=== PATIENT | male | born 1940 | race African-American/Black ===

== ENCOUNTER 2017-01-16 11:06 | Inpatient (IN) | payer MEDICARE, BC ==
[2017-01-16] VITALS (13 sets, daily range): BP systolic 123–155; BP diastolic 65–77
[~2017-01-16] VITALS: Ht 170.2 cm; Wt 83.9 kg
[~2017-01-16 11:06] MED LIST: ADVODART; AMLO5TAB2 PO; ASPI-482 PO; ASPI81TA2 PO; BENZ200C39 PO; CALC-74 PO; CEFP200T PO; DOXY100T PO; DUTA0.5C PO; FLUT1DIS3 IH; FOLI1TAB16 PO; HYDR-2869 PO; HYDR12.53 PO; HYDR12.58 PO; INSU100I17 SQ; INSU100I27 SQ; LEVO500T38 PO; LEVO750T31 PO; METF10002 PO; METH2.5T PO; METH2.5T25 PO; PANT40TA3 PO; PRED-220 PO; PRED20TA PO; PRED50TA PO; PROAIR HFA8.5 GM IH; SIMV20TA3 PO; SULF500T7 PO; VALS320T2 PO; VERA120T5 PO; VERA240C2 PO
[2017-01-16] MEDS ORDERED: 0.9 % SODIUM CHLORIDE 10 ML DISP.SYRIN. IV PRN (11:30)
[2017-01-16] MEDS ORDERED: PANTOPRAZOLE IV PUSH 40 MG VIAL. IVP ONE (11:30)
[2017-01-16] MEDS ORDERED: IV NORMAL SALINE 500ML BAG 500 ML IV ONE (11:30)
[2017-01-16] MEDS ORDERED: FENTANYL PF 100 MCG/2 ML VIAL. IV ONE (11:30)
--- NOTE | 2017-01-16 11:36 | PHYS DOC ---
Past Medical History Past Medical History: CAD, Cancer, COPD, Diabetes-Type II, Hypertension, Renal Disease, Other Additional Past Medical Histor: COLON CANCER Past Surgical History: Cancer Surgery, Other Additional Past Surgical Histo: Heart cath, hernia repair,COLON RESECTION Alcohol Use: None Drug Use: None Adult General Chief Complaint Chief Complaint: BLOODY STOOL [facility] HPI Patient is a 76 year old male who presents emergency Department with a complaint of lower abdominal/rectal cramping and 4-5 bloody bowel movements that began at 2:00 this morning. Patient states that he was having problems with constipation over the past 2 days. He states he was able to have one bowel movement day before yesterday and was otherwise normal in appearance. He states that he took a laxative at 11 PM last night. He states that he woke at 2:00 this morning and had his first bowel movement. He states that he felt pressure to have a bowel movement. He states when he looked in the toilet it was bright red blood along with normal- appearing stool. He states he's had 4-5 subsequent bloody bowel movement since that period of time with ongoing lower abdominal cramping and pelvic fullness prior to having a bowel movement. Patient denies previous history of gastrointestinal bleeding. He is not taking anticoagulants. Patient does have a remote history of colon cancer which she had a bowel resection performed without a colostomy. He states it had no problems since that period of time. He denies any history of bowel obstructions. Last by mouth intake was last night. Last bowel movement was just prior to arrival. Patient also has a history of hypertension, hypercholesterolemia, type 2 diabetes and COPD. patient denies chest pain, palpitations, exertional dyspnea, orthopnea or PND. Patient denies near-syncope or syncopal episodes. He does report some generalized weakness and been ongoing for the past 2-3 days prior to the events of this morning. Review of Systems Review of Systems Constitutional: Denies fever or chills [] Eyes: Denies change in visual acuity, redness, or eye pain [] HENT: Denies nasal congestion or sore throat [] Respiratory: Denies cough or shortness of breath [] Cardiovascular: No additional information not addressed in HPI [] GI: Denies abdominal pain, nausea, vomiting, bloody stools or diarrhea [] : Denies dysuria or hematuria [] Musculoskeletal: Denies back pain or joint pain [] Integument: Denies rash or skin lesions [] Neurologic: Denies headache, focal weakness or sensory changes [] Endocrine: Denies polyuria or polydipsia [] Current Medications Current Medications Current Medications Medications (Trade) Dose Ordered Sig/Lindsay Start Time Stop Time Status Last Admin Dose Admin Fentanyl Citrate (Fentanyl 2ml Vial) 50 mcg 1X ONCE 01/16/17 11:30 01/16/17 11:34 DC Pantoprazole Sodium (Protonix Vial) 40 mg 1X ONCE 01/16/17 11:30 01/16/17 11:33 DC 01/16/17 11:52 40 MG Sodium Chloride (Iv Sodium Chloride 0.9% 500ml Bag) 500 ml @ 500 mls/hr 1X ONCE 01/16/17 11:30 01/16/17 12:29 01/16/17 11:50 500 MLS/HR Sodium Chloride 10 ml 10 ml QSHIFT PRN 01/16/17 11:30 Allergies Allergies Allergies Coded Allergies Type Severity Reaction Last Updated Verified No Known Drug Allergies 04/14/15 No Physical Exam Physical Exam Constitutional: Well developed, well nourished, mild distress, non-toxic appearance. Patient reports he feels as if he needs to have a bowel movement at the time of history and physical exam. HENT: Normocephalic, atraumatic, bilateral external ears normal, oropharynx moist, no oral exudates, nose normal. [] Eyes: PERRLA, EOMI, conjunctiva normal, no discharge. [] Neck: Normal range of motion, no tenderness, supple, no stridor. [] Cardiovascular:Heart rate 80 regular rhythm, no murmur Lungs & Thorax: Patient is oxygen dependent. He shows no evidence of respiratory distress respiratory fatigue. Scant amount of end expiratory wheezing in all lung white. Abdomen: Abdomen is soft and nondistended. There are hyperactive bowel sounds heard throughout the abdomen. There is no palpable defects of the abdominal wall or pulsatile masses. There is focal tenderness in the midline of the lower abdomen and slightly to the left lower quadrant region. There is no rebound or guarding. There are no anal fissures or hemorrhoids. Skin: Warm, dry, no erythema, no rash. [] Back: No tenderness, no CVA tenderness. [] Extremities: No tenderness, no cyanosis, no clubbing, ROM intact, no edema. [] Neurologic: Alert and oriented X 3, normal motor function, normal sensory function, no focal deficits noted. [] Psychologic: Affect normal, judgement normal, mood normal. After physical exam was completed, patient went to the restroom in which he produced a large amount of bright red blood into the toilet. No stool was seen. Current Patient Data Vital Signs Vital Signs Date Time Temp Pulse Resp B/P Pulse Ox O2 Delivery O2 Flow Rate FiO2 01/16/17 11:10 98.0 90 22 160/81 100 Nasal Cannula 3 98.0 EKG EKG [] Radiology/Procedures Radiology/Procedures [] Course & Med Decision Making Course & Med Decision Making Pertinent Labs and Imaging studies reviewed. (See chart for details) [] Dragon Disclaimer Dragon Disclaimer This electronic medical record was generated, in whole or in part, using a voice recognition dictation system. Departure Departure Impression: Primary Impression: GI bleed Referrals: KULDIP GRANADOS (PCP) ETTA MILLS Jan 16, 2017 11:36
[2017-01-16 12:04] LABS: BASO # 0.1 x10^3/uL (0.0-0.2); BASO % 1 % (0-3); EOS % 4 % (0-3); HEMATOCRIT 29.8 % (39.0-53.0); HEMOGLOBIN 9.4 g/dL (13.0-17.5); LYMPH # 2.1 x10^3/uL (1.0-4.8); LYMPH % 22 % (24-48); MEAN CORPUSCULAR HEMOGLOBIN 23 pg (25-35); MEAN CORPUSCULAR HGB CONC 32 g/dL (31-37); MEAN CORPUSCULAR VOLUME 71 fL (79-100); MONO % 12 % (0-9); NEUT % 62 % (31-73); PLATELET COUNT 254 x10^3/uL (140-400); RED BLOOD COUNT 4.17 x10^6/uL (4.30-5.70); RED CELL DISTRIBUTION WIDTH 21.5 % (11.5-14.5); WHITE BLOOD COUNT 9.3 x10^3/uL (4.0-11.0)
[2017-01-16 12:05] LABS: CALCIUM 9.2 mg/dL (8.5-10.1); CREATININE 1.8 mg/dL (0.7-1.3); GFR 44.5; POTASSIUM 4.5 mmol/L (3.5-5.1)
[2017-01-16 12:08] LABS: INR 1.1 (0.8-1.1); PROTHROMBIN TIME PATIENT 13.9 SEC (11.7-14.0)
[2017-01-16 12:12] LABS: ALBUMIN/GLOBULIN RATIO 0.8 (1.0-1.7); TOTAL BILIRUBIN 0.5 mg/dL (0.2-1.0)
[2017-01-16] MEDS ORDERED: IV NORMAL SALINE 1000ML BAG 1,000 ML IV SCH (12:15)
[2017-01-16] MEDS ORDERED: IOHEXOL 300 MG/ML 75 ML VIAL IV ONE (12:15)
[2017-01-16] MEDS ORDERED: ONDANSETRON PF 4 MG/2 ML VIAL. IV PRN ×2 (12:15→12:30)
[2017-01-16] MEDS ORDERED: NON FORMULARY ITEM (Albuterol Sulfate (Proair Hfa Inhaler) 2 PUFF) IH SCH (12:15)
[2017-01-16] MEDS ORDERED: MORPHINE SULFATE 2 MG/ML DISP.SYRIN. IV PRN ×2 (12:15→12:30)
[2017-01-16] MEDS ORDERED: ACETAMINOPHEN 325 MG TABLET. PO PRN (12:15)
--- NOTE | 2017-01-16 12:24 | ACF ---
Admission Forms Criteria GASTROINTESTINAL BLEEDING Clinical Indications for Inpatient Care (Place 'X' for any and all applicable criteria): Ongoing inpatient care may be indicated for gastrointestinal bleeding with ANY ONE of the following (4)(20)(21)(22)(23)(24): [X]I. Active bleeding (eg, fresh voluminous blood in emesis or nasogastric aspirate, or per rectum) [ ]II. Hemodynamic instability [ ]III. Anticoagulation therapy or coagulopathy ((eg, advanced liver disease, irreversible anticoagulation) [ ]IV. Ischemic colitis (22) [ ]V. Endoscopy showing arterial bleeding, adherent clot, nonbleeding visible vessel, varices, flat red spots, ulcer size greater than 2 cm, or portal hypertensive gastropathy [ ]. High-risk low platelet count [ ]VII. Anemia requiring inpatient care as indicated by ANY ONE of the following a)[ ] Cognitive impairment b)[ ] Syncope c)[ ] Heart failure d)[ ] Chest pain e)[ ] Dyspnea f)[ ] Other findings suggesting inadequate perfusion (eg, peripheral or myocardial ischemia, end organ dysfunction) [ ]VIII. High-risk low platelet count [ ]IX. Suspected variceal cause of bleeding as indicated by ANY ONE of the following(27)(28): a)[ ] Known varices b)[ ] Hepatomegaly or splenomegaly c)[ ] Ascites d)[ ] Jaundice or scleral icterus e)[ ] History of liver disease (eg, cirrhosis) f)[ ] Physical findings of portal hypertension (eg, caput medusa) g)[ ] Comorbid disorder indicating risk for portal vein thrombosis (eg , abdominal surgery, sepsis, shock, exchange transfusion, prior umbilical vein catheterization) Extended stay may be needed until ALL of the following are present(20)(38)(47): [ ]a) Hemodynamic stability [ ]b) No evidence of active bleeding (eg, stable Hematocrit) [ ]c) Platelet count, prothrombin time, and partial thromboplastin time acceptable for next level of care [ ]d) Surgical or other acute intervention not needed [ ]e) Oral hydration and diet tolerated The original [employer] content created by [employer] has been revised. The portions of the content which have been revised are identified through the use of italic text or in bold, and [employer] has neither reviewed nor approved the modified material. All other unmodified content is copyright [facility]. Please see references footnoted in the original [facility] edition 2016 Admission Criteria Met?: Yes ANSELMO PHAN Jan 16, 2017 12:24
[2017-01-16] MEDS ORDERED: CONTRAST GIVEN MC PRN (12:30)
--- NOTE | 2017-01-16 12:30 | PDOC1 ---
History and Physical Date of Admission Date of Admission DATE: 01/16/17 TIME: 12:23 Identification/Chief Complaint Chief Complaint bloody BM Source Source: Caregiver, Chart review, Patient History of Present Illness History of Present Illness 76 y./o AA male started to have Bloody BM 2-3 AM this AM,. never happened before ,. On ASA 81 at home, nothing else, denies constant NSAID use, no melena, no hematochezia. BRBPR on CAMILLE, VS ok so far, Labs pending, SOme dizziness which he claims is chronic for him., Hx of colon CA, (Yane Lobo)? sounds limited, had colon resection many yrs ago (no colostomy), did not need any chemo or radiation, SO has had multiple c scopes in past, last one unrecalled how long ago. CLaims cancer free now, By hx sounds like CLeeding diverticulosus/itis given lack of signif pain and is BRBPR. CT abd ordered but pending. Past Medical History Cardiovascular: CAD, HTN Pulmonary: COPD, Pneumonia, Other CENTRAL NERVOUS SYSTEM: Other GI: No pertinent hx Heme/Onc: Cancer Hepatobiliary: No pertinent hx Psych: No pertinent hx Musculoskeletal: Osteoarthritis Rheumatologic: Rheumatoid arthritis Infectious disease: Herpes zoster Renal/: Chronic renal insuff, UTI, Benign prostatic enlarg. Endocrine: Diabetes Past Surgical History Past Surgical History: Hernia Repair, Colon Resection Family History Family History: No Significant Social History Smoke: No ALCOHOL: none Drugs: None Current Problem List Problem List Problems Medical Problems: (1) GI bleed Status: Acute Problems: Current Medications Current Medications Current Medications Sodium Chloride 10 ml 10 ml QSHIFT PRN IV AFTER MEDS AND BLOOD DRAWS; Start 08/25 at 11:30 Sodium Chloride (Iv Sodium Chloride 0.9% 500ml Bag) 500 ml @ 500 mls/hr 1X ONCE IV Last administered on 01/16/17 11:50; Start 01/16/17 at 11:30; Stop 08/25 at 12:29 Pantoprazole Sodium (Protonix Vial) 40 mg 1X ONCE IVP Last administered on 11:52; Start 01/16/17 at 11:30; Stop 01/16/17 at 11:33; Status DC Fentanyl Citrate (Fentanyl 2ml Vial) 50 mcg 1X ONCE IV ; Start 01/16/17 at 11: 30; Stop 01/16/17 at 11:34; Status DC Iohexol (Omnipaque 300 Mg/ml) 60 ml 1X ONCE IV ; Start 01/16/17 at 12:15; Stop 01/16/17 at 12:18; Status DC Info (Do NOT chart on this entry -- for MONITORING) 1 each PRN DAILY PRN MC SEE COMMENTS; Start 01/16/17 at 12:30; Stop 01/18/17 at 12:29 Active Scripts Active Levemir Flextouch (Insulin Detemir) 100 Unit/1 Ml Insuln.pen 35 Units SQ HS 30 Days Doxycycline Hyclate 100 Mg Tablet 100 Mg PO BID 5 Days Proair Hfa Inhaler (Albuterol Sulfate) 8.5 Gm Hfa.aer.ad 2 Puff IH PRN Q4-6HRS Novolog Flexpen (Insulin Aspart) 300 Units/3 Ml Insuln.pen 10 Units SQ TIDAC Reported Hydralazine Hcl 50 Mg Tablet 50 Mg PO TID Verapamil Er (Verapamil Hcl) 240 Mg Cap24h.pel 360 Mg PO DAILY Sulfasalazine 500 Mg Tablet 1,000 Mg PO BID Antacid Chewable Tablet (Calcium Carbonate/Mag Hydrox) 1 Each Tab.chew 1 Each PO DAILY Advair 250-50 Diskus (Fluticasone/Salmeterol) 1 Each Disk.w.dev 1 Inh IH BID Aspir 81 (Aspirin) 81 Mg Tablet.dr 81 Mg PO DAILY Folic Acid 1 Mg Tablet 1 Mg PO DAILY Avodart (Dutasteride) 0.5 Mg Capsule 0.5 Mg PO DAILY Simvastatin 20 Mg Tablet 20 Mg PO HS Allergies Allergies: Coded Allergies: No Known Drug Allergies (Unverified , 04/14/15) ROS General: No: Appetite, Chills, Fatigue, Malaise, Night Sweats, Other PSYCHOLOGICAL ROS: No: Anxiety, Behavioral Disorder, Concentration difficultie , Decreased libido, Depression, Disorientation, Hallucinations, Hostility, Irritablity, Memory difficulties, Mood Swings, Obsessive thoughts, Other, Physical abuse, Sexual abuse, Sleep disturbances, Suicidal ideation Eyes: No Blurry vision, No Decreased vision, No Double vision, No Dry eyes, No Excessive tearing, No Eye Pain, No Itchy Eyes, No Loss of vision, No Other, No Photophobia, No Scotomata, No Uses contacts, No Uses glasses HEENT: No: Epistaxis, Heacaches, Hearing change, Nasal congestion, Nasal discharge, Oral lesions, Other, Sinus pain, Sneezing, Snoring, Sore Throat, Tinnitus, Vertigo, Visual Changes, Vocal changes ALLERGY AND IMMUNOLOGY: No: Hives, Insect Bite Sensitivity, Itchy/Watery Eyes, Nasal Congestion, Other, Post Nasal Drip, Seasonal Allergies Hematological and Lymphatic: No: Bleeding Problems, Blood Clots, Blood Transfusions, Brusing, Night Sweats, Other, Pallor, Swollen Lymph Nodes ENDOCRINE: No: Breast Changes, Galactorrhea, Hair Pattern Changes, Hot Flashes , Malaise/lethargy, Mood Swings, Other, Palpitations, Polydipsia/polyuria, Skin Changes, Temperature Intolerance, Unexpected Weight Changes Breast: No New/Changing Breast Lumps, No Nipple changes, No Nipple discharge, No Other Respiratory: No: Cough, Hemoptysis, Orthopnea, Other, Pleuritic Pain, SOB with excertion, Shortness of breath, Sputum Changes, Stridor, Tachypnea, Wheezing Cardiovascular: No Chest Pain, No Edema, No Lt Headedness, No Orthopnea, No Other, No Palpitations, No Paroxysmal Noc. Dyspnea Gastrointestinal: Yes Abdominal Pain, Yes Other (BRBPR) Genitourinary: No , No , No , No , No , No , No , No Discharge, No Dysuria, No Flank Pain, No Frequency, No Hematuria, No Incontinence, No Other, No Pain, No Retention, No Urgency Musculoskeletal: No Gait Disturbance, No Joint Pain, No Joint Stiffness, No Joint Swelling, No Muscle Pain, No Muscular Weakness, No Other, No Pain In:, No Swelling In: Neurological: No Behavorial Changes, No Bowel/Bladder ControlChng, No Confusion , No Dizziness, No Gait Disturbance, No Headaches, No Impaired Coord/balance, No Memory Loss, No Numbness/Tingling, No Other, No Seizures, No Speech Problems , No Tremors, No Visual Changes, No Weakness Skin: No Acne, No Dry Skin, No Eczema, No Hair Changes, No Lumps, No Mole Changes, No Mottling, No Nail Changes, No Other, No Pruritus, No Rash, No Skin Lesion Changes Physical Exam General: Alert, Oriented X3, Cooperative, No acute distress HEENT: Atraumatic, PERRLA, EOMI Lungs: Clear to auscultation, Normal air movement Heart: S1S2, RRR, no thrills, no rubs, no gallops Cardiovascular: S1, S2 Breasts: Normal Abdomen: Normal bowel sounds, Soft, No tenderness, No hepatosplenomegaly, No masses Male Genitals Exam: normal genitalia, normal prostate, other (positive CAMILLE) Rectal Exam: other (positicve CAMILLE) Extremities: No clubbing, No cyanosis, No edema, Normal pulses, No tenderness/ swelling Skin: No rashes, No breakdown, No significant lesion Neuro: Normal gait, Normal speech, Strength at 5/5 X4 ext, Normal tone, Sensation intact, Cranial nerves 3-12 NL, Reflexes 2+ Psych/Mental Status: Mental status NL, Mood NL Vitals Vitals Vital Signs Date Time Temp Pulse Resp B/P Pulse Ox O2 Delivery O2 Flow Rate FiO2 01/16/17 11:10 98.0 90 22 160/81 100 Nasal Cannula 3 98.0 Labs Labs Laboratory Tests Test 01/16/17 11:40 White Blood Count 9.3x10^3/uL (4.0-11.0) Red Blood Count 4.17x10^6/uL (4.30-5.70) Hemoglobin 9.4g/dL (13.0-17.5) Hematocrit 29.8% (39.0-53.0) Mean Corpuscular Volume 71fL (79-100) Mean Corpuscular Hemoglobin 23pg (25-35) Mean Corpuscular Hemoglobin Concent 32g/dL (31-37) Red Cell Distribution Width 21.5% (11.5-14.5) Platelet Count 254x10^3/uL (140-400) Neutrophils (%) (Auto) 62% (31-73) Lymphocytes (%) (Auto) 22% (24-48) Monocytes (%) (Auto) 12% (0-9) Eosinophils (%) (Auto) 4% (0-3) Basophils (%) (Auto) 1% (0-3) Neutrophils # (Auto) 5.7x10^3uL (1.8-7.7) Lymphocytes # (Auto) 2.1x10^3/uL (1.0-4.8) Monocytes # (Auto) 1.1x10^3/uL (0.0-1.1) Eosinophils # (Auto) 0.4x10^3/uL (0.0-0.7) Basophils # (Auto) 0.1x10^3/uL (0.0-0.2) Prothrombin Time 13.9SEC (11.7-14.0) Prothromb Time International Ratio 1.1 (0.8-1.1) Sodium Level 143mmol/L (136-145) Potassium Level 4.5mmol/L (3.5-5.1) Chloride Level 107mmol/L (98-107) Carbon Dioxide Level 26mmol/L (21-32) Anion Gap 10 (6-14) Blood Urea Nitrogen 29mg/dL (8-26) Creatinine 1.8mg/dL (0.7-1.3) Estimated GFR (Cockcroft-Gault) 44.5 BUN/Creatinine Ratio 16 (6-20) Glucose Level 77mg/dL (70-99) Calcium Level 9.2mg/dL (8.5-10.1) Total Bilirubin 0.5mg/dL (0.2-1.0) Aspartate Amino Transf (AST/SGOT) 15U/L (15-37) Alanine Aminotransferase (ALT/SGPT) 11U/L (16-63) Alkaline Phosphatase 80U/L (46-116) Total Protein 7.0g/dL (6.4-8.2) Albumin 3.0g/dL (3.4-5.0) Albumin/Globulin Ratio 0.8 (1.0-1.7) Laboratory Tests Test 01/16/17 11:40 White Blood Count 9.3x10^3/uL (4.0-11.0) Red Blood Count 4.17x10^6/uL (4.30-5.70) Hemoglobin 9.4g/dL (13.0-17.5) Hematocrit 29.8% (39.0-53.0) Mean Corpuscular Volume 71fL (79-100) Mean Corpuscular Hemoglobin 23pg (25-35) Mean Corpuscular Hemoglobin Concent 32g/dL (31-37) Red Cell Distribution Width 21.5% (11.5-14.5) Platelet Count 254x10^3/uL (140-400) Neutrophils (%) (Auto) 62% (31-73) Lymphocytes (%) (Auto) 22% (24-48) Monocytes (%) (Auto) 12% (0-9) Eosinophils (%) (Auto) 4% (0-3) Basophils (%) (Auto) 1% (0-3) Neutrophils # (Auto) 5.7x10^3uL (1.8-7.7) Lymphocytes # (Auto) 2.1x10^3/uL (1.0-4.8) Monocytes # (Auto) 1.1x10^3/uL (0.0-1.1) Eosinophils # (Auto) 0.4x10^3/uL (0.0-0.7) Basophils # (Auto) 0.1x10^3/uL (0.0-0.2) Prothrombin Time 13.9SEC (11.7-14.0) Prothromb Time International Ratio 1.1 (0.8-1.1) Sodium Level 143mmol/L (136-145) Potassium Level 4.5mmol/L (3.5-5.1) Chloride Level 107mmol/L (98-107) Carbon Dioxide Level 26mmol/L (21-32) Anion Gap 10 (6-14) Blood Urea Nitrogen 29mg/dL (8-26) Creatinine 1.8mg/dL (0.7-1.3) Estimated GFR (Cockcroft-Gault) 44.5 BUN/Creatinine Ratio 16 (6-20) Glucose Level 77mg/dL (70-99) Calcium Level 9.2mg/dL (8.5-10.1) Total Bilirubin 0.5mg/dL (0.2-1.0) Aspartate Amino Transf (AST/SGOT) 15U/L (15-37) Alanine Aminotransferase (ALT/SGPT) 11U/L (16-63) Alkaline Phosphatase 80U/L (46-116) Total Protein 7.0g/dL (6.4-8.2) Albumin 3.0g/dL (3.4-5.0) Albumin/Globulin Ratio 0.8 (1.0-1.7) VTE Prophylaxis Ordered VTE Prophylaxis Devices: Contraindicated VTE Pharmacological Prophylaxi: Contraindicated Assessment/Plan Assessment/Plan 1. BRBPR likely DIVERTICULAR BLEED - waiting for CBC., coags and CT abd - liquid diet - IVF - consult GI - PPI - Hold ASA 2. Hx colon CA (limited.early stage s/p colon resection distant past) 3. DM 2 on insulin - moniotr for hypoglycemia since liq diet and on isnsulin - adjust accdgly 4. HTN, controlled - WOF hypotension seen AT ER Admit 2 MN Med tele If rebleeds profusely, bleeding scan ELOISA KING MD Jan 16, 2017 12:30
--- NOTE | 2017-01-16 12:46 | RAD ---
EXAM: CT abdomen/pelvis with contrast. HISTORY: Abdominal pain. Rectal bleeding. TECHNIQUE: Computed tomography of the abdomen and pelvis was performed after the intravenous administration of 60 mL Omnipaque 300. COMPARISON: 10/30/2015. FINDINGS: Lung windows through the visualized portions of the bases reveal subpleural predominant interstitial line thickening with mild traction bronchiectasis, consistent with interstitial lung disease. Coronary atherosclerotic calcifications are noted. Bone windows reveal no suspicious lesions. There is grade 1 anterolisthesis at L4-5 from facet osteoarthritis. There are multiple cysts bilaterally in the kidneys measuring up to 4 cm on the left. A complicated cyst posteriorly in the right interpolar region measures 2.3 cm and contains small internal calcifications versus tiny foci of enhancement. It is not clearly changed since 2014 and likely benign. Another small dense nodule posteriorly in the lower pole measures 1 cm and is also unchanged. The liver, gallbladder, pancreas and spleen are unremarkable. There are no pathologically enlarged lymph nodes. Impression wall thickening along the distal rectum. There is an anastomotic suture line at the rectosigmoid junction. There is also wall thickening along the descending colon. Another suture line is seen at the cecum. There is no small bowel obstruction. No small bowel wall thickening is seen.. IMPRESSION: 1. Wall thickening of the descending colon and rectum. This is likely inflammatory given the segmental distribution. Infectious, inflammatory and ischemic etiologies are possible. Colonoscopy could further evaluate if there is persistent concern. 2. Nodules posteriorly along the right kidney are stable since 10/30/2015 and are most likely complicated cysts. Sonography could further exclude solid lesions if there is persistent concern. 3. Interstitial lung disease in the bases. *One or more of the following individualized dose reduction techniques were utilized for this examination: 1. Automated exposure control. 2. Adjustment of the mA and/or kV according to patient size. 3. Use of iterative reconstruction technique.
[2017-01-16 12:55] LABS: BILIRUBIN,URINE NEGATIVE (NEG); GLUCOSE,URINE NEGATIVE (NEG); NITRITE,URINE NEGATIVE (NEG); PROTEIN,URINE 30 mg/dL (NEG-TRACE)
[2017-01-16] MEDS: ALBUTEROL SULFATE 2.5 MG/3 ML NEBU. NEB SCH ×3 (13:00→23:32)
[2017-01-16] MEDS: PANTOPRAZOLE IV PUSH 40 MG VIAL. IVP SCH (13:00)
[2017-01-16 13:01] LABS: BACTERIA,URINE FEW /HPF (0-FEW); SQUAMOUS EPITHELIAL CELL,UR FEW /LPF
[2017-01-16] MEDS: CALCIUM CARBONATE 500 MG TAB.CHEW PO SCH (13:15)
[2017-01-16] MEDS ORDERED: ALBUTEROL SULFATE 2.5 MG/3 ML NEBU. NEB PRN (13:15)
[2017-01-16] MEDS: HYDRALAZINE 50 MG TABLET PO SCH ×2 (14:00→20:57)
--- NOTE | 2017-01-16 14:43 | PDOC2 ---
GI CONSULT Reason For Consult: Hematochezia HPI: HPI: 76 y/o AA male admitted through ER this afternoon. Previously d/w Dr. Wilcox, ER physician. H/o constipation, has been taking Miralax for this. Awoke at 1:00 a.m. w/ urge to stool, noted red blood. This recurred 4-5 times in increasing amounts at home prompting further evaluation in ER and has continued w/ 3 episodes here. ( Noted significant bright red blood w/ some formed stool in commode.) Denies abdominal pain but perhaps has some discomfort (although cannot localize this). No n/v. Some dizziness. H/o COPD w/ stable SOA. H/o colon cancer requiring resection only in the . Has since had a few colonoscopies by Dr. Yane Roca, last within 10 years. Denies diverticulosis or previous episodes of bleeding. H/o GERD on Nexium at one point, now only requiring Tums PRN. Was taking Aleve PRN but stopped ~1 month ago. Does take ASA 81mg QD. Hgb 9.4 w/ low indices. BUN 29, Cr 1.8. CT w/ wall thickening in descending colon and rectum. PMH: PMH: colon cancer, GERD, HTN, DM, COPD, CKD, TAMMY (stopped CPAP 1 month ago), RA ( stopped sulfasalazine 2 months ago), BPH, herpes zoster, diabetic retinopathy, colon resection ( by Dr. Meraz), bilateral inguinal hernia repair, nasal surgery (removal of benign mass) FH: Family History: Other (father - pancreatitis) Social History: Smoke: Quit ALCOHOL: none Drugs: None ROS: GEN: Denies fevers, chills, sweats HEENT: Denies blurred vision, sore throat CV: Denies chest pain RESP: +SOA (says baseline) GI: Per HPI : Denies hematuria, dysuria ENDO: Denies weight changes NEURO: +dizziness MSK: Denies weakness, joint pain/swelling SKIN: Denies jaundice, pruritus VItals: Vitals: Vital Signs Date Time Temp Pulse Resp B/P Pulse Ox O2 Delivery O2 Flow Rate FiO2 01/16/17 13:44 Nasal Cannula 3.0 01/16/17 13:43 97.9 89 18 138/74 97 97.9 Labs: Labs: Laboratory Tests Test 01/16/17 11:40 01/16/17 12:45 White Blood Count 9.3x10^3/uL (4.0-11.0) Red Blood Count 4.17x10^6/uL (4.30-5.70) Hemoglobin 9.4g/dL (13.0-17.5) Hematocrit 29.8% (39.0-53.0) Mean Corpuscular Volume 71fL (79-100) Mean Corpuscular Hemoglobin 23pg (25-35) Mean Corpuscular Hemoglobin Concent 32g/dL (31-37) Red Cell Distribution Width 21.5% (11.5-14.5) Platelet Count 254x10^3/uL (140-400) Neutrophils (%) (Auto) 62% (31-73) Lymphocytes (%) (Auto) 22% (24-48) Monocytes (%) (Auto) 12% (0-9) Eosinophils (%) (Auto) 4% (0-3) Basophils (%) (Auto) 1% (0-3) Neutrophils # (Auto) 5.7x10^3uL (1.8-7.7) Lymphocytes # (Auto) 2.1x10^3/uL (1.0-4.8) Monocytes # (Auto) 1.1x10^3/uL (0.0-1.1) Eosinophils # (Auto) 0.4x10^3/uL (0.0-0.7) Basophils # (Auto) 0.1x10^3/uL (0.0-0.2) Prothrombin Time 13.9SEC (11.7-14.0) Prothromb Time International Ratio 1.1 (0.8-1.1) Sodium Level 143mmol/L (136-145) Potassium Level 4.5mmol/L (3.5-5.1) Chloride Level 107mmol/L (98-107) Carbon Dioxide Level 26mmol/L (21-32) Anion Gap 10 (6-14) Blood Urea Nitrogen 29mg/dL (8-26) Creatinine 1.8mg/dL (0.7-1.3) Estimated GFR (Cockcroft-Gault) 44.5 BUN/Creatinine Ratio 16 (6-20) Glucose Level 77mg/dL (70-99) Calcium Level 9.2mg/dL (8.5-10.1) Total Bilirubin 0.5mg/dL (0.2-1.0) Aspartate Amino Transf (AST/SGOT) 15U/L (15-37) Alanine Aminotransferase (ALT/SGPT) 11U/L (16-63) Alkaline Phosphatase 80U/L (46-116) Total Protein 7.0g/dL (6.4-8.2) Albumin 3.0g/dL (3.4-5.0) Albumin/Globulin Ratio 0.8 (1.0-1.7) Urine Collection Type Unknown Urine Color Yellow Urine Clarity Clear Urine pH 5.0 Urine Specific [place] 1.020 Urine Protein 30mg/dL (NEG-TRACE) Urine Glucose (UA) Negativemg/dL (NEG) Urine Ketones (Stick) Negativemg/dL (NEG) Urine Blood Negative (NEG) Urine Nitrite Negative (NEG) Urine Bilirubin Negative (NEG) Urine Urobilinogen Dipstick 1.0mg/dL (0.2 mg/dL) Urine Leukocyte Esterase Negative (NEG) Urine RBC 1-2/HPF (0-2) Urine WBC 1-4/HPF (0-4) Urine Squamous Epithelial Cells Few/LPF Urine Renal Epithelial Cells Occ/LPF Urine Bacteria Few/HPF (0-FEW) Urine Hyaline Casts Few/HPF Urine Mucus Mod/LPF Allergies: Coded Allergies: No Known Drug Allergies (Unverified , 04/14/15) Medications: Current Medications Medications (Trade) Dose Ordered Sig/Lindsay Route PRN Reason Start Time Stop Time Status Last Admin Dose Admin Sodium Chloride (Iv Sodium Chloride 0.9% 500ml Bag) 500 ml @ 500 mls/hr 1X ONCE IV 01/16/17 11:30 01/16/17 12:29 DC 01/16/17 11:50 Pantoprazole Sodium (Protonix Vial) 40 mg 1X ONCE IVP 01/16/17 11:30 01/16/17 11:33 DC 01/16/17 11:52 Iohexol (Omnipaque 300 Mg/ml) 60 ml 1X ONCE IV 01/16/17 12:15 01/16/17 12:18 DC 01/16/17 12:23 Imaging: Imaging: CT A/P IMPRESSION: 1. Wall thickening of the descending colon and rectum. This is likely inflammatory given the segmental distribution. Infectious, inflammatory and ischemic etiologies are possible. Colonoscopy could further evaluate if there is persistent concern. 2. Nodules posteriorly along the right kidney are stable since 10/30/2015 and are most likely complicated cysts. Sonography could further exclude solid lesions if there is persistent concern. 3. Interstitial lung disease in the bases. PE: GEN: NAD HEENT: Atraumatic, PERRL LUNGS: decreased w/ nasal cannula, ?tachypneic HEART: RRR ABD: BS+, S/ND/NT EXTREMITY: No edema SKIN: No rashes, no jaundice NEURO/PSYCH: A & O 3 A/P: A/P: Hematochezia -was taking Miralax for constipation -onset 1:00 a.m. this morning, continued w/ increased severity throughout the day -some abd discomfort, perhaps dizziness -labs as above H/o colon cancer s/p resection Abnormal CT -wall thickening descending and rectum -- Possible bleeding scan. Will review w/ Dr. Hernandez. Keep NPO for now. KITTY GOMEZ Jan 16, 2017 14:43
[2017-01-16 15:05] LABS: PLT ESTIMATE ADEQUATE (ADEQUATE)
[2017-01-16 15:07] LABS: ANISOCYTOSIS MOD; HYPOCHROMIA MOD; MICROCYTOSIS MOD; POIKILOCYTOSIS MOD; POLYCHROMASIA SLIGHT
[2017-01-16 15:12] LABS: OVALOCYTES OCC; TEAR DROP CELLS OCC
[2017-01-16 15:17] LABS: HELMET CELLS FEW; SCHISTOCYTES FEW
[2017-01-16] MEDS: INSULIN ASPART 300 UNITS/3 ML INSULN.PEN SQ SCH ×2 (16:11)
[2017-01-16 18:09] LABS: HEMATOCRIT 24.1 % (39.0-53.0); HEMOGLOBIN 7.6 g/dL (13.0-17.5); RED BLOOD COUNT 3.29 x10^6/uL (4.30-5.70); RED CELL DISTRIBUTION WIDTH 21.1 % (11.5-14.5); WHITE BLOOD COUNT 8.7 x10^3/uL (4.0-11.0)
[2017-01-16] MEDS: BUDESONIDE 0.5 MG/2 ML NEBU NEB SCH (19:38)
--- NOTE | 2017-01-16 19:45 | RAD ---
INDICATION: Hematochezia, possible diverticular bleed, bright red rectal bleed. TECHNIQUE: 31.0 mCi of Tc99m labeled red blood cells administered intravenously with anterior static and cine images of the abdomen provided over an hour. COMPARISON: None FINDINGS: No abnormal accumulation or propagation of radiotracer is seen within the abdomen on the initial static images. On the cine and more delayed static images, there is accumulation of radiotracer demonstrated over the region of the rectum, without propagation seen. Normal activity is seen within the vascular pool. IMPRESSION: Accumulation of radiotracer over the region of the rectum, suggesting a bleed at this level. Electronically signed by: Laura Nye (Jan 16, 2017 19:44:24)
--- NOTE | 2017-01-16 20:48 | PDOC ---
SURGICAL PROGRESS NOTE Subjective 76 yo M with syncopal episode and rectal bleeding currently feels better, stable in the ICU abd soft, ND, NTTP I/R colitis cont supportive care no surgical plans will follow Thanks for consult! [id number] Vital Signs Vital Signs Date Time Temp Pulse Resp B/P Pulse Ox O2 Delivery O2 Flow Rate FiO2 01/16/17 20:00 78 13 142/66 100 Nasal Cannula 3.0 01/16/17 19:42 98.4 98.4 Labs Laboratory Tests Test 01/16/17 11:40 01/16/17 12:45 01/16/17 18:05 White Blood Count 9.3x10^3/uL (4.0-11.0) 8.7x10^3/uL (4.0-11.0) Red Blood Count 4.17x10^6/uL (4.30-5.70) 3.29x10^6/uL (4.30-5.70) Hemoglobin 9.4g/dL (13.0-17.5) 7.6g/dL (13.0-17.5) Hematocrit 29.8% (39.0-53.0) 24.1% (39.0-53.0) Mean Corpuscular Volume 71fL (79-100) 73fL (79-100) Mean Corpuscular Hemoglobin 23pg (25-35) 23pg (25-35) Mean Corpuscular Hemoglobin Concent 32g/dL (31-37) 32g/dL (31-37) Red Cell Distribution Width 21.5% (11.5-14.5) 21.1% (11.5-14.5) Platelet Count 254x10^3/uL (140-400) 188x10^3/uL (140-400) Neutrophils (%) (Auto) 62% (31-73) Lymphocytes (%) (Auto) 22% (24-48) Monocytes (%) (Auto) 12% (0-9) Eosinophils (%) (Auto) 4% (0-3) Basophils (%) (Auto) 1% (0-3) Neutrophils # (Auto) 5.7x10^3uL (1.8-7.7) Lymphocytes # (Auto) 2.1x10^3/uL (1.0-4.8) Monocytes # (Auto) 1.1x10^3/uL (0.0-1.1) Eosinophils # (Auto) 0.4x10^3/uL (0.0-0.7) Basophils # (Auto) 0.1x10^3/uL (0.0-0.2) Platelet Estimate Adequate (ADEQUATE) Giant Platelets Occ Polychromasia Slight Hypochromasia Mod Poikilocytosis Mod Anisocytosis Mod Microcytosis Mod Macrocytosis Slight Tear Drop Cells Occ Ovalocytes Occ Helmet Cells Few Schistocytes Few Prothrombin Time 13.9SEC (11.7-14.0) Prothromb Time International Ratio 1.1 (0.8-1.1) Sodium Level 143mmol/L (136-145) Potassium Level 4.5mmol/L (3.5-5.1) Chloride Level 107mmol/L (98-107) Carbon Dioxide Level 26mmol/L (21-32) Anion Gap 10 (6-14) Blood Urea Nitrogen 29mg/dL (8-26) Creatinine 1.8mg/dL (0.7-1.3) Estimated GFR (Cockcroft-Gault) 44.5 BUN/Creatinine Ratio 16 (6-20) Glucose Level 77mg/dL (70-99) Calcium Level 9.2mg/dL (8.5-10.1) Total Bilirubin 0.5mg/dL (0.2-1.0) Aspartate Amino Transf (AST/SGOT) 15U/L (15-37) Alanine Aminotransferase (ALT/SGPT) 11U/L (16-63) Alkaline Phosphatase 80U/L (46-116) Total Protein 7.0g/dL (6.4-8.2) Albumin 3.0g/dL (3.4-5.0) Albumin/Globulin Ratio 0.8 (1.0-1.7) Urine Collection Type Unknown Urine Color Yellow Urine Clarity Clear Urine pH 5.0 Urine Specific [place] 1.020 Urine Protein 30mg/dL (NEG-TRACE) Urine Glucose (UA) Negativemg/dL (NEG) Urine Ketones (Stick) Negativemg/dL (NEG) Urine Blood Negative (NEG) Urine Nitrite Negative (NEG) Urine Bilirubin Negative (NEG) Urine Urobilinogen Dipstick 1.0mg/dL (0.2 mg/dL) Urine Leukocyte Esterase Negative (NEG) Urine RBC 1-2/HPF (0-2) Urine WBC 1-4/HPF (0-4) Urine Squamous Epithelial Cells Few/LPF Urine Renal Epithelial Cells Occ/LPF Urine Bacteria Few/HPF (0-FEW) Urine Hyaline Casts Few/HPF Urine Mucus Mod/LPF Laboratory Tests Test 01/16/17 11:40 01/16/17 12:45 01/16/17 18:05 White Blood Count 9.3x10^3/uL (4.0-11.0) 8.7x10^3/uL (4.0-11.0) Red Blood Count 4.17x10^6/uL (4.30-5.70) 3.29x10^6/uL (4.30-5.70) Hemoglobin 9.4g/dL (13.0-17.5) 7.6g/dL (13.0-17.5) Hematocrit 29.8% (39.0-53.0) 24.1% (39.0-53.0) Mean Corpuscular Volume 71fL (79-100) 73fL (79-100) Mean Corpuscular Hemoglobin 23pg (25-35) 23pg (25-35) Mean Corpuscular Hemoglobin Concent 32g/dL (31-37) 32g/dL (31-37) Red Cell Distribution Width 21.5% (11.5-14.5) 21.1% (11.5-14.5) Platelet Count 254x10^3/uL (140-400) 188x10^3/uL (140-400) Neutrophils (%) (Auto) 62% (31-73) Lymphocytes (%) (Auto) 22% (24-48) Monocytes (%) (Auto) 12% (0-9) Eosinophils (%) (Auto) 4% (0-3) Basophils (%) (Auto) 1% (0-3) Neutrophils # (Auto) 5.7x10^3uL (1.8-7.7) Lymphocytes # (Auto) 2.1x10^3/uL (1.0-4.8) Monocytes # (Auto) 1.1x10^3/uL (0.0-1.1) Eosinophils # (Auto) 0.4x10^3/uL (0.0-0.7) Basophils # (Auto) 0.1x10^3/uL (0.0-0.2) Platelet Estimate Adequate (ADEQUATE) Giant Platelets Occ Polychromasia Slight Hypochromasia Mod Poikilocytosis Mod Anisocytosis Mod Microcytosis Mod Macrocytosis Slight Tear Drop Cells Occ Ovalocytes Occ Helmet Cells Few Schistocytes Few Prothrombin Time 13.9SEC (11.7-14.0) Prothromb Time International Ratio 1.1 (0.8-1.1) Sodium Level 143mmol/L (136-145) Potassium Level 4.5mmol/L (3.5-5.1) Chloride Level 107mmol/L (98-107) Carbon Dioxide Level 26mmol/L (21-32) Anion Gap 10 (6-14) Blood Urea Nitrogen 29mg/dL (8-26) Creatinine 1.8mg/dL (0.7-1.3) Estimated GFR (Cockcroft-Gault) 44.5 BUN/Creatinine Ratio 16 (6-20) Glucose Level 77mg/dL (70-99) Calcium Level 9.2mg/dL (8.5-10.1) Total Bilirubin 0.5mg/dL (0.2-1.0) Aspartate Amino Transf (AST/SGOT) 15U/L (15-37) Alanine Aminotransferase (ALT/SGPT) 11U/L (16-63) Alkaline Phosphatase 80U/L (46-116) Total Protein 7.0g/dL (6.4-8.2) Albumin 3.0g/dL (3.4-5.0) Albumin/Globulin Ratio 0.8 (1.0-1.7) Urine Collection Type Unknown Urine Color Yellow Urine Clarity Clear Urine pH 5.0 Urine Specific [place] 1.020 Urine Protein 30mg/dL (NEG-TRACE) Urine Glucose (UA) Negativemg/dL (NEG) Urine Ketones (Stick) Negativemg/dL (NEG) Urine Blood Negative (NEG) Urine Nitrite Negative (NEG) Urine Bilirubin Negative (NEG) Urine Urobilinogen Dipstick 1.0mg/dL (0.2 mg/dL) Urine Leukocyte Esterase Negative (NEG) Urine RBC 1-2/HPF (0-2) Urine WBC 1-4/HPF (0-4) Urine Squamous Epithelial Cells Few/LPF Urine Renal Epithelial Cells Occ/LPF Urine Bacteria Few/HPF (0-FEW) Urine Hyaline Casts Few/HPF Urine Mucus Mod/LPF Problem List Problems Medical Problems: (1) GI bleed Status: Acute Problems: KALA VANCE MD Jan 16, 2017 20:48
[2017-01-16] MEDS: ATORVASTATIN CALCIUM 10 MG TABLET. PO SCH (20:58)
[2017-01-16] MEDS: INSULIN DETEMIR 300 UNITS/3 ML INSULN.PEN. SQ SCH (20:58)
[2017-01-16] MEDS: SULFASALAZINE 500 MG TABLET PO SCH (20:58)
[2017-01-16] MEDS ORDERED: NON FORMULARY ITEM (Fluticasone/Salmeterol (Advair 250-50 Diskus) 1 INH) IH SCH (21:00)
[2017-01-17] VITALS (20 sets, daily range): BP systolic 100–159; BP diastolic 53–77
[2017-01-17] MEDS: IV NORMAL SALINE 1000ML BAG 1,000 ML IV SCH ×4 (05:19→23:49)
[2017-01-17 06:00] LABS: BASO # 0.1 x10^3/uL (0.0-0.2); BASO % 1 % (0-3); EOS % 3 % (0-3); HEMATOCRIT 24.3 % (39.0-53.0); HEMOGLOBIN 7.8 g/dL (13.0-17.5); LYMPH # 1.5 x10^3/uL (1.0-4.8); LYMPH % 20 % (24-48); MEAN CORPUSCULAR HEMOGLOBIN 24 pg (25-35); MEAN CORPUSCULAR HGB CONC 32 g/dL (31-37); MEAN CORPUSCULAR VOLUME 75 fL (79-100); MONO % 10 % (0-9); NEUT % 67 % (31-73); PLATELET COUNT 178 x10^3/uL (140-400); RED BLOOD COUNT 3.25 x10^6/uL (4.30-5.70); RED CELL DISTRIBUTION WIDTH 21.9 % (11.5-14.5); WHITE BLOOD COUNT 7.7 x10^3/uL (4.0-11.0)
[2017-01-17 06:10] LABS: CALCIUM 8.6 mg/dL (8.5-10.1); CREATININE 1.8 mg/dL (0.7-1.3); GFR 44.5; POTASSIUM 4.6 mmol/L (3.5-5.1)
[2017-01-17] MEDS: INSULIN ASPART 300 UNITS/3 ML INSULN.PEN SQ SCH ×6 (07:30→17:00)
[2017-01-17] MEDS: ALBUTEROL SULFATE 2.5 MG/3 ML NEBU. NEB SCH ×3 (07:47→20:18)
[2017-01-17] MEDS: BUDESONIDE 0.5 MG/2 ML NEBU NEB SCH ×2 (07:47→20:18)
--- NOTE | 2017-01-17 08:46 | PDOC ---
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 History of Present Illness History of Present Illness clear liquid, may transfer to floor, Hgb has stablized, cont to follow frequently sp 1 u PRBC Vitals Vitals Vital Signs Date Time Temp Pulse Resp B/P Pulse Ox O2 Delivery O2 Flow Rate FiO2 01/17/17 07:47 99 Nasal Cannula 3.0 01/17/17 06:00 98.5 82 15 100/72 98.5 Physical Exam General: Alert, Oriented X3, Cooperative, No acute distress Lungs: Clear, Other Abdomen: Normal bowel sounds, Soft, No tenderness, No hepatosplenomegaly, No masses Extremities: No clubbing, No cyanosis, No edema, Normal pulses, No tenderness/ swelling Skin: No rashes, No breakdown, No significant lesion Labs LABS Laboratory Tests Test 01/16/17 11:40 01/16/17 12:45 01/16/17 16:45 01/16/17 18:05 White Blood Count 9.3x10^3/uL (4.0-11.0) 8.7x10^3/uL (4.0-11.0) Red Blood Count 4.17x10^6/uL (4.30-5.70) 3.29x10^6/uL (4.30-5.70) Hemoglobin 9.4g/dL (13.0-17.5) 7.6g/dL (13.0-17.5) Hematocrit 29.8% (39.0-53.0) 24.1% (39.0-53.0) Mean Corpuscular Volume 71fL (79-100) 73fL (79-100) Mean Corpuscular Hemoglobin 23pg (25-35) 23pg (25-35) Mean Corpuscular Hemoglobin Concent 32g/dL (31-37) 32g/dL (31-37) Red Cell Distribution Width 21.5% (11.5-14.5) 21.1% (11.5-14.5) Platelet Count 254x10^3/uL (140-400) 188x10^3/uL (140-400) Neutrophils (%) (Auto) 62% (31-73) Lymphocytes (%) (Auto) 22% (24-48) Monocytes (%) (Auto) 12% (0-9) Eosinophils (%) (Auto) 4% (0-3) Basophils (%) (Auto) 1% (0-3) Neutrophils # (Auto) 5.7x10^3uL (1.8-7.7) Lymphocytes # (Auto) 2.1x10^3/uL (1.0-4.8) Monocytes # (Auto) 1.1x10^3/uL (0.0-1.1) Eosinophils # (Auto) 0.4x10^3/uL (0.0-0.7) Basophils # (Auto) 0.1x10^3/uL (0.0-0.2) Platelet Estimate Adequate (ADEQUATE) Giant Platelets Occ Polychromasia Slight Hypochromasia Mod Poikilocytosis Mod Anisocytosis Mod Microcytosis Mod Macrocytosis Slight Tear Drop Cells Occ Ovalocytes Occ Helmet Cells Few Schistocytes Few Prothrombin Time 13.9SEC (11.7-14.0) Prothromb Time International Ratio 1.1 (0.8-1.1) Sodium Level 143mmol/L (136-145) Potassium Level 4.5mmol/L (3.5-5.1) Chloride Level 107mmol/L (98-107) Carbon Dioxide Level 26mmol/L (21-32) Anion Gap 10 (6-14) Blood Urea Nitrogen 29mg/dL (8-26) Creatinine 1.8mg/dL (0.7-1.3) Estimated GFR (Cockcroft-Gault) 44.5 BUN/Creatinine Ratio 16 (6-20) Glucose Level 77mg/dL (70-99) Calcium Level 9.2mg/dL (8.5-10.1) Total Bilirubin 0.5mg/dL (0.2-1.0) Aspartate Amino Transf (AST/SGOT) 15U/L (15-37) Alanine Aminotransferase (ALT/SGPT) 11U/L (16-63) Alkaline Phosphatase 80U/L (46-116) Total Protein 7.0g/dL (6.4-8.2) Albumin 3.0g/dL (3.4-5.0) Albumin/Globulin Ratio 0.8 (1.0-1.7) Urine Collection Type Unknown Urine Color Yellow Urine Clarity Clear Urine pH 5.0 Urine Specific [place] 1.020 Urine Protein 30mg/dL (NEG-TRACE) Urine Glucose (UA) Negativemg/dL (NEG) Urine Ketones (Stick) Negativemg/dL (NEG) Urine Blood Negative (NEG) Urine Nitrite Negative (NEG) Urine Bilirubin Negative (NEG) Urine Urobilinogen Dipstick 1.0mg/dL (0.2 mg/dL) Urine Leukocyte Esterase Negative (NEG) Urine RBC 1-2/HPF (0-2) Urine WBC 1-4/HPF (0-4) Urine Squamous Epithelial Cells Few/LPF Urine Renal Epithelial Cells Occ/LPF Urine Bacteria Few/HPF (0-FEW) Urine Hyaline Casts Few/HPF Urine Mucus Mod/LPF Nasal Screen MRSA (PCR) Negative (Negative) Test 01/16/17 20:53 01/17/17 05:00 Glucose (Fingerstick) 101mg/dL (70-99) White Blood Count 7.7x10^3/uL (4.0-11.0) Red Blood Count 3.25x10^6/uL (4.30-5.70) Hemoglobin 7.8g/dL (13.0-17.5) Hematocrit 24.3% (39.0-53.0) Mean Corpuscular Volume 75fL (79-100) Mean Corpuscular Hemoglobin 24pg (25-35) Mean Corpuscular Hemoglobin Concent 32g/dL (31-37) Red Cell Distribution Width 21.9% (11.5-14.5) Platelet Count 178x10^3/uL (140-400) Neutrophils (%) (Auto) 67% (31-73) Lymphocytes (%) (Auto) 20% (24-48) Monocytes (%) (Auto) 10% (0-9) Eosinophils (%) (Auto) 3% (0-3) Basophils (%) (Auto) 1% (0-3) Neutrophils # (Auto) 5.1x10^3uL (1.8-7.7) Lymphocytes # (Auto) 1.5x10^3/uL (1.0-4.8) Monocytes # (Auto) 0.8x10^3/uL (0.0-1.1) Eosinophils # (Auto) 0.2x10^3/uL (0.0-0.7) Basophils # (Auto) 0.1x10^3/uL (0.0-0.2) Sodium Level 146mmol/L (136-145) Potassium Level 4.6mmol/L (3.5-5.1) Chloride Level 113mmol/L (98-107) Carbon Dioxide Level 24mmol/L (21-32) Anion Gap 9 (6-14) Blood Urea Nitrogen 27mg/dL (8-26) Creatinine 1.8mg/dL (0.7-1.3) Estimated GFR (Cockcroft-Gault) 44.5 Glucose Level 96mg/dL (70-99) Calcium Level 8.6mg/dL (8.5-10.1) Review of Systems Review of Systems no stool no n.v.d Assessment and Plan Assessmemt and Plan PT SEEN in ICU, HR 92, BP excellent, no stool or bleeding since arrival to unit Problems Medical Problems: (1) GI bleed Status: Acute Problems: Comment Review of Relevant I have reviewed the following items lauren (where applicable) has been applied. Labs Laboratory Tests Test 01/16/17 11:40 01/16/17 12:45 01/16/17 16:45 01/16/17 18:05 White Blood Count 9.3x10^3/uL (4.0-11.0) 8.7x10^3/uL (4.0-11.0) Red Blood Count 4.17x10^6/uL (4.30-5.70) 3.29x10^6/uL (4.30-5.70) Hemoglobin 9.4g/dL (13.0-17.5) 7.6g/dL (13.0-17.5) Hematocrit 29.8% (39.0-53.0) 24.1% (39.0-53.0) Mean Corpuscular Volume 71fL (79-100) 73fL (79-100) Mean Corpuscular Hemoglobin 23pg (25-35) 23pg (25-35) Mean Corpuscular Hemoglobin Concent 32g/dL (31-37) 32g/dL (31-37) Red Cell Distribution Width 21.5% (11.5-14.5) 21.1% (11.5-14.5) Platelet Count 254x10^3/uL (140-400) 188x10^3/uL (140-400) Neutrophils (%) (Auto) 62% (31-73) Lymphocytes (%) (Auto) 22% (24-48) Monocytes (%) (Auto) 12% (0-9) Eosinophils (%) (Auto) 4% (0-3) Basophils (%) (Auto) 1% (0-3) Neutrophils # (Auto) 5.7x10^3uL (1.8-7.7) Lymphocytes # (Auto) 2.1x10^3/uL (1.0-4.8) Monocytes # (Auto) 1.1x10^3/uL (0.0-1.1) Eosinophils # (Auto) 0.4x10^3/uL (0.0-0.7) Basophils # (Auto) 0.1x10^3/uL (0.0-0.2) Platelet Estimate Adequate (ADEQUATE) Giant Platelets Occ Polychromasia Slight Hypochromasia Mod Poikilocytosis Mod Anisocytosis Mod Microcytosis Mod Macrocytosis Slight Tear Drop Cells Occ Ovalocytes Occ Helmet Cells Few Schistocytes Few Prothrombin Time 13.9SEC (11.7-14.0) Prothromb Time International Ratio 1.1 (0.8-1.1) Sodium Level 143mmol/L (136-145) Potassium Level 4.5mmol/L (3.5-5.1) Chloride Level 107mmol/L (98-107) Carbon Dioxide Level 26mmol/L (21-32) Anion Gap 10 (6-14) Blood Urea Nitrogen 29mg/dL (8-26) Creatinine 1.8mg/dL (0.7-1.3) Estimated GFR (Cockcroft-Gault) 44.5 BUN/Creatinine Ratio 16 (6-20) Glucose Level 77mg/dL (70-99) Calcium Level 9.2mg/dL (8.5-10.1) Total Bilirubin 0.5mg/dL (0.2-1.0) Aspartate Amino Transf (AST/SGOT) 15U/L (15-37) Alanine Aminotransferase (ALT/SGPT) 11U/L (16-63) Alkaline Phosphatase 80U/L (46-116) Total Protein 7.0g/dL (6.4-8.2) Albumin 3.0g/dL (3.4-5.0) Albumin/Globulin Ratio 0.8 (1.0-1.7) Urine Collection Type Unknown Urine Color Yellow Urine Clarity Clear Urine pH 5.0 Urine Specific [place] 1.020 Urine Protein 30mg/dL (NEG-TRACE) Urine Glucose (UA) Negativemg/dL (NEG) Urine Ketones (Stick) Negativemg/dL (NEG) Urine Blood Negative (NEG) Urine Nitrite Negative (NEG) Urine Bilirubin Negative (NEG) Urine Urobilinogen Dipstick 1.0mg/dL (0.2 mg/dL) Urine Leukocyte Esterase Negative (NEG) Urine RBC 1-2/HPF (0-2) Urine WBC 1-4/HPF (0-4) Urine Squamous Epithelial Cells Few/LPF Urine Renal Epithelial Cells Occ/LPF Urine Bacteria Few/HPF (0-FEW) Urine Hyaline Casts Few/HPF Urine Mucus Mod/LPF Nasal Screen MRSA (PCR) Negative (Negative) Test 01/16/17 20:53 01/17/17 05:00 Glucose (Fingerstick) 101mg/dL (70-99) White Blood Count 7.7x10^3/uL (4.0-11.0) Red Blood Count 3.25x10^6/uL (4.30-5.70) Hemoglobin 7.8g/dL (13.0-17.5) Hematocrit 24.3% (39.0-53.0) Mean Corpuscular Volume 75fL (79-100) Mean Corpuscular Hemoglobin 24pg (25-35) Mean Corpuscular Hemoglobin Concent 32g/dL (31-37) Red Cell Distribution Width 21.9% (11.5-14.5) Platelet Count 178x10^3/uL (140-400) Neutrophils (%) (Auto) 67% (31-73) Lymphocytes (%) (Auto) 20% (24-48) Monocytes (%) (Auto) 10% (0-9) Eosinophils (%) (Auto) 3% (0-3) Basophils (%) (Auto) 1% (0-3) Neutrophils # (Auto) 5.1x10^3uL (1.8-7.7) Lymphocytes # (Auto) 1.5x10^3/uL (1.0-4.8) Monocytes # (Auto) 0.8x10^3/uL (0.0-1.1) Eosinophils # (Auto) 0.2x10^3/uL (0.0-0.7) Basophils # (Auto) 0.1x10^3/uL (0.0-0.2) Sodium Level 146mmol/L (136-145) Potassium Level 4.6mmol/L (3.5-5.1) Chloride Level 113mmol/L (98-107) Carbon Dioxide Level 24mmol/L (21-32) Anion Gap 9 (6-14) Blood Urea Nitrogen 27mg/dL (8-26) Creatinine 1.8mg/dL (0.7-1.3) Estimated GFR (Cockcroft-Gault) 44.5 Glucose Level 96mg/dL (70-99) Calcium Level 8.6mg/dL (8.5-10.1) Laboratory Tests Test 01/16/17 11:40 01/16/17 12:45 01/16/17 16:45 01/16/17 18:05 White Blood Count 9.3x10^3/uL (4.0-11.0) 8.7x10^3/uL (4.0-11.0) Red Blood Count 4.17x10^6/uL (4.30-5.70) 3.29x10^6/uL (4.30-5.70) Hemoglobin 9.4g/dL (13.0-17.5) 7.6g/dL (13.0-17.5) Hematocrit 29.8% (39.0-53.0) 24.1% (39.0-53.0) Mean Corpuscular Volume 71fL (79-100) 73fL (79-100) Mean Corpuscular Hemoglobin 23pg (25-35) 23pg (25-35) Mean Corpuscular Hemoglobin Concent 32g/dL (31-37) 32g/dL (31-37) Red Cell Distribution Width 21.5% (11.5-14.5) 21.1% (11.5-14.5) Platelet Count 254x10^3/uL (140-400) 188x10^3/uL (140-400) Neutrophils (%) (Auto) 62% (31-73) Lymphocytes (%) (Auto) 22% (24-48) Monocytes (%) (Auto) 12% (0-9) Eosinophils (%) (Auto) 4% (0-3) Basophils (%) (Auto) 1% (0-3) Neutrophils # (Auto) 5.7x10^3uL (1.8-7.7) Lymphocytes # (Auto) 2.1x10^3/uL (1.0-4.8) Monocytes # (Auto) 1.1x10^3/uL (0.0-1.1) Eosinophils # (Auto) 0.4x10^3/uL (0.0-0.7) Basophils # (Auto) 0.1x10^3/uL (0.0-0.2) Platelet Estimate Adequate (ADEQUATE) Giant Platelets Occ Polychromasia Slight Hypochromasia Mod Poikilocytosis Mod Anisocytosis Mod Microcytosis Mod Macrocytosis Slight Tear Drop Cells Occ Ovalocytes Occ Helmet Cells Few Schistocytes Few Prothrombin Time 13.9SEC (11.7-14.0) Prothromb Time International Ratio 1.1 (0.8-1.1) Sodium Level 143mmol/L (136-145) Potassium Level 4.5mmol/L (3.5-5.1) Chloride Level 107mmol/L (98-107) Carbon Dioxide Level 26mmol/L (21-32) Anion Gap 10 (6-14) Blood Urea Nitrogen 29mg/dL (8-26) Creatinine 1.8mg/dL (0.7-1.3) Estimated GFR (Cockcroft-Gault) 44.5 BUN/Creatinine Ratio 16 (6-20) Glucose Level 77mg/dL (70-99) Calcium Level 9.2mg/dL (8.5-10.1) Total Bilirubin 0.5mg/dL (0.2-1.0) Aspartate Amino Transf (AST/SGOT) 15U/L (15-37) Alanine Aminotransferase (ALT/SGPT) 11U/L (16-63) Alkaline Phosphatase 80U/L (46-116) Total Protein 7.0g/dL (6.4-8.2) Albumin 3.0g/dL (3.4-5.0) Albumin/Globulin Ratio 0.8 (1.0-1.7) Urine Collection Type Unknown Urine Color Yellow Urine Clarity Clear Urine pH 5.0 Urine Specific [place] 1.020 Urine Protein 30mg/dL (NEG-TRACE) Urine Glucose (UA) Negativemg/dL (NEG) Urine Ketones (Stick) Negativemg/dL (NEG) Urine Blood Negative (NEG) Urine Nitrite Negative (NEG) Urine Bilirubin Negative (NEG) Urine Urobilinogen Dipstick 1.0mg/dL (0.2 mg/dL) Urine Leukocyte Esterase Negative (NEG) Urine RBC 1-2/HPF (0-2) Urine WBC 1-4/HPF (0-4) Urine Squamous Epithelial Cells Few/LPF Urine Renal Epithelial Cells Occ/LPF Urine Bacteria Few/HPF (0-FEW) Urine Hyaline Casts Few/HPF Urine Mucus Mod/LPF Nasal Screen MRSA (PCR) Negative (Negative) Test 01/16/17 20:53 01/17/17 05:00 Glucose (Fingerstick) 101mg/dL (70-99) White Blood Count 7.7x10^3/uL (4.0-11.0) Red Blood Count 3.25x10^6/uL (4.30-5.70) Hemoglobin 7.8g/dL (13.0-17.5) Hematocrit 24.3% (39.0-53.0) Mean Corpuscular Volume 75fL (79-100) Mean Corpuscular Hemoglobin 24pg (25-35) Mean Corpuscular Hemoglobin Concent 32g/dL (31-37) Red Cell Distribution Width 21.9% (11.5-14.5) Platelet Count 178x10^3/uL (140-400) Neutrophils (%) (Auto) 67% (31-73) Lymphocytes (%) (Auto) 20% (24-48) Monocytes (%) (Auto) 10% (0-9) Eosinophils (%) (Auto) 3% (0-3) Basophils (%) (Auto) 1% (0-3) Neutrophils # (Auto) 5.1x10^3uL (1.8-7.7) Lymphocytes # (Auto) 1.5x10^3/uL (1.0-4.8) Monocytes # (Auto) 0.8x10^3/uL (0.0-1.1) Eosinophils # (Auto) 0.2x10^3/uL (0.0-0.7) Basophils # (Auto) 0.1x10^3/uL (0.0-0.2) Sodium Level 146mmol/L (136-145) Potassium Level 4.6mmol/L (3.5-5.1) Chloride Level 113mmol/L (98-107) Carbon Dioxide Level 24mmol/L (21-32) Anion Gap 9 (6-14) Blood Urea Nitrogen 27mg/dL (8-26) Creatinine 1.8mg/dL (0.7-1.3) Estimated GFR (Cockcroft-Gault) 44.5 Glucose Level 96mg/dL (70-99) Calcium Level 8.6mg/dL (8.5-10.1) Medications Current Medications Sodium Chloride 10 ml 10 ml QSHIFT PRN IV AFTER MEDS AND BLOOD DRAWS; Start 08/25 at 11:30 Sodium Chloride (Iv Sodium Chloride 0.9% 500ml Bag) 500 ml @ 500 mls/hr 1X ONCE IV Last administered on 01/16/17 11:50; Start 01/16/17 at 11:30; Stop 08/25 at 12:29; Status DC Pantoprazole Sodium (Protonix Vial) 40 mg 1X ONCE IVP Last administered on 11:52; Start 01/16/17 at 11:30; Stop 01/16/17 at 11:33; Status DC Fentanyl Citrate (Fentanyl 2ml Vial) 50 mcg 1X ONCE IV ; Start 01/16/17 at 11: 30; Stop 01/16/17 at 11:34; Status DC Iohexol (Omnipaque 300 Mg/ml) 60 ml 1X ONCE IV Last administered on 01/16/17 12:23; Start 01/16/17 at 12:15; Stop 01/16/17 at 12:18; Status DC Info (Do NOT chart on this entry -- for MONITORING) 1 each PRN DAILY PRN MC SEE COMMENTS; Start 01/16/17 at 12:30; Stop 01/18/17 at 12:29 Pantoprazole Sodium (Protonix Vial) 40 mg DAILY IVP ; Start 01/16/17 at 13:00 Insulin Aspart (Novolog) 0-9 UNITS TIDWMEALS SQ ; Start 01/16/17 at 17:00 Dextrose 12.5 gm 12.5 gm PRN Q15MIN PRN IV SEE COMMENTS; Start 01/16/17 at 12: 15 Sodium Chloride (Iv Sodium Chloride 0.9% 1000ml Bag) 1,000 ml @ 100 mls/hr q10H IV ; Start 01/16/17 at 12:15; Status Cancel Ondansetron HCl (Zofran) 4 mg PRN Q6HRS PRN IV n/v; Start 01/16/17 at 12:15 Morphine Sulfate 1 mg PRN Q2HR PRN IV pain; Start 01/16/17 at 12:15 Acetaminophen (Tylenol) 650 mg PRN Q6HRS PRN PO pain; Start 01/16/17 at 12:15 Dutasteride (Avodart) 0.5 mg DAILY PO ; Start 01/17/17 at 09:00 Folic Acid (Folic Acid) 1 mg DAILY PO ; Start 01/17/17 at 09:00 Hydralazine HCl (Apresoline) 50 mg TID PO ; Start 01/16/17 at 14:00 Insulin Aspart (Novolog) 10 units TIDAC SQ ; Start 01/16/17 at 16:30 Insulin Detemir (Levemir) 35 units HS SQ ; Start 01/16/17 at 21:00 Atorvastatin Calcium (Lipitor) 10 mg QHS PO ; Start 01/16/17 at 21:00 Sulfasalazine (Azulfidine) 1,000 mg BID PO ; Start 01/16/17 at 21:00 Non-Formulary Medication 2 puff PRN Q4-6HRS IH ; Start 01/16/17 at 12:15; Stop 01/16/17 at 13:21; Status DC Calcium Carbonate/ Glycine (Tums) 1,000 mg DAILY PO ; Start 01/16/17 at 13:15 Non-Formulary Medication 1 inh BID IH helps breathing; Start 01/16/17 at 21:00; Stop 01/16/17 at 21:00; Status DC Verapamil HCl (Calan Sr) 360 mg DAILY PO ; Start 01/17/17 at 09:00 Ondansetron HCl (Zofran) 4 mg PRN Q8HRS PRN IV NAUSEA/VOMITING; Start 01/16/17 at 12:30; Stop 01/17/17 at 12:29 Morphine Sulfate 2 mg PRN Q2HR PRN IV PAIN Last administered on 01/17/17 00:37 ; Start 01/16/17 at 12:30; Stop 01/17/17 at 12:29 Albuterol Sulfate (Ventolin Neb Soln) 2.5 mg PRN Q4HRS PRN NEB SHORTNESS OF BREATH; Start 01/16/17 at 13:15 Albuterol Sulfate (Ventolin Neb Soln) 2.5 mg Q6HRS NEB Last administered on 07:47; Start 01/16/17 at 13:00 Budesonide 0.5 mg 0.5 mg RTBID NEB Last administered on 01/17/17 07:47; Start 01/16/17 at 20:00 Sodium Chloride (Iv Sodium Chloride 0.9% 1000ml Bag) 1,000 ml @ 100 mls/hr Q10H IV Last administered on 01/17/17 05:19; Start 01/17/17 at 00:00 Active Scripts Active Levemir Flextouch (Insulin Detemir) 100 Unit/1 Ml Insuln.pen 35 Units SQ HS 30 Days Doxycycline Hyclate 100 Mg Tablet 100 Mg PO BID 5 Days Proair Hfa Inhaler (Albuterol Sulfate) 8.5 Gm Hfa.aer.ad 2 Puff IH PRN Q4-6HRS Novolog Flexpen (Insulin Aspart) 300 Units/3 Ml Insuln.pen 10 Units SQ TIDAC Reported Hydralazine Hcl 50 Mg Tablet 50 Mg PO TID Verapamil Er (Verapamil Hcl) 240 Mg Cap24h.pel 360 Mg PO DAILY Sulfasalazine 500 Mg Tablet 1,000 Mg PO BID Antacid Chewable Tablet (Calcium Carbonate/Mag Hydrox) 1 Each Tab.chew 1 Each PO DAILY Advair 250-50 Diskus (Fluticasone/Salmeterol) 1 Each Disk.w.dev 1 Inh IH BID Aspir 81 (Aspirin) 81 Mg Tablet.dr 81 Mg PO DAILY Folic Acid 1 Mg Tablet 1 Mg PO DAILY Avodart (Dutasteride) 0.5 Mg Capsule 0.5 Mg PO DAILY Simvastatin 20 Mg Tablet 20 Mg PO HS Vitals/I & O Vital Sign - Last 24 Hours 01/16/17 01/16/17 01/16/17 01/16/17 11:10 11:22 11:52 13:43 Temp 98.0 97.9 98.0 97.9 Pulse 90 97 83 89 Resp 18 B/P 160/81 152/65 135/64 138/74 Pulse Ox 100 96 97 O2 Delivery Nasal Cannula Nasal Cannula Nasal Cannula Nasal Cannula O2 Flow Rate 3 3 3 3.0 01/16/17 01/16/17 01/16/17 01/16/17 13:44 14:00 15:11 15:57 Temp 97.9 97.9 Pulse 94 94 Resp 18 B/P 123/66 123/66 Pulse Ox 96 96 O2 Delivery Nasal Cannula Room Air Nasal Cannula O2 Flow Rate 3.0 2.5 01/16/17 01/16/17 01/16/17 01/16/17 16:35 16:45 17:05 18:35 Temp 98.4 98.4 Pulse 88 87 Resp B/P 136/65 155/71 133/72 Pulse Ox 97 97 97 O2 Delivery Nasal Cannula Nasal Cannula Nasal Cannula Nasal Cannula O2 Flow Rate 3.0 3.0 3.0 3.0 01/16/17 01/16/17 01/16/17 01/16/17 19:00 19:25 19:38 19:42 Temp 98.3 98.3 98.4 98.3 98.3 98.4 Pulse 84 81 81 Resp 18 B/P 152/76 152/76 148/74 Pulse Ox 100 100 O2 Delivery Nasal Cannula Nasal Cannula O2 Flow Rate 3.0 3.0 01/16/17 01/16/17 01/16/17 01/16/17 20:00 20:00 21:00 21:09 Temp 98.2 98.2 Pulse 78 83 84 Resp 20 B/P 142/66 148/72 144/69 Pulse Ox 100 100 O2 Delivery Nasal Cannula Nasal Cannula Nasal Cannula O2 Flow Rate 3.0 3.0 3.0 01/16/17 01/16/17 01/16/17 01/17/17 22:00 23:00 23:32 00:00 Temp 98.2 98.2 98.2 98.2 Pulse 87 84 87 Resp 20 17 21 B/P 144/71 155/77 148/71 Pulse Ox 99 100 100 99 O2 Delivery Nasal Cannula Nasal Cannula Nasal Cannula Nasal Cannula O2 Flow Rate 3.0 3.0 3.0 3.0 01/17/17 01/17/17 01/17/17 01/17/17 00:00 00:37 01:00 01:07 Pulse 82 Resp 29 20 B/P 158/68 Pulse Ox 99 100 100 O2 Delivery Nasal Cannula Nasal Cannula Nasal Cannula Nasal Cannula O2 Flow Rate 3.0 3.0 3.0 3.0 01/17/17 01/17/17 01/17/17 01/17/17 02:00 03:00 04:00 04:00 Pulse 86 85 77 Resp 17 B/P 155/67 142/73 142/65 Pulse Ox 99 100 100 O2 Delivery Nasal Cannula Nasal Cannula Nasal Cannula Nasal Cannula O2 Flow Rate 3.0 3.0 3.0 3.0 01/17/17 01/17/17 01/17/17 05:00 06:00 07:47 Temp 98.5 98.5 98.5 98.5 Pulse 75 82 Resp 17 15 B/P 149/77 100/72 Pulse Ox 98 100 99 O2 Delivery Nasal Cannula Nasal Cannula Nasal Cannula O2 Flow Rate 3.0 3.0 3.0 Intake and Output 01/16/17 01/16/17 01/17/17 15:00 23:00 07:00 Intake Total 500 ml 350 ml 1000 ml Output Total 500 ml Balance 500 ml 350 ml 500 ml SHRUTHI HARDWICK MD Jan 17, 2017 08:46
[2017-01-17] MEDS: PANTOPRAZOLE IV PUSH 40 MG VIAL. IVP SCH (09:00)
[2017-01-17] MEDS: CALCIUM CARBONATE 500 MG TAB.CHEW PO SCH (09:00)
[2017-01-17] MEDS: DUTASTERIDE 0.5 MG CAPSULE PO SCH (09:00)
[2017-01-17] MEDS: FOLIC ACID 1 MG TABLET PO SCH (09:00)
[2017-01-17] MEDS: SULFASALAZINE 500 MG TABLET PO SCH ×2 (09:00→21:00)
[2017-01-17] MEDS: HYDRALAZINE 50 MG TABLET PO SCH ×3 (09:00→21:00)
--- NOTE | 2017-01-17 09:30 | PDOC ---
ANNE MARIE FERRERA AUDIOVISUAL PRODUCTION SPECIALIST 01/17/17 0930: SURGICAL PROGRESS NOTE Subjective He reports feeling better no stools Vital Signs Vital Signs Date Time Temp Pulse Resp B/P Pulse Ox O2 Delivery O2 Flow Rate FiO2 01/17/17 07:47 99 Nasal Cannula 3.0 01/17/17 06:00 98.5 82 15 100/72 98.5 I&O Intake and Output 01/17/17 07:00 Intake Total 1850 ml Output Total 500 ml Balance 1350 ml Intake IV Total 1500 ml Blood Product IV Normal Saline Flush 350 ml Output Urine Total 500 ml # Bowel Movements 1 General: Alert, Oriented X3, Cooperative, No acute distress Abdomen: Soft, No tenderness Labs Laboratory Tests Test 01/16/17 11:40 01/16/17 12:45 01/16/17 16:45 01/16/17 18:05 White Blood Count 9.3x10^3/uL (4.0-11.0) 8.7x10^3/uL (4.0-11.0) Red Blood Count 4.17x10^6/uL (4.30-5.70) 3.29x10^6/uL (4.30-5.70) Hemoglobin 9.4g/dL (13.0-17.5) 7.6g/dL (13.0-17.5) Hematocrit 29.8% (39.0-53.0) 24.1% (39.0-53.0) Mean Corpuscular Volume 71fL (79-100) 73fL (79-100) Mean Corpuscular Hemoglobin 23pg (25-35) 23pg (25-35) Mean Corpuscular Hemoglobin Concent 32g/dL (31-37) 32g/dL (31-37) Red Cell Distribution Width 21.5% (11.5-14.5) 21.1% (11.5-14.5) Platelet Count 254x10^3/uL (140-400) 188x10^3/uL (140-400) Neutrophils (%) (Auto) 62% (31-73) Lymphocytes (%) (Auto) 22% (24-48) Monocytes (%) (Auto) 12% (0-9) Eosinophils (%) (Auto) 4% (0-3) Basophils (%) (Auto) 1% (0-3) Neutrophils # (Auto) 5.7x10^3uL (1.8-7.7) Lymphocytes # (Auto) 2.1x10^3/uL (1.0-4.8) Monocytes # (Auto) 1.1x10^3/uL (0.0-1.1) Eosinophils # (Auto) 0.4x10^3/uL (0.0-0.7) Basophils # (Auto) 0.1x10^3/uL (0.0-0.2) Platelet Estimate Adequate (ADEQUATE) Giant Platelets Occ Polychromasia Slight Hypochromasia Mod Poikilocytosis Mod Anisocytosis Mod Microcytosis Mod Macrocytosis Slight Tear Drop Cells Occ Ovalocytes Occ Helmet Cells Few Schistocytes Few Prothrombin Time 13.9SEC (11.7-14.0) Prothromb Time International Ratio 1.1 (0.8-1.1) Sodium Level 143mmol/L (136-145) Potassium Level 4.5mmol/L (3.5-5.1) Chloride Level 107mmol/L (98-107) Carbon Dioxide Level 26mmol/L (21-32) Anion Gap 10 (6-14) Blood Urea Nitrogen 29mg/dL (8-26) Creatinine 1.8mg/dL (0.7-1.3) Estimated GFR (Cockcroft-Gault) 44.5 BUN/Creatinine Ratio 16 (6-20) Glucose Level 77mg/dL (70-99) Calcium Level 9.2mg/dL (8.5-10.1) Total Bilirubin 0.5mg/dL (0.2-1.0) Aspartate Amino Transf (AST/SGOT) 15U/L (15-37) Alanine Aminotransferase (ALT/SGPT) 11U/L (16-63) Alkaline Phosphatase 80U/L (46-116) Total Protein 7.0g/dL (6.4-8.2) Albumin 3.0g/dL (3.4-5.0) Albumin/Globulin Ratio 0.8 (1.0-1.7) Urine Collection Type Unknown Urine Color Yellow Urine Clarity Clear Urine pH 5.0 Urine Specific [place] 1.020 Urine Protein 30mg/dL (NEG-TRACE) Urine Glucose (UA) Negativemg/dL (NEG) Urine Ketones (Stick) Negativemg/dL (NEG) Urine Blood Negative (NEG) Urine Nitrite Negative (NEG) Urine Bilirubin Negative (NEG) Urine Urobilinogen Dipstick 1.0mg/dL (0.2 mg/dL) Urine Leukocyte Esterase Negative (NEG) Urine RBC 1-2/HPF (0-2) Urine WBC 1-4/HPF (0-4) Urine Squamous Epithelial Cells Few/LPF Urine Renal Epithelial Cells Occ/LPF Urine Bacteria Few/HPF (0-FEW) Urine Hyaline Casts Few/HPF Urine Mucus Mod/LPF Nasal Screen MRSA (PCR) Negative (Negative) Test 01/16/17 20:53 01/17/17 05:00 Glucose (Fingerstick) 101mg/dL (70-99) White Blood Count 7.7x10^3/uL (4.0-11.0) Red Blood Count 3.25x10^6/uL (4.30-5.70) Hemoglobin 7.8g/dL (13.0-17.5) Hematocrit 24.3% (39.0-53.0) Mean Corpuscular Volume 75fL (79-100) Mean Corpuscular Hemoglobin 24pg (25-35) Mean Corpuscular Hemoglobin Concent 32g/dL (31-37) Red Cell Distribution Width 21.9% (11.5-14.5) Platelet Count 178x10^3/uL (140-400) Neutrophils (%) (Auto) 67% (31-73) Lymphocytes (%) (Auto) 20% (24-48) Monocytes (%) (Auto) 10% (0-9) Eosinophils (%) (Auto) 3% (0-3) Basophils (%) (Auto) 1% (0-3) Neutrophils # (Auto) 5.1x10^3uL (1.8-7.7) Lymphocytes # (Auto) 1.5x10^3/uL (1.0-4.8) Monocytes # (Auto) 0.8x10^3/uL (0.0-1.1) Eosinophils # (Auto) 0.2x10^3/uL (0.0-0.7) Basophils # (Auto) 0.1x10^3/uL (0.0-0.2) Sodium Level 146mmol/L (136-145) Potassium Level 4.6mmol/L (3.5-5.1) Chloride Level 113mmol/L (98-107) Carbon Dioxide Level 24mmol/L (21-32) Anion Gap 9 (6-14) Blood Urea Nitrogen 27mg/dL (8-26) Creatinine 1.8mg/dL (0.7-1.3) Estimated GFR (Cockcroft-Gault) 44.5 Glucose Level 96mg/dL (70-99) Calcium Level 8.6mg/dL (8.5-10.1) Laboratory Tests Test 01/16/17 11:40 01/16/17 12:45 01/16/17 16:45 01/16/17 18:05 White Blood Count 9.3x10^3/uL (4.0-11.0) 8.7x10^3/uL (4.0-11.0) Red Blood Count 4.17x10^6/uL (4.30-5.70) 3.29x10^6/uL (4.30-5.70) Hemoglobin 9.4g/dL (13.0-17.5) 7.6g/dL (13.0-17.5) Hematocrit 29.8% (39.0-53.0) 24.1% (39.0-53.0) Mean Corpuscular Volume 71fL (79-100) 73fL (79-100) Mean Corpuscular Hemoglobin 23pg (25-35) 23pg (25-35) Mean Corpuscular Hemoglobin Concent 32g/dL (31-37) 32g/dL (31-37) Red Cell Distribution Width 21.5% (11.5-14.5) 21.1% (11.5-14.5) Platelet Count 254x10^3/uL (140-400) 188x10^3/uL (140-400) Neutrophils (%) (Auto) 62% (31-73) Lymphocytes (%) (Auto) 22% (24-48) Monocytes (%) (Auto) 12% (0-9) Eosinophils (%) (Auto) 4% (0-3) Basophils (%) (Auto) 1% (0-3) Neutrophils # (Auto) 5.7x10^3uL (1.8-7.7) Lymphocytes # (Auto) 2.1x10^3/uL (1.0-4.8) Monocytes # (Auto) 1.1x10^3/uL (0.0-1.1) Eosinophils # (Auto) 0.4x10^3/uL (0.0-0.7) Basophils # (Auto) 0.1x10^3/uL (0.0-0.2) Platelet Estimate Adequate (ADEQUATE) Giant Platelets Occ Polychromasia Slight Hypochromasia Mod Poikilocytosis Mod Anisocytosis Mod Microcytosis Mod Macrocytosis Slight Tear Drop Cells Occ Ovalocytes Occ Helmet Cells Few Schistocytes Few Prothrombin Time 13.9SEC (11.7-14.0) Prothromb Time International Ratio 1.1 (0.8-1.1) Sodium Level 143mmol/L (136-145) Potassium Level 4.5mmol/L (3.5-5.1) Chloride Level 107mmol/L (98-107) Carbon Dioxide Level 26mmol/L (21-32) Anion Gap 10 (6-14) Blood Urea Nitrogen 29mg/dL (8-26) Creatinine 1.8mg/dL (0.7-1.3) Estimated GFR (Cockcroft-Gault) 44.5 BUN/Creatinine Ratio 16 (6-20) Glucose Level 77mg/dL (70-99) Calcium Level 9.2mg/dL (8.5-10.1) Total Bilirubin 0.5mg/dL (0.2-1.0) Aspartate Amino Transf (AST/SGOT) 15U/L (15-37) Alanine Aminotransferase (ALT/SGPT) 11U/L (16-63) Alkaline Phosphatase 80U/L (46-116) Total Protein 7.0g/dL (6.4-8.2) Albumin 3.0g/dL (3.4-5.0) Albumin/Globulin Ratio 0.8 (1.0-1.7) Urine Collection Type Unknown Urine Color Yellow Urine Clarity Clear Urine pH 5.0 Urine Specific [place] 1.020 Urine Protein 30mg/dL (NEG-TRACE) Urine Glucose (UA) Negativemg/dL (NEG) Urine Ketones (Stick) Negativemg/dL (NEG) Urine Blood Negative (NEG) Urine Nitrite Negative (NEG) Urine Bilirubin Negative (NEG) Urine Urobilinogen Dipstick 1.0mg/dL (0.2 mg/dL) Urine Leukocyte Esterase Negative (NEG) Urine RBC 1-2/HPF (0-2) Urine WBC 1-4/HPF (0-4) Urine Squamous Epithelial Cells Few/LPF Urine Renal Epithelial Cells Occ/LPF Urine Bacteria Few/HPF (0-FEW) Urine Hyaline Casts Few/HPF Urine Mucus Mod/LPF Nasal Screen MRSA (PCR) Negative (Negative) Test 01/16/17 20:53 01/17/17 05:00 Glucose (Fingerstick) 101mg/dL (70-99) White Blood Count 7.7x10^3/uL (4.0-11.0) Red Blood Count 3.25x10^6/uL (4.30-5.70) Hemoglobin 7.8g/dL (13.0-17.5) Hematocrit 24.3% (39.0-53.0) Mean Corpuscular Volume 75fL (79-100) Mean Corpuscular Hemoglobin 24pg (25-35) Mean Corpuscular Hemoglobin Concent 32g/dL (31-37) Red Cell Distribution Width 21.9% (11.5-14.5) Platelet Count 178x10^3/uL (140-400) Neutrophils (%) (Auto) 67% (31-73) Lymphocytes (%) (Auto) 20% (24-48) Monocytes (%) (Auto) 10% (0-9) Eosinophils (%) (Auto) 3% (0-3) Basophils (%) (Auto) 1% (0-3) Neutrophils # (Auto) 5.1x10^3uL (1.8-7.7) Lymphocytes # (Auto) 1.5x10^3/uL (1.0-4.8) Monocytes # (Auto) 0.8x10^3/uL (0.0-1.1) Eosinophils # (Auto) 0.2x10^3/uL (0.0-0.7) Basophils # (Auto) 0.1x10^3/uL (0.0-0.2) Sodium Level 146mmol/L (136-145) Potassium Level 4.6mmol/L (3.5-5.1) Chloride Level 113mmol/L (98-107) Carbon Dioxide Level 24mmol/L (21-32) Anion Gap 9 (6-14) Blood Urea Nitrogen 27mg/dL (8-26) Creatinine 1.8mg/dL (0.7-1.3) Estimated GFR (Cockcroft-Gault) 44.5 Glucose Level 96mg/dL (70-99) Calcium Level 8.6mg/dL (8.5-10.1) Problem List Problems Medical Problems: (1) GI bleed Status: Acute Assessment/Plan colitis no drop in hgb this AM no further bleeding continue observation, monitor h/h Problems: KALA VANCE MD 01/17/172049: SURGICAL PROGRESS NOTE Assessment/Plan Pt seen and examined. Agree with Ms. Ferrera's note Pt denies new c/o undergoing prep for colonoscopy Problems: ANNE MARIE FERRERA APRN Jan 17, 2017 09:30 KALA VANCE MD Jan 17, 2017 20:50
--- NOTE | 2017-01-17 09:53 | CONS ---
DATE OF CONSULTATION: 01/16/2017 REFERRING PHYSICIANS: Dr. Kerwin Hernandez, Dr. Denisa Charles, Dr. Bernabe Wilcox, Dr. Kuldip Tom, and Dr. Sarita Hardwick. Thank you for the consult. CHIEF COMPLAINT: Rectal bleeding and syncopal event. DIAGNOSIS: Rectal bleeding. HISTORY OF PRESENT ILLNESS: This is a 76-year-old male who presented to the Emergency Room with complaints of multiple bowel movements. He was in the hospital and he developed a syncopal episode, was transferred to the ICU. He was seen in the ICU accompanied by a supportive daughter, is feeling better and is receiving blood. His vital signs are stable currently. Denies previous episodes of anything like this. ALLERGIES: He has no known drug allergies. MEDICATIONS: Reviewed including aspirin. PAST MEDICAL HISTORY: Coronary artery disease, hypertension, COPD, pneumonia, osteoarthritis, rheumatoid arthritis, chronic renal insufficiency, urinary tract infection, BPH, and diabetes. PAST SURGICAL HISTORY: History of hernia repair and sigmoid colon resection many years ago for suspected colon cancer. FAMILY HISTORY: Noncontributory. SOCIAL HISTORY: No tobacco, no significant alcohol use. REVIEW OF SYSTEMS: All systems reviewed and negative except for HPI. PHYSICAL EXAMINATION: GENERAL: Well-developed, well-nourished male in no obvious distress. VITAL SIGNS: He is afebrile. Vital signs within normal limits. HEENT: Normocephalic, anicteric sclerae. Extraocular motions intact. He is awake, alert and appropriate. Oropharynx is clear. NECK: Supple. CHEST: Bilateral chest excursion. ABDOMEN: Soft, nondistended. Very minimal tenderness to palpation in left lower quadrant. EXTREMITIES: No clubbing, cyanosis or edema. LABORATORY DATA: His hemoglobin has decreased at 7.6 from 9.4 earlier today. Creatinine is 1.8. INR is 1.1. UA is essentially unremarkable. CT scan of abdomen and pelvis demonstrates wall thickening in the descending colon and rectum, felt to be inflammatory in nature, kidney nodules compatible with cyst, and interstitial lung disease. Bleeding scan does not demonstrate any active GI bleeding. IMPRESSION AND RECOMMENDATIONS: A 76-year-old male with colitis with associated rectal bleeding. I agree with supportive care at this time. He does not appear to have significant active bleeding at this time and as such angiography is not recommended. We will follow along for possible surgical intervention. We will help treat this patient along with the Gastrointestinal service. Thank you for allowing me in participation in the care of this pleasant patient. Sincerely, KALA VANCE MD DR: GRIFFIN/aaron JOB#: [id number] / [id number] KULDIP Velazquez, BERNBAE HARDWICK, SARITA HERNANDEZ, KERWIN CHARLES, DENISA VERGARA
[2017-01-17] MEDS: VERAPAMIL SR 180 MG TABLET.ER. PO SCH (12:51)
--- NOTE | 2017-01-17 18:20 | PDOC ---
GI PROGRESS NOTES Date Date/Time DATE: 01/17/17 TIME: 18:14 Subjective Subjective rectal bleeding- appears to have stopped bleeding scan read as negative although some accumulation in rectal region CT with ? colitis Objective Vitals Vital Signs Date Time Temp Pulse Resp B/P Pulse Ox O2 Delivery O2 Flow Rate FiO2 01/17/17 16:00 Nasal Cannula 3.0 01/17/17 15:00 86 16 111/55 99 Nasal Cannula 3.0 01/17/17 13:28 99 Nasal Cannula 2.0 01/17/17 13:00 98.6 92 21 142/68 98 Nasal Cannula 3.0 98.6 01/17/17 12:51 90 142/68 01/17/17 12:50 86 142/68 01/17/17 12:00 Nasal Cannula 3.0 01/17/17 09:00 94 24 159/63 96 Nasal Cannula 3.0 01/17/17 08:00 Nasal Cannula 3.0 01/17/17 08:00 86 15 140/68 100 Nasal Cannula 3.0 01/17/17 07:47 99 Nasal Cannula 3.0 01/17/17 07:00 98.4 84 23 151/76 100 Nasal Cannula 3.0 98.4 01/17/17 06:00 98.5 82 15 100/72 100 Nasal Cannula 3.0 98.5 01/17/17 05:00 98.5 75 17 149/77 98 Nasal Cannula 3.0 98.5 01/17/17 04:00 77 17 142/65 100 Nasal Cannula 3.0 01/17/17 04:00 Nasal Cannula 3.0 01/17/17 03:00 85 14 142/73 100 Nasal Cannula 3.0 01/17/17 02:00 86 16 155/67 99 Nasal Cannula 3.0 01/17/17 01:07 100 Nasal Cannula 3.0 01/17/17 01:00 82 20 158/68 100 Nasal Cannula 3.0 01/17/17 00:37 29 99 Nasal Cannula 3.0 01/17/17 00:00 Nasal Cannula 3.0 01/17/17 00:00 98.2 87 21 148/71 99 Nasal Cannula 3.0 98.2 01/16/17 23:32 100 Nasal Cannula 3.0 01/16/17 23:00 98.2 84 17 155/77 100 Nasal Cannula 3.0 98.2 01/16/17 22:00 87 20 144/71 99 Nasal Cannula 3.0 01/16/17 21:09 98.2 84 20 144/69 98.2 01/16/17 21:00 83 15 148/72 100 Nasal Cannula 3.0 01/16/17 20:00 78 13 142/66 100 Nasal Cannula 3.0 01/16/17 20:00 Nasal Cannula 3.0 01/16/17 19:42 98.4 81 18 148/74 98.4 01/16/17 19:38 100 Nasal Cannula 3.0 01/16/17 19:25 98.3 81 24 152/76 98.3 01/16/17 19:00 98.3 84 24 152/76 100 Nasal Cannula 3.0 98.3 01/16/17 18:35 87 17 133/72 97 Nasal Cannula 3.0 Labs Labs Laboratory Tests Test 01/16/17 20:53 01/17/17 05:00 01/17/17 12:48 Glucose (Fingerstick) 101mg/dL (70-99) 177mg/dL (70-99) White Blood Count 7.7x10^3/uL (4.0-11.0) Red Blood Count 3.25x10^6/uL (4.30-5.70) Hemoglobin 7.8g/dL (13.0-17.5) Hematocrit 24.3% (39.0-53.0) Mean Corpuscular Volume 75fL (79-100) Mean Corpuscular Hemoglobin 24pg (25-35) Mean Corpuscular Hemoglobin Concent 32g/dL (31-37) Red Cell Distribution Width 21.9% (11.5-14.5) Platelet Count 178x10^3/uL (140-400) Neutrophils (%) (Auto) 67% (31-73) Lymphocytes (%) (Auto) 20% (24-48) Monocytes (%) (Auto) 10% (0-9) Eosinophils (%) (Auto) 3% (0-3) Basophils (%) (Auto) 1% (0-3) Neutrophils # (Auto) 5.1x10^3uL (1.8-7.7) Lymphocytes # (Auto) 1.5x10^3/uL (1.0-4.8) Monocytes # (Auto) 0.8x10^3/uL (0.0-1.1) Eosinophils # (Auto) 0.2x10^3/uL (0.0-0.7) Basophils # (Auto) 0.1x10^3/uL (0.0-0.2) Sodium Level 146mmol/L (136-145) Potassium Level 4.6mmol/L (3.5-5.1) Chloride Level 113mmol/L (98-107) Carbon Dioxide Level 24mmol/L (21-32) Anion Gap 9 (6-14) Blood Urea Nitrogen 27mg/dL (8-26) Creatinine 1.8mg/dL (0.7-1.3) Estimated GFR (Cockcroft-Gault) 44.5 Glucose Level 96mg/dL (70-99) Calcium Level 8.6mg/dL (8.5-10.1) Physical Exam Physical Exam VSS in ICU chest- clear cor- rrr abd- soft non tender Assessment Assessment Lower GI bleeding- yesterday- multiple episodes- none today yet- pattern is consistant with diverticular bleeding but no history of TICS as far as he knows. He had colon cancer with resection last colonoscopy about 6 years ago- records? Clinically appears to have stopped bleeding but dropped several units in the process. He and his are worried - this has never happened to him before and would like to proceed with colonoscopy Problems: Plan Plan Proceed with colonoscopy recheck Hgb- transfuse if continues to drop JOSH DURAN MD Jan 17, 2017 18:20
[2017-01-17] MEDS ORDERED: POLYETHYLENE GLYCOL 3350 238 GM POWDER PO ONE (19:00)
[2017-01-17] MEDS ORDERED: ZOLPIDEM 5 MG TABLET. PO PRN (19:00)
[2017-01-17 20:41] LABS: HEMATOCRIT 25.8 % (39.0-53.0); HEMOGLOBIN 8.2 g/dL (13.0-17.5)
[2017-01-17] MEDS: ATORVASTATIN CALCIUM 10 MG TABLET. PO SCH (21:10)
[2017-01-17 21:19] LABS: CALCIUM 8.4 mg/dL (8.5-10.1); CREATININE 1.8 mg/dL (0.7-1.3); GFR 44.5; MAGNESIUM 1.6 mg/dL (1.8-2.4); POTASSIUM 3.9 mmol/L (3.5-5.1)
[2017-01-17] MEDS: INSULIN DETEMIR 300 UNITS/3 ML INSULN.PEN. SQ SCH (21:33)
[2017-01-18] VITALS (17 sets, daily range): BP systolic 111–154; BP diastolic 48–78
[2017-01-18] MEDS: ALBUTEROL SULFATE 2.5 MG/3 ML NEBU. NEB SCH ×4 (00:40→20:36)
[2017-01-18] MEDS: INSULIN ASPART 300 UNITS/3 ML INSULN.PEN SQ SCH ×6 (07:30→17:00)
[2017-01-18] MEDS: BUDESONIDE 0.5 MG/2 ML NEBU NEB SCH ×2 (08:40→20:36)
[2017-01-18] MEDS ORDERED: LIDOCAINE 2% 100 MG/5 ML DISP.SYRIN. ONE (08:47)
[2017-01-18] MEDS ORDERED: PROPOFOL 40 ML IV ONE (08:47)
[2017-01-18] MEDS: HYDRALAZINE 50 MG TABLET PO SCH ×3 (09:00→20:54)
[2017-01-18] MEDS: SULFASALAZINE 500 MG TABLET PO SCH ×2 (09:00→21:01)
--- NOTE | 2017-01-18 09:01 | PDOC ---
ANNE MARIE FERRERA CORE CARRIER 01/18/17 0901: SURGICAL PROGRESS NOTE Subjective no further bleeding colonoscopy today Vital Signs Vital Signs Date Time Temp Pulse Resp B/P Pulse Ox O2 Delivery O2 Flow Rate FiO2 01/18/17 08:41 97 Nasal Cannula 3.0 01/18/17 08:00 98.0 90 20 111/51 98.0 I&O Intake and Output 01/18/17 07:00 Intake Total 4122 ml Output Total 1950 ml Balance 2172 ml Intake Oral 1200 ml IV Total 2922 ml Output Urine Total 1950 ml # Bowel Movements 5 General: Alert, Oriented X3, Cooperative, No acute distress Abdomen: Soft, No tenderness Labs Laboratory Tests Test 01/16/17 11:40 01/16/17 12:45 01/16/17 16:45 01/16/17 18:05 White Blood Count 9.3x10^3/uL (4.0-11.0) 8.7x10^3/uL (4.0-11.0) Red Blood Count 4.17x10^6/uL (4.30-5.70) 3.29x10^6/uL (4.30-5.70) Hemoglobin 9.4g/dL (13.0-17.5) 7.6g/dL (13.0-17.5) Hematocrit 29.8% (39.0-53.0) 24.1% (39.0-53.0) Mean Corpuscular Volume 71fL (79-100) 73fL (79-100) Mean Corpuscular Hemoglobin 23pg (25-35) 23pg (25-35) Mean Corpuscular Hemoglobin Concent 32g/dL (31-37) 32g/dL (31-37) Red Cell Distribution Width 21.5% (11.5-14.5) 21.1% (11.5-14.5) Platelet Count 254x10^3/uL (140-400) 188x10^3/uL (140-400) Neutrophils (%) (Auto) 62% (31-73) Lymphocytes (%) (Auto) 22% (24-48) Monocytes (%) (Auto) 12% (0-9) Eosinophils (%) (Auto) 4% (0-3) Basophils (%) (Auto) 1% (0-3) Neutrophils # (Auto) 5.7x10^3uL (1.8-7.7) Lymphocytes # (Auto) 2.1x10^3/uL (1.0-4.8) Monocytes # (Auto) 1.1x10^3/uL (0.0-1.1) Eosinophils # (Auto) 0.4x10^3/uL (0.0-0.7) Basophils # (Auto) 0.1x10^3/uL (0.0-0.2) Platelet Estimate Adequate (ADEQUATE) Giant Platelets Occ Polychromasia Slight Hypochromasia Mod Poikilocytosis Mod Anisocytosis Mod Microcytosis Mod Macrocytosis Slight Tear Drop Cells Occ Ovalocytes Occ Helmet Cells Few Schistocytes Few Prothrombin Time 13.9SEC (11.7-14.0) Prothromb Time International Ratio 1.1 (0.8-1.1) Sodium Level 143mmol/L (136-145) Potassium Level 4.5mmol/L (3.5-5.1) Chloride Level 107mmol/L (98-107) Carbon Dioxide Level 26mmol/L (21-32) Anion Gap 10 (6-14) Blood Urea Nitrogen 29mg/dL (8-26) Creatinine 1.8mg/dL (0.7-1.3) Estimated GFR (Cockcroft-Gault) 44.5 BUN/Creatinine Ratio 16 (6-20) Glucose Level 77mg/dL (70-99) Calcium Level 9.2mg/dL (8.5-10.1) Total Bilirubin 0.5mg/dL (0.2-1.0) Aspartate Amino Transf (AST/SGOT) 15U/L (15-37) Alanine Aminotransferase (ALT/SGPT) 11U/L (16-63) Alkaline Phosphatase 80U/L (46-116) Total Protein 7.0g/dL (6.4-8.2) Albumin 3.0g/dL (3.4-5.0) Albumin/Globulin Ratio 0.8 (1.0-1.7) Urine Collection Type Unknown Urine Color Yellow Urine Clarity Clear Urine pH 5.0 Urine Specific [place] 1.020 Urine Protein 30mg/dL (NEG-TRACE) Urine Glucose (UA) Negativemg/dL (NEG) Urine Ketones (Stick) Negativemg/dL (NEG) Urine Blood Negative (NEG) Urine Nitrite Negative (NEG) Urine Bilirubin Negative (NEG) Urine Urobilinogen Dipstick 1.0mg/dL (0.2 mg/dL) Urine Leukocyte Esterase Negative (NEG) Urine RBC 1-2/HPF (0-2) Urine WBC 1-4/HPF (0-4) Urine Squamous Epithelial Cells Few/LPF Urine Renal Epithelial Cells Occ/LPF Urine Bacteria Few/HPF (0-FEW) Urine Hyaline Casts Few/HPF Urine Mucus Mod/LPF Nasal Screen MRSA (PCR) Negative (Negative) Test 01/16/17 20:53 01/17/17 05:00 01/17/17 12:48 01/17/17 18:17 Glucose (Fingerstick) 101mg/dL (70-99) 177mg/dL (70-99) 75mg/dL (70-99) White Blood Count 7.7x10^3/uL (4.0-11.0) Red Blood Count 3.25x10^6/uL (4.30-5.70) Hemoglobin 7.8g/dL (13.0-17.5) Hematocrit 24.3% (39.0-53.0) Mean Corpuscular Volume 75fL (79-100) Mean Corpuscular Hemoglobin 24pg (25-35) Mean Corpuscular Hemoglobin Concent 32g/dL (31-37) Red Cell Distribution Width 21.9% (11.5-14.5) Platelet Count 178x10^3/uL (140-400) Neutrophils (%) (Auto) 67% (31-73) Lymphocytes (%) (Auto) 20% (24-48) Monocytes (%) (Auto) 10% (0-9) Eosinophils (%) (Auto) 3% (0-3) Basophils (%) (Auto) 1% (0-3) Neutrophils # (Auto) 5.1x10^3uL (1.8-7.7) Lymphocytes # (Auto) 1.5x10^3/uL (1.0-4.8) Monocytes # (Auto) 0.8x10^3/uL (0.0-1.1) Eosinophils # (Auto) 0.2x10^3/uL (0.0-0.7) Basophils # (Auto) 0.1x10^3/uL (0.0-0.2) Sodium Level 146mmol/L (136-145) Potassium Level 4.6mmol/L (3.5-5.1) Chloride Level 113mmol/L (98-107) Carbon Dioxide Level 24mmol/L (21-32) Anion Gap 9 (6-14) Blood Urea Nitrogen 27mg/dL (8-26) Creatinine 1.8mg/dL (0.7-1.3) Estimated GFR (Cockcroft-Gault) 44.5 Glucose Level 96mg/dL (70-99) Calcium Level 8.6mg/dL (8.5-10.1) Test 01/17/17 20:30 01/18/17 07:55 01/18/17 08:09 Hemoglobin 8.2g/dL (13.0-17.5) Hematocrit 25.8% (39.0-53.0) Mean Corpuscular Hemoglobin Concent 32g/dL (31-37) Sodium Level 141mmol/L (136-145) Potassium Level 3.9mmol/L (3.5-5.1) Chloride Level 109mmol/L (98-107) Carbon Dioxide Level 20mmol/L (21-32) Anion Gap 12 (6-14) Blood Urea Nitrogen 21mg/dL (8-26) Creatinine 1.8mg/dL (0.7-1.3) Estimated GFR (Cockcroft-Gault) 44.5 Glucose Level 258mg/dL (70-99) Calcium Level 8.4mg/dL (8.5-10.1) Magnesium Level 1.6mg/dL (1.8-2.4) Glucose (Fingerstick) 42mg/dL (70-99) 144mg/dL (70-99) Laboratory Tests Test 01/17/17 12:48 01/17/17 18:17 01/17/17 20:30 01/18/17 07:55 Glucose (Fingerstick) 177mg/dL (70-99) 75mg/dL (70-99) 42mg/dL (70-99) Hemoglobin 8.2g/dL (13.0-17.5) Hematocrit 25.8% (39.0-53.0) Mean Corpuscular Hemoglobin Concent 32g/dL (31-37) Sodium Level 141mmol/L (136-145) Potassium Level 3.9mmol/L (3.5-5.1) Chloride Level 109mmol/L (98-107) Carbon Dioxide Level 20mmol/L (21-32) Anion Gap 12 (6-14) Blood Urea Nitrogen 21mg/dL (8-26) Creatinine 1.8mg/dL (0.7-1.3) Estimated GFR (Cockcroft-Gault) 44.5 Glucose Level 258mg/dL (70-99) Calcium Level 8.4mg/dL (8.5-10.1) Magnesium Level 1.6mg/dL (1.8-2.4) Test 01/18/17 08:09 Glucose (Fingerstick) 144mg/dL (70-99) Problem List Problems Medical Problems: (1) GI bleed Status: Acute Assessment/Plan hgb stable plans for scope today Problems: KALA VANCE MD 01/18/17 1626: SURGICAL PROGRESS NOTE Assessment/Plan Pt seen and examined Agree with Ms. Ferrera's note Pt feels better, no further bleeding abd soft no obvious findings on colonoscopy agree with plan per GI Problems: ANNE MARIE FERRERA APRN Jan 18, 2017 09:01 KALA VANCE MD Jan 18, 2017 16:26
[2017-01-18] MEDS: DEXTROSE 50% 25 GM / 50ML DISP.SYRIN. IV PRN (09:03)
[2017-01-18] MEDS: IV NORMAL SALINE 1000ML BAG 1,000 ML IV SCH ×3 (09:04→17:59)
[2017-01-18] MEDS: PANTOPRAZOLE IV PUSH 40 MG VIAL. IVP SCH (09:09)
[2017-01-18] MEDS ORDERED: hydrALAZINE 20 MG/ML VIAL. IVP PRN (11:00)
--- NOTE | 2017-01-18 11:35 | PDOC4 ---
PROCEDURE Procedure Colonoscopy Indication- rectal bleeding Sedation per Anesthesia Findings- prior colo-colonic anastomosis in rectum. No bleeding. Numerous diverticulae in sigmoid colon- no bleeding. 3 polyps in ascending colon- ranging from 6-8 mm- semi-pedunculated. REmoved by hot snare. Plan- resume diet f/u on path repeat colonoscopy in 3 years JOSH DURAN MD Jan 18, 2017 11:35
[2017-01-18] MEDS ORDERED: AA 2.75%/CALCIUM/LYTES/D5W 1,000 ML IV SCH (12:00)
[2017-01-18] MEDS: CALCIUM CARBONATE 500 MG TAB.CHEW PO SCH (12:33)
[2017-01-18] MEDS: FOLIC ACID 1 MG TABLET PO SCH (12:33)
[2017-01-18] MEDS: DUTASTERIDE 0.5 MG CAPSULE PO SCH (12:33)
[2017-01-18] MEDS: VERAPAMIL SR 180 MG TABLET.ER. PO SCH (12:34)
--- NOTE | 2017-01-18 15:52 | PDOC ---
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 History of Present Illness History of Present Illness colonoscopy today, polyps taken check HGB now and in AM transfer to floor, no change Vitals Vitals Vital Signs Date Time Temp Pulse Resp B/P Pulse Ox O2 Delivery O2 Flow Rate FiO2 01/18/17 15:00 98.4 84 21 131/66 96 Nasal Cannula 3.0 98.4 Physical Exam General: Alert, Oriented X3, Cooperative, No acute distress Lungs: Clear, Other Abdomen: Soft, No tenderness Extremities: No clubbing, No cyanosis, No edema, Normal pulses, No tenderness/ swelling Skin: No rashes, No breakdown, No significant lesion Labs LABS Laboratory Tests Test 01/17/17 18:17 01/17/17 20:30 01/18/17 07:55 01/18/17 08:09 Glucose (Fingerstick) 75mg/dL (70-99) 42mg/dL (70-99) 144mg/dL (70-99) Hemoglobin 8.2g/dL (13.0-17.5) Hematocrit 25.8% (39.0-53.0) Mean Corpuscular Hemoglobin Concent 32g/dL (31-37) Sodium Level 141mmol/L (136-145) Potassium Level 3.9mmol/L (3.5-5.1) Chloride Level 109mmol/L (98-107) Carbon Dioxide Level 20mmol/L (21-32) Anion Gap 12 (6-14) Blood Urea Nitrogen 21mg/dL (8-26) Creatinine 1.8mg/dL (0.7-1.3) Estimated GFR (Cockcroft-Gault) 44.5 Glucose Level 258mg/dL (70-99) Calcium Level 8.4mg/dL (8.5-10.1) Magnesium Level 1.6mg/dL (1.8-2.4) Test 01/18/17 10:08 01/18/17 12:36 Glucose (Fingerstick) 110mg/dL (70-99) 88mg/dL (70-99) Assessment and Plan Assessmemt and Plan Problems Medical Problems: (1) GI bleed Status: Acute Problems: Comment Review of Relevant I have reviewed the following items lauren (where applicable) has been applied. Labs Laboratory Tests Test 01/16/17 16:45 01/16/17 18:05 01/16/17 20:53 01/17/17 05:00 Nasal Screen MRSA (PCR) Negative (Negative) White Blood Count 8.7x10^3/uL (4.0-11.0) 7.7x10^3/uL (4.0-11.0) Red Blood Count 3.29x10^6/uL (4.30-5.70) 3.25x10^6/uL (4.30-5.70) Hemoglobin 7.6g/dL (13.0-17.5) 7.8g/dL (13.0-17.5) Hematocrit 24.1% (39.0-53.0) 24.3% (39.0-53.0) Mean Corpuscular Volume 73fL (79-100) 75fL (79-100) Mean Corpuscular Hemoglobin 23pg (25-35) 24pg (25-35) Mean Corpuscular Hemoglobin Concent 32g/dL (31-37) 32g/dL (31-37) Red Cell Distribution Width 21.1% (11.5-14.5) 21.9% (11.5-14.5) Platelet Count 188x10^3/uL (140-400) 178x10^3/uL (140-400) Glucose (Fingerstick) 101mg/dL (70-99) Neutrophils (%) (Auto) 67% (31-73) Lymphocytes (%) (Auto) 20% (24-48) Monocytes (%) (Auto) 10% (0-9) Eosinophils (%) (Auto) 3% (0-3) Basophils (%) (Auto) 1% (0-3) Neutrophils # (Auto) 5.1x10^3uL (1.8-7.7) Lymphocytes # (Auto) 1.5x10^3/uL (1.0-4.8) Monocytes # (Auto) 0.8x10^3/uL (0.0-1.1) Eosinophils # (Auto) 0.2x10^3/uL (0.0-0.7) Basophils # (Auto) 0.1x10^3/uL (0.0-0.2) Sodium Level 146mmol/L (136-145) Potassium Level 4.6mmol/L (3.5-5.1) Chloride Level 113mmol/L (98-107) Carbon Dioxide Level 24mmol/L (21-32) Anion Gap 9 (6-14) Blood Urea Nitrogen 27mg/dL (8-26) Creatinine 1.8mg/dL (0.7-1.3) Estimated GFR (Cockcroft-Gault) 44.5 Glucose Level 96mg/dL (70-99) Calcium Level 8.6mg/dL (8.5-10.1) Test 01/17/17 12:48 01/17/17 18:17 01/17/17 20:30 01/18/17 07:55 Glucose (Fingerstick) 177mg/dL (70-99) 75mg/dL (70-99) 42mg/dL (70-99) Hemoglobin 8.2g/dL (13.0-17.5) Hematocrit 25.8% (39.0-53.0) Mean Corpuscular Hemoglobin Concent 32g/dL (31-37) Sodium Level 141mmol/L (136-145) Potassium Level 3.9mmol/L (3.5-5.1) Chloride Level 109mmol/L (98-107) Carbon Dioxide Level 20mmol/L (21-32) Anion Gap 12 (6-14) Blood Urea Nitrogen 21mg/dL (8-26) Creatinine 1.8mg/dL (0.7-1.3) Estimated GFR (Cockcroft-Gault) 44.5 Glucose Level 258mg/dL (70-99) Calcium Level 8.4mg/dL (8.5-10.1) Magnesium Level 1.6mg/dL (1.8-2.4) Test 01/18/17 08:09 01/18/17 10:08 01/18/17 12:36 Glucose (Fingerstick) 144mg/dL (70-99) 110mg/dL (70-99) 88mg/dL (70-99) Laboratory Tests Test 01/17/17 18:01/17/17 20:30 01/18/17 07:55 01/18/17 08:09 Glucose (Fingerstick) 75mg/dL (70-99) 42mg/dL (70-99) 144mg/dL (70-99) Hemoglobin 8.2g/dL (13.0-17.5) Hematocrit 25.8% (39.0-53.0) Mean Corpuscular Hemoglobin Concent 32g/dL (31-37) Sodium Level 141mmol/L (136-145) Potassium Level 3.9mmol/L (3.5-5.1) Chloride Level 109mmol/L (98-107) Carbon Dioxide Level 20mmol/L (21-32) Anion Gap 12 (6-14) Blood Urea Nitrogen 21mg/dL (8-26) Creatinine 1.8mg/dL (0.7-1.3) Estimated GFR (Cockcroft-Gault) 44.5 Glucose Level 258mg/dL (70-99) Calcium Level 8.4mg/dL (8.5-10.1) Magnesium Level 1.6mg/dL (1.8-2.4) Test 01/18/17 10:08 01/18/17 12:36 Glucose (Fingerstick) 110mg/dL (70-99) 88mg/dL (70-99) Medications Current Medications Sodium Chloride 10 ml 10 ml QSHIFT PRN IV AFTER MEDS AND BLOOD DRAWS; Start 08/25 at 11:30 Sodium Chloride (Iv Sodium Chloride 0.9% 500ml Bag) 500 ml @ 500 mls/hr 1X ONCE IV Last administered on 01/16/17 11:50; Start 01/16/17 at 11:30; Stop 08/25 at 12:29; Status DC Pantoprazole Sodium (Protonix Vial) 40 mg 1X ONCE IVP Last administered on 11:52; Start 01/16/17 at 11:30; Stop 01/16/17 at 11:33; Status DC Fentanyl Citrate (Fentanyl 2ml Vial) 50 mcg 1X ONCE IV ; Start 01/16/17 at 11: 30; Stop 01/16/17 at 11:34; Status DC Iohexol (Omnipaque 300 Mg/ml) 60 ml 1X ONCE IV Last administered on 01/16/17 12:23; Start 01/16/17 at 12:15; Stop 01/16/17 at 12:18; Status DC Info (Do NOT chart on this entry -- for MONITORING) 1 each PRN DAILY PRN MC SEE COMMENTS; Start 01/16/17 at 12:30; Stop 01/18/17 at 12:29; Status DC Pantoprazole Sodium (Protonix Vial) 40 mg DAILY IVP Last administered on 09:09; Start 01/16/17 at 13:00 Insulin Aspart (Novolog) 0-9 UNITS TIDWMEALS SQ Last administered on 01/17/17 12:52; Start 01/16/17 at 17:00 Dextrose 12.5 gm 12.5 gm PRN Q15MIN PRN IV SEE COMMENTS Last administered on 09:03; Start 01/16/17 at 12:15 Sodium Chloride (Iv Sodium Chloride 0.9% 1000ml Bag) 1,000 ml @ 100 mls/hr q10H IV ; Start 01/16/17 at 12:15; Status Cancel Ondansetron HCl (Zofran) 4 mg PRN Q6HRS PRN IV n/v; Start 01/16/17 at 12:15 Morphine Sulfate 1 mg PRN Q2HR PRN IV pain; Start 01/16/17 at 12:15 Acetaminophen (Tylenol) 650 mg PRN Q6HRS PRN PO pain; Start 01/16/17 at 12:15 Dutasteride (Avodart) 0.5 mg DAILY PO Last administered on 01/18/17 12:33; Start 01/17/17 at 09:00 Folic Acid (Folic Acid) 1 mg DAILY PO Last administered on 01/18/17 12:33; Start 01/17/17 at 09:00 Hydralazine HCl (Apresoline) 50 mg TID PO Last administered on 01/18/17 14:53 ; Start 01/16/17 at 14:00 Insulin Aspart (Novolog) 10 units TIDAC SQ Last administered on 01/17/17 12:53 ; Start 01/16/17 at 16:30 Insulin Detemir (Levemir) 35 units HS SQ Last administered on 01/17/17 21:33; Start 01/16/17 at 21:00 Atorvastatin Calcium (Lipitor) 10 mg QHS PO Last administered on 01/17/17 21: 10; Start 01/16/17 at 21:00 Sulfasalazine (Azulfidine) 1,000 mg BID PO Last administered on 01/17/17 09:00 ; Start 01/16/17 at 21:00 Non-Formulary Medication 2 puff PRN Q4-6HRS IH ; Start 01/16/17 at 12:15; Stop 01/16/17 at 13:21; Status DC Calcium Carbonate/ Glycine (Tums) 1,000 mg DAILY PO Last administered on 12:33; Start 01/16/17 at 13:15 Non-Formulary Medication 1 inh BID IH helps breathing; Start 01/16/17 at 21:00; Stop 01/16/17 at 21:00; Status DC Verapamil HCl (Calan Sr) 360 mg DAILY PO Last administered on 01/18/17 12:34; Start 01/17/17 at 09:00 Ondansetron HCl (Zofran) 4 mg PRN Q8HRS PRN IV NAUSEA/VOMITING; Start 01/16/17 at 12:30; Stop 01/17/17 at 09:20; Status DC Morphine Sulfate 2 mg PRN Q2HR PRN IV PAIN Last administered on 01/17/17 00:37 ; Start 01/16/17 at 12:30; Stop 01/17/17 at 09:20; Status DC Albuterol Sulfate (Ventolin Neb Soln) 2.5 mg PRN Q4HRS PRN NEB SHORTNESS OF BREATH; Start 01/16/17 at 13:15 Albuterol Sulfate (Ventolin Neb Soln) 2.5 mg Q6HRS NEB Last administered on 12:19; Start 01/16/17 at 13:00 Budesonide 0.5 mg 0.5 mg RTBID NEB Last administered on 01/18/17 08:40; Start 01/16/17 at 20:00 Sodium Chloride (Iv Sodium Chloride 0.9% 1000ml Bag) 1,000 ml @ 150 mls/hr Q6H40M IV Last administered on 01/18/17 12:48; Start 01/17/17 at 00:00 Polyethylene Glycol (miraLAX Powder BULK BOTTLE) 238 gm 1X ONCE PO Last administered on 01/17/17 18:49; Start 01/17/17 at 19:00; Stop 01/17/17 at 19:01 ; Status DC Zolpidem Tartrate 5 mg 5 mg PRN QHS PRN PO INSOMNIA Last administered on 23:49; Start 01/17/17 at 19:00 Propofol (Diprivan) 40 ml @ As Directed STK-MED ONCE IV ; Start 01/18/17 at 08: 47; Stop 01/18/17 at 08:48; Status DC Lidocaine HCl 100 mg STK-MED ONCE .ROUTE ; Start 01/18/17 at 08:47; Stop at 08:48; Status DC Hydralazine HCl 10 mg 10 mg PRN Q4HRS PRN IVP ELEVATED BP, SEE COMMENTS; Start 01/18/17 at 11:00 Amino Acids/ Electrolytes (Clinimix E 2.75%-5% Solution) 1,000 ml @ 55 mls/hr [id number] IV ; Start 01/18/17 at 12:00; Stop 01/18/17 at 12:00; Status DC Magnesium Chloride (Mag Delay) 64 mg DAILY PO ; Start 01/18/17 at 16:15 Active Scripts Active Levemir Flextouch (Insulin Detemir) 100 Unit/1 Ml Insuln.pen 35 Units SQ HS 30 Days Doxycycline Hyclate 100 Mg Tablet 100 Mg PO BID 5 Days Proair Hfa Inhaler (Albuterol Sulfate) 8.5 Gm Hfa.aer.ad 2 Puff IH PRN Q4-6HRS Novolog Flexpen (Insulin Aspart) 300 Units/3 Ml Insuln.pen 10 Units SQ TIDAC Reported Hydralazine Hcl 50 Mg Tablet 50 Mg PO TID Verapamil Er (Verapamil Hcl) 240 Mg Cap24h.pel 360 Mg PO DAILY Sulfasalazine 500 Mg Tablet 1,000 Mg PO BID Antacid Chewable Tablet (Calcium Carbonate/Mag Hydrox) 1 Each Tab.chew 1 Each PO DAILY Advair 250-50 Diskus (Fluticasone/Salmeterol) 1 Each Disk.w.dev 1 Inh IH BID Aspir 81 (Aspirin) 81 Mg Tablet.dr 81 Mg PO DAILY Folic Acid 1 Mg Tablet 1 Mg PO DAILY Avodart (Dutasteride) 0.5 Mg Capsule 0.5 Mg PO DAILY Simvastatin 20 Mg Tablet 20 Mg PO HS Vitals/I & O Vital Sign - Last 24 Hours 01/17/17 01/17/17 01/17/17 01/17/17 16:00 16:00 17:00 18:00 Temp 98.4 98.4 Pulse 82 82 80 Resp 24 23 B/P 111/53 110/55 107/55 Pulse Ox 98 97 97 O2 Delivery Nasal Cannula Nasal Cannula Nasal Cannula Nasal Cannula O2 Flow Rate 3.0 3.0 3.0 3.0 01/17/17 01/17/17 01/17/17 01/17/17 19:00 20:00 20:00 20:18 Temp 98.3 98.3 Pulse 80 84 Resp 27 B/P 107/55 138/62 Pulse Ox 97 97 98 O2 Delivery Nasal Cannula Nasal Cannula Nasal Cannula Nasal Cannula O2 Flow Rate 3.0 3.0 3.0 3.0 01/17/17 01/17/17 01/17/17 01/17/17 21:00 21:00 22:00 23:00 Pulse 88 79 79 90 Resp 24 B/P 125/84 125/64 114/56 138/62 Pulse Ox 96 98 98 O2 Delivery Nasal Cannula Nasal Cannula Nasal Cannula O2 Flow Rate 3.0 3.0 3.0 01/18/17 01/18/17 01/18/17 01/18/17 00:00 00:00 00:40 01:00 Temp 98.3 98.3 Pulse 78 74 Resp 22 B/P 143/56 135/54 Pulse Ox 98 96 98 O2 Delivery Nasal Cannula Nasal Cannula Nasal Cannula Nasal Cannula O2 Flow Rate 3.0 3.0 3.0 3.0 01/18/17 01/18/17 01/18/17 01/18/17 03:00 04:00 04:00 05:00 Temp 98.7 98.7 Pulse 88 73 78 Resp 29 19 15 B/P 115/53 125/58 143/57 Pulse Ox 96 99 99 O2 Delivery Nasal Cannula Nasal Cannula Nasal Cannula Nasal Cannula O2 Flow Rate 3.0 3.0 3.0 3.0 01/18/17 01/18/17 01/18/17 01/18/17 06:00 07:00 08:00 08:00 Temp 98.0 98.0 Pulse 76 75 90 Resp 19 25 20 B/P 114/65 120/58 111/51 Pulse Ox 97 97 98 O2 Delivery Nasal Cannula Nasal Cannula Nasal Cannula Nasal Cannula O2 Flow Rate 3.0 3.0 3.0 3.0 01/18/17 01/18/17 01/18/17 01/18/17 08:41 09:00 10:00 10:21 Temp 97.1 97.1 Pulse 77 84 77 Resp 18 16 B/P 154/66 150/48 Pulse Ox 97 96 95 98 O2 Delivery Nasal Cannula Nasal Cannula Nasal Cannula O2 Flow Rate 3.0 3.0 3.0 01/18/17 01/18/17 01/18/17 01/18/17 10:24 11:29 11:38 11:48 Temp 97.9 97.9 97.9 97.9 Pulse 85 85 76 Resp 16 16 B/P 103/56 109/60 123/64 Pulse Ox 100 98 99 O2 Delivery Nasal Cannula Nasal Cannula Nasal Cannula Nasal Cannula O2 Flow Rate 3.0 5 5 3 01/18/17 01/18/17 01/18/17 01/18/17 11:53 12:00 12:00 12:19 Temp 98.5 98.5 Pulse 81 80 Resp 16 25 B/P 127/65 135/67 Pulse Ox 97 98 97 O2 Delivery Nasal Cannula Nasal Cannula Nasal Cannula Nasal Cannula O2 Flow Rate 3 3.0 3.0 3.0 01/18/17 01/18/17 01/18/17 01/18/17 12:34 13:00 14:00 14:53 Pulse 91 80 85 80 Resp 23 21 B/P 135/67 150/69 140/64 140/64 Pulse Ox 98 98 O2 Delivery Nasal Cannula Nasal Cannula O2 Flow Rate 3.0 3.0 01/18/17 15:00 Temp 98.4 98.4 Pulse 84 Resp 21 B/P 131/66 Pulse Ox 96 O2 Delivery Nasal Cannula O2 Flow Rate 3.0 Intake and Output 01/17/17 01/17/17 01/18/17 15:00 23:00 07:00 Intake Total 1200 ml 2922 ml Output Total 1300 ml 650 ml Balance -100 ml 2272 ml SHRUTHI HARDWICK MD Jan 18, 2017 15:52
--- NOTE | 2017-01-18 16:00 | PDOC2 ---
CARDIAC CONSULT DATE OF CONSULT Date of Consult DATE: 01/18/17 TIME: 15:46 REASON FOR CONSULT Reason for Consult: Accelerated junctional rhythm, syncope HISTORY OF PRESENT ILLNESS HISTORY OF PRESENT ILLNESS 76 yo male admitted with GIB and anemia. Patient was on the medical floor and had moved from the commode to the bed when he suddenly felt faint and had syncope. He denies any previous episodes of syncope, but occasionally feels "dizzy" if arises quickly. The patient was not on tele monitoring at the time. He was transferred to ICU, and last evening had a brief episode of what was termed "accelerated junctional rhythm." It was perhaps 15 beats in duration. Review of the strip indeed reveals that the P waves did become undetectable, but the QRS morphology and rate did not change. The patient apparently was asymptomatic. He had several PAC overnight, but no other dysrhythmia. PAST MEDICAL HISTORY Cardiovascular: HTN Pulmonary: COPD GI: Other (colon CA) Renal/: Benign prostatic enlarg. Endocrine: Diabetes PAST SURGICAL HISTORY Past Surgical History: Colon Resection FAMILY HISTORY Family History non-contributory SOCIAL HISTORY Smoke: No CURRENT MEDICATIONS CURRENT MEDICATIONS Current Medications Medications (Trade) Dose Ordered Sig/Lindsay Route PRN Reason Start Time Stop Time Status Last Admin Dose Admin Polyethylene Glycol (miraLAX Powder BULK BOTTLE) 238 gm 1X ONCE PO 01/17/17 19:00 01/17/17 19:01 DC 01/17/17 18:49 Zolpidem Tartrate (Ambien) 5 mg PRN QHS PRN PO INSOMNIA 01/17/17 19:00 01/17/17 23:49 ALLERGIES ALLERGIES: Coded Allergies: No Known Drug Allergies (Unverified , 04/14/15) PHYSICAL EXAM General: Alert, Oriented X3, Cooperative Lungs: Other (decreased air flow, no wheezes) Heart: No murmurs, Other (+ S4 at apex) Abdomen: Normal bowel sounds Extremities: No edema Skin: No rashes VITALS VITALS Vital Signs Date Time Temp Pulse Resp B/P Pulse Ox O2 Delivery O2 Flow Rate FiO2 01/18/17 15:00 98.4 84 21 131/66 96 Nasal Cannula 3.0 98.4 LABS Lab: Laboratory Tests Test 01/17/17 18:17 01/17/17 20:30 01/18/17 07:55 01/18/17 08:09 Glucose (Fingerstick) 75mg/dL (70-99) 42mg/dL (70-99) 144mg/dL (70-99) Hemoglobin 8.2g/dL (13.0-17.5) Hematocrit 25.8% (39.0-53.0) Mean Corpuscular Hemoglobin Concent 32g/dL (31-37) Sodium Level 141mmol/L (136-145) Potassium Level 3.9mmol/L (3.5-5.1) Chloride Level 109mmol/L (98-107) Carbon Dioxide Level 20mmol/L (21-32) Anion Gap 12 (6-14) Blood Urea Nitrogen 21mg/dL (8-26) Creatinine 1.8mg/dL (0.7-1.3) Estimated GFR (Cockcroft-Gault) 44.5 Glucose Level 258mg/dL (70-99) Calcium Level 8.4mg/dL (8.5-10.1) Magnesium Level 1.6mg/dL (1.8-2.4) Test 01/18/17 10:08 01/18/17 12:36 Glucose (Fingerstick) 110mg/dL (70-99) 88mg/dL (70-99) EKG EKG NSR, no injury or ischemia ASSESSMENT/PLAN ASSESSMENT/PLAN 1) Syncope due to anemia and GIB 2) Possible accelerated junctional rhythm, although QRS and rate consistency favor supranodal conduction, possibly ectopic atrial rhythm. 3) Hypomagnesemia The noted tele rhythm is of little concern. Recommend replenishment of magnesium , and have ordered daily supplement. Please reconsult if there are further questions. Total time with patient, including more than half counseling on condition and coordinating care on the unit, is 25 minutes. Problems: BALAJI OVIEDO DO Jan 18, 2017 16:00
[2017-01-18 17:10] LABS: BASO % 0 % (0-3); EOS % 3 % (0-3); HEMATOCRIT 23.4 % (39.0-53.0); HEMOGLOBIN 7.4 g/dL (13.0-17.5); LYMPH % 15 % (24-48); MEAN CORPUSCULAR HEMOGLOBIN 24 pg (25-35); MEAN CORPUSCULAR HGB CONC 31 g/dL (31-37); MEAN CORPUSCULAR VOLUME 77 fL (79-100); MONO % 10 % (0-9); NEUT % 72 % (31-73); PLATELET COUNT 176 x10^3/uL (140-400); RED BLOOD COUNT 3.05 x10^6/uL (4.30-5.70); RED CELL DISTRIBUTION WIDTH 22.6 % (11.5-14.5); WHITE BLOOD COUNT 7.1 x10^3/uL (4.0-11.0)
[2017-01-18 17:25] LABS: ALBUMIN 2.4 g/dL (3.4-5.0); ALBUMIN/GLOBULIN RATIO 0.8 (1.0-1.7); CALCIUM 8.7 mg/dL (8.5-10.1); CREATININE 1.5 mg/dL (0.7-1.3); GFR 54.9; POTASSIUM 4.2 mmol/L (3.5-5.1); TOTAL BILIRUBIN 0.3 mg/dL (0.2-1.0); TOTAL PROTEIN 5.5 g/dL (6.4-8.2)
[2017-01-18] MEDS: MAGNESIUM CHLORIDE ER 64 MG TABLET.ER PO SCH ×2 (17:59)
[2017-01-18] MEDS: ATORVASTATIN CALCIUM 10 MG TABLET. PO SCH (20:54)
[2017-01-18] MEDS: INSULIN DETEMIR 300 UNITS/3 ML INSULN.PEN. SQ SCH (21:09)
[2017-01-19] MEDS: ALBUTEROL SULFATE 2.5 MG/3 ML NEBU. NEB SCH ×4 (00:15→18:00)
[2017-01-19] MEDS: IV NORMAL SALINE 1000ML BAG 1,000 ML IV SCH ×2 (01:34→02:29)
[2017-01-19 03:51] VITALS: BP 115/59
[2017-01-19 04:03] LABS: BASO % 0 % (0-3); EOS % 2 % (0-3); HEMATOCRIT 23.7 % (39.0-53.0); HEMOGLOBIN 7.8 g/dL (13.0-17.5); LYMPH # 0.8 x10^3/uL (1.0-4.8); LYMPH % 10 % (24-48); MEAN CORPUSCULAR HEMOGLOBIN 25 pg (25-35); MEAN CORPUSCULAR HGB CONC 33 g/dL (31-37); MEAN CORPUSCULAR VOLUME 77 fL (79-100); MONO % 10 % (0-9); NEUT % 78 % (31-73); PLATELET COUNT 214 x10^3/uL (140-400); RED CELL DISTRIBUTION WIDTH 22.2 % (11.5-14.5); WHITE BLOOD COUNT 7.7 x10^3/uL (4.0-11.0)
[2017-01-19 04:15] LABS: CALCIUM 8.5 mg/dL (8.5-10.1); CREATININE 1.5 mg/dL (0.7-1.3); GFR 54.9; POTASSIUM 4.2 mmol/L (3.5-5.1)
[2017-01-19] MEDS: DEXTROSE 50% 25 GM / 50ML DISP.SYRIN. IV PRN (05:36)
[2017-01-19 07:00] VITALS: BP 119/49
[2017-01-19] MEDS: INSULIN ASPART 300 UNITS/3 ML INSULN.PEN SQ SCH ×6 (07:30→16:58)
[2017-01-19] MEDS: BUDESONIDE 0.5 MG/2 ML NEBU NEB SCH (08:00)
[2017-01-19] MEDS: HYDRALAZINE 50 MG TABLET PO SCH ×2 (08:21→14:00)
[2017-01-19] MEDS: PANTOPRAZOLE IV PUSH 40 MG VIAL. IVP SCH (08:22)
[2017-01-19] MEDS: VERAPAMIL SR 180 MG TABLET.ER. PO SCH (08:22)
[2017-01-19] MEDS: DUTASTERIDE 0.5 MG CAPSULE PO SCH (08:22)
[2017-01-19] MEDS: FOLIC ACID 1 MG TABLET PO SCH (08:23)
[2017-01-19] MEDS: MAGNESIUM CHLORIDE ER 64 MG TABLET.ER PO SCH ×2 (08:23)
[2017-01-19] MEDS: SULFASALAZINE 500 MG TABLET PO SCH (08:23)
[2017-01-19] MEDS: CALCIUM CARBONATE 500 MG TAB.CHEW PO SCH (08:23)
[2017-01-19 10:40] VITALS: BP 145/64
[2017-01-19] MEDS ORDERED: FUROSEMIDE 20 MG/2 ML VIAL IVP ONE (11:00)
--- NOTE | 2017-01-19 11:21 | PDOC ---
Subjective: Subjective: No bleeding since 01/17. No BM since before colonoscopy 01/18. Feeling good. Eating w/o issue. Objective: Vital Signs: Vital Signs Date Time Temp Pulse Resp B/P Pulse Ox O2 Delivery O2 Flow Rate FiO2 01/19/17 10:40 98.1 78 18 145/64 96 Room Air 98.1 01/19/17 07:03 3.0 Labs: Laboratory Tests Test 01/18/17 12:36 01/18/17 17:39 01/18/17 21:00 01/19/17 05:29 Glucose (Fingerstick) 88mg/dL (70-99) 88mg/dL (70-99) 134mg/dL (70-99) 46mg/dL (70-99) Test 01/19/17 05:50 01/19/17 08:21 Glucose (Fingerstick) 147mg/dL (70-99) 130mg/dL (70-99) Imaging: CT 01/16: wall thickening of the descending colon and rectum. Bleeding Scan 01/16: accumulation of radiotracer over the region of the rectum, suggesting a bleed at this level. correction, the accumulation of radiotracer along the midline on the more delayed images likely corresponds with penile blood pool in this male patient w / an acute bleed in this region in the rectum is less likely. Colonoscopy 01/18: prior colo-colonic anastomosis in rectum, no bleeding, numerous diverticula in sigmoid colon - no bleeding, 3 polyps in ascending colon (removed hot snare) PE: GEN: NAD LUNGS: decreased, nasal cannula HEART: RRR ABD: NBS pretty active, S/ND/NT NEURO/PSYCH: A & O 3 A/P: Hematochezia - resolved -Hgb stable -CT 01/16: wall thickening descending and rectum -bleeding scan 01/16: neg -syncope 01/16, cardiology eval 01/18 -colonoscopy 01/18/17: normal anastomosis, non-bleeding diverticulosis (sigmoid) , colon polyps (path pending) -EGD 06/2009: suspected esophageal moniliasis, gastric erosions w/ gastritis (no H. pylori), normal duodenum (random biopsy unrevealing for sprue) -- Improved/stable. Will review w/ Dr. Hernandez. Await pathology. KITTY GOMEZ Jan 19, 2017 11:21
--- NOTE | 2017-01-19 11:53 | PDOC ---
Provider Note Provider Note He denies further rectal bleeding. has not had a bm since colonoscopy. + flatus. no abd pain afeb vss abd soft nd nt a/p rectal bleeding, resolved. s/p colonoscopy. no new surg recs. JUANCHO ROMERO MD Jan 19, 2017 11:53
--- NOTE | 2017-01-19 13:35 | PDOC ---
PROGRESS NOTES Chief Complaint Chief Complaint A/P BRBPR, acute blood loss per rectum Rectal bleeding with prior Hx colon Ca, S/P Colonoscopy, biopsy results pending. DM2 HTN Chronic diastolic HF Plan Monitor hemoglobin hold IV fluids 20 mg iv lasix times one orthostatic vitals awaiting GI recommendations 6 walk test supportive care Hemoglobin stable at 7.8 History of Present Illness History of Present Illness no bleeding no acute events. Vitals Vitals Vital Signs Date Time Temp Pulse Resp B/P Pulse Ox O2 Delivery O2 Flow Rate FiO2 01/19/17 12:08 Nasal Cannula 3.0 01/19/17 10:40 98.1 78 18 145/64 96 98.1 Physical Exam General: Alert, Oriented X3, Cooperative Heart: Normal S1, Normal S2, No murmurs, Other Lungs: Clear, Other Abdomen: Normal bowel sounds Extremities: No edema Skin: No rashes Labs LABS Laboratory Tests Test 01/18/17 17:00 01/18/17 17:39 01/18/17 21:00 01/19/17 03:20 White Blood Count 7.1x10^3/uL (4.0-11.0) 7.7x10^3/uL (4.0-11.0) Red Blood Count 3.05x10^6/uL (4.30-5.70) 3.10x10^6/uL (4.30-5.70) Hemoglobin 7.4g/dL (13.0-17.5) 7.8g/dL (13.0-17.5) Hematocrit 23.4% (39.0-53.0) 23.7% (39.0-53.0) Mean Corpuscular Volume 77fL (79-100) 77fL (79-100) Mean Corpuscular Hemoglobin 24pg (25-35) 25pg (25-35) Mean Corpuscular Hemoglobin Concent 31g/dL (31-37) 33g/dL (31-37) Red Cell Distribution Width 22.6% (11.5-14.5) 22.2% (11.5-14.5) Platelet Count 176x10^3/uL (140-400) 214x10^3/uL (140-400) Neutrophils (%) (Auto) 72% (31-73) 78% (31-73) Lymphocytes (%) (Auto) 15% (24-48) 10% (24-48) Monocytes (%) (Auto) 10% (0-9) 10% (0-9) Eosinophils (%) (Auto) 3% (0-3) 2% (0-3) Basophils (%) (Auto) 0% (0-3) 0% (0-3) Neutrophils # (Auto) 5.1x10^3uL (1.8-7.7) 6.0x10^3uL (1.8-7.7) Lymphocytes # (Auto) 1.0x10^3/uL (1.0-4.8) 0.8x10^3/uL (1.0-4.8) Monocytes # (Auto) 0.7x10^3/uL (0.0-1.1) 0.7x10^3/uL (0.0-1.1) Eosinophils # (Auto) 0.2x10^3/uL (0.0-0.7) 0.2x10^3/uL (0.0-0.7) Basophils # (Auto) 0.0x10^3/uL (0.0-0.2) 0.0x10^3/uL (0.0-0.2) Sodium Level 146mmol/L (136-145) 147mmol/L (136-145) Potassium Level 4.2mmol/L (3.5-5.1) 4.2mmol/L (3.5-5.1) Chloride Level 114mmol/L (98-107) 115mmol/L (98-107) Carbon Dioxide Level 26mmol/L (21-32) 26mmol/L (21-32) Anion Gap 6 (6-14) 6 (6-14) Blood Urea Nitrogen 12mg/dL (8-26) 10mg/dL (8-26) Creatinine 1.5mg/dL (0.7-1.3) 1.5mg/dL (0.7-1.3) Estimated GFR (Cockcroft-Gault) 54.9 54.9 BUN/Creatinine Ratio 8 (6-20) Glucose Level 100mg/dL (70-99) 61mg/dL (70-99) Calcium Level 8.7mg/dL (8.5-10.1) 8.5mg/dL (8.5-10.1) Total Bilirubin 0.3mg/dL (0.2-1.0) Aspartate Amino Transf (AST/SGOT) 16U/L (15-37) Alanine Aminotransferase (ALT/SGPT) 17U/L (16-63) Alkaline Phosphatase 70U/L (46-116) Total Protein 5.5g/dL (6.4-8.2) Albumin 2.4g/dL (3.4-5.0) Albumin/Globulin Ratio 0.8 (1.0-1.7) Glucose (Fingerstick) 88mg/dL (70-99) 134mg/dL (70-99) Test 01/19/17 05:29 01/19/17 05:50 01/19/17 08:21 01/19/17 11:53 Glucose (Fingerstick) 46mg/dL (70-99) 147mg/dL (70-99) 130mg/dL (70-99) 122mg/dL (70-99) Assessment and Plan Assessmemt and Plan Problems Medical Problems: (1) GI bleed Status: Acute Problems: Comment Review of Relevant I have reviewed the following items lauren (where applicable) has been applied. Labs Laboratory Tests Test 01/17/17 18:17 01/17/17 20:30 01/18/17 07:55 01/18/17 08:09 Glucose (Fingerstick) 75mg/dL (70-99) 42mg/dL (70-99) 144mg/dL (70-99) Hemoglobin 8.2g/dL (13.0-17.5) Hematocrit 25.8% (39.0-53.0) Mean Corpuscular Hemoglobin Concent 32g/dL (31-37) Sodium Level 141mmol/L (136-145) Potassium Level 3.9mmol/L (3.5-5.1) Chloride Level 109mmol/L (98-107) Carbon Dioxide Level 20mmol/L (21-32) Anion Gap 12 (6-14) Blood Urea Nitrogen 21mg/dL (8-26) Creatinine 1.8mg/dL (0.7-1.3) Estimated GFR (Cockcroft-Gault) 44.5 Glucose Level 258mg/dL (70-99) Calcium Level 8.4mg/dL (8.5-10.1) Magnesium Level 1.6mg/dL (1.8-2.4) Test 01/18/17 10:08 01/18/17 12:36 01/18/17 17:00 01/18/17 17:39 Glucose (Fingerstick) 110mg/dL (70-99) 88mg/dL (70-99) 88mg/dL (70-99) White Blood Count 7.1x10^3/uL (4.0-11.0) Red Blood Count 3.05x10^6/uL (4.30-5.70) Hemoglobin 7.4g/dL (13.0-17.5) Hematocrit 23.4% (39.0-53.0) Mean Corpuscular Volume 77fL (79-100) Mean Corpuscular Hemoglobin 24pg (25-35) Mean Corpuscular Hemoglobin Concent 31g/dL (31-37) Red Cell Distribution Width 22.6% (11.5-14.5) Platelet Count 176x10^3/uL (140-400) Neutrophils (%) (Auto) 72% (31-73) Lymphocytes (%) (Auto) 15% (24-48) Monocytes (%) (Auto) 10% (0-9) Eosinophils (%) (Auto) 3% (0-3) Basophils (%) (Auto) 0% (0-3) Neutrophils # (Auto) 5.1x10^3uL (1.8-7.7) Lymphocytes # (Auto) 1.0x10^3/uL (1.0-4.8) Monocytes # (Auto) 0.7x10^3/uL (0.0-1.1) Eosinophils # (Auto) 0.2x10^3/uL (0.0-0.7) Basophils # (Auto) 0.0x10^3/uL (0.0-0.2) Sodium Level 146mmol/L (136-145) Potassium Level 4.2mmol/L (3.5-5.1) Chloride Level 114mmol/L (98-107) Carbon Dioxide Level 26mmol/L (21-32) Anion Gap 6 (6-14) Blood Urea Nitrogen 12mg/dL (8-26) Creatinine 1.5mg/dL (0.7-1.3) Estimated GFR (Cockcroft-Gault) 54.9 BUN/Creatinine Ratio 8 (6-20) Glucose Level 100mg/dL (70-99) Calcium Level 8.7mg/dL (8.5-10.1) Total Bilirubin 0.3mg/dL (0.2-1.0) Aspartate Amino Transf (AST/SGOT) 16U/L (15-37) Alanine Aminotransferase (ALT/SGPT) 17U/L (16-63) Alkaline Phosphatase 70U/L (46-116) Total Protein 5.5g/dL (6.4-8.2) Albumin 2.4g/dL (3.4-5.0) Albumin/Globulin Ratio 0.8 (1.0-1.7) Test 01/18/17 21:00 01/19/17 03:20 01/19/17 05:29 01/19/17 05:50 Glucose (Fingerstick) 134mg/dL (70-99) 46mg/dL (70-99) 147mg/dL (70-99) White Blood Count 7.7x10^3/uL (4.0-11.0) Red Blood Count 3.10x10^6/uL (4.30-5.70) Hemoglobin 7.8g/dL (13.0-17.5) Hematocrit 23.7% (39.0-53.0) Mean Corpuscular Volume 77fL (79-100) Mean Corpuscular Hemoglobin 25pg (25-35) Mean Corpuscular Hemoglobin Concent 33g/dL (31-37) Red Cell Distribution Width 22.2% (11.5-14.5) Platelet Count 214x10^3/uL (140-400) Neutrophils (%) (Auto) 78% (31-73) Lymphocytes (%) (Auto) 10% (24-48) Monocytes (%) (Auto) 10% (0-9) Eosinophils (%) (Auto) 2% (0-3) Basophils (%) (Auto) 0% (0-3) Neutrophils # (Auto) 6.0x10^3uL (1.8-7.7) Lymphocytes # (Auto) 0.8x10^3/uL (1.0-4.8) Monocytes # (Auto) 0.7x10^3/uL (0.0-1.1) Eosinophils # (Auto) 0.2x10^3/uL (0.0-0.7) Basophils # (Auto) 0.0x10^3/uL (0.0-0.2) Sodium Level 147mmol/L (136-145) Potassium Level 4.2mmol/L (3.5-5.1) Chloride Level 115mmol/L (98-107) Carbon Dioxide Level 26mmol/L (21-32) Anion Gap 6 (6-14) Blood Urea Nitrogen 10mg/dL (8-26) Creatinine 1.5mg/dL (0.7-1.3) Estimated GFR (Cockcroft-Gault) 54.9 Glucose Level 61mg/dL (70-99) Calcium Level 8.5mg/dL (8.5-10.1) Test 01/19/17 08:21 01/19/17 11:53 Glucose (Fingerstick) 130mg/dL (70-99) 122mg/dL (70-99) Laboratory Tests Test 01/18/17 17:00 01/18/17 17:39 01/18/17 21:00 01/19/17 03:20 White Blood Count 7.1x10^3/uL (4.0-11.0) 7.7x10^3/uL (4.0-11.0) Red Blood Count 3.05x10^6/uL (4.30-5.70) 3.10x10^6/uL (4.30-5.70) Hemoglobin 7.4g/dL (13.0-17.5) 7.8g/dL (13.0-17.5) Hematocrit 23.4% (39.0-53.0) 23.7% (39.0-53.0) Mean Corpuscular Volume 77fL (79-100) 77fL (79-100) Mean Corpuscular Hemoglobin 24pg (25-35) 25pg (25-35) Mean Corpuscular Hemoglobin Concent 31g/dL (31-37) 33g/dL (31-37) Red Cell Distribution Width 22.6% (11.5-14.5) 22.2% (11.5-14.5) Platelet Count 176x10^3/uL (140-400) 214x10^3/uL (140-400) Neutrophils (%) (Auto) 72% (31-73) 78% (31-73) Lymphocytes (%) (Auto) 15% (24-48) 10% (24-48) Monocytes (%) (Auto) 10% (0-9) 10% (0-9) Eosinophils (%) (Auto) 3% (0-3) 2% (0-3) Basophils (%) (Auto) 0% (0-3) 0% (0-3) Neutrophils # (Auto) 5.1x10^3uL (1.8-7.7) 6.0x10^3uL (1.8-7.7) Lymphocytes # (Auto) 1.0x10^3/uL (1.0-4.8) 0.8x10^3/uL (1.0-4.8) Monocytes # (Auto) 0.7x10^3/uL (0.0-1.1) 0.7x10^3/uL (0.0-1.1) Eosinophils # (Auto) 0.2x10^3/uL (0.0-0.7) 0.2x10^3/uL (0.0-0.7) Basophils # (Auto) 0.0x10^3/uL (0.0-0.2) 0.0x10^3/uL (0.0-0.2) Sodium Level 146mmol/L (136-145) 147mmol/L (136-145) Potassium Level 4.2mmol/L (3.5-5.1) 4.2mmol/L (3.5-5.1) Chloride Level 114mmol/L (98-107) 115mmol/L (98-107) Carbon Dioxide Level 26mmol/L (21-32) 26mmol/L (21-32) Anion Gap 6 (6-14) 6 (6-14) Blood Urea Nitrogen 12mg/dL (8-26) 10mg/dL (8-26) Creatinine 1.5mg/dL (0.7-1.3) 1.5mg/dL (0.7-1.3) Estimated GFR (Cockcroft-Gault) 54.9 54.9 BUN/Creatinine Ratio 8 (6-20) Glucose Level 100mg/dL (70-99) 61mg/dL (70-99) Calcium Level 8.7mg/dL (8.5-10.1) 8.5mg/dL (8.5-10.1) Total Bilirubin 0.3mg/dL (0.2-1.0) Aspartate Amino Transf (AST/SGOT) 16U/L (15-37) Alanine Aminotransferase (ALT/SGPT) 17U/L (16-63) Alkaline Phosphatase 70U/L (46-116) Total Protein 5.5g/dL (6.4-8.2) Albumin 2.4g/dL (3.4-5.0) Albumin/Globulin Ratio 0.8 (1.0-1.7) Glucose (Fingerstick) 88mg/dL (70-99) 134mg/dL (70-99) Test 01/19/17 05:29 01/19/17 05:50 01/19/17 08:21 01/19/17 11:53 Glucose (Fingerstick) 46mg/dL (70-99) 147mg/dL (70-99) 130mg/dL (70-99) 122mg/dL (70-99) Medications Current Medications Sodium Chloride 10 ml 10 ml QSHIFT PRN IV AFTER MEDS AND BLOOD DRAWS; Start 08/25 at 11:30 Sodium Chloride (Iv Sodium Chloride 0.9% 500ml Bag) 500 ml @ 500 mls/hr 1X ONCE IV Last administered on 01/16/17 11:50; Start 01/16/17 at 11:30; Stop 08/25 at 12:29; Status DC Pantoprazole Sodium (Protonix Vial) 40 mg 1X ONCE IVP Last administered on 11:52; Start 01/16/17 at 11:30; Stop 01/16/17 at 11:33; Status DC Fentanyl Citrate (Fentanyl 2ml Vial) 50 mcg 1X ONCE IV ; Start 01/16/17 at 11: 30; Stop 01/16/17 at 11:34; Status DC Iohexol (Omnipaque 300 Mg/ml) 60 ml 1X ONCE IV Last administered on 01/16/17 12:23; Start 01/16/17 at 12:15; Stop 01/16/17 at 12:18; Status DC Info (Do NOT chart on this entry -- for MONITORING) 1 each PRN DAILY PRN MC SEE COMMENTS; Start 01/16/17 at 12:30; Stop 01/18/17 at 12:29; Status DC Pantoprazole Sodium (Protonix Vial) 40 mg DAILY IVP Last administered on 08:22; Start 01/16/17 at 13:00 Insulin Aspart (Novolog) 0-9 UNITS TIDWMEALS SQ Last administered on 01/17/17 12:52; Start 01/16/17 at 17:00 Dextrose 12.5 gm 12.5 gm PRN Q15MIN PRN IV SEE COMMENTS Last administered on 05:36; Start 01/16/17 at 12:15 Sodium Chloride (Iv Sodium Chloride 0.9% 1000ml Bag) 1,000 ml @ 100 mls/hr q10H IV ; Start 01/16/17 at 12:15; Status Cancel Ondansetron HCl (Zofran) 4 mg PRN Q6HRS PRN IV n/v; Start 01/16/17 at 12:15 Morphine Sulfate 1 mg PRN Q2HR PRN IV pain; Start 01/16/17 at 12:15 Acetaminophen (Tylenol) 650 mg PRN Q6HRS PRN PO pain; Start 01/16/17 at 12:15 Dutasteride (Avodart) 0.5 mg DAILY PO Last administered on 01/19/17 08:22; Start 01/17/17 at 09:00 Folic Acid (Folic Acid) 1 mg DAILY PO Last administered on 01/19/17 08:23; Start 01/17/17 at 09:00 Hydralazine HCl (Apresoline) 50 mg TID PO Last administered on 01/19/17 08:21 ; Start 01/16/17 at 14:00 Insulin Aspart (Novolog) 10 units TIDAC SQ Last administered on 01/17/17 12:53 ; Start 01/16/17 at 16:30 Insulin Detemir (Levemir) 35 units HS SQ Last administered on 01/18/17 21:09; Start 01/16/17 at 21:00 Atorvastatin Calcium (Lipitor) 10 mg QHS PO Last administered on 01/18/17 20: 54; Start 01/16/17 at 21:00 Sulfasalazine (Azulfidine) 1,000 mg BID PO Last administered on 01/19/17 08:23 ; Start 01/16/17 at 21:00 Non-Formulary Medication 2 puff PRN Q4-6HRS IH ; Start 01/16/17 at 12:15; Stop 01/16/17 at 13:21; Status DC Calcium Carbonate/ Glycine (Tums) 1,000 mg DAILY PO Last administered on 08:23; Start 01/16/17 at 13:15 Non-Formulary Medication 1 inh BID IH helps breathing; Start 01/16/17 at 21:00; Stop 01/16/17 at 21:00; Status DC Verapamil HCl (Calan Sr) 360 mg DAILY PO Last administered on 01/19/17 08:22; Start 01/17/17 at 09:00 Ondansetron HCl (Zofran) 4 mg PRN Q8HRS PRN IV NAUSEA/VOMITING; Start 01/16/17 at 12:30; Stop 01/17/17 at 09:20; Status DC Morphine Sulfate 2 mg PRN Q2HR PRN IV PAIN Last administered on 01/17/17 00:37 ; Start 01/16/17 at 12:30; Stop 01/17/17 at 09:20; Status DC Albuterol Sulfate (Ventolin Neb Soln) 2.5 mg PRN Q4HRS PRN NEB SHORTNESS OF BREATH; Start 01/16/17 at 13:15 Albuterol Sulfate (Ventolin Neb Soln) 2.5 mg Q6HRS NEB Last administered on 12:07; Start 01/16/17 at 13:00 Budesonide 0.5 mg 0.5 mg RTBID NEB Last administered on 01/18/17 20:36; Start 01/16/17 at 20:00 Sodium Chloride (Iv Sodium Chloride 0.9% 1000ml Bag) 1,000 ml @ 150 mls/hr Q6H40M IV Last administered on 01/19/17 02:29; Start 01/17/17 at 00:00; Stop 01/19/17 at 12:22; Status DC Polyethylene Glycol (miraLAX Powder BULK BOTTLE) 238 gm 1X ONCE PO Last administered on 01/17/17 18:49; Start 01/17/17 at 19:00; Stop 01/17/17 at 19:01 ; Status DC Zolpidem Tartrate 5 mg 5 mg PRN QHS PRN PO INSOMNIA Last administered on 23:49; Start 01/17/17 at 19:00 Propofol (Diprivan) 40 ml @ As Directed STK-MED ONCE IV ; Start 01/18/17 at 08: 47; Stop 01/18/17 at 08:48; Status DC Lidocaine HCl 100 mg STK-MED ONCE .ROUTE ; Start 01/18/17 at 08:47; Stop at 08:48; Status DC Hydralazine HCl 10 mg 10 mg PRN Q4HRS PRN IVP ELEVATED BP, SEE COMMENTS; Start 01/18/17 at 11:00 Amino Acids/ Electrolytes (Clinimix E 2.75%-5% Solution) 1,000 ml @ 55 mls/hr [id number] IV ; Start 01/18/17 at 12:00; Stop 01/18/17 at 12:00; Status DC Magnesium Chloride (Mag Delay) 64 mg DAILY PO Last administered on 01/19/17 08 :23; Start 01/18/17 at 16:15 Furosemide (Lasix) 20 mg 1X ONCE IVP Last administered on 01/19/17 12:16; Start 01/19/17 at 11:00; Stop 01/19/17 at 11:01; Status DC Active Scripts Active Levemir Flextouch (Insulin Detemir) 100 Unit/1 Ml Insuln.pen 35 Units SQ HS 30 Days Doxycycline Hyclate 100 Mg Tablet 100 Mg PO BID 5 Days Proair Hfa Inhaler (Albuterol Sulfate) 8.5 Gm Hfa.aer.ad 2 Puff IH PRN Q4-6HRS Novolog Flexpen (Insulin Aspart) 300 Units/3 Ml Insuln.pen 10 Units SQ TIDAC Reported Hydralazine Hcl 50 Mg Tablet 50 Mg PO TID Verapamil Er (Verapamil Hcl) 240 Mg Cap24h.pel 360 Mg PO DAILY Sulfasalazine 500 Mg Tablet 1,000 Mg PO BID Antacid Chewable Tablet (Calcium Carbonate/Mag Hydrox) 1 Each Tab.chew 1 Each PO DAILY Advair 250-50 Diskus (Fluticasone/Salmeterol) 1 Each Disk.w.dev 1 Inh IH BID Aspir 81 (Aspirin) 81 Mg Tablet.dr 81 Mg PO DAILY Folic Acid 1 Mg Tablet 1 Mg PO DAILY Avodart (Dutasteride) 0.5 Mg Capsule 0.5 Mg PO DAILY Simvastatin 20 Mg Tablet 20 Mg PO HS Vitals/I & O Vital Sign - Last 24 Hours 01/18/17 01/18/17 01/18/17 01/18/17 14:00 14:53 15:00 17:46 Temp 98.4 97.7 98.4 97.7 Pulse 85 80 84 103 Resp 21 22 B/P 140/64 140/64 131/66 147/78 Pulse Ox 98 96 94 O2 Delivery Nasal Cannula Nasal Cannula Nasal Cannula O2 Flow Rate 3.0 3.0 3.0 01/18/17 01/18/17 01/18/17 01/18/17 19:00 20:00 20:40 20:41 Temp 98.6 98.6 Pulse 84 Resp 24 B/P 146/67 Pulse Ox 98 100 100 O2 Delivery Nasal Cannula Nasal Cannula Nasal Cannula Nasal Cannula O2 Flow Rate 3.0 3.0 2.0 2.0 01/18/17 01/18/17 01/19/17 01/19/17 20:54 22:50 03:51 07:00 Temp 98.7 98.5 97.9 98.7 98.5 97.9 Pulse 84 88 81 76 Resp 24 18 18 B/P 146/67 151/57 115/59 119/49 Pulse Ox 95 97 98 O2 Delivery Nasal Cannula Room Air Room Air O2 Flow Rate 3.0 01/19/17 01/19/17 01/19/17 01/19/17 07:03 08:00 08:21 08:22 Pulse 76 76 B/P 119/49 119/49 Pulse Ox 97 O2 Delivery Nasal Cannula Nasal Cannula O2 Flow Rate 3.0 4.0 01/19/17 01/19/17 10:40 12:08 Temp 98.1 98.1 Pulse 78 Resp 18 B/P 145/64 Pulse Ox 96 O2 Delivery Room Air Nasal Cannula O2 Flow Rate 3.0 Intake and Output 01/18/17 01/18/17 01/19/17 15:00 23:00 07:00 Intake Total 50 ml 560 ml Output Total 200 ml 1000 ml 800 ml Balance -200 ml -950 ml -240 ml ANIRUDH MILLS MD Jan 19, 2017 13:35
[2017-01-19 14:30] VITALS: BP 87/47
[2017-01-19 14:31] VITALS: BP 112/48
[2017-01-19 14:32] VITALS: BP 117/48
--- NOTE | 2017-01-20 04:05 | DS ---
DATE OF DISCHARGE: 01/19/2017 DISCHARGE DIAGNOSES: 1. Rectal bleeding with prior history of colon cancer, status post colonoscopy. Biopsy results pending. 2. Diabetes mellitus. 3. Hypertension. 4. Chronic diastolic heart failure. BRIEF HOSPITAL COURSE: A 76-year-old male patient admitted to the hospital for rectal bleeding on 01/16/[address] Charles, noted with bloody bowel movements. The patient's hemoglobin at the time of admission was 9.4. Later, it declined to 7.6 and stayed around 7.8. During hospitalization, the patient received 1 unit of PRBC and he was evaluated by Gastroenterology. The patient had a colonoscopy on 01/18/[address] Moss and rectal bleeding is suspected due to diverticular bleed, which has been resolved and also 3 polyps in the ascending colon were removed. The patient has been recommended to follow up with Dr. Moss or Dr. Hernandez for repeat colonoscopy in 3 years and also biopsy results are still pending. During the hospitalization, the patient had a questionable syncope; however, his orthostatics were negative and his ____ negative and he improved with IV hydration. The patient did walk with physical therapy and deemed clinically stable enough to go home. During the hospitalization, the last 24 hours, his telemetry looks normal sinus rhythm and ____ normal. His questionable syncope is most likely due to anemia. The patient is advised to follow up with Cardiology if he sees any further symptoms such as palpitations. DISCHARGE EXAMINATION: Please see my progress note. DISCHARGE CONDITION: Stable. DISCHARGE FOLLOWUP: With Dr. Hernandez and PCP and Dr. Ziegler. DISCHARGE MEDICATIONS: Reviewed and reconciled. Please see MRAD. DIET: Cardiac diet. Total time spent for discharge is 32 minutes for patient education, counseling and coordination of care. ANIRUDH MILLS MD DR: LISA/aaron JOB#: [id number] / [id number]
--- NOTE | 2017-01-20 13:18 | PATHOLOGY ---
PATHOLOGY REPORT * * * * * * * * FINAL DIAGNOSIS: Colon biopsies, ascending colon polyps x 3: - Tubular adenomas. COMMENT: There is no high-grade dysplasia or evidence of malignancy. (CYNTHIAM:; d/t: 01/20/17) REPORT ELECTRONICALLY SIGNED BY: Wojciech Rubio M.D. DATE/TIME: 01/20/2017 13:17 * * * * * * * * GROSS PATHOLOGY: Received in formalin labeled "Nazario Elizabeth Jr," are 7 segments of bay soft tissue measuring 2.0 x 1.7 x 0.5 cm in aggregate dimensions and ranging from 0.5 to 1.1 cm in maximum dimension. The specimen is submitted entirely in cassette A1-A2. (KAH; 01/19/2017) INITIAL CPT CODE(S): A; 78535 Professional services performed [place] [place] [address] Technical services performed by [facility] at [address] [place] [address], [facility] [address], [place] [address]. SPECIMEN(S) RECEIVED: A.Ascending colon polyps x3 CLINICAL HISTORY: GI bleeding with history of colon cancer PATIENT: NAZARIO ELIZABETH JR /AGE: 1 1940 (Age: 76) PATIENT #: [id number] ALT CASE #: SPECIMEN COLLECTION DATE: 01/18/2017 SPECIMEN RECEIVED DATE: 01/19/2017 [facility] - [address] [place] [address] - PHONE: [phone] * * * END OF REPORT * * *
== END 2017-01-19 18:47 | disposition home or self-care (01) | DRG 377 ==
LOC: ER 11:06 → 5 SOUTH 12:03 → 1 WEST ICU 16:27 → 6 SOUTH 01-18 17:30
PROVIDERS: ADMIT Internal Medicine; ATTEND Internal Medicine
PROC: 0DBK8ZX Excision of Ascending Colon, Via Natural or Artificial Opening Endoscopic, Diagnostic (ICD-10-PCS; principal; 2017-01-16)
PROC: 30233N1 Transfusion of Nonautologous Red Blood Cells into Peripheral Vein, Percutaneous Approach (ICD-10-PCS; 2017-01-16)
DX: K57.91 Diverticulosis of intestine, part unspecified, without perforation or abscess with bleeding (principal); N17.0 Acute kidney failure with tubular necrosis; I50.32 Chronic diastolic (congestive) heart failure; J84.9 Interstitial pulmonary disease, unspecified; I13.0 Hypertensive heart and chronic kidney disease with heart failure and stage 1 through stage 4 chronic kidney disease, or unspecified chronic kidney disease; D64.9 Anemia, unspecified; E11.22 Type 2 diabetes mellitus with diabetic chronic kidney disease; E11.319 Type 2 diabetes mellitus with unspecified diabetic retinopathy without macular edema; E78.00 Pure hypercholesterolemia, unspecified; E83.42 Hypomagnesemia; R55 Syncope and collapse; I95.9 Hypotension, unspecified; G47.33 Obstructive sleep apnea (adult) (pediatric); I25.10 Atherosclerotic heart disease of native coronary artery without angina pectoris; J44.9 Chronic obstructive pulmonary disease, unspecified; K21.9 Gastro-esophageal reflux disease without esophagitis; K59.00 Constipation, unspecified; M19.90 Unspecified osteoarthritis, unspecified site; N40.1 Benign prostatic hyperplasia with lower urinary tract symptoms; M06.9 Rheumatoid arthritis, unspecified; D12.2 Benign neoplasm of ascending colon; N18.9 Chronic kidney disease, unspecified; Z79.4 Long term (current) use of insulin; Z79.82 Long term (current) use of aspirin; Z85.038 Personal history of other malignant neoplasm of large intestine; Z90.49 Acquired absence of other specified parts of digestive tract; Z87.01 Personal history of pneumonia (recurrent); Z87.440 Personal history of urinary (tract) infections
CPT/HCPCS: 36415; 74177; 78278; 80048; 80053; 81001; 82947; 83735; 85007; 85014; 85018; 85027; 85610; 86850; 86900; 86901; 86920; 87641; 88305; 94250; 94640; 94760; 96361; 96374; A9560; C9113; J1815; J2270; J2704; J7030; J7040; J7042; P9016; Q9967; 99285-25

== ENCOUNTER 2017-01-21 23:25 | Inpatient (IN) | payer MEDICARE, BC ==
[~2017-01-21] VITALS: Ht 170.2 cm; Wt 90.3 kg
[2017-01-21 23:52] LABS: BASO # 0.1 x10^3/uL (0.0-0.2); BASO % 1 % (0-3); EOS % 5 % (0-3); HEMATOCRIT 23.1 % (39.0-53.0); HEMOGLOBIN 7.3 g/dL (13.0-17.5); LYMPH # 1.6 x10^3/uL (1.0-4.8); LYMPH % 21 % (24-48); MEAN CORPUSCULAR HEMOGLOBIN 25 pg (25-35); MEAN CORPUSCULAR HGB CONC 32 g/dL (31-37); MEAN CORPUSCULAR VOLUME 78 fL (79-100); MONO % 10 % (0-9); NEUT % 64 % (31-73); PLATELET COUNT 242 x10^3/uL (140-400); RED BLOOD COUNT 2.97 x10^6/uL (4.30-5.70); RED CELL DISTRIBUTION WIDTH 22.7 % (11.5-14.5); WHITE BLOOD COUNT 7.5 x10^3/uL (4.0-11.0)
[2017-01-22] VITALS (18 sets, daily range): BP systolic 108–176; BP diastolic 62–91
[2017-01-22] MEDS ORDERED: ONDANSETRON PF 4 MG/2 ML VIAL. IV PRN
[2017-01-22 00:01] LABS: CALCIUM 8.9 mg/dL (8.5-10.1); CREATININE 1.8 mg/dL (0.7-1.3); GFR 44.5; POTASSIUM 4.6 mmol/L (3.5-5.1)
[2017-01-22 00:02] LABS: NEG OBC FOB NEG; POS OBC FOB POS
--- NOTE | 2017-01-22 00:24 | PHYS DOC ---
Past Medical History Past Medical History: CAD, Cancer, COPD, Diabetes-Type II, Hypertension, Renal Disease, Other Additional Past Medical Histor: COLON CANCER Past Surgical History: Cancer Surgery, Other Additional Past Surgical Histo: Heart cath, COLON RESECTION, HERNIA Alcohol Use: None Drug Use: None Adult General Chief Complaint Chief Complaint: RECTAL BLEED [facility] HPI 76-year-old male who's had a bloody bowel movement this evening just prior to arrival and is now having some mild lightheadedness and dizziness as well. Patient was just recently discharged for rectal bleed and had a colonoscopy that demonstrated multiple polyps removed as well as diverticula. There was no active bleeding on the colonoscopy. He was in the hospital approximately 4 days and he states his bleeding subsided before starting again this evening. She denies any worsening of his shortness of breath. He normally requires 3 L for his known COPD. He also has history of chronic kidney disease. He denies taking any blood thinners. He denies any abdominal pain whatsoever. He denies any rectal pain. He states he has not been straining with his stools. Review of Systems Review of Systems Constitutional: Denies fever or chills [] Eyes: Denies change in visual acuity, redness, or eye pain [] HENT: Denies nasal congestion or sore throat [] Respiratory: Denies cough or shortness of breath [] Cardiovascular: No additional information not addressed in HPI [] GI: Denies abdominal pain, nausea, vomiting, has bloody stools, denies diarrhea [] : Denies dysuria or hematuria [] Musculoskeletal: Denies back pain or joint pain [] Integument: Denies rash or skin lesions [] Neurologic: Denies headache, focal weakness or sensory changes [] Endocrine: Denies polyuria or polydipsia [] Current Medications Current Medications Allergies Allergies Allergies Coded Allergies Type Severity Reaction Last Updated Verified No Known Drug Allergies 04/14/15 No Physical Exam Physical Exam Constitutional: Well developed, well nourished, no acute distress, non-toxic appearance. [] HENT: Normocephalic, atraumatic, bilateral external ears normal, oropharynx moist, no oral exudates, nose normal. [] Eyes: PERRLA, EOMI, conjunctiva normal, no discharge. [] Neck: Normal range of motion, no tenderness, supple, no stridor. [] Cardiovascular:Heart rate regular rhythm, no murmur [] Lungs & Thorax: Bilateral breath sounds clear to auscultation [] Abdomen: Bowel sounds normal, soft, no tenderness, no masses, no pulsatile masses. [] Rectal exam: Rectal exam reveals no obvious external hemorrhoid and gross blood. There is no active bleeding. Skin: Warm, dry, no erythema, no rash. [] Back: No tenderness, no CVA tenderness. [] Extremities: No tenderness, no cyanosis, no clubbing, ROM intact, no edema. [] Neurologic: Alert and oriented X 3, normal motor function, normal sensory function, no focal deficits noted. [] Psychologic: Affect normal, judgement normal, mood normal. [] Current Patient Data Vital Signs Vital Signs Date Time Temp Pulse Resp B/P Pulse Ox O2 Delivery O2 Flow Rate FiO2 01/21/17 23:59 84 16 161/74 97 Nasal Cannula 3 01/21/17 23:34 99.0 99.0 Lab Values Laboratory Tests Test 01/21/17 23:43 01/21/17 23:52 White Blood Count 7.5x10^3/uL (4.0-11.0) Red Blood Count 2.97x10^6/uL (4.30-5.70) L Hemoglobin 7.3g/dL (13.0-17.5) L Hematocrit 23.1% (39.0-53.0) L Mean Corpuscular Volume 78fL (79-100) L Mean Corpuscular Hemoglobin 25pg (25-35) Mean Corpuscular Hemoglobin Concent 32g/dL (31-37) Red Cell Distribution Width 22.7% (11.5-14.5) H Platelet Count 242x10^3/uL (140-400) Neutrophils (%) (Auto) 64% (31-73) Lymphocytes (%) (Auto) 21% (24-48) L Monocytes (%) (Auto) 10% (0-9) H Eosinophils (%) (Auto) 5% (0-3) H Basophils (%) (Auto) 1% (0-3) Neutrophils # (Auto) 4.8x10^3uL (1.8-7.7) Lymphocytes # (Auto) 1.6x10^3/uL (1.0-4.8) Monocytes # (Auto) 0.7x10^3/uL (0.0-1.1) Eosinophils # (Auto) 0.4x10^3/uL (0.0-0.7) Basophils # (Auto) 0.1x10^3/uL (0.0-0.2) Platelet Estimate Adequate (ADEQUATE) Polychromasia Mod Hypochromasia Slight Anisocytosis Mod Microcytosis Slight Tear Drop Cells Few Schistocytes Occ Sodium Level 147mmol/L (136-145) H Potassium Level 4.6mmol/L (3.5-5.1) Chloride Level 111mmol/L (98-107) H Carbon Dioxide Level 27mmol/L (21-32) Anion Gap 9 (6-14) Blood Urea Nitrogen 17mg/dL (8-26) Creatinine 1.8mg/dL (0.7-1.3) H Estimated GFR (Cockcroft-Gault) 44.5 Glucose Level 115mg/dL (70-99) H Calcium Level 8.9mg/dL (8.5-10.1) Stool Occult Blood Positive (NEG) Laboratory Tests 01/21/17 23:43 Laboratory Tests 01/21/17 23:43 EKG EKG EKG as interpreted by me shows a sinus rhythm with rate of 90 bpm. There are no obvious ischemic findings. There is a T-wave inversion to lead V2. This EKG does not meet STEMI criteria. Intervals are normal. Radiology/Procedures Radiology/Procedures [] Course & Med Decision Making Course & Med Decision Making Pertinent Labs and Imaging studies reviewed. (See chart for details) This 76-year-old male who is having another episode of GI bleed will be admitted to the hospital. Transition protocol be started as his hemoglobin is 7.3 which is lower than his previous blood transfusion. I will also consult GI again to potentially re-scope. He is having no abdominal pain whatsoever. His vital signs are normal at this time and I believe him to be stable to go to a medical telemetry floor. I will discuss the need to admit the patient with the hospitalist, Dr. Giordano, who will admit the patient for further evaluation and treatment. Dragon Disclaimer Dragon Disclaimer This electronic medical record was generated, in whole or in part, using a voice recognition dictation system. Departure Departure Impression: Primary Impression: GI bleed Disposition: 09 ADMITTED INPATIENT Admitting Physician: Moe Giordano Condition: STABLE Referrals: KULDIP GRANADOS (PCP) KERWIN LEVY DO Jan 22, 2017 00:24
--- NOTE | 2017-01-22 00:32 | ACF ---
Admission Forms Criteria GASTROINTESTINAL BLEEDING Clinical Indications for Inpatient Care (Place 'X' for any and all applicable criteria): Ongoing inpatient care may be indicated for gastrointestinal bleeding with ANY ONE of the following (4)(20)(21)(22)(23)(24): [X]I. Active bleeding (eg, fresh voluminous blood in emesis or nasogastric aspirate, or per rectum) [ ]II. Hemodynamic instability [ ]III. Anticoagulation therapy or coagulopathy ((eg, advanced liver disease, irreversible anticoagulation) [ ]IV. Ischemic colitis (22) [ ]V. Endoscopy showing arterial bleeding, adherent clot, nonbleeding visible vessel, varices, flat red spots, ulcer size greater than 2 cm, or portal hypertensive gastropathy [ ]. High-risk low platelet count [ ]VII. Anemia requiring inpatient care as indicated by ANY ONE of the following a)[ ] Cognitive impairment b)[ ] Syncope c)[ ] Heart failure d)[ ] Chest pain e)[ ] Dyspnea f)[ ] Other findings suggesting inadequate perfusion (eg, peripheral or myocardial ischemia, end organ dysfunction) [ ]VIII. High-risk low platelet count [ ]IX. Suspected variceal cause of bleeding as indicated by ANY ONE of the following(27)(28): a)[ ] Known varices b)[ ] Hepatomegaly or splenomegaly c)[ ] Ascites d)[ ] Jaundice or scleral icterus e)[ ] History of liver disease (eg, cirrhosis) f)[ ] Physical findings of portal hypertension (eg, caput medusa) g)[ ] Comorbid disorder indicating risk for portal vein thrombosis (eg , abdominal surgery, sepsis, shock, exchange transfusion, prior umbilical vein catheterization) Extended stay may be needed until ALL of the following are present(20)(38)(47): [ ]a) Hemodynamic stability [ ]b) No evidence of active bleeding (eg, stable Hematocrit) [ ]c) Platelet count, prothrombin time, and partial thromboplastin time acceptable for next level of care [ ]d) Surgical or other acute intervention not needed [ ]e) Oral hydration and diet tolerated The original [employer] content created by [employer] has been revised. The portions of the content which have been revised are identified through the use of italic text or in bold, and [employer] has neither reviewed nor approved the modified material. All other unmodified content is copyright [facility]. Please see references footnoted in the original [facility] edition 2016 Admission Criteria Met?: Yes MIKI FARIAS Jan 22, 2017 00:32
[2017-01-22 00:59] LABS: ANISOCYTOSIS MOD; HYPOCHROMIA SLIGHT; MICROCYTOSIS SLIGHT; PLT ESTIMATE ADEQUATE (ADEQUATE); POLYCHROMASIA MOD; TEAR DROP CELLS FEW
[2017-01-22 01:00] LABS: SCHISTOCYTES OCC
[2017-01-22] MEDS ORDERED: ZOLP5TAB5 PO (04:33)
--- NOTE | 2017-01-22 06:48 | EKG ---
[facility] [address] [place] [address] Test Date: 2017-01-21 Test Time: 23:39:02 Pat Name: CLARISSE MORENO Department: Room: 532 1 Gender: Male Surgical Specialist: : 1940 Requested By: KERWIN LEVY Order Number: [id number] Reading MD: Anne Marie Carlson Measurements Intervals [place] Rate: 90 P: 63 [place]: 108 QRS: 60 QRSD: 76 T: 64 QT: 332 QTc: 410 Interpretive Statements SINUS RHYTHM LEFT ATRIAL ABNORMALITY T ABNORMALITY IN ANTERIOR LEADS RI6.01 Unconfirmed report Compared to ECG 11/26/2016 15:10:55 T-wave abnormality now present Electronically Signed On 01-24-2017 19:56:25 CDT by Anne Marie Carlson
[2017-01-22 11:02] LABS: HEMATOCRIT 20.3 % (39.0-53.0); HEMOGLOBIN 6.7 g/dL (13.0-17.5)
[2017-01-22] MEDS: IV NORMAL SALINE 1000ML BAG 1,000 ML IV SCH ×3 (11:39→20:44)
--- NOTE | 2017-01-22 11:39 | PDOC ---
G I PROGRESS NOTE Reason for Follow-up Recurrent hematochezia Subjective Bleeding resumed overnight /painless in nature Physical Exam Lungs clear CV S1 S2 ABD +hyperactive BS, soft, nontender Review of Relevant I have reviewed the following items lauren (where applicable) has been applied. Labs Laboratory Tests Test 01/21/17 23:43 01/21/17 23:52 01/22/17 10:50 White Blood Count 7.5x10^3/uL (4.0-11.0) Red Blood Count 2.97x10^6/uL (4.30-5.70) Hemoglobin 7.3g/dL (13.0-17.5) 6.7g/dL (13.0-17.5) Hematocrit 23.1% (39.0-53.0) 20.3% (39.0-53.0) Mean Corpuscular Volume 78fL (79-100) Mean Corpuscular Hemoglobin 25pg (25-35) Mean Corpuscular Hemoglobin Concent 32g/dL (31-37) Red Cell Distribution Width 22.7% (11.5-14.5) Platelet Count 242x10^3/uL (140-400) Neutrophils (%) (Auto) 64% (31-73) Lymphocytes (%) (Auto) 21% (24-48) Monocytes (%) (Auto) 10% (0-9) Eosinophils (%) (Auto) 5% (0-3) Basophils (%) (Auto) 1% (0-3) Neutrophils # (Auto) 4.8x10^3uL (1.8-7.7) Lymphocytes # (Auto) 1.6x10^3/uL (1.0-4.8) Monocytes # (Auto) 0.7x10^3/uL (0.0-1.1) Eosinophils # (Auto) 0.4x10^3/uL (0.0-0.7) Basophils # (Auto) 0.1x10^3/uL (0.0-0.2) Platelet Estimate Adequate (ADEQUATE) Polychromasia Mod Hypochromasia Slight Anisocytosis Mod Microcytosis Slight Tear Drop Cells Few Schistocytes Occ Sodium Level 147mmol/L (136-145) Potassium Level 4.6mmol/L (3.5-5.1) Chloride Level 111mmol/L (98-107) Carbon Dioxide Level 27mmol/L (21-32) Anion Gap 9 (6-14) Blood Urea Nitrogen 17mg/dL (8-26) Creatinine 1.8mg/dL (0.7-1.3) Estimated GFR (Cockcroft-Gault) 44.5 Glucose Level 115mg/dL (70-99) Calcium Level 8.9mg/dL (8.5-10.1) Stool Occult Blood Positive (NEG) Laboratory Tests Test 01/21/17 23:43 01/21/17 23:52 01/22/17 10:50 White Blood Count 7.5x10^3/uL (4.0-11.0) Red Blood Count 2.97x10^6/uL (4.30-5.70) Hemoglobin 7.3g/dL (13.0-17.5) 6.7g/dL (13.0-17.5) Hematocrit 23.1% (39.0-53.0) 20.3% (39.0-53.0) Mean Corpuscular Volume 78fL (79-100) Mean Corpuscular Hemoglobin 25pg (25-35) Mean Corpuscular Hemoglobin Concent 32g/dL (31-37) Red Cell Distribution Width 22.7% (11.5-14.5) Platelet Count 242x10^3/uL (140-400) Neutrophils (%) (Auto) 64% (31-73) Lymphocytes (%) (Auto) 21% (24-48) Monocytes (%) (Auto) 10% (0-9) Eosinophils (%) (Auto) 5% (0-3) Basophils (%) (Auto) 1% (0-3) Neutrophils # (Auto) 4.8x10^3uL (1.8-7.7) Lymphocytes # (Auto) 1.6x10^3/uL (1.0-4.8) Monocytes # (Auto) 0.7x10^3/uL (0.0-1.1) Eosinophils # (Auto) 0.4x10^3/uL (0.0-0.7) Basophils # (Auto) 0.1x10^3/uL (0.0-0.2) Platelet Estimate Adequate (ADEQUATE) Polychromasia Mod Hypochromasia Slight Anisocytosis Mod Microcytosis Slight Tear Drop Cells Few Schistocytes Occ Sodium Level 147mmol/L (136-145) Potassium Level 4.6mmol/L (3.5-5.1) Chloride Level 111mmol/L (98-107) Carbon Dioxide Level 27mmol/L (21-32) Anion Gap 9 (6-14) Blood Urea Nitrogen 17mg/dL (8-26) Creatinine 1.8mg/dL (0.7-1.3) Estimated GFR (Cockcroft-Gault) 44.5 Glucose Level 115mg/dL (70-99) Calcium Level 8.9mg/dL (8.5-10.1) Stool Occult Blood Positive (NEG) Medications Current Medications Ondansetron HCl 4 mg 4 mg PRN Q8HRS PRN IV NAUSEA/VOMITING; Start 01/22/17 at 00:00; Stop 01/22/17 at 23:59 Sodium Chloride (Iv Sodium Chloride 0.9% 1000ml Bag) 1,000 ml @ 100 mls/hr Q10H IV Last administered on 01/22/17t 00:00; Start 01/22/17 at 00:00; Stop at 23:59 Active Scripts Active Levemir Flextouch (Insulin Detemir) 100 Unit/1 Ml Insuln.pen 35 Units SQ HS 30 Days Proair Hfa Inhaler (Albuterol Sulfate) 8.5 Gm Hfa.aer.ad 2 Puff IH PRN Q4-6HRS Novolog Flexpen (Insulin Aspart) 300 Units/3 Ml Insuln.pen 10 Units SQ TIDAC Reported Zolpidem Tartrate 5 Mg Tablet 1 Tab PO QHS Hydralazine Hcl 50 Mg Tablet 50 Mg PO TID Verapamil Er (Verapamil Hcl) 240 Mg Cap24h.pel 360 Mg PO DAILY Antacid Chewable Tablet (Calcium Carbonate/Mag Hydrox) 1 Each Tab.chew 1 Each PO DAILY Advair 250-50 Diskus (Fluticasone/Salmeterol) 1 Each Disk.w.dev 1 Inh IH BID Aspir 81 (Aspirin) 81 Mg Tablet.dr 81 Mg PO DAILY Folic Acid 1 Mg Tablet 1 Mg PO DAILY Avodart (Dutasteride) 0.5 Mg Capsule 0.5 Mg PO DAILY Simvastatin 20 Mg Tablet 20 Mg PO HS Vitals/I & O Vital Sign - Last 24 Hours 01/21/17 01/21/17 01/22/17 01/22/17 23:34 23:59 00:19 00:39 Temp 99.0 99.0 Pulse 89 84 88 84 Resp 20 16 20 20 B/P 169/81 161/74 151/70 163/74 Pulse Ox 96 97 97 97 O2 Delivery Nasal Cannula Nasal Cannula Room Air Nasal Cannula O2 Flow Rate 3 3 3 01/22/17 01/22/17 01/22/17 01/22/17 02:23 02:23 02:26 02:39 Temp 100.4 100.4 100.4 100.4 Pulse 92 92 90 92 Resp 22 18 18 22 B/P 175/79 170/92 155/86 175/89 Pulse Ox 92 96 O2 Delivery Room Air Room Air 01/22/17 01/22/17 01/22/17 01/22/17 03:00 03:39 04:03 04:13 Temp 98.4 98.4 98.4 98.4 Pulse 90 92 Resp 20 20 B/P 173/85 172/81 Pulse Ox 95 O2 Delivery Nasal Cannula Nasal Cannula Nasal Cannula O2 Flow Rate 3.0 3.0 01/22/17 01/22/17 01/22/17 04:39 07:20 09:00 Temp 100.0 98.1 100.0 98.1 Pulse 71 94 Resp 20 20 B/P 176/91 168/76 Pulse Ox 97 O2 Delivery Nasal Cannula Nasal Cannula O2 Flow Rate 3.0 3.0 Intake and Output 01/21/17 01/21/17 01/22/17 15:00 23:00 07:00 Output Total 1125 ml Balance -1125 ml Problem List Problems Medical Problems: (1) GI bleed Status: Acute Assessment Acute blood loss anemia- with known diverticular disease, most likely recurrent bleed Plan serial cbc/transfusional support bleeding scan( increased Cr relative contra-indication for CTA/ angiography embolization) surgical consult for possible resection pending above/clinical course KERWIN CONDON MD Jan 22, 2017 11:39
--- NOTE | 2017-01-22 12:43 | PDOC2 ---
CONSULT Date of Consult Date of Consult DATE: 01/22/17 TIME: 12:36 Reason for Consult Reason for Consult: GI bleed Referring Physician Referring Physician: Nino Identification/Chief Complaint Chief Complaint Bleeding per rectum Source Source: Patient History of Present Illness Reason for Visit: 76 yo male who was in the hospital last week for GI bleed, discharged home 4 days ago. Had been doing well until last night he developed "bright red" bleeding from his rectum. Denies pain but became light headed and dizzy. He does have problems with constipation and has been taking Mirlax but does strain a lot to go. Currently comfortable without pain. Had colonoscopy last hospitalization and found to have a couple small polyps which were removed and mild diverticulitis, no active bleeding. Past Medical History Cardiovascular: HTN Pulmonary: COPD CENTRAL NERVOUS SYSTEM: Other GI: Other Heme/Onc: Cancer Hepatobiliary: No pertinent hx Psych: No pertinent hx Musculoskeletal: Osteoarthritis Rheumatologic: Rheumatoid arthritis Infectious disease: Herpes zoster Renal/: Benign prostatic enlarg. Endocrine: Diabetes Past Surgical History Past Surgical History: Colon Resection Family History Family History: No Significant Social History ALCOHOL: none Drugs: None Lives: with Family Current Problem List Problem List Problems Medical Problems: (1) GI bleed Status: Acute Current Medications Current Medications Current Medications Ondansetron HCl 4 mg 4 mg PRN Q8HRS PRN IV NAUSEA/VOMITING; Start 01/22/17 at 00:00; Stop 01/22/17 at 23:59 Sodium Chloride 1,000 ml @ 100 mls/hr Q10H IV Last administered on 01/22/17t 11:39; Start 01/22/17 at 00:00; Stop 01/22/17 at 23:59 Metronidazole (FLAGYL 500Mmg PREMIX) 100 ml @ 100 mls/hr Q8HRS IV ; Start 01/22 at 13:00 Active Scripts Active Levemir Flextouch (Insulin Detemir) 100 Unit/1 Ml Insuln.pen 35 Units SQ HS 30 Days Proair Hfa Inhaler (Albuterol Sulfate) 8.5 Gm Hfa.aer.ad 2 Puff IH PRN Q4-6HRS Novolog Flexpen (Insulin Aspart) 300 Units/3 Ml Insuln.pen 10 Units SQ TIDAC Reported Zolpidem Tartrate 5 Mg Tablet 1 Tab PO QHS Hydralazine Hcl 50 Mg Tablet 50 Mg PO TID Verapamil Er (Verapamil Hcl) 240 Mg Cap24h.pel 360 Mg PO DAILY Antacid Chewable Tablet (Calcium Carbonate/Mag Hydrox) 1 Each Tab.chew 1 Each PO DAILY Advair 250-50 Diskus (Fluticasone/Salmeterol) 1 Each Disk.w.dev 1 Inh IH BID Aspir 81 (Aspirin) 81 Mg Tablet.dr 81 Mg PO DAILY Folic Acid 1 Mg Tablet 1 Mg PO DAILY Avodart (Dutasteride) 0.5 Mg Capsule 0.5 Mg PO DAILY Simvastatin 20 Mg Tablet 20 Mg PO HS Allergies Allergies: Coded Allergies: No Known Drug Allergies (Unverified , 04/14/15) ROS Gastrointestinal: Yes Constipation, Yes Hematochezia Physical Exam General: Alert, Oriented X3, Cooperative, No acute distress HEENT: Atraumatic, PERRLA, EOMI Lungs: Clear to auscultation, Normal air movement Heart: Regular rate, No murmurs Abdomen: Normal bowel sounds, Soft, No tenderness Extremities: No edema Skin: No significant lesion Neuro: Normal speech Vitals VITALS Vital Signs Date Time Temp Pulse Resp B/P Pulse Ox O2 Delivery O2 Flow Rate FiO2 01/22/17 10:10 98.1 105 20 157/67 95 Nasal Cannula 3.0 98.1 Labs Labs Laboratory Tests Test 01/21/17 23:43 01/21/17 23:52 01/22/17 10:50 White Blood Count 7.5x10^3/uL (4.0-11.0) Red Blood Count 2.97x10^6/uL (4.30-5.70) Hemoglobin 7.3g/dL (13.0-17.5) 6.7g/dL (13.0-17.5) Hematocrit 23.1% (39.0-53.0) 20.3% (39.0-53.0) Mean Corpuscular Volume 78fL (79-100) Mean Corpuscular Hemoglobin 25pg (25-35) Mean Corpuscular Hemoglobin Concent 32g/dL (31-37) Red Cell Distribution Width 22.7% (11.5-14.5) Platelet Count 242x10^3/uL (140-400) Neutrophils (%) (Auto) 64% (31-73) Lymphocytes (%) (Auto) 21% (24-48) Monocytes (%) (Auto) 10% (0-9) Eosinophils (%) (Auto) 5% (0-3) Basophils (%) (Auto) 1% (0-3) Neutrophils # (Auto) 4.8x10^3uL (1.8-7.7) Lymphocytes # (Auto) 1.6x10^3/uL (1.0-4.8) Monocytes # (Auto) 0.7x10^3/uL (0.0-1.1) Eosinophils # (Auto) 0.4x10^3/uL (0.0-0.7) Basophils # (Auto) 0.1x10^3/uL (0.0-0.2) Platelet Estimate Adequate (ADEQUATE) Polychromasia Mod Hypochromasia Slight Anisocytosis Mod Microcytosis Slight Tear Drop Cells Few Schistocytes Occ Sodium Level 147mmol/L (136-145) Potassium Level 4.6mmol/L (3.5-5.1) Chloride Level 111mmol/L (98-107) Carbon Dioxide Level 27mmol/L (21-32) Anion Gap 9 (6-14) Blood Urea Nitrogen 17mg/dL (8-26) Creatinine 1.8mg/dL (0.7-1.3) Estimated GFR (Cockcroft-Gault) 44.5 Glucose Level 115mg/dL (70-99) Calcium Level 8.9mg/dL (8.5-10.1) Stool Occult Blood Positive (NEG) Laboratory Tests Test 01/21/17 23:43 01/21/17 23:52 01/22/17 10:50 White Blood Count 7.5x10^3/uL (4.0-11.0) Red Blood Count 2.97x10^6/uL (4.30-5.70) Hemoglobin 7.3g/dL (13.0-17.5) 6.7g/dL (13.0-17.5) Hematocrit 23.1% (39.0-53.0) 20.3% (39.0-53.0) Mean Corpuscular Volume 78fL (79-100) Mean Corpuscular Hemoglobin 25pg (25-35) Mean Corpuscular Hemoglobin Concent 32g/dL (31-37) Red Cell Distribution Width 22.7% (11.5-14.5) Platelet Count 242x10^3/uL (140-400) Neutrophils (%) (Auto) 64% (31-73) Lymphocytes (%) (Auto) 21% (24-48) Monocytes (%) (Auto) 10% (0-9) Eosinophils (%) (Auto) 5% (0-3) Basophils (%) (Auto) 1% (0-3) Neutrophils # (Auto) 4.8x10^3uL (1.8-7.7) Lymphocytes # (Auto) 1.6x10^3/uL (1.0-4.8) Monocytes # (Auto) 0.7x10^3/uL (0.0-1.1) Eosinophils # (Auto) 0.4x10^3/uL (0.0-0.7) Basophils # (Auto) 0.1x10^3/uL (0.0-0.2) Platelet Estimate Adequate (ADEQUATE) Polychromasia Mod Hypochromasia Slight Anisocytosis Mod Microcytosis Slight Tear Drop Cells Few Schistocytes Occ Sodium Level 147mmol/L (136-145) Potassium Level 4.6mmol/L (3.5-5.1) Chloride Level 111mmol/L (98-107) Carbon Dioxide Level 27mmol/L (21-32) Anion Gap 9 (6-14) Blood Urea Nitrogen 17mg/dL (8-26) Creatinine 1.8mg/dL (0.7-1.3) Estimated GFR (Cockcroft-Gault) 44.5 Glucose Level 115mg/dL (70-99) Calcium Level 8.9mg/dL (8.5-10.1) Stool Occult Blood Positive (NEG) Assessment/Plan Assessment/Plan Recurrent rectal bleeding with acute blood loss anemia. Agree with GI recommendations with blood transfusion and monitoring. May need repeat bleeding scan for bleeding site, would favor embolization if intervention needed but may be unable due to kidney disease. EDWIN VICTORIA MD Jan 22, 2017 12:43
--- NOTE | 2017-01-22 13:02 | HP ---
ADMIT DATE: 01/22/2017 CHIEF COMPLAINT: GI bleed, rectal blood. HISTORY OF PRESENT ILLNESS: The patient is a pleasant elderly male who just had an endoscopy a few days ago, but colonoscopy apparently showed some polyps and some diverticular disease. He went home. He did well, but now he has got blood in his stool. It has been occurring for a couple days. He rates it as 7/10. It has got associated weakness. While in the ER, he was noted to have a hemoglobin of 6. The patient has been admitted for consultation with GI and transfusions. PAST MEDICAL HISTORY: The above-mentioned colonoscopy a couple of days ago, colon cancer, COPD, coronary artery disease, diabetes, hypertension, chronic renal insufficiency, cardiac catheterization, colon resection, hernia repair. ALLERGIES: None. FAMILY HISTORY: Coronary artery disease. SOCIAL HISTORY: Does not drink, smoke or take drugs. MEDICATIONS: Reviewed, please refer to the MRAD. REVIEW OF SYSTEMS: GENERAL: No history of weight change, weakness or fevers. SKIN: No bruising, hair changes or rashes. EYES: No blurred, double or loss of vision. NOSE AND THROAT: No history of nosebleeds, hoarseness or sore throat. HEART: No history of palpitations, chest pain or shortness of breath on exertion. LUNGS: Denies cough, hemoptysis, wheezing or shortness of breath. GASTROINTESTINAL: He complains of hematochezia. GENITOURINARY: No history of frequency, urgency, hesitancy or nocturia. NEUROLOGIC: Denies history of numbness, tingling, tremor or weakness. PSYCHIATRIC: No history of panic, anxiety or depression. ENDOCRINE: No history of heat or cold intolerance, polyuria or polydipsia. EXTREMITIES: Denies muscle weakness, joint pain, pain on walking or stiffness. PHYSICAL EXAMINATION: VITAL SIGNS: Temperature afebrile, pulse 68, respirations 18, blood pressure 170/71. GENERAL: He is alert, cooperative. HEART: Normal S1, S2. LUNGS: Clear. ABDOMEN: Soft. Decreased bowel sounds, a little tender. EXTREMITIES: No edema. SKIN: No rashes. PSYCHIATRIC: He is anxious. VASCULAR: Good capillary refill. ENDOCRINE: No thyromegaly. LYMPHATICS: No cervical nodes. HEMATOPOIETIC: No bruising. LABORATORY DATA: White count 7, hemoglobin 6.7, platelets 242. Electrolytes: Sodium 147, potassium 4.6, chloride 111, bicarbonate 27, BUN 17, creatinine 1.7, glucose 115. ASSESSMENT AND PLAN: Recurrent gastrointestinal bleed. He now has some fevers when I was in the room, so I suspect he may actually have diverticulitis. We will go ahead and start IV Flagyl, IV Levaquin, consult GI, transfuse 2 units of packed red blood cells, try to resume his home meds, but I am going to hold the aspirin. PROGNOSIS: Guarded. BLANCA LUCAS DO DR: OLIVIA/aaron JOB#: [id number] / [id number]
[2017-01-22 13:05] LABS: INR 1.1 (0.8-1.1); PROTHROMBIN TIME PATIENT 13.2 SEC (11.7-14.0)
[2017-01-22] MEDS ORDERED: ALBUTEROL SULFATE 2.5 MG/3 ML NEBU. NEB PRN (13:30)
[2017-01-22] MEDS: HYDRALAZINE 50 MG TABLET PO SCH ×2 (14:00→20:49)
--- NOTE | 2017-01-22 14:12 | RAD ---
Radionuclide GI bleeding scan, 01/22/2017: History: Chronic bloody stools The study was performed utilizing 33 mCi of technetium 99m and a labeled red blood cell technique. No abnormal accumulation of activity is seen in the GI tract to suggest active GI tract bleeding. Midline lower pelvic activity is compatible with normal urinary tract activity. IMPRESSION: Negative radionuclide GI bleeding scan.
[2017-01-22] MEDS: ALBUTEROL SULFATE 2.5 MG/3 ML NEBU. NEB SCH ×2 (15:32→20:02)
[2017-01-22] MEDS: DUTASTERIDE 0.5 MG CAPSULE PO SCH (16:19)
[2017-01-22] MEDS: CALCIUM CARBONATE 500 MG TAB.CHEW PO SCH (16:19)
[2017-01-22] MEDS: VERAPAMIL SR 180 MG TABLET.ER. PO SCH (16:19)
[2017-01-22] MEDS: FOLIC ACID 1 MG TABLET PO SCH (16:19)
[2017-01-22] MEDS: INSULIN ASPART 300 UNITS/3 ML INSULN.PEN SQ SCH (16:22)
[2017-01-22] MEDS: BUDESONIDE 0.5 MG/2 ML NEBU NEB SCH (20:02)
[2017-01-22] MEDS: METRONIDAZOLE 500mg PREMIX 100 ML IV SCH ×2 (20:43→23:53)
[2017-01-22] MEDS: INSULIN DETEMIR 300 UNITS/3 ML INSULN.PEN. SQ SCH (20:47)
[2017-01-22] MEDS: ZOLPIDEM 5 MG TABLET. PO SCH (20:48)
[2017-01-22] MEDS: SIMVASTATIN 20 MG TABLET PO SCH (20:49)
[2017-01-22 22:01] LABS: HEMATOCRIT 25.5 % (39.0-53.0); HEMOGLOBIN 8.2 g/dL (13.0-17.5); RED BLOOD COUNT 3.14 x10^6/uL (4.30-5.70); RED CELL DISTRIBUTION WIDTH 19.9 % (11.5-14.5); WHITE BLOOD COUNT 8.7 x10^3/uL (4.0-11.0)
[2017-01-23] VITALS (13 sets, daily range): BP systolic 120–140; BP diastolic 58–74
[2017-01-23 04:38] LABS: BASO % 1 % (0-3); EOS % 4 % (0-3); LYMPH # 1.1 x10^3/uL (1.0-4.8); LYMPH % 15 % (24-48); MEAN CORPUSCULAR HEMOGLOBIN 26 pg (25-35); MEAN CORPUSCULAR HGB CONC 33 g/dL (31-37); MEAN CORPUSCULAR VOLUME 80 fL (79-100); MONO % 11 % (0-9); NEUT % 69 % (31-73); PLATELET COUNT 165 x10^3/uL (140-400); RED BLOOD COUNT 2.62 x10^6/uL (4.30-5.70); RED CELL DISTRIBUTION WIDTH 19.7 % (11.5-14.5); WHITE BLOOD COUNT 7.4 x10^3/uL (4.0-11.0)
[2017-01-23 04:42] LABS: HEMOGLOBIN 6.9 g/dL (13.0-17.5)
[2017-01-23 04:56] LABS: CALCIUM 8.1 mg/dL (8.5-10.1); CREATININE 1.5 mg/dL (0.7-1.3); GFR 54.9
[2017-01-23] MEDS: METRONIDAZOLE 500mg PREMIX 100 ML IV SCH ×3 (05:45→22:25)
[2017-01-23] MEDS: INSULIN ASPART 300 UNITS/3 ML INSULN.PEN SQ SCH ×3 (07:30→16:30)
[2017-01-23] MEDS: CALCIUM CARBONATE 500 MG TAB.CHEW PO SCH (09:14)
[2017-01-23] MEDS: FOLIC ACID 1 MG TABLET PO SCH (09:14)
[2017-01-23] MEDS: DUTASTERIDE 0.5 MG CAPSULE PO SCH (09:14)
[2017-01-23] MEDS: ALBUTEROL SULFATE 2.5 MG/3 ML NEBU. NEB SCH ×4 (09:16→20:27)
[2017-01-23] MEDS: HYDRALAZINE 50 MG TABLET PO SCH ×3 (09:16→22:25)
[2017-01-23] MEDS: BUDESONIDE 0.5 MG/2 ML NEBU NEB SCH ×2 (09:17→20:27)
[2017-01-23] MEDS: VERAPAMIL SR 180 MG TABLET.ER. PO SCH (09:17)
--- NOTE | 2017-01-23 09:50 | PDOC ---
ANNE MARIE FERRERA DRAPERY COUNSELOR 01/23/17 0950: SURGICAL PROGRESS NOTE Subjective no stools, denies bleeding no pain Vital Signs Vital Signs Date Time Temp Pulse Resp B/P Pulse Ox O2 Delivery O2 Flow Rate FiO2 01/23/17 09:21 98 Nasal Cannula 3.0 01/23/17 09:17 83 131/79 01/23/17 07:25 98.2 20 98.2 I&O Intake and Output 01/23/17 07:00 Intake Total 3640 ml Output Total 2525 ml Balance 1115 ml Intake Oral 660 ml Blood Product IV Normal Saline Flush 450 ml Other 2530 ml Output Urine Total 725 ml Stool Total 1800 ml General: Alert, Oriented X3, Cooperative, No acute distress Abdomen: Soft, No tenderness Labs Laboratory Tests Test 01/21/17 23:43 01/21/17 23:52 01/22/17 10:50 01/22/17 14:17 White Blood Count 7.5x10^3/uL (4.0-11.0) Red Blood Count 2.97x10^6/uL (4.30-5.70) Hemoglobin 7.3g/dL (13.0-17.5) 6.7g/dL (13.0-17.5) Hematocrit 23.1% (39.0-53.0) 20.3% (39.0-53.0) Mean Corpuscular Volume 78fL (79-100) Mean Corpuscular Hemoglobin 25pg (25-35) Mean Corpuscular Hemoglobin Concent 32g/dL (31-37) Red Cell Distribution Width 22.7% (11.5-14.5) Platelet Count 242x10^3/uL (140-400) Neutrophils (%) (Auto) 64% (31-73) Lymphocytes (%) (Auto) 21% (24-48) Monocytes (%) (Auto) 10% (0-9) Eosinophils (%) (Auto) 5% (0-3) Basophils (%) (Auto) 1% (0-3) Neutrophils # (Auto) 4.8x10^3uL (1.8-7.7) Lymphocytes # (Auto) 1.6x10^3/uL (1.0-4.8) Monocytes # (Auto) 0.7x10^3/uL (0.0-1.1) Eosinophils # (Auto) 0.4x10^3/uL (0.0-0.7) Basophils # (Auto) 0.1x10^3/uL (0.0-0.2) Platelet Estimate Adequate (ADEQUATE) Polychromasia Mod Hypochromasia Slight Anisocytosis Mod Microcytosis Slight Tear Drop Cells Few Schistocytes Occ Prothrombin Time 13.2SEC (11.7-14.0) Prothromb Time International Ratio 1.1 (0.8-1.1) Sodium Level 147mmol/L (136-145) Potassium Level 4.6mmol/L (3.5-5.1) Chloride Level 111mmol/L (98-107) Carbon Dioxide Level 27mmol/L (21-32) Anion Gap 9 (6-14) Blood Urea Nitrogen 17mg/dL (8-26) Creatinine 1.8mg/dL (0.7-1.3) Estimated GFR (Cockcroft-Gault) 44.5 Glucose Level 115mg/dL (70-99) Calcium Level 8.9mg/dL (8.5-10.1) Stool Occult Blood Positive (NEG) Glucose (Fingerstick) 117mg/dL (70-99) Test 01/22/17 16:20 01/22/17 20:46 01/22/17 21:30 01/23/17 03:50 Glucose (Fingerstick) 118mg/dL (70-99) 131mg/dL (70-99) White Blood Count 8.7x10^3/uL (4.0-11.0) 7.4x10^3/uL (4.0-11.0) Red Blood Count 3.14x10^6/uL (4.30-5.70) 2.62x10^6/uL (4.30-5.70) Hemoglobin 8.2g/dL (13.0-17.5) 6.9g/dL (13.0-17.5) Hematocrit 25.5% (39.0-53.0) 21.0% (39.0-53.0) Mean Corpuscular Volume 81fL (79-100) 80fL (79-100) Mean Corpuscular Hemoglobin 26pg (25-35) 26pg (25-35) Mean Corpuscular Hemoglobin Concent 32g/dL (31-37) 33g/dL (31-37) Red Cell Distribution Width 19.9% (11.5-14.5) 19.7% (11.5-14.5) Platelet Count 178x10^3/uL (140-400) 165x10^3/uL (140-400) Neutrophils (%) (Auto) 69% (31-73) Lymphocytes (%) (Auto) 15% (24-48) Monocytes (%) (Auto) 11% (0-9) Eosinophils (%) (Auto) 4% (0-3) Basophils (%) (Auto) 1% (0-3) Neutrophils # (Auto) 5.1x10^3uL (1.8-7.7) Lymphocytes # (Auto) 1.1x10^3/uL (1.0-4.8) Monocytes # (Auto) 0.8x10^3/uL (0.0-1.1) Eosinophils # (Auto) 0.3x10^3/uL (0.0-0.7) Basophils # (Auto) 0.0x10^3/uL (0.0-0.2) Sodium Level 145mmol/L (136-145) Potassium Level 4.0mmol/L (3.5-5.1) Chloride Level 111mmol/L (98-107) Carbon Dioxide Level 27mmol/L (21-32) Anion Gap 7 (6-14) Blood Urea Nitrogen 16mg/dL (8-26) Creatinine 1.5mg/dL (0.7-1.3) Estimated GFR (Cockcroft-Gault) 54.9 Glucose Level 128mg/dL (70-99) Calcium Level 8.1mg/dL (8.5-10.1) Test 01/23/17 07:31 Glucose (Fingerstick) 104mg/dL (70-99) Laboratory Tests Test 01/22/17 10:50 01/22/17 14:17 01/22/17 16:20 01/22/17 20:46 Hemoglobin 6.7g/dL (13.0-17.5) Hematocrit 20.3% (39.0-53.0) Glucose (Fingerstick) 117mg/dL (70-99) 118mg/dL (70-99) 131mg/dL (70-99) Test 01/22/17 21:30 01/23/17 03:50 01/23/17 07:31 White Blood Count 8.7x10^3/uL (4.0-11.0) 7.4x10^3/uL (4.0-11.0) Red Blood Count 3.14x10^6/uL (4.30-5.70) 2.62x10^6/uL (4.30-5.70) Hemoglobin 8.2g/dL (13.0-17.5) 6.9g/dL (13.0-17.5) Hematocrit 25.5% (39.0-53.0) 21.0% (39.0-53.0) Mean Corpuscular Volume 81fL (79-100) 80fL (79-100) Mean Corpuscular Hemoglobin 26pg (25-35) 26pg (25-35) Mean Corpuscular Hemoglobin Concent 32g/dL (31-37) 33g/dL (31-37) Red Cell Distribution Width 19.9% (11.5-14.5) 19.7% (11.5-14.5) Platelet Count 178x10^3/uL (140-400) 165x10^3/uL (140-400) Neutrophils (%) (Auto) 69% (31-73) Lymphocytes (%) (Auto) 15% (24-48) Monocytes (%) (Auto) 11% (0-9) Eosinophils (%) (Auto) 4% (0-3) Basophils (%) (Auto) 1% (0-3) Neutrophils # (Auto) 5.1x10^3uL (1.8-7.7) Lymphocytes # (Auto) 1.1x10^3/uL (1.0-4.8) Monocytes # (Auto) 0.8x10^3/uL (0.0-1.1) Eosinophils # (Auto) 0.3x10^3/uL (0.0-0.7) Basophils # (Auto) 0.0x10^3/uL (0.0-0.2) Sodium Level 145mmol/L (136-145) Potassium Level 4.0mmol/L (3.5-5.1) Chloride Level 111mmol/L (98-107) Carbon Dioxide Level 27mmol/L (21-32) Anion Gap 7 (6-14) Blood Urea Nitrogen 16mg/dL (8-26) Creatinine 1.5mg/dL (0.7-1.3) Estimated GFR (Cockcroft-Gault) 54.9 Glucose Level 128mg/dL (70-99) Calcium Level 8.1mg/dL (8.5-10.1) Glucose (Fingerstick) 104mg/dL (70-99) Problem List Problems Medical Problems: (1) GI bleed Status: Acute Assessment/Plan gi bleed hgb drop again 6.9, negative bleed scan yesterday Cr improved to 1.[address] Bauer to eval for possible embolization d/w Dr Maurer Problems: EDWIN MAURER MD 01/23/17 1402: SURGICAL PROGRESS NOTE Assessment/Plan Patient denies pain. Abd is soft, NT. Bleeding scan negative. Currently stable. Will follow for change in status. Agree with Jolene's assessment and plan. Problems: ANNE MARIE FERRERA APRN Jan 23, 2017 09:50 EDWIN MAURER MD Jan 23, 2017 14:02
[2017-01-23] MEDS ORDERED: CONTRAST GIVEN MC PRN (10:30)
[2017-01-23] MEDS ORDERED: IOHEXOL 350 MG/ML 100ML VIAL. IV ONE (10:30)
--- NOTE | 2017-01-23 11:47 | RAD ---
CTA of the abdomen and pelvis with and without contrast, 01/23/2017: History: GI tract bleeding Multidetector CT imaging was obtained prior to and following an IV bolus injection of iodinated contrast material. Postcontrast scans were obtained in an arterial phase as well as in he portal venous phase. 3-D volume rendered reconstructions of the aorta and its branches were constructed from the arterial phase data. There is moderate calcific plaquing of the abdominal aorta. There is no significant stenosis at the celiac or superior mesenteric arterial origins. There is mild calcific plaquing at the origin of the right renal artery without evidence of significant stenosis. A single widely patent left renal artery is evident. A patent inferior mesenteric artery is noted. There are moderate calcified plaques in the iliac arteries without evidence of high-grade stenosis. No extravasation of contrast is seen within large or small bowel loops to suggest active GI tract bleeding. A small amount of radiopaque material within small bowel loops in the left lower quadrant is present on both pre and postcontrast scans and probably represents medication fragments. There are surgical sutures at the rectosigmoid level as well as at the ascending colon level. There are scattered colonic diverticula. A small amount of bilateral pleural fluid has developed since the 01/16/2017 study. Streaky basilar opacities are compatible with a combination of scarring and atelectasis. Coronary artery calcifications are noted. Incidental findings include the presence of multiple bilateral renal cysts. The prostate gland is mildly enlarged. IMPRESSION: 1. Moderate aortoiliac calcific plaquing. 2. No evidence of active GI tract bleeding. 3. Colonic diverticulosis. 4. Evidence of previous colonic surgeries. 5. Small bilateral pleural effusions have developed with bibasilar atelectasis superimposed upon fibrosis. PQRS Compliance Statement: One or more of the following individualized dose reduction techniques were utilized for this examination: 1. Automated exposure control 2. Adjustment of the mA and/or kV according to patient size 3. Use of iterative reconstruction technique
--- NOTE | 2017-01-23 11:54 | PDOC ---
PROGRESS NOTES Chief Complaint Chief Complaint CC - GI Bleed Diverticulosis History of Present Illness History of Present Illness Patient was laying the bed at the time of evaluation, was in no acute distress. Had GI bleeding episode last night again, bleeding was painless in nature. his Hgb dropped to 6.9 again. Surgery and GI are on consult. Bleed scan was negative yesterday. His creatinine is 1.5 improved. Plan of care discussed with pt. Vitals Vitals Vital Signs Date Time Temp Pulse Resp B/P Pulse Ox O2 Delivery O2 Flow Rate FiO2 01/23/17 10:30 98.5 86 20 120/63 92 Nasal Cannula 3.0 98.5 Physical Exam General: Alert, Oriented X3, Cooperative, No acute distress Heart: Regular rate, No murmurs Lungs: Clear, Other Abdomen: Soft, No tenderness Extremities: No edema Skin: No significant lesion Labs LABS Laboratory Tests Test 01/22/17 14:17 01/22/17 16:20 01/22/17 20:46 01/22/17 21:30 Glucose (Fingerstick) 117mg/dL (70-99) 118mg/dL (70-99) 131mg/dL (70-99) White Blood Count 8.7x10^3/uL (4.0-11.0) Red Blood Count 3.14x10^6/uL (4.30-5.70) Hemoglobin 8.2g/dL (13.0-17.5) Hematocrit 25.5% (39.0-53.0) Mean Corpuscular Volume 81fL (79-100) Mean Corpuscular Hemoglobin 26pg (25-35) Mean Corpuscular Hemoglobin Concent 32g/dL (31-37) Red Cell Distribution Width 19.9% (11.5-14.5) Platelet Count 178x10^3/uL (140-400) Test 01/23/17 03:50 01/23/17 07:31 01/23/17 11:15 White Blood Count 7.4x10^3/uL (4.0-11.0) Red Blood Count 2.62x10^6/uL (4.30-5.70) Hemoglobin 6.9g/dL (13.0-17.5) Hematocrit 21.0% (39.0-53.0) Mean Corpuscular Volume 80fL (79-100) Mean Corpuscular Hemoglobin 26pg (25-35) Mean Corpuscular Hemoglobin Concent 33g/dL (31-37) Red Cell Distribution Width 19.7% (11.5-14.5) Platelet Count 165x10^3/uL (140-400) Neutrophils (%) (Auto) 69% (31-73) Lymphocytes (%) (Auto) 15% (24-48) Monocytes (%) (Auto) 11% (0-9) Eosinophils (%) (Auto) 4% (0-3) Basophils (%) (Auto) 1% (0-3) Neutrophils # (Auto) 5.1x10^3uL (1.8-7.7) Lymphocytes # (Auto) 1.1x10^3/uL (1.0-4.8) Monocytes # (Auto) 0.8x10^3/uL (0.0-1.1) Eosinophils # (Auto) 0.3x10^3/uL (0.0-0.7) Basophils # (Auto) 0.0x10^3/uL (0.0-0.2) Sodium Level 145mmol/L (136-145) Potassium Level 4.0mmol/L (3.5-5.1) Chloride Level 111mmol/L (98-107) Carbon Dioxide Level 27mmol/L (21-32) Anion Gap 7 (6-14) Blood Urea Nitrogen 16mg/dL (8-26) Creatinine 1.5mg/dL (0.7-1.3) Estimated GFR (Cockcroft-Gault) 54.9 Glucose Level 128mg/dL (70-99) Calcium Level 8.1mg/dL (8.5-10.1) Glucose (Fingerstick) 104mg/dL (70-99) 132mg/dL (70-99) Review of Systems Review of Systems Denies fever, chills Denies SOB, CP Denies n/v had GI bleeding episode last night, it was painless, abdomen is ND, NT Assessment and Plan Assessmemt and Plan Assessment/Plan GI bleed - with known diverticular disease Plan: Hgb dropped to 6.9 again, radionucleotide bleeding scan negative yesterday Cr improved to 1.5, F/u creatinine Ordered 2 units of blood transfusion recheck labs PTOT continue antibiotics Appreciate subspecialities inputs and recommendations Problems Medical Problems: (1) GI bleed Status: Acute Problems: Comment Review of Relevant I have reviewed the following items lauren (where applicable) has been applied. Labs Laboratory Tests Test 01/21/17 23:43 01/21/17 23:52 01/22/17 10:50 01/22/17 14:17 White Blood Count 7.5x10^3/uL (4.0-11.0) Red Blood Count 2.97x10^6/uL (4.30-5.70) Hemoglobin 7.3g/dL (13.0-17.5) 6.7g/dL (13.0-17.5) Hematocrit 23.1% (39.0-53.0) 20.3% (39.0-53.0) Mean Corpuscular Volume 78fL (79-100) Mean Corpuscular Hemoglobin 25pg (25-35) Mean Corpuscular Hemoglobin Concent 32g/dL (31-37) Red Cell Distribution Width 22.7% (11.5-14.5) Platelet Count 242x10^3/uL (140-400) Neutrophils (%) (Auto) 64% (31-73) Lymphocytes (%) (Auto) 21% (24-48) Monocytes (%) (Auto) 10% (0-9) Eosinophils (%) (Auto) 5% (0-3) Basophils (%) (Auto) 1% (0-3) Neutrophils # (Auto) 4.8x10^3uL (1.8-7.7) Lymphocytes # (Auto) 1.6x10^3/uL (1.0-4.8) Monocytes # (Auto) 0.7x10^3/uL (0.0-1.1) Eosinophils # (Auto) 0.4x10^3/uL (0.0-0.7) Basophils # (Auto) 0.1x10^3/uL (0.0-0.2) Platelet Estimate Adequate (ADEQUATE) Polychromasia Mod Hypochromasia Slight Anisocytosis Mod Microcytosis Slight Tear Drop Cells Few Schistocytes Occ Prothrombin Time 13.2SEC (11.7-14.0) Prothromb Time International Ratio 1.1 (0.8-1.1) Sodium Level 147mmol/L (136-145) Potassium Level 4.6mmol/L (3.5-5.1) Chloride Level 111mmol/L (98-107) Carbon Dioxide Level 27mmol/L (21-32) Anion Gap 9 (6-14) Blood Urea Nitrogen 17mg/dL (8-26) Creatinine 1.8mg/dL (0.7-1.3) Estimated GFR (Cockcroft-Gault) 44.5 Glucose Level 115mg/dL (70-99) Calcium Level 8.9mg/dL (8.5-10.1) Stool Occult Blood Positive (NEG) Glucose (Fingerstick) 117mg/dL (70-99) Test 01/22/17 16:20 01/22/17 20:46 01/22/17 21:30 01/23/17 03:50 Glucose (Fingerstick) 118mg/dL (70-99) 131mg/dL (70-99) White Blood Count 8.7x10^3/uL (4.0-11.0) 7.4x10^3/uL (4.0-11.0) Red Blood Count 3.14x10^6/uL (4.30-5.70) 2.62x10^6/uL (4.30-5.70) Hemoglobin 8.2g/dL (13.0-17.5) 6.9g/dL (13.0-17.5) Hematocrit 25.5% (39.0-53.0) 21.0% (39.0-53.0) Mean Corpuscular Volume 81fL (79-100) 80fL (79-100) Mean Corpuscular Hemoglobin 26pg (25-35) 26pg (25-35) Mean Corpuscular Hemoglobin Concent 32g/dL (31-37) 33g/dL (31-37) Red Cell Distribution Width 19.9% (11.5-14.5) 19.7% (11.5-14.5) Platelet Count 178x10^3/uL (140-400) 165x10^3/uL (140-400) Neutrophils (%) (Auto) 69% (31-73) Lymphocytes (%) (Auto) 15% (24-48) Monocytes (%) (Auto) 11% (0-9) Eosinophils (%) (Auto) 4% (0-3) Basophils (%) (Auto) 1% (0-3) Neutrophils # (Auto) 5.1x10^3uL (1.8-7.7) Lymphocytes # (Auto) 1.1x10^3/uL (1.0-4.8) Monocytes # (Auto) 0.8x10^3/uL (0.0-1.1) Eosinophils # (Auto) 0.3x10^3/uL (0.0-0.7) Basophils # (Auto) 0.0x10^3/uL (0.0-0.2) Sodium Level 145mmol/L (136-145) Potassium Level 4.0mmol/L (3.5-5.1) Chloride Level 111mmol/L (98-107) Carbon Dioxide Level 27mmol/L (21-32) Anion Gap 7 (6-14) Blood Urea Nitrogen 16mg/dL (8-26) Creatinine 1.5mg/dL (0.7-1.3) Estimated GFR (Cockcroft-Gault) 54.9 Glucose Level 128mg/dL (70-99) Calcium Level 8.1mg/dL (8.5-10.1) Test 01/23/17 07:31 01/23/17 11:15 Glucose (Fingerstick) 104mg/dL (70-99) 132mg/dL (70-99) Laboratory Tests Test 01/22/17 14:17 01/22/17 16:20 01/22/17 20:46 01/22/17 21:30 Glucose (Fingerstick) 117mg/dL (70-99) 118mg/dL (70-99) 131mg/dL (70-99) White Blood Count 8.7x10^3/uL (4.0-11.0) Red Blood Count 3.14x10^6/uL (4.30-5.70) Hemoglobin 8.2g/dL (13.0-17.5) Hematocrit 25.5% (39.0-53.0) Mean Corpuscular Volume 81fL (79-100) Mean Corpuscular Hemoglobin 26pg (25-35) Mean Corpuscular Hemoglobin Concent 32g/dL (31-37) Red Cell Distribution Width 19.9% (11.5-14.5) Platelet Count 178x10^3/uL (140-400) Test 01/23/17 03:50 01/23/17 07:31 01/23/17 11:15 White Blood Count 7.4x10^3/uL (4.0-11.0) Red Blood Count 2.62x10^6/uL (4.30-5.70) Hemoglobin 6.9g/dL (13.0-17.5) Hematocrit 21.0% (39.0-53.0) Mean Corpuscular Volume 80fL (79-100) Mean Corpuscular Hemoglobin 26pg (25-35) Mean Corpuscular Hemoglobin Concent 33g/dL (31-37) Red Cell Distribution Width 19.7% (11.5-14.5) Platelet Count 165x10^3/uL (140-400) Neutrophils (%) (Auto) 69% (31-73) Lymphocytes (%) (Auto) 15% (24-48) Monocytes (%) (Auto) 11% (0-9) Eosinophils (%) (Auto) 4% (0-3) Basophils (%) (Auto) 1% (0-3) Neutrophils # (Auto) 5.1x10^3uL (1.8-7.7) Lymphocytes # (Auto) 1.1x10^3/uL (1.0-4.8) Monocytes # (Auto) 0.8x10^3/uL (0.0-1.1) Eosinophils # (Auto) 0.3x10^3/uL (0.0-0.7) Basophils # (Auto) 0.0x10^3/uL (0.0-0.2) Sodium Level 145mmol/L (136-145) Potassium Level 4.0mmol/L (3.5-5.1) Chloride Level 111mmol/L (98-107) Carbon Dioxide Level 27mmol/L (21-32) Anion Gap 7 (6-14) Blood Urea Nitrogen 16mg/dL (8-26) Creatinine 1.5mg/dL (0.7-1.3) Estimated GFR (Cockcroft-Gault) 54.9 Glucose Level 128mg/dL (70-99) Calcium Level 8.1mg/dL (8.5-10.1) Glucose (Fingerstick) 104mg/dL (70-99) 132mg/dL (70-99) Medications Current Medications Ondansetron HCl 4 mg 4 mg PRN Q8HRS PRN IV NAUSEA/VOMITING; Start 01/22/17 at 00:00; Stop 01/22/17 at 23:59; Status DC Sodium Chloride 1,000 ml @ 100 mls/hr Q10H IV Last administered on 01/22/17 20:44; Start 01/22/17 at 00:00; Stop 01/22/17 at 23:59; Status DC Metronidazole (FLAGYL 500Mmg PREMIX) 100 ml @ 100 mls/hr Q8HRS IV Last administered on 01/23/17 05:45; Start 01/22/17 at 13:00 Dutasteride (Avodart) 0.5 mg DAILY PO Last administered on 01/23/17 09:14; Start 01/22/17 at 14:00 Folic Acid (Folic Acid) 1 mg DAILY PO Last administered on 01/23/17 09:14; Start 01/22/17 at 14:00 Hydralazine HCl (Apresoline) 50 mg TID PO Last administered on 01/23/17 09:16 ; Start 01/22/17 at 14:00 Insulin Aspart (Novolog) 10 units TIDAC SQ ; Start 01/22/17 at 16:30 Insulin Detemir (Levemir) 35 units HS SQ ; Start 01/22/17 at 21:00 Simvastatin (Zocor) 20 mg HS PO Last administered on 01/22/17 20:49; Start at 21:00 Zolpidem Tartrate (Ambien) 5 mg QHS PO Last administered on 01/22/17 20:48; Start 01/22/17 at 21:00 Albuterol Sulfate (Ventolin Neb Soln) 2.5 mg PRN Q4HRS PRN NEB SHORTNESS OF BREATH; Start 01/22/17 at 13:30 Calcium Carbonate/ Glycine (Tums) 500 mg DAILY PO Last administered on 09:14; Start 01/22/17 at 14:00 Albuterol Sulfate (Ventolin Neb Soln) 2.5 mg RTQID NEB Last administered on 09:16; Start 01/22/17 at 16:00 Verapamil HCl 360 mg 360 mg DAILY PO Last administered on 01/23/17 09:17; Start 01/22/17 at 14:00 Levofloxacin/ Dextrose (LEVAQUIN 250mg PREMIX) 50 ml @ 50 mls/hr Q24H IV Last administered on 01/22/17 22:21; Start 01/22/17 at 14:00 Budesonide (Pulmicort) 0.5 mg RTBID NEB Last administered on 01/23/17 09:17; Start 01/22/17 at 20:00 Iohexol (Omnipaque 350 Mg/ml) 75 ml 1X ONCE IV Last administered on 01/23/17 10:49; Start 01/23/17 at 10:30; Stop 01/23/17 at 10:31; Status DC Info (Do NOT chart on this entry -- for MONITORING) 1 each PRN DAILY PRN MC SEE COMMENTS; Start 01/23/17 at 10:30; Stop 01/25/17 at 10:29 Active Scripts Active Levemir Flextouch (Insulin Detemir) 100 Unit/1 Ml Insuln.pen 35 Units SQ HS 30 Days Proair Hfa Inhaler (Albuterol Sulfate) 8.5 Gm Hfa.aer.ad 2 Puff IH PRN Q4-6HRS Novolog Flexpen (Insulin Aspart) 300 Units/3 Ml Insuln.pen 10 Units SQ TIDAC Reported Zolpidem Tartrate 5 Mg Tablet 1 Tab PO QHS Hydralazine Hcl 50 Mg Tablet 50 Mg PO TID Verapamil Er (Verapamil Hcl) 240 Mg Cap24h.pel 360 Mg PO DAILY Antacid Chewable Tablet (Calcium Carbonate/Mag Hydrox) 1 Each Tab.chew 1 Each PO DAILY Advair 250-50 Diskus (Fluticasone/Salmeterol) 1 Each Disk.w.dev 1 Inh IH BID Aspir 81 (Aspirin) 81 Mg Tablet.dr 81 Mg PO DAILY Folic Acid 1 Mg Tablet 1 Mg PO DAILY Avodart (Dutasteride) 0.5 Mg Capsule 0.5 Mg PO DAILY Simvastatin 20 Mg Tablet 20 Mg PO HS Vitals/I & O Vital Sign - Last 24 Hours 01/22/17 01/22/17 01/22/17 01/22/17 14:20 14:59 15:15 15:34 Temp 97.9 97.7 98.6 97.9 97.7 98.6 Pulse 90 90 89 Resp 20 20 16 B/P 145/70 145/70 146/72 Pulse Ox 98 95 O2 Delivery Nasal Cannula Nasal Cannula O2 Flow Rate 3.0 3.0 01/22/17 01/22/17 01/22/17 01/22/17 16:15 16:19 17:30 18:04 Temp 98.6 97.7 97.7 98.6 97.7 97.7 Pulse 93 93 94 94 Resp 18 20 20 B/P 150/71 150/71 137/70 137/70 01/22/17 01/22/17 01/22/17 01/22/17 18:21 19:00 19:25 20:00 Temp 98.8 98.8 98.8 98.8 98.8 98.8 Pulse 89 85 83 Resp 20 20 20 B/P 154/77 136/72 138/76 Pulse Ox 94 O2 Delivery Nasal Cannula Nasal Cannula O2 Flow Rate 3.0 3.0 01/22/17 01/22/17 01/22/17 01/22/17 20:04 20:04 20:27 20:49 Temp 98.8 98.8 Pulse 85 85 Resp 18 B/P 136/72 136/72 Pulse Ox 98 98 O2 Delivery Nasal Cannula Nasal Cannula O2 Flow Rate 3.0 3.0 01/22/17 01/23/17 01/23/17 01/23/17 23:00 03:00 07:25 09:16 Temp 98.8 98.2 98.2 98.8 98.2 98.2 Pulse 84 79 82 83 Resp 20 20 20 B/P 108/62 134/64 131/62 131/79 Pulse Ox 94 98 94 O2 Delivery Nasal Cannula Nasal Cannula Nasal Cannula O2 Flow Rate 3.0 3.0 01/23/17 01/23/17 01/23/17 01/23/17 09:17 09:19 09:21 10:30 Temp 98.5 98.5 Pulse 83 86 Resp 20 B/P 131/79 120/63 Pulse Ox 98 98 92 O2 Delivery Nasal Cannula Nasal Cannula Nasal Cannula O2 Flow Rate 3.0 3.0 3.0 Intake and Output 01/22/17 01/22/17 01/23/17 15:00 23:00 07:00 Intake Total 1110 ml 2530 ml Output Total 1600 ml 200 ml 725 ml Balance -1600 ml 910 ml 1805 ml BLANCA LUCAS III DO Jan 23, 2017 11:54
--- NOTE | 2017-01-23 12:45 | PDOC ---
Provider Note Provider Note IR Note: Asked to consider mesenteric angio/embolization for GI bleed---thank you. Mr Mcgee is 76 YO diabetic male with renal insufficiency, and with past h/o colon cancer and past h/o diverticular GIB. VSS. Hgb drop from 8.2-6.9 noted. Plts 165,000. INR 1.1. Nuclear Med GI bleed scan done yesterday negative. CTA abd/pelvis per GI bleed protocol negative this AM. In hemodynamically stable patient with negative Nuc Med scan and negative CTA, catheter directed angio considered contraindicated, particularly in this diabetic patient with renal insufficiency. Agree with GI Rx of serial CBC, pRBC transfusion, and gen surgery consultation. SAMARIA HOWARD MD Jan 23, 2017 12:45
--- NOTE | 2017-01-23 18:16 | PDOC ---
G I PROGRESS NOTE Reason for Follow-up Rectal bleeding Subjective Bleeding has stopped Physical Exam Lungs clear CV s1 s2 abd +bs, soft, nontender Review of Relevant I have reviewed the following items lauren (where applicable) has been applied. Labs Laboratory Tests Test 01/21/17 23:43 01/21/17 23:52 01/22/17 10:50 01/22/17 14:17 White Blood Count 7.5x10^3/uL (4.0-11.0) Red Blood Count 2.97x10^6/uL (4.30-5.70) Hemoglobin 7.3g/dL (13.0-17.5) 6.7g/dL (13.0-17.5) Hematocrit 23.1% (39.0-53.0) 20.3% (39.0-53.0) Mean Corpuscular Volume 78fL (79-100) Mean Corpuscular Hemoglobin 25pg (25-35) Mean Corpuscular Hemoglobin Concent 32g/dL (31-37) Red Cell Distribution Width 22.7% (11.5-14.5) Platelet Count 242x10^3/uL (140-400) Neutrophils (%) (Auto) 64% (31-73) Lymphocytes (%) (Auto) 21% (24-48) Monocytes (%) (Auto) 10% (0-9) Eosinophils (%) (Auto) 5% (0-3) Basophils (%) (Auto) 1% (0-3) Neutrophils # (Auto) 4.8x10^3uL (1.8-7.7) Lymphocytes # (Auto) 1.6x10^3/uL (1.0-4.8) Monocytes # (Auto) 0.7x10^3/uL (0.0-1.1) Eosinophils # (Auto) 0.4x10^3/uL (0.0-0.7) Basophils # (Auto) 0.1x10^3/uL (0.0-0.2) Platelet Estimate Adequate (ADEQUATE) Polychromasia Mod Hypochromasia Slight Anisocytosis Mod Microcytosis Slight Tear Drop Cells Few Schistocytes Occ Prothrombin Time 13.2SEC (11.7-14.0) Prothromb Time International Ratio 1.1 (0.8-1.1) Sodium Level 147mmol/L (136-145) Potassium Level 4.6mmol/L (3.5-5.1) Chloride Level 111mmol/L (98-107) Carbon Dioxide Level 27mmol/L (21-32) Anion Gap 9 (6-14) Blood Urea Nitrogen 17mg/dL (8-26) Creatinine 1.8mg/dL (0.7-1.3) Estimated GFR (Cockcroft-Gault) 44.5 Glucose Level 115mg/dL (70-99) Calcium Level 8.9mg/dL (8.5-10.1) Stool Occult Blood Positive (NEG) Glucose (Fingerstick) 117mg/dL (70-99) Test 01/22/17 16:20 01/22/17 20:46 01/22/17 21:30 01/23/17 03:50 Glucose (Fingerstick) 118mg/dL (70-99) 131mg/dL (70-99) White Blood Count 8.7x10^3/uL (4.0-11.0) 7.4x10^3/uL (4.0-11.0) Red Blood Count 3.14x10^6/uL (4.30-5.70) 2.62x10^6/uL (4.30-5.70) Hemoglobin 8.2g/dL (13.0-17.5) 6.9g/dL (13.0-17.5) Hematocrit 25.5% (39.0-53.0) 21.0% (39.0-53.0) Mean Corpuscular Volume 81fL (79-100) 80fL (79-100) Mean Corpuscular Hemoglobin 26pg (25-35) 26pg (25-35) Mean Corpuscular Hemoglobin Concent 32g/dL (31-37) 33g/dL (31-37) Red Cell Distribution Width 19.9% (11.5-14.5) 19.7% (11.5-14.5) Platelet Count 178x10^3/uL (140-400) 165x10^3/uL (140-400) Neutrophils (%) (Auto) 69% (31-73) Lymphocytes (%) (Auto) 15% (24-48) Monocytes (%) (Auto) 11% (0-9) Eosinophils (%) (Auto) 4% (0-3) Basophils (%) (Auto) 1% (0-3) Neutrophils # (Auto) 5.1x10^3uL (1.8-7.7) Lymphocytes # (Auto) 1.1x10^3/uL (1.0-4.8) Monocytes # (Auto) 0.8x10^3/uL (0.0-1.1) Eosinophils # (Auto) 0.3x10^3/uL (0.0-0.7) Basophils # (Auto) 0.0x10^3/uL (0.0-0.2) Sodium Level 145mmol/L (136-145) Potassium Level 4.0mmol/L (3.5-5.1) Chloride Level 111mmol/L (98-107) Carbon Dioxide Level 27mmol/L (21-32) Anion Gap 7 (6-14) Blood Urea Nitrogen 16mg/dL (8-26) Creatinine 1.5mg/dL (0.7-1.3) Estimated GFR (Cockcroft-Gault) 54.9 Glucose Level 128mg/dL (70-99) Calcium Level 8.1mg/dL (8.5-10.1) Test 01/23/17 07:31 01/23/17 11:15 01/23/17 16:18 Glucose (Fingerstick) 104mg/dL (70-99) 132mg/dL (70-99) 112mg/dL (70-99) Laboratory Tests Test 01/22/17 20:46 01/22/17 21:30 01/23/17 03:50 01/23/17 07:31 Glucose (Fingerstick) 131mg/dL (70-99) 104mg/dL (70-99) White Blood Count 8.7x10^3/uL (4.0-11.0) 7.4x10^3/uL (4.0-11.0) Red Blood Count 3.14x10^6/uL (4.30-5.70) 2.62x10^6/uL (4.30-5.70) Hemoglobin 8.2g/dL (13.0-17.5) 6.9g/dL (13.0-17.5) Hematocrit 25.5% (39.0-53.0) 21.0% (39.0-53.0) Mean Corpuscular Volume 81fL (79-100) 80fL (79-100) Mean Corpuscular Hemoglobin 26pg (25-35) 26pg (25-35) Mean Corpuscular Hemoglobin Concent 32g/dL (31-37) 33g/dL (31-37) Red Cell Distribution Width 19.9% (11.5-14.5) 19.7% (11.5-14.5) Platelet Count 178x10^3/uL (140-400) 165x10^3/uL (140-400) Neutrophils (%) (Auto) 69% (31-73) Lymphocytes (%) (Auto) 15% (24-48) Monocytes (%) (Auto) 11% (0-9) Eosinophils (%) (Auto) 4% (0-3) Basophils (%) (Auto) 1% (0-3) Neutrophils # (Auto) 5.1x10^3uL (1.8-7.7) Lymphocytes # (Auto) 1.1x10^3/uL (1.0-4.8) Monocytes # (Auto) 0.8x10^3/uL (0.0-1.1) Eosinophils # (Auto) 0.3x10^3/uL (0.0-0.7) Basophils # (Auto) 0.0x10^3/uL (0.0-0.2) Sodium Level 145mmol/L (136-145) Potassium Level 4.0mmol/L (3.5-5.1) Chloride Level 111mmol/L (98-107) Carbon Dioxide Level 27mmol/L (21-32) Anion Gap 7 (6-14) Blood Urea Nitrogen 16mg/dL (8-26) Creatinine 1.5mg/dL (0.7-1.3) Estimated GFR (Cockcroft-Gault) 54.9 Glucose Level 128mg/dL (70-99) Calcium Level 8.1mg/dL (8.5-10.1) Test 01/23/17 11:15 01/23/17 16:18 Glucose (Fingerstick) 132mg/dL (70-99) 112mg/dL (70-99) Medications Current Medications Ondansetron HCl 4 mg 4 mg PRN Q8HRS PRN IV NAUSEA/VOMITING; Start 01/22/17 at 00:00; Stop 01/22/17 at 23:59; Status DC Sodium Chloride 1,000 ml @ 100 mls/hr Q10H IV Last administered on 01/22/17 20:44; Start 01/22/17 at 00:00; Stop 01/22/17 at 23:59; Status DC Metronidazole (FLAGYL 500Mmg PREMIX) 100 ml @ 100 mls/hr Q8HRS IV Last administered on 01/23/17 05:45; Start 01/22/17 at 13:00 Dutasteride (Avodart) 0.5 mg DAILY PO Last administered on 01/23/17 09:14; Start 01/22/17 at 14:00 Folic Acid (Folic Acid) 1 mg DAILY PO Last administered on 01/23/17 09:14; Start 01/22/17 at 14:00 Hydralazine HCl (Apresoline) 50 mg TID PO Last administered on 01/23/17 14:44 ; Start 01/22/17 at 14:00 Insulin Aspart (Novolog) 10 units TIDAC SQ ; Start 01/22/17 at 16:30 Insulin Detemir (Levemir) 35 units HS SQ ; Start 01/22/17 at 21:00 Simvastatin (Zocor) 20 mg HS PO Last administered on 01/22/17 20:49; Start at 21:00 Zolpidem Tartrate (Ambien) 5 mg QHS PO Last administered on 01/22/17 20:48; Start 01/22/17 at 21:00 Albuterol Sulfate (Ventolin Neb Soln) 2.5 mg PRN Q4HRS PRN NEB SHORTNESS OF BREATH; Start 01/22/17 at 13:30 Calcium Carbonate/ Glycine (Tums) 500 mg DAILY PO Last administered on 09:14; Start 01/22/17 at 14:00 Albuterol Sulfate (Ventolin Neb Soln) 2.5 mg RTQID NEB Last administered on 17:06; Start 01/22/17 at 16:00 Verapamil HCl 360 mg 360 mg DAILY PO Last administered on 01/23/17 09:17; Start 01/22/17 at 14:00 Levofloxacin/ Dextrose (LEVAQUIN 250mg PREMIX) 50 ml @ 50 mls/hr Q24H IV Last administered on 01/22/17 22:21; Start 01/22/17 at 14:00 Budesonide (Pulmicort) 0.5 mg RTBID NEB Last administered on 01/23/17 09:17; Start 01/22/17 at 20:00 Iohexol (Omnipaque 350 Mg/ml) 75 ml 1X ONCE IV Last administered on 01/23/17 10:49; Start 01/23/17 at 10:30; Stop 01/23/17 at 10:31; Status DC Info (Do NOT chart on this entry -- for MONITORING) 1 each PRN DAILY PRN MC SEE COMMENTS; Start 01/23/17 at 10:30; Stop 01/25/17 at 10:29 Active Scripts Active Levemir Flextouch (Insulin Detemir) 100 Unit/1 Ml Insuln.pen 35 Units SQ HS 30 Days Proair Hfa Inhaler (Albuterol Sulfate) 8.5 Gm Hfa.aer.ad 2 Puff IH PRN Q4-6HRS Novolog Flexpen (Insulin Aspart) 300 Units/3 Ml Insuln.pen 10 Units SQ TIDAC Reported Zolpidem Tartrate 5 Mg Tablet 1 Tab PO QHS Hydralazine Hcl 50 Mg Tablet 50 Mg PO TID Verapamil Er (Verapamil Hcl) 240 Mg Cap24h.pel 360 Mg PO DAILY Antacid Chewable Tablet (Calcium Carbonate/Mag Hydrox) 1 Each Tab.chew 1 Each PO DAILY Advair 250-50 Diskus (Fluticasone/Salmeterol) 1 Each Disk.w.dev 1 Inh IH BID Aspir 81 (Aspirin) 81 Mg Tablet.dr 81 Mg PO DAILY Folic Acid 1 Mg Tablet 1 Mg PO DAILY Avodart (Dutasteride) 0.5 Mg Capsule 0.5 Mg PO DAILY Simvastatin 20 Mg Tablet 20 Mg PO HS Vitals/I & O Vital Sign - Last 24 Hours 01/22/17 01/22/17 01/22/17 01/22/17 18:21 19:00 19:25 20:00 Temp 98.8 98.8 98.8 98.8 98.8 98.8 Pulse 89 85 83 Resp 20 20 20 B/P 154/77 136/72 138/76 Pulse Ox 94 O2 Delivery Nasal Cannula Nasal Cannula O2 Flow Rate 3.0 3.0 01/22/17 01/22/17 01/22/17 01/22/17 20:04 20:04 20:27 20:49 Temp 98.8 98.8 Pulse 85 85 Resp 18 B/P 136/72 136/72 Pulse Ox 98 98 O2 Delivery Nasal Cannula Nasal Cannula O2 Flow Rate 3.0 3.0 01/22/17 01/23/17 01/23/17 01/23/17 23:00 03:00 07:25 09:16 Temp 98.8 98.2 98.2 98.8 98.2 98.2 Pulse 84 79 82 83 Resp 20 20 20 B/P 108/62 134/64 131/62 131/79 Pulse Ox 94 98 94 O2 Delivery Nasal Cannula Nasal Cannula Nasal Cannula O2 Flow Rate 3.0 3.0 01/23/17 01/23/17 01/23/17 01/23/17 09:17 09:19 09:21 10:30 Temp 98.5 98.5 Pulse 83 86 Resp 20 B/P 131/79 120/63 Pulse Ox 98 98 92 O2 Delivery Nasal Cannula Nasal Cannula Nasal Cannula O2 Flow Rate 3.0 3.0 3.0 01/23/17 01/23/17 01/23/17 01/23/17 12:06 13:20 13:35 14:15 Temp 98.4 98.7 98.8 98.4 98.7 98.8 Pulse 75 77 76 Resp 18 16 20 B/P 130/58 129/61 130/64 Pulse Ox 96 O2 Delivery Nasal Cannula Nasal Cannula O2 Flow Rate 3.0 3.0 01/23/17 01/23/17 01/23/17 01/23/17 14:44 14:48 15:45 16:00 Temp 98.5 98.6 98.6 98.5 98.6 98.6 Pulse 73 73 76 76 Resp 18 20 20 B/P 134/72 134/72 138/70 138/70 01/23/17 01/23/17 01/23/17 16:25 17:07 17:29 Temp 98.8 98.7 98.8 98.7 Pulse 74 82 Resp 18 18 B/P 132/71 139/69 Pulse Ox 95 O2 Delivery Nasal Cannula O2 Flow Rate 3.0 Intake and Output 01/22/17 01/22/17 01/23/17 15:00 23:00 07:00 Intake Total 1110 ml 2530 ml Output Total 1600 ml 200 ml 725 ml Balance -1600 ml 910 ml 1805 ml Problem List Problems Medical Problems: (1) GI bleed Status: Acute Assessment Most likely diverticular bleed, Hg lower, transfusions in progress, CTA noted, CPM, possible EGD if bleeding resumes KERWIN CONDON MD Jan 23, 2017 18:16
[2017-01-23] MEDS: INSULIN DETEMIR 300 UNITS/3 ML INSULN.PEN. SQ SCH (21:00)
[2017-01-23] MEDS: SIMVASTATIN 20 MG TABLET PO SCH (22:25)
[2017-01-23] MEDS: ZOLPIDEM 5 MG TABLET. PO SCH (22:25)
[2017-01-24 03:00] VITALS: BP 132/70
[2017-01-24] MEDS: METRONIDAZOLE 500mg PREMIX 100 ML IV SCH ×3 (06:01→21:20)
[2017-01-24 06:39] LABS: BASO % 1 % (0-3); EOS % 4 % (0-3); HEMATOCRIT 27.8 % (39.0-53.0); LYMPH # 0.9 x10^3/uL (1.0-4.8); LYMPH % 13 % (24-48); MEAN CORPUSCULAR HEMOGLOBIN 26 pg (25-35); MEAN CORPUSCULAR HGB CONC 32 g/dL (31-37); MEAN CORPUSCULAR VOLUME 80 fL (79-100); MONO % 11 % (0-9); NEUT % 72 % (31-73); PLATELET COUNT 178 x10^3/uL (140-400); RED BLOOD COUNT 3.49 x10^6/uL (4.30-5.70); RED CELL DISTRIBUTION WIDTH 19.2 % (11.5-14.5); WHITE BLOOD COUNT 7.5 x10^3/uL (4.0-11.0)
[2017-01-24 06:47] LABS: CALCIUM 8.5 mg/dL (8.5-10.1); CREATININE 1.5 mg/dL (0.7-1.3); GFR 54.9; POTASSIUM 4.1 mmol/L (3.5-5.1)
[2017-01-24 07:00] VITALS: BP 141/63
[2017-01-24] MEDS: INSULIN ASPART 300 UNITS/3 ML INSULN.PEN SQ SCH ×3 (07:30→16:30)
[2017-01-24] MEDS: ALBUTEROL SULFATE 2.5 MG/3 ML NEBU. NEB SCH ×4 (07:51→19:55)
[2017-01-24] MEDS: BUDESONIDE 0.5 MG/2 ML NEBU NEB SCH ×2 (07:51→19:55)
--- NOTE | 2017-01-24 09:15 | PDOC ---
PROGRESS NOTES Chief Complaint Chief Complaint CC - GI Bleed Diverticulosis History of Present Illness History of Present Illness Patient was laying the bed at the time of evaluation, was in no acute distress. Had no GI bleeding episode again. Hgb is stable after transfusion of 2 units yesterday, labs are stable as well. Plan of care discussed with pt. Vitals Vitals Vital Signs Date Time Temp Pulse Resp B/P Pulse Ox O2 Delivery O2 Flow Rate FiO2 01/24/17 07:51 98 Nasal Cannula 3.0 01/24/17 03:00 98.7 82 16 132/70 98.7 Physical Exam General: Alert, Oriented X3, Cooperative, No acute distress Heart: Regular rate, No murmurs Lungs: Clear, Other Abdomen: Soft, No tenderness Extremities: No edema Skin: No significant lesion Labs LABS Laboratory Tests Test 01/23/17 11:15 01/23/17 16:18 01/23/17 22:18 01/24/17 06:10 Glucose (Fingerstick) 132mg/dL (70-99) 112mg/dL (70-99) 98mg/dL (70-99) White Blood Count 7.5x10^3/uL (4.0-11.0) Red Blood Count 3.49x10^6/uL (4.30-5.70) Hemoglobin 9.0g/dL (13.0-17.5) Hematocrit 27.8% (39.0-53.0) Mean Corpuscular Volume 80fL (79-100) Mean Corpuscular Hemoglobin 26pg (25-35) Mean Corpuscular Hemoglobin Concent 32g/dL (31-37) Red Cell Distribution Width 19.2% (11.5-14.5) Platelet Count 178x10^3/uL (140-400) Neutrophils (%) (Auto) 72% (31-73) Lymphocytes (%) (Auto) 13% (24-48) Monocytes (%) (Auto) 11% (0-9) Eosinophils (%) (Auto) 4% (0-3) Basophils (%) (Auto) 1% (0-3) Neutrophils # (Auto) 5.4x10^3uL (1.8-7.7) Lymphocytes # (Auto) 0.9x10^3/uL (1.0-4.8) Monocytes # (Auto) 0.8x10^3/uL (0.0-1.1) Eosinophils # (Auto) 0.3x10^3/uL (0.0-0.7) Basophils # (Auto) 0.0x10^3/uL (0.0-0.2) Sodium Level 147mmol/L (136-145) Potassium Level 4.1mmol/L (3.5-5.1) Chloride Level 111mmol/L (98-107) Carbon Dioxide Level 27mmol/L (21-32) Anion Gap 9 (6-14) Blood Urea Nitrogen 13mg/dL (8-26) Creatinine 1.5mg/dL (0.7-1.3) Estimated GFR (Cockcroft-Gault) 54.9 Glucose Level 98mg/dL (70-99) Calcium Level 8.5mg/dL (8.5-10.1) Review of Systems Review of Systems Denies fever, chills Denies CP Denies n/v/d Awake, alert, oriented Assessment and Plan Assessmemt and Plan Assessment/Plan GI bleed - with known diverticular disease Plan: Hgb is stable after 2U blood transfusion yesterday Continue to monitor H & H Continue PPI per GI recommendation Continue antibiotics recheck labs PTOT Appreciate subspecialities inputs and recommendations Problems Medical Problems: (1) GI bleed Status: Acute Problems: Comment Review of Relevant I have reviewed the following items laruen (where applicable) has been applied. Labs Laboratory Tests Test 01/22/17 10:50 01/22/17 14:17 01/22/17 16:20 01/22/17 20:46 Hemoglobin 6.7g/dL (13.0-17.5) Hematocrit 20.3% (39.0-53.0) Glucose (Fingerstick) 117mg/dL (70-99) 118mg/dL (70-99) 131mg/dL (70-99) Test 01/22/17 21:30 01/23/17 03:50 01/23/17 07:31 01/23/17 11:15 White Blood Count 8.7x10^3/uL (4.0-11.0) 7.4x10^3/uL (4.0-11.0) Red Blood Count 3.14x10^6/uL (4.30-5.70) 2.62x10^6/uL (4.30-5.70) Hemoglobin 8.2g/dL (13.0-17.5) 6.9g/dL (13.0-17.5) Hematocrit 25.5% (39.0-53.0) 21.0% (39.0-53.0) Mean Corpuscular Volume 81fL (79-100) 80fL (79-100) Mean Corpuscular Hemoglobin 26pg (25-35) 26pg (25-35) Mean Corpuscular Hemoglobin Concent 32g/dL (31-37) 33g/dL (31-37) Red Cell Distribution Width 19.9% (11.5-14.5) 19.7% (11.5-14.5) Platelet Count 178x10^3/uL (140-400) 165x10^3/uL (140-400) Neutrophils (%) (Auto) 69% (31-73) Lymphocytes (%) (Auto) 15% (24-48) Monocytes (%) (Auto) 11% (0-9) Eosinophils (%) (Auto) 4% (0-3) Basophils (%) (Auto) 1% (0-3) Neutrophils # (Auto) 5.1x10^3uL (1.8-7.7) Lymphocytes # (Auto) 1.1x10^3/uL (1.0-4.8) Monocytes # (Auto) 0.8x10^3/uL (0.0-1.1) Eosinophils # (Auto) 0.3x10^3/uL (0.0-0.7) Basophils # (Auto) 0.0x10^3/uL (0.0-0.2) Sodium Level 145mmol/L (136-145) Potassium Level 4.0mmol/L (3.5-5.1) Chloride Level 111mmol/L (98-107) Carbon Dioxide Level 27mmol/L (21-32) Anion Gap 7 (6-14) Blood Urea Nitrogen 16mg/dL (8-26) Creatinine 1.5mg/dL (0.7-1.3) Estimated GFR (Cockcroft-Gault) 54.9 Glucose Level 128mg/dL (70-99) Calcium Level 8.1mg/dL (8.5-10.1) Glucose (Fingerstick) 104mg/dL (70-99) 132mg/dL (70-99) Test 01/23/17 16:18 01/23/17 22:18 01/24/17 06:10 Glucose (Fingerstick) 112mg/dL (70-99) 98mg/dL (70-99) White Blood Count 7.5x10^3/uL (4.0-11.0) Red Blood Count 3.49x10^6/uL (4.30-5.70) Hemoglobin 9.0g/dL (13.0-17.5) Hematocrit 27.8% (39.0-53.0) Mean Corpuscular Volume 80fL (79-100) Mean Corpuscular Hemoglobin 26pg (25-35) Mean Corpuscular Hemoglobin Concent 32g/dL (31-37) Red Cell Distribution Width 19.2% (11.5-14.5) Platelet Count 178x10^3/uL (140-400) Neutrophils (%) (Auto) 72% (31-73) Lymphocytes (%) (Auto) 13% (24-48) Monocytes (%) (Auto) 11% (0-9) Eosinophils (%) (Auto) 4% (0-3) Basophils (%) (Auto) 1% (0-3) Neutrophils # (Auto) 5.4x10^3uL (1.8-7.7) Lymphocytes # (Auto) 0.9x10^3/uL (1.0-4.8) Monocytes # (Auto) 0.8x10^3/uL (0.0-1.1) Eosinophils # (Auto) 0.3x10^3/uL (0.0-0.7) Basophils # (Auto) 0.0x10^3/uL (0.0-0.2) Sodium Level 147mmol/L (136-145) Potassium Level 4.1mmol/L (3.5-5.1) Chloride Level 111mmol/L (98-107) Carbon Dioxide Level 27mmol/L (21-32) Anion Gap 9 (6-14) Blood Urea Nitrogen 13mg/dL (8-26) Creatinine 1.5mg/dL (0.7-1.3) Estimated GFR (Cockcroft-Gault) 54.9 Glucose Level 98mg/dL (70-99) Calcium Level 8.5mg/dL (8.5-10.1) Laboratory Tests Test 01/23/17 11:15 01/23/17 16:18 01/23/17 22:18 01/24/17 06:10 Glucose (Fingerstick) 132mg/dL (70-99) 112mg/dL (70-99) 98mg/dL (70-99) White Blood Count 7.5x10^3/uL (4.0-11.0) Red Blood Count 3.49x10^6/uL (4.30-5.70) Hemoglobin 9.0g/dL (13.0-17.5) Hematocrit 27.8% (39.0-53.0) Mean Corpuscular Volume 80fL (79-100) Mean Corpuscular Hemoglobin 26pg (25-35) Mean Corpuscular Hemoglobin Concent 32g/dL (31-37) Red Cell Distribution Width 19.2% (11.5-14.5) Platelet Count 178x10^3/uL (140-400) Neutrophils (%) (Auto) 72% (31-73) Lymphocytes (%) (Auto) 13% (24-48) Monocytes (%) (Auto) 11% (0-9) Eosinophils (%) (Auto) 4% (0-3) Basophils (%) (Auto) 1% (0-3) Neutrophils # (Auto) 5.4x10^3uL (1.8-7.7) Lymphocytes # (Auto) 0.9x10^3/uL (1.0-4.8) Monocytes # (Auto) 0.8x10^3/uL (0.0-1.1) Eosinophils # (Auto) 0.3x10^3/uL (0.0-0.7) Basophils # (Auto) 0.0x10^3/uL (0.0-0.2) Sodium Level 147mmol/L (136-145) Potassium Level 4.1mmol/L (3.5-5.1) Chloride Level 111mmol/L (98-107) Carbon Dioxide Level 27mmol/L (21-32) Anion Gap 9 (6-14) Blood Urea Nitrogen 13mg/dL (8-26) Creatinine 1.5mg/dL (0.7-1.3) Estimated GFR (Cockcroft-Gault) 54.9 Glucose Level 98mg/dL (70-99) Calcium Level 8.5mg/dL (8.5-10.1) Medications Current Medications Ondansetron HCl 4 mg 4 mg PRN Q8HRS PRN IV NAUSEA/VOMITING; Start 01/22/17 at 00:00; Stop 01/22/17 at 23:59; Status DC Sodium Chloride 1,000 ml @ 100 mls/hr Q10H IV Last administered on 01/22/17 20:44; Start 01/22/17 at 00:00; Stop 01/22/17 at 23:59; Status DC Metronidazole (FLAGYL 500Mmg PREMIX) 100 ml @ 100 mls/hr Q8HRS IV Last administered on 01/24/17 06:01; Start 01/22/17 at 13:00 Dutasteride (Avodart) 0.5 mg DAILY PO Last administered on 01/23/17 09:14; Start 01/22/17 at 14:00 Folic Acid (Folic Acid) 1 mg DAILY PO Last administered on 01/23/17 09:14; Start 01/22/17 at 14:00 Hydralazine HCl (Apresoline) 50 mg TID PO Last administered on 01/23/17 22:25 ; Start 01/22/17 at 14:00 Insulin Aspart (Novolog) 10 units TIDAC SQ ; Start 01/22/17 at 16:30 Insulin Detemir (Levemir) 35 units HS SQ ; Start 01/22/17 at 21:00 Simvastatin (Zocor) 20 mg HS PO Last administered on 01/23/17 22:25; Start at 21:00 Zolpidem Tartrate (Ambien) 5 mg QHS PO Last administered on 01/23/17 22:25; Start 01/22/17 at 21:00 Albuterol Sulfate (Ventolin Neb Soln) 2.5 mg PRN Q4HRS PRN NEB SHORTNESS OF BREATH; Start 01/22/17 at 13:30 Calcium Carbonate/ Glycine (Tums) 500 mg DAILY PO Last administered on 09:14; Start 01/22/17 at 14:00 Albuterol Sulfate (Ventolin Neb Soln) 2.5 mg RTQID NEB Last administered on 07:51; Start 01/22/17 at 16:00 Verapamil HCl 360 mg 360 mg DAILY PO Last administered on 01/23/17 09:17; Start 01/22/17 at 14:00 Levofloxacin/ Dextrose (LEVAQUIN 250mg PREMIX) 50 ml @ 50 mls/hr Q24H IV Last administered on 01/23/17 22:24; Start 01/22/17 at 14:00 Budesonide (Pulmicort) 0.5 mg RTBID NEB Last administered on 01/24/17 07:51; Start 01/22/17 at 20:00 Iohexol (Omnipaque 350 Mg/ml) 75 ml 1X ONCE IV Last administered on 01/23/17 10:49; Start 01/23/17 at 10:30; Stop 01/23/17 at 10:31; Status DC Info (Do NOT chart on this entry -- for MONITORING) 1 each PRN DAILY PRN MC SEE COMMENTS; Start 01/23/17 at 10:30; Stop 01/25/17 at 10:29 Active Scripts Active Levemir Flextouch (Insulin Detemir) 100 Unit/1 Ml Insuln.pen 35 Units SQ HS 30 Days Proair Hfa Inhaler (Albuterol Sulfate) 8.5 Gm Hfa.aer.ad 2 Puff IH PRN Q4-6HRS Novolog Flexpen (Insulin Aspart) 300 Units/3 Ml Insuln.pen 10 Units SQ TIDAC Reported Zolpidem Tartrate 5 Mg Tablet 1 Tab PO QHS Hydralazine Hcl 50 Mg Tablet 50 Mg PO TID Verapamil Er (Verapamil Hcl) 240 Mg Cap24h.pel 360 Mg PO DAILY Antacid Chewable Tablet (Calcium Carbonate/Mag Hydrox) 1 Each Tab.chew 1 Each PO DAILY Advair 250-50 Diskus (Fluticasone/Salmeterol) 1 Each Disk.w.dev 1 Inh IH BID Aspir 81 (Aspirin) 81 Mg Tablet.dr 81 Mg PO DAILY Folic Acid 1 Mg Tablet 1 Mg PO DAILY Avodart (Dutasteride) 0.5 Mg Capsule 0.5 Mg PO DAILY Simvastatin 20 Mg Tablet 20 Mg PO HS Vitals/I & O Vital Sign - Last 24 Hours 01/23/17 01/23/17 01/23/17 01/23/17 09:16 09:17 09:19 09:21 Pulse 83 83 B/P 131/79 131/79 Pulse Ox 98 98 O2 Delivery Nasal Cannula Nasal Cannula O2 Flow Rate 3.0 3.0 01/23/17 01/23/17 01/23/17 01/23/17 10:30 12:06 13:20 13:35 Temp 98.5 98.4 98.7 98.5 98.4 98.7 Pulse 86 75 77 Resp 20 18 16 B/P 120/63 130/58 129/61 Pulse Ox 92 O2 Delivery Nasal Cannula Nasal Cannula O2 Flow Rate 3.0 3.0 01/23/17 01/23/17 01/23/17 01/23/17 14:15 14:44 14:48 15:45 Temp 98.8 98.5 98.6 98.8 98.5 98.6 Pulse 76 73 73 76 Resp 20 18 20 B/P 130/64 134/72 134/72 138/70 Pulse Ox 96 O2 Delivery Nasal Cannula O2 Flow Rate 3.0 01/23/17 01/23/17 01/23/17 01/23/17 16:00 16:25 17:07 17:29 Temp 98.6 98.8 98.7 98.6 98.8 98.7 Pulse 76 74 82 Resp 20 18 18 B/P 138/70 132/71 139/69 Pulse Ox 95 O2 Delivery Nasal Cannula O2 Flow Rate 3.0 01/23/17 01/23/17 01/23/17 01/23/17 19:00 20:00 20:27 20:28 Temp 98.9 98.9 Pulse 79 Resp 19 B/P 139/74 Pulse Ox 94 95 95 O2 Delivery Nasal Cannula Nasal Cannula Nasal Cannula Nasal Cannula O2 Flow Rate 3.0 3.0 3.0 3.0 01/23/17 01/23/17 01/24/17 01/24/17 22:25 23:00 03:00 07:51 Temp 97.5 98.7 97.5 98.7 Pulse 79 79 82 Resp 19 16 B/P 139/74 140/65 132/70 Pulse Ox 95 93 98 O2 Delivery Nasal Cannula Nasal Cannula Nasal Cannula O2 Flow Rate 3.0 3.0 3.0 Intake and Output 01/23/17 01/23/17 01/24/17 15:00 23:00 07:00 Intake Total 3435 ml 1145 ml 360 ml Output Total 1475 ml 500 ml 2800 ml Balance 1960 ml 645 ml -2440 ml BLANCA LUCAS III DO Jan 24, 2017 09:15
[2017-01-24] MEDS: CALCIUM CARBONATE 500 MG TAB.CHEW PO SCH (09:29)
[2017-01-24] MEDS: HYDRALAZINE 50 MG TABLET PO SCH ×3 (09:30→21:19)
[2017-01-24] MEDS: FOLIC ACID 1 MG TABLET PO SCH (09:30)
[2017-01-24] MEDS: VERAPAMIL SR 180 MG TABLET.ER. PO SCH (09:30)
[2017-01-24] MEDS: DUTASTERIDE 0.5 MG CAPSULE PO SCH (09:30)
[2017-01-24 11:00] VITALS: BP 98/60
--- NOTE | 2017-01-24 11:25 | PDOC ---
Provider Note Provider Note SURG Refugio Maurer no new c/o no further bleeding Hb stable no new surgical recs continue expectant Rx REAGAN YODER MD Jan 24, 2017 11:25
--- NOTE | 2017-01-24 13:04 | PDOC ---
G I PROGRESS NOTE Reason for Follow-up Acute blood loss anemia Subjective No further bleeding Physical Exam Lungs clear CV S1 S2 ABD +BS, soft, nontender Review of Relevant I have reviewed the following items lauren (where applicable) has been applied. Labs Laboratory Tests Test 01/22/17 14:17 01/22/17 16:20 01/22/17 20:46 01/22/17 21:30 Glucose (Fingerstick) 117mg/dL (70-99) 118mg/dL (70-99) 131mg/dL (70-99) White Blood Count 8.7x10^3/uL (4.0-11.0) Red Blood Count 3.14x10^6/uL (4.30-5.70) Hemoglobin 8.2g/dL (13.0-17.5) Hematocrit 25.5% (39.0-53.0) Mean Corpuscular Volume 81fL (79-100) Mean Corpuscular Hemoglobin 26pg (25-35) Mean Corpuscular Hemoglobin Concent 32g/dL (31-37) Red Cell Distribution Width 19.9% (11.5-14.5) Platelet Count 178x10^3/uL (140-400) Test 01/23/17 03:50 01/23/17 07:31 01/23/17 11:15 01/23/17 16:18 White Blood Count 7.4x10^3/uL (4.0-11.0) Red Blood Count 2.62x10^6/uL (4.30-5.70) Hemoglobin 6.9g/dL (13.0-17.5) Hematocrit 21.0% (39.0-53.0) Mean Corpuscular Volume 80fL (79-100) Mean Corpuscular Hemoglobin 26pg (25-35) Mean Corpuscular Hemoglobin Concent 33g/dL (31-37) Red Cell Distribution Width 19.7% (11.5-14.5) Platelet Count 165x10^3/uL (140-400) Neutrophils (%) (Auto) 69% (31-73) Lymphocytes (%) (Auto) 15% (24-48) Monocytes (%) (Auto) 11% (0-9) Eosinophils (%) (Auto) 4% (0-3) Basophils (%) (Auto) 1% (0-3) Neutrophils # (Auto) 5.1x10^3uL (1.8-7.7) Lymphocytes # (Auto) 1.1x10^3/uL (1.0-4.8) Monocytes # (Auto) 0.8x10^3/uL (0.0-1.1) Eosinophils # (Auto) 0.3x10^3/uL (0.0-0.7) Basophils # (Auto) 0.0x10^3/uL (0.0-0.2) Sodium Level 145mmol/L (136-145) Potassium Level 4.0mmol/L (3.5-5.1) Chloride Level 111mmol/L (98-107) Carbon Dioxide Level 27mmol/L (21-32) Anion Gap 7 (6-14) Blood Urea Nitrogen 16mg/dL (8-26) Creatinine 1.5mg/dL (0.7-1.3) Estimated GFR (Cockcroft-Gault) 54.9 Glucose Level 128mg/dL (70-99) Calcium Level 8.1mg/dL (8.5-10.1) Glucose (Fingerstick) 104mg/dL (70-99) 132mg/dL (70-99) 112mg/dL (70-99) Test 01/23/17 22:18 01/24/17 06:10 01/24/17 09:25 01/24/17 11:35 Glucose (Fingerstick) 98mg/dL (70-99) 181mg/dL (70-99) 98mg/dL (70-99) White Blood Count 7.5x10^3/uL (4.0-11.0) Red Blood Count 3.49x10^6/uL (4.30-5.70) Hemoglobin 9.0g/dL (13.0-17.5) Hematocrit 27.8% (39.0-53.0) Mean Corpuscular Volume 80fL (79-100) Mean Corpuscular Hemoglobin 26pg (25-35) Mean Corpuscular Hemoglobin Concent 32g/dL (31-37) Red Cell Distribution Width 19.2% (11.5-14.5) Platelet Count 178x10^3/uL (140-400) Neutrophils (%) (Auto) 72% (31-73) Lymphocytes (%) (Auto) 13% (24-48) Monocytes (%) (Auto) 11% (0-9) Eosinophils (%) (Auto) 4% (0-3) Basophils (%) (Auto) 1% (0-3) Neutrophils # (Auto) 5.4x10^3uL (1.8-7.7) Lymphocytes # (Auto) 0.9x10^3/uL (1.0-4.8) Monocytes # (Auto) 0.8x10^3/uL (0.0-1.1) Eosinophils # (Auto) 0.3x10^3/uL (0.0-0.7) Basophils # (Auto) 0.0x10^3/uL (0.0-0.2) Sodium Level 147mmol/L (136-145) Potassium Level 4.1mmol/L (3.5-5.1) Chloride Level 111mmol/L (98-107) Carbon Dioxide Level 27mmol/L (21-32) Anion Gap 9 (6-14) Blood Urea Nitrogen 13mg/dL (8-26) Creatinine 1.5mg/dL (0.7-1.3) Estimated GFR (Cockcroft-Gault) 54.9 Glucose Level 98mg/dL (70-99) Calcium Level 8.5mg/dL (8.5-10.1) Laboratory Tests Test 01/23/17 16:18 01/23/17 22:18 01/24/17 06:10 01/24/17 09:25 Glucose (Fingerstick) 112mg/dL (70-99) 98mg/dL (70-99) 181mg/dL (70-99) White Blood Count 7.5x10^3/uL (4.0-11.0) Red Blood Count 3.49x10^6/uL (4.30-5.70) Hemoglobin 9.0g/dL (13.0-17.5) Hematocrit 27.8% (39.0-53.0) Mean Corpuscular Volume 80fL (79-100) Mean Corpuscular Hemoglobin 26pg (25-35) Mean Corpuscular Hemoglobin Concent 32g/dL (31-37) Red Cell Distribution Width 19.2% (11.5-14.5) Platelet Count 178x10^3/uL (140-400) Neutrophils (%) (Auto) 72% (31-73) Lymphocytes (%) (Auto) 13% (24-48) Monocytes (%) (Auto) 11% (0-9) Eosinophils (%) (Auto) 4% (0-3) Basophils (%) (Auto) 1% (0-3) Neutrophils # (Auto) 5.4x10^3uL (1.8-7.7) Lymphocytes # (Auto) 0.9x10^3/uL (1.0-4.8) Monocytes # (Auto) 0.8x10^3/uL (0.0-1.1) Eosinophils # (Auto) 0.3x10^3/uL (0.0-0.7) Basophils # (Auto) 0.0x10^3/uL (0.0-0.2) Sodium Level 147mmol/L (136-145) Potassium Level 4.1mmol/L (3.5-5.1) Chloride Level 111mmol/L (98-107) Carbon Dioxide Level 27mmol/L (21-32) Anion Gap 9 (6-14) Blood Urea Nitrogen 13mg/dL (8-26) Creatinine 1.5mg/dL (0.7-1.3) Estimated GFR (Cockcroft-Gault) 54.9 Glucose Level 98mg/dL (70-99) Calcium Level 8.5mg/dL (8.5-10.1) Test 01/24/17 11:35 Glucose (Fingerstick) 98mg/dL (70-99) Medications Current Medications Ondansetron HCl 4 mg 4 mg PRN Q8HRS PRN IV NAUSEA/VOMITING; Start 01/22/17 at 00:00; Stop 01/22/17 at 23:59; Status DC Sodium Chloride 1,000 ml @ 100 mls/hr Q10H IV Last administered on 01/22/17 20:44; Start 01/22/17 at 00:00; Stop 01/22/17 at 23:59; Status DC Metronidazole (FLAGYL 500Mmg PREMIX) 100 ml @ 100 mls/hr Q8HRS IV Last administered on 01/24/17 06:01; Start 01/22/17 at 13:00 Dutasteride (Avodart) 0.5 mg DAILY PO Last administered on 01/24/17 09:30; Start 01/22/17 at 14:00 Folic Acid (Folic Acid) 1 mg DAILY PO Last administered on 01/24/17 09:30; Start 01/22/17 at 14:00 Hydralazine HCl (Apresoline) 50 mg TID PO Last administered on 01/24/17 09:30 ; Start 01/22/17 at 14:00 Insulin Aspart (Novolog) 10 units TIDAC SQ ; Start 01/22/17 at 16:30 Insulin Detemir (Levemir) 35 units HS SQ ; Start 01/22/17 at 21:00 Simvastatin (Zocor) 20 mg HS PO Last administered on 01/23/17 22:25; Start at 21:00 Zolpidem Tartrate (Ambien) 5 mg QHS PO Last administered on 01/23/17 22:25; Start 01/22/17 at 21:00 Albuterol Sulfate (Ventolin Neb Soln) 2.5 mg PRN Q4HRS PRN NEB SHORTNESS OF BREATH; Start 01/22/17 at 13:30 Calcium Carbonate/ Glycine (Tums) 500 mg DAILY PO Last administered on 09:29; Start 01/22/17 at 14:00 Albuterol Sulfate (Ventolin Neb Soln) 2.5 mg RTQID NEB Last administered on 11:56; Start 01/22/17 at 16:00 Verapamil HCl 360 mg 360 mg DAILY PO Last administered on 01/24/17 09:30; Start 01/22/17 at 14:00 Levofloxacin/ Dextrose (LEVAQUIN 250mg PREMIX) 50 ml @ 50 mls/hr Q24H IV Last administered on 01/23/17 22:24; Start 01/22/17 at 14:00 Budesonide (Pulmicort) 0.5 mg RTBID NEB Last administered on 01/24/17 07:51; Start 01/22/17 at 20:00 Iohexol (Omnipaque 350 Mg/ml) 75 ml 1X ONCE IV Last administered on 3/17/17at 10:49; Start 01/23/17 at 10:30; Stop 01/23/17 at 10:31; Status DC Info (Do NOT chart on this entry -- for MONITORING) 1 each PRN DAILY PRN MC SEE COMMENTS; Start 01/23/17 at 10:30; Stop 01/25/17 at 10:29 Active Scripts Active Levemir Flextouch (Insulin Detemir) 100 Unit/1 Ml Insuln.pen 35 Units SQ HS 30 Days Proair Hfa Inhaler (Albuterol Sulfate) 8.5 Gm Hfa.aer.ad 2 Puff IH PRN Q4-6HRS Novolog Flexpen (Insulin Aspart) 300 Units/3 Ml Insuln.pen 10 Units SQ TIDAC Reported Zolpidem Tartrate 5 Mg Tablet 1 Tab PO QHS Hydralazine Hcl 50 Mg Tablet 50 Mg PO TID Verapamil Er (Verapamil Hcl) 240 Mg Cap24h.pel 360 Mg PO DAILY Antacid Chewable Tablet (Calcium Carbonate/Mag Hydrox) 1 Each Tab.chew 1 Each PO DAILY Advair 250-50 Diskus (Fluticasone/Salmeterol) 1 Each Disk.w.dev 1 Inh IH BID Aspir 81 (Aspirin) 81 Mg Tablet.dr 81 Mg PO DAILY Folic Acid 1 Mg Tablet 1 Mg PO DAILY Avodart (Dutasteride) 0.5 Mg Capsule 0.5 Mg PO DAILY Simvastatin 20 Mg Tablet 20 Mg PO HS Vitals/I & O Vital Sign - Last 24 Hours 01/23/17 01/23/17 01/23/17 01/23/17 13:20 13:35 14:15 14:44 Temp 98.4 98.7 98.8 98.4 98.7 98.8 Pulse 75 77 76 73 Resp 18 16 20 B/P 130/58 129/61 130/64 134/72 Pulse Ox 96 O2 Delivery Nasal Cannula O2 Flow Rate 3.0 01/23/17 01/23/17 01/23/17 01/23/17 14:48 15:45 16:00 16:25 Temp 98.5 98.6 98.6 98.8 98.5 98.6 98.6 98.8 Pulse 73 76 76 74 Resp 18 20 20 18 B/P 134/72 138/70 138/70 132/71 01/23/17 01/23/17 01/23/17 01/23/17 17:07 17:29 19:00 20:00 Temp 98.7 98.9 98.7 98.9 Pulse 82 79 Resp 18 19 B/P 139/69 139/74 Pulse Ox 95 94 O2 Delivery Nasal Cannula Nasal Cannula Nasal Cannula O2 Flow Rate 3.0 3.0 3.0 01/23/17 01/23/17 01/23/17 01/23/17 20:27 20:28 22:25 23:00 Temp 97.5 97.5 Pulse 79 79 Resp 19 B/P 139/74 140/65 Pulse Ox 95 95 95 O2 Delivery Nasal Cannula Nasal Cannula Nasal Cannula O2 Flow Rate 3.0 3.0 3.0 01/24/17 01/24/17 01/24/17 01/24/17 03:00 07:00 07:51 08:00 Temp 98.7 98.6 98.7 98.6 Pulse 82 84 Resp 16 20 B/P 132/70 141/63 Pulse Ox 93 94 98 O2 Delivery Nasal Cannula Nasal Cannula Nasal Cannula Nasal Cannula O2 Flow Rate 3.0 3.0 3.0 3.0 01/24/17 01/24/17 01/24/17 01/24/17 09:30 09:30 11:00 11:56 Temp 98.6 98.6 Pulse 84 84 68 Resp 24 B/P 141/63 141/63 98/60 Pulse Ox 96 97 O2 Delivery Nasal Cannula Nasal Cannula O2 Flow Rate 2.0 3.0 Intake and Output 01/23/17 01/23/17 01/24/17 15:00 23:00 07:00 Intake Total 3435 ml 1145 ml 360 ml Output Total 1475 ml 500 ml 2800 ml Balance 1960 ml 645 ml -2440 ml Problem List Problems Medical Problems: (1) GI bleed Status: Acute Assessment Rectal bleed- most likely secondary to diverticular source, Hg stable, advance diet and reassess in am KERWIN CONDON MD Jan 24, 2017 13:04
[2017-01-24 15:00] VITALS: BP 134/78
[2017-01-24 19:15] VITALS: BP 119/61
[2017-01-24] MEDS: INSULIN DETEMIR 300 UNITS/3 ML INSULN.PEN. SQ SCH (21:00)
[2017-01-24] MEDS: SIMVASTATIN 20 MG TABLET PO SCH (21:19)
[2017-01-24] MEDS: ZOLPIDEM 5 MG TABLET. PO SCH (21:19)
[2017-01-24 22:59] VITALS: BP 118/64
[2017-01-25 02:24] VITALS: BP 116/59
[2017-01-25 04:30] LABS: BASO % 1 % (0-3); EOS % 3 % (0-3); HEMATOCRIT 25.1 % (39.0-53.0); HEMOGLOBIN 8.3 g/dL (13.0-17.5); LYMPH % 14 % (24-48); MEAN CORPUSCULAR HEMOGLOBIN 26 pg (25-35); MEAN CORPUSCULAR HGB CONC 33 g/dL (31-37); MEAN CORPUSCULAR VOLUME 79 fL (79-100); MONO % 12 % (0-9); NEUT % 70 % (31-73); PLATELET COUNT 187 x10^3/uL (140-400); RED BLOOD COUNT 3.16 x10^6/uL (4.30-5.70); RED CELL DISTRIBUTION WIDTH 19.3 % (11.5-14.5); WHITE BLOOD COUNT 7.3 x10^3/uL (4.0-11.0)
[2017-01-25 04:46] LABS: CALCIUM 8.2 mg/dL (8.5-10.1); CREATININE 1.7 mg/dL (0.7-1.3); GFR 47.5; POTASSIUM 4.1 mmol/L (3.5-5.1)
[2017-01-25] MEDS: METRONIDAZOLE 500mg PREMIX 100 ML IV SCH ×2 (05:11→14:45)
[2017-01-25 07:00] VITALS: BP 132/71
[2017-01-25] MEDS: INSULIN ASPART 300 UNITS/3 ML INSULN.PEN SQ SCH ×3 (07:30→16:30)
[2017-01-25] MEDS: BUDESONIDE 0.5 MG/2 ML NEBU NEB SCH ×2 (07:34→20:02)
[2017-01-25] MEDS: ALBUTEROL SULFATE 2.5 MG/3 ML NEBU. NEB SCH ×4 (07:34→20:02)
[2017-01-25] MEDS: CALCIUM CARBONATE 500 MG TAB.CHEW PO SCH (08:49)
[2017-01-25] MEDS: DUTASTERIDE 0.5 MG CAPSULE PO SCH (08:50)
[2017-01-25] MEDS: HYDRALAZINE 50 MG TABLET PO SCH ×3 (08:50→21:02)
[2017-01-25] MEDS: FOLIC ACID 1 MG TABLET PO SCH (08:50)
[2017-01-25] MEDS: VERAPAMIL SR 180 MG TABLET.ER. PO SCH (08:51)
[2017-01-25 11:00] VITALS: BP 139/85
--- NOTE | 2017-01-25 12:11 | PDOC ---
Provider Note Provider Note SURG Refugio for Dr Maurer a little BRB per rectum yesterday taking a regular diet Hb 8.3 (9.1) continue expectant treatment REAGAN YODER MD Jan 25, 2017 12:11
--- NOTE | 2017-01-25 14:13 | PDOC ---
G I PROGRESS NOTE Reason for Follow-up Acute blood loss anemia/rectal bleeding Subjective No further bleeding Physical Exam Lungs clear CV S1 S2 ABD +BS, soft, nontender Review of Relevant I have reviewed the following items lauren (where applicable) has been applied. Labs Laboratory Tests Test 01/23/17 16:18 01/23/17 22:18 01/24/17 06:10 01/24/17 09:25 Glucose (Fingerstick) 112mg/dL (70-99) 98mg/dL (70-99) 181mg/dL (70-99) White Blood Count 7.5x10^3/uL (4.0-11.0) Red Blood Count 3.49x10^6/uL (4.30-5.70) Hemoglobin 9.0g/dL (13.0-17.5) Hematocrit 27.8% (39.0-53.0) Mean Corpuscular Volume 80fL (79-100) Mean Corpuscular Hemoglobin 26pg (25-35) Mean Corpuscular Hemoglobin Concent 32g/dL (31-37) Red Cell Distribution Width 19.2% (11.5-14.5) Platelet Count 178x10^3/uL (140-400) Neutrophils (%) (Auto) 72% (31-73) Lymphocytes (%) (Auto) 13% (24-48) Monocytes (%) (Auto) 11% (0-9) Eosinophils (%) (Auto) 4% (0-3) Basophils (%) (Auto) 1% (0-3) Neutrophils # (Auto) 5.4x10^3uL (1.8-7.7) Lymphocytes # (Auto) 0.9x10^3/uL (1.0-4.8) Monocytes # (Auto) 0.8x10^3/uL (0.0-1.1) Eosinophils # (Auto) 0.3x10^3/uL (0.0-0.7) Basophils # (Auto) 0.0x10^3/uL (0.0-0.2) Sodium Level 147mmol/L (136-145) Potassium Level 4.1mmol/L (3.5-5.1) Chloride Level 111mmol/L (98-107) Carbon Dioxide Level 27mmol/L (21-32) Anion Gap 9 (6-14) Blood Urea Nitrogen 13mg/dL (8-26) Creatinine 1.5mg/dL (0.7-1.3) Estimated GFR (Cockcroft-Gault) 54.9 Glucose Level 98mg/dL (70-99) Calcium Level 8.5mg/dL (8.5-10.1) Test 01/24/17 11:35 01/24/17 16:44 01/24/17 21:17 01/25/17 04:00 Glucose (Fingerstick) 98mg/dL (70-99) 121mg/dL (70-99) 122mg/dL (70-99) White Blood Count 7.3x10^3/uL (4.0-11.0) Red Blood Count 3.16x10^6/uL (4.30-5.70) Hemoglobin 8.3g/dL (13.0-17.5) Hematocrit 25.1% (39.0-53.0) Mean Corpuscular Volume 79fL (79-100) Mean Corpuscular Hemoglobin 26pg (25-35) Mean Corpuscular Hemoglobin Concent 33g/dL (31-37) Red Cell Distribution Width 19.3% (11.5-14.5) Platelet Count 187x10^3/uL (140-400) Neutrophils (%) (Auto) 70% (31-73) Lymphocytes (%) (Auto) 14% (24-48) Monocytes (%) (Auto) 12% (0-9) Eosinophils (%) (Auto) 3% (0-3) Basophils (%) (Auto) 1% (0-3) Neutrophils # (Auto) 5.1x10^3uL (1.8-7.7) Lymphocytes # (Auto) 1.0x10^3/uL (1.0-4.8) Monocytes # (Auto) 0.9x10^3/uL (0.0-1.1) Eosinophils # (Auto) 0.2x10^3/uL (0.0-0.7) Basophils # (Auto) 0.0x10^3/uL (0.0-0.2) Sodium Level 146mmol/L (136-145) Potassium Level 4.1mmol/L (3.5-5.1) Chloride Level 111mmol/L (98-107) Carbon Dioxide Level 27mmol/L (21-32) Anion Gap 8 (6-14) Blood Urea Nitrogen 18mg/dL (8-26) Creatinine 1.7mg/dL (0.7-1.3) Estimated GFR (Cockcroft-Gault) 47.5 Glucose Level 96mg/dL (70-99) Calcium Level 8.2mg/dL (8.5-10.1) Test 01/25/17 08:01 01/25/17 11:19 Glucose (Fingerstick) 94mg/dL (70-99) 120mg/dL (70-99) Laboratory Tests Test 01/24/17 16:44 01/24/17 21:17 01/25/17 04:00 01/25/17 08:01 Glucose (Fingerstick) 121mg/dL (70-99) 122mg/dL (70-99) 94mg/dL (70-99) White Blood Count 7.3x10^3/uL (4.0-11.0) Red Blood Count 3.16x10^6/uL (4.30-5.70) Hemoglobin 8.3g/dL (13.0-17.5) Hematocrit 25.1% (39.0-53.0) Mean Corpuscular Volume 79fL (79-100) Mean Corpuscular Hemoglobin 26pg (25-35) Mean Corpuscular Hemoglobin Concent 33g/dL (31-37) Red Cell Distribution Width 19.3% (11.5-14.5) Platelet Count 187x10^3/uL (140-400) Neutrophils (%) (Auto) 70% (31-73) Lymphocytes (%) (Auto) 14% (24-48) Monocytes (%) (Auto) 12% (0-9) Eosinophils (%) (Auto) 3% (0-3) Basophils (%) (Auto) 1% (0-3) Neutrophils # (Auto) 5.1x10^3uL (1.8-7.7) Lymphocytes # (Auto) 1.0x10^3/uL (1.0-4.8) Monocytes # (Auto) 0.9x10^3/uL (0.0-1.1) Eosinophils # (Auto) 0.2x10^3/uL (0.0-0.7) Basophils # (Auto) 0.0x10^3/uL (0.0-0.2) Sodium Level 146mmol/L (136-145) Potassium Level 4.1mmol/L (3.5-5.1) Chloride Level 111mmol/L (98-107) Carbon Dioxide Level 27mmol/L (21-32) Anion Gap 8 (6-14) Blood Urea Nitrogen 18mg/dL (8-26) Creatinine 1.7mg/dL (0.7-1.3) Estimated GFR (Cockcroft-Gault) 47.5 Glucose Level 96mg/dL (70-99) Calcium Level 8.2mg/dL (8.5-10.1) Test 01/25/17 11:19 Glucose (Fingerstick) 120mg/dL (70-99) Medications Current Medications Ondansetron HCl 4 mg 4 mg PRN Q8HRS PRN IV NAUSEA/VOMITING; Start 01/22/17 at 00:00; Stop 01/22/17 at 23:59; Status DC Sodium Chloride 1,000 ml @ 100 mls/hr Q10H IV Last administered on 01/22/17 20:44; Start 01/22/17 at 00:00; Stop 01/22/17 at 23:59; Status DC Metronidazole (FLAGYL 500Mmg PREMIX) 100 ml @ 100 mls/hr Q8HRS IV Last administered on 01/25/17 05:11; Start 01/22/17 at 13:00 Dutasteride (Avodart) 0.5 mg DAILY PO Last administered on 01/25/17 08:50; Start 01/22/17 at 14:00 Folic Acid (Folic Acid) 1 mg DAILY PO Last administered on 01/25/17 08:50; Start 01/22/17 at 14:00 Hydralazine HCl (Apresoline) 50 mg TID PO Last administered on 01/25/17 08:50 ; Start 01/22/17 at 14:00 Insulin Aspart (Novolog) 10 units TIDAC SQ ; Start 01/22/17 at 16:30 Insulin Detemir (Levemir) 35 units HS SQ ; Start 01/22/17 at 21:00 Simvastatin (Zocor) 20 mg HS PO Last administered on 01/24/17 21:19; Start at 21:00 Zolpidem Tartrate (Ambien) 5 mg QHS PO Last administered on 01/24/17 21:19; Start 01/22/17 at 21:00 Albuterol Sulfate (Ventolin Neb Soln) 2.5 mg PRN Q4HRS PRN NEB SHORTNESS OF BREATH; Start 01/22/17 at 13:30 Calcium Carbonate/ Glycine (Tums) 500 mg DAILY PO Last administered on 08:49; Start 01/22/17 at 14:00 Albuterol Sulfate (Ventolin Neb Soln) 2.5 mg RTQID NEB Last administered on 12:55; Start 01/22/17 at 16:00 Verapamil HCl 360 mg 360 mg DAILY PO Last administered on 01/25/17 08:51; Start 01/22/17 at 14:00 Levofloxacin/ Dextrose (LEVAQUIN 250mg PREMIX) 50 ml @ 50 mls/hr Q24H IV Last administered on 01/24/17 13:34; Start 01/22/17 at 14:00 Budesonide (Pulmicort) 0.5 mg RTBID NEB Last administered on 01/25/17 07:34; Start 01/22/17 at 20:00 Iohexol (Omnipaque 350 Mg/ml) 75 ml 1X ONCE IV Last administered on 01/23/17 10:49; Start 01/23/17 at 10:30; Stop 01/23/17 at 10:31; Status DC Info (Do NOT chart on this entry -- for MONITORING) 1 each PRN DAILY PRN MC SEE COMMENTS; Start 01/23/17 at 10:30; Stop 01/25/17 at 10:29; Status DC Active Scripts Active Levemir Flextouch (Insulin Detemir) 100 Unit/1 Ml Insuln.pen 35 Units SQ HS 30 Days Proair Hfa Inhaler (Albuterol Sulfate) 8.5 Gm Hfa.aer.ad 2 Puff IH PRN Q4-6HRS Novolog Flexpen (Insulin Aspart) 300 Units/3 Ml Insuln.pen 10 Units SQ TIDAC Reported Zolpidem Tartrate 5 Mg Tablet 1 Tab PO QHS Hydralazine Hcl 50 Mg Tablet 50 Mg PO TID Verapamil Er (Verapamil Hcl) 240 Mg Cap24h.pel 360 Mg PO DAILY Antacid Chewable Tablet (Calcium Carbonate/Mag Hydrox) 1 Each Tab.chew 1 Each PO DAILY Advair 250-50 Diskus (Fluticasone/Salmeterol) 1 Each Disk.w.dev 1 Inh IH BID Aspir 81 (Aspirin) 81 Mg Tablet.dr 81 Mg PO DAILY Folic Acid 1 Mg Tablet 1 Mg PO DAILY Avodart (Dutasteride) 0.5 Mg Capsule 0.5 Mg PO DAILY Simvastatin 20 Mg Tablet 20 Mg PO HS Vitals/I & O Vital Sign - Last 24 Hours 01/24/17 01/24/17 01/24/17 01/24/17 15:00 15:29 19:15 19:55 Temp 97.2 99.1 97.2 99.1 Pulse 86 81 Resp 22 20 B/P 134/78 119/61 Pulse Ox 97 97 94 97 O2 Delivery Room Air Nasal Cannula Nasal Cannula Nasal Cannula O2 Flow Rate 3.0 2.5 3.0 01/24/17 01/24/17 01/24/17 01/24/17 19:55 20:09 21:19 22:59 Temp 99.3 99.3 Pulse 81 75 Resp 18 B/P 119/61 118/64 Pulse Ox 97 93 O2 Delivery Nasal Cannula Nasal Cannula Nasal Cannula O2 Flow Rate 3.0 3.0 3.0 01/25/17 01/25/17 01/25/17 01/25/17 02:24 07:00 07:36 08:00 Temp 98.8 99.0 98.8 99.0 Pulse 80 80 Resp 18 16 B/P 116/59 132/71 Pulse Ox 93 98 99 O2 Delivery Nasal Cannula Nasal Cannula Nasal Cannula Nasal Cannula O2 Flow Rate 3.0 3.0 3.0 3.0 01/25/17 01/25/17 01/25/17 01/25/17 08:50 08:51 11:00 12:56 Temp 97.9 97.9 Pulse 80 80 83 Resp 18 B/P 116/59 116/59 139/85 Pulse Ox 100 99 O2 Delivery Nasal Cannula Nasal Cannula O2 Flow Rate 3.0 3.0 Intake and Output 01/24/17 01/24/17 01/25/17 15:00 23:00 07:00 Intake Total 658 ml 1410 ml 550 ml Output Total 950 ml 1000 ml 1000 ml Balance -292 ml 410 ml -450 ml Problem List Problems Medical Problems: (1) GI bleed Status: Acute Assessment Rectal bleed- with diverticulosis, most likely source, advance diet, may release in am if Hg stable, CPm KERWIN CONDON MD Jan 25, 2017 14:13
[2017-01-25 15:00] VITALS: BP 102/59
[2017-01-25] MEDS: LEVOFLOXACIN 250 MG TABLET. PO SCH (16:23)
--- NOTE | 2017-01-25 16:24 | PDOC ---
PROGRESS NOTES Chief Complaint Chief Complaint LGIB ASSESSMENT AND PLAN: 1. GIB: 2/2 diverticulosis, resolving. Dr.s Hernandez/Refugio following, no intervention indicated. cont empiric Abx 2. Anemia: acute blood loss. stabilizing post PRBC x5. on folate 3. DM: great control on current regimen 4. CAD/HTN/HLD: no acute issues, cont home meds (minus ASA) 5. COPD: cont nebs, O2 PRN History of Present Illness History of Present Illness Vitals Vitals Vital Signs Date Time Temp Pulse Resp B/P Pulse Ox O2 Delivery O2 Flow Rate FiO2 01/25/17 15:07 Nasal Cannula 3.0 01/25/17 15:00 98.8 88 18 102/59 93 98.8 Physical Exam General: Alert, Oriented X3, Cooperative, No acute distress Heart: Regular rate, No murmurs Lungs: Clear, Other Abdomen: Soft, No tenderness Extremities: No edema Skin: No significant lesion Labs LABS Laboratory Tests Test 01/24/17 16:44 01/24/17 21:17 01/25/17 04:00 01/25/17 08:01 Glucose (Fingerstick) 121mg/dL (70-99) 122mg/dL (70-99) 94mg/dL (70-99) White Blood Count 7.3x10^3/uL (4.0-11.0) Red Blood Count 3.16x10^6/uL (4.30-5.70) Hemoglobin 8.3g/dL (13.0-17.5) Hematocrit 25.1% (39.0-53.0) Mean Corpuscular Volume 79fL (79-100) Mean Corpuscular Hemoglobin 26pg (25-35) Mean Corpuscular Hemoglobin Concent 33g/dL (31-37) Red Cell Distribution Width 19.3% (11.5-14.5) Platelet Count 187x10^3/uL (140-400) Neutrophils (%) (Auto) 70% (31-73) Lymphocytes (%) (Auto) 14% (24-48) Monocytes (%) (Auto) 12% (0-9) Eosinophils (%) (Auto) 3% (0-3) Basophils (%) (Auto) 1% (0-3) Neutrophils # (Auto) 5.1x10^3uL (1.8-7.7) Lymphocytes # (Auto) 1.0x10^3/uL (1.0-4.8) Monocytes # (Auto) 0.9x10^3/uL (0.0-1.1) Eosinophils # (Auto) 0.2x10^3/uL (0.0-0.7) Basophils # (Auto) 0.0x10^3/uL (0.0-0.2) Sodium Level 146mmol/L (136-145) Potassium Level 4.1mmol/L (3.5-5.1) Chloride Level 111mmol/L (98-107) Carbon Dioxide Level 27mmol/L (21-32) Anion Gap 8 (6-14) Blood Urea Nitrogen 18mg/dL (8-26) Creatinine 1.7mg/dL (0.7-1.3) Estimated GFR (Cockcroft-Gault) 47.5 Glucose Level 96mg/dL (70-99) Calcium Level 8.2mg/dL (8.5-10.1) Test 01/25/17 11:19 Glucose (Fingerstick) 120mg/dL (70-99) Review of Systems Review of Systems very hungy, ate lunch w/o any N/V/D. no abd BEV Ray MD Jan 25, 2017 16:23
[2017-01-25 19:15] VITALS: BP 118/54
[2017-01-25] MEDS: METRONIDAZOLE 500 MG TABLET. PO SCH (21:02)
[2017-01-25] MEDS: SIMVASTATIN 20 MG TABLET PO SCH (21:02)
[2017-01-25] MEDS: ZOLPIDEM 5 MG TABLET. PO SCH (21:02)
[2017-01-25] MEDS: INSULIN DETEMIR 300 UNITS/3 ML INSULN.PEN. SQ SCH (21:51)
[2017-01-25 23:12] VITALS: BP 134/68
[2017-01-26] VITALS (9 sets, daily range): BP systolic 106–146; BP diastolic 58–75
[2017-01-26] MEDS: METRONIDAZOLE 500 MG TABLET. PO SCH ×3 (05:11→22:31)
[2017-01-26] MEDS: LEVOFLOXACIN 250 MG TABLET. PO SCH (05:11)
[2017-01-26 05:28] LABS: BASO % 1 % (0-3); EOS % 3 % (0-3); HEMATOCRIT 25.9 % (39.0-53.0); HEMOGLOBIN 8.5 g/dL (13.0-17.5); LYMPH % 14 % (24-48); MEAN CORPUSCULAR HEMOGLOBIN 26 pg (25-35); MEAN CORPUSCULAR HGB CONC 33 g/dL (31-37); MEAN CORPUSCULAR VOLUME 80 fL (79-100); MONO % 12 % (0-9); NEUT % 71 % (31-73); PLATELET COUNT 187 x10^3/uL (140-400); RED BLOOD COUNT 3.25 x10^6/uL (4.30-5.70); RED CELL DISTRIBUTION WIDTH 19.4 % (11.5-14.5); WHITE BLOOD COUNT 7.1 x10^3/uL (4.0-11.0)
[2017-01-26 05:52] LABS: CALCIUM 8.4 mg/dL (8.5-10.1); CREATININE 1.8 mg/dL (0.7-1.3); GFR 44.5; POTASSIUM 4.2 mmol/L (3.5-5.1)
[2017-01-26] MEDS: ALBUTEROL SULFATE 2.5 MG/3 ML NEBU. NEB SCH ×4 (06:14→19:58)
[2017-01-26] MEDS: BUDESONIDE 0.5 MG/2 ML NEBU NEB SCH ×2 (06:14→19:58)
[2017-01-26] MEDS: INSULIN ASPART 300 UNITS/3 ML INSULN.PEN SQ SCH ×3 (07:30→16:30)
--- NOTE | 2017-01-26 08:35 | PDOC ---
ANNE MARIE FERRERA QUICK SKETCH ARTIST 01/26/17 0835: SURGICAL PROGRESS NOTE Subjective having breakfast no stools or bleeding no abdominal pain Vital Signs Vital Signs Date Time Temp Pulse Resp B/P Pulse Ox O2 Delivery O2 Flow Rate FiO2 01/26/17 06:14 97 Nasal Cannula 3.0 01/26/17 03:00 98.9 84 20 130/64 98.9 I&O Intake and Output 01/26/17 07:00 Intake Total 850 ml Output Total 1655 ml Balance -805 ml Intake Oral 850 ml Output Urine Total 1655 ml General: Alert, Oriented X3, Cooperative, No acute distress Abdomen: Soft, No tenderness Labs Laboratory Tests Test 01/24/17 09:25 01/24/17 11:35 01/24/17 16:44 01/24/17 21:17 Glucose (Fingerstick) 181mg/dL (70-99) 98mg/dL (70-99) 121mg/dL (70-99) 122mg/dL (70-99) Test 01/25/17 04:00 01/25/17 08:01 01/25/17 11:19 01/25/17 16:54 White Blood Count 7.3x10^3/uL (4.0-11.0) Red Blood Count 3.16x10^6/uL (4.30-5.70) Hemoglobin 8.3g/dL (13.0-17.5) Hematocrit 25.1% (39.0-53.0) Mean Corpuscular Volume 79fL (79-100) Mean Corpuscular Hemoglobin 26pg (25-35) Mean Corpuscular Hemoglobin Concent 33g/dL (31-37) Red Cell Distribution Width 19.3% (11.5-14.5) Platelet Count 187x10^3/uL (140-400) Neutrophils (%) (Auto) 70% (31-73) Lymphocytes (%) (Auto) 14% (24-48) Monocytes (%) (Auto) 12% (0-9) Eosinophils (%) (Auto) 3% (0-3) Basophils (%) (Auto) 1% (0-3) Neutrophils # (Auto) 5.1x10^3uL (1.8-7.7) Lymphocytes # (Auto) 1.0x10^3/uL (1.0-4.8) Monocytes # (Auto) 0.9x10^3/uL (0.0-1.1) Eosinophils # (Auto) 0.2x10^3/uL (0.0-0.7) Basophils # (Auto) 0.0x10^3/uL (0.0-0.2) Sodium Level 146mmol/L (136-145) Potassium Level 4.1mmol/L (3.5-5.1) Chloride Level 111mmol/L (98-107) Carbon Dioxide Level 27mmol/L (21-32) Anion Gap 8 (6-14) Blood Urea Nitrogen 18mg/dL (8-26) Creatinine 1.7mg/dL (0.7-1.3) Estimated GFR (Cockcroft-Gault) 47.5 Glucose Level 96mg/dL (70-99) Calcium Level 8.2mg/dL (8.5-10.1) Glucose (Fingerstick) 94mg/dL (70-99) 120mg/dL (70-99) 121mg/dL (70-99) Test 01/25/17 21:40 01/26/17 04:30 01/26/17 07:41 01/26/17 08:11 Glucose (Fingerstick) 150mg/dL (70-99) 108mg/dL (70-99) 105mg/dL (70-99) White Blood Count 7.1x10^3/uL (4.0-11.0) Red Blood Count 3.25x10^6/uL (4.30-5.70) Hemoglobin 8.5g/dL (13.0-17.5) Hematocrit 25.9% (39.0-53.0) Mean Corpuscular Volume 80fL (79-100) Mean Corpuscular Hemoglobin 26pg (25-35) Mean Corpuscular Hemoglobin Concent 33g/dL (31-37) Red Cell Distribution Width 19.4% (11.5-14.5) Platelet Count 187x10^3/uL (140-400) Neutrophils (%) (Auto) 71% (31-73) Lymphocytes (%) (Auto) 14% (24-48) Monocytes (%) (Auto) 12% (0-9) Eosinophils (%) (Auto) 3% (0-3) Basophils (%) (Auto) 1% (0-3) Neutrophils # (Auto) 5.0x10^3uL (1.8-7.7) Lymphocytes # (Auto) 1.0x10^3/uL (1.0-4.8) Monocytes # (Auto) 0.8x10^3/uL (0.0-1.1) Eosinophils # (Auto) 0.2x10^3/uL (0.0-0.7) Basophils # (Auto) 0.0x10^3/uL (0.0-0.2) Sodium Level 146mmol/L (136-145) Potassium Level 4.2mmol/L (3.5-5.1) Chloride Level 111mmol/L (98-107) Carbon Dioxide Level 27mmol/L (21-32) Anion Gap 8 (6-14) Blood Urea Nitrogen 15mg/dL (8-26) Creatinine 1.8mg/dL (0.7-1.3) Estimated GFR (Cockcroft-Gault) 44.5 Glucose Level 90mg/dL (70-99) Calcium Level 8.4mg/dL (8.5-10.1) Laboratory Tests Test 01/25/17 11:19 01/25/17 16:54 01/25/17 21:40 01/26/17 04:30 Glucose (Fingerstick) 120mg/dL (70-99) 121mg/dL (70-99) 150mg/dL (70-99) White Blood Count 7.1x10^3/uL (4.0-11.0) Red Blood Count 3.25x10^6/uL (4.30-5.70) Hemoglobin 8.5g/dL (13.0-17.5) Hematocrit 25.9% (39.0-53.0) Mean Corpuscular Volume 80fL (79-100) Mean Corpuscular Hemoglobin 26pg (25-35) Mean Corpuscular Hemoglobin Concent 33g/dL (31-37) Red Cell Distribution Width 19.4% (11.5-14.5) Platelet Count 187x10^3/uL (140-400) Neutrophils (%) (Auto) 71% (31-73) Lymphocytes (%) (Auto) 14% (24-48) Monocytes (%) (Auto) 12% (0-9) Eosinophils (%) (Auto) 3% (0-3) Basophils (%) (Auto) 1% (0-3) Neutrophils # (Auto) 5.0x10^3uL (1.8-7.7) Lymphocytes # (Auto) 1.0x10^3/uL (1.0-4.8) Monocytes # (Auto) 0.8x10^3/uL (0.0-1.1) Eosinophils # (Auto) 0.2x10^3/uL (0.0-0.7) Basophils # (Auto) 0.0x10^3/uL (0.0-0.2) Sodium Level 146mmol/L (136-145) Potassium Level 4.2mmol/L (3.5-5.1) Chloride Level 111mmol/L (98-107) Carbon Dioxide Level 27mmol/L (21-32) Anion Gap 8 (6-14) Blood Urea Nitrogen 15mg/dL (8-26) Creatinine 1.8mg/dL (0.7-1.3) Estimated GFR (Cockcroft-Gault) 44.5 Glucose Level 90mg/dL (70-99) Calcium Level 8.4mg/dL (8.5-10.1) Test 01/26/17 07:41 01/26/17 08:11 Glucose (Fingerstick) 108mg/dL (70-99) 105mg/dL (70-99) Problem List Problems Medical Problems: (1) GI bleed Status: Acute Assessment/Plan hgb stable 8.5 supportive care, observation Problems: EDWIN VICTORIA MD 01/26/17 1303: SURGICAL PROGRESS NOTE Assessment/Plan Agree with Jolene's assessment, agree with GI ok to D/C home. Problems: ANNE MARIE FERRERA APRN Jan 26, 2017 08:35 EDWIN VICTORIA MD Jan 26, 2017 13:03
[2017-01-26] MEDS: DUTASTERIDE 0.5 MG CAPSULE PO SCH (09:00)
[2017-01-26] MEDS: CALCIUM CARBONATE 500 MG TAB.CHEW PO SCH (09:01)
[2017-01-26] MEDS: FOLIC ACID 1 MG TABLET PO SCH (09:01)
[2017-01-26] MEDS: VERAPAMIL SR 180 MG TABLET.ER. PO SCH (09:01)
[2017-01-26] MEDS: HYDRALAZINE 50 MG TABLET PO SCH ×3 (09:02→21:04)
--- NOTE | 2017-01-26 11:54 | PDOC ---
Subjective: Subjective: No BM in a couple days, no further bleeding. No pain. Tolerating PO. Breathing okay. Objective: Objective: No further bleeding per RN. Vital Signs: Vital Signs Date Time Temp Pulse Resp B/P Pulse Ox O2 Delivery O2 Flow Rate FiO2 01/26/17 11:46 Nasal Cannula 2.0 01/26/17 09:02 91 146/74 01/26/17 07:00 98.7 18 93 98.7 Labs: Laboratory Tests Test 01/25/17 16:54 01/25/17 21:40 01/26/17 07:41 01/26/17 08:11 Glucose (Fingerstick) 121mg/dL (70-99) 150mg/dL (70-99) 108mg/dL (70-99) 105mg/dL (70-99) Imaging: Bleeding Scan 01/22/17 IMPRESSION: Negative radionuclide GI bleeding scan. CTA A/P 01/23/17 IMPRESSION: 1. Moderate aortoiliac calcific plaquing. 2. No evidence of active GI tract bleeding. 3. Colonic diverticulosis. 4. Evidence of previous colonic surgeries. 5. Small bilateral pleural effusions have developed with bibasilar atelectasis superimposed upon fibrosis. PE: GEN: NAD LUNGS: nasal cannula HEART: RRR ABD: NABS, S/ND/NT NEURO/PSYCH: A & O 3 A/P: Recurrent rectal bleeding - resolved -Hgb stable s/p transfusions 01/22-01/23 -on Flagyl and Levaquin -h/o colon cancer w/ resection -colonoscopy 01/2017: normal anastomosis, non-bleeding diverticulosis (sigmoid), 3 adenomatous colon polyps -EGD 06/2009: suspected esophageal moniliasis, gastric erosions w/ gastritis (no H. pylori), normal duodenum (random biopsy unrevealing for sprue) -surgery following -- Bleeding resolved w/ stable Hgb. DC per primary. KITTY GOMEZ Jan 26, 2017 11:54
[2017-01-26] MEDS ORDERED: METR500T PO (14:50)
[2017-01-26] MEDS ORDERED: LEVO250T25 PO (14:50)
[2017-01-26] MEDS ORDERED: FERR-26 PO (14:51)
[2017-01-26 15:37] LABS: % SAT IRON 19 % (15-34); IRON,SERUM 31 ug/dL (65-175)
[2017-01-26] MEDS ORDERED: IRON SUCROSE COMPLEX 200 MG in IV NORMAL SALINE 100ML 100 ML IV ONE (16:00)
--- NOTE | 2017-01-26 16:23 | PDOC3 ---
Discharge Summary Visit Information Date of Admission: Jan 21, 2017 Date of Discharge: Jan 26, 2017 Admitting Diagnosis: GI bleed Final Diagnosis 1. GIB: 2/2 diverticulosis, . 2. Anemia: acute blood loss. stabilizing post PRBC x5. on folate 3. DM: great control on current regimen 4. CAD/HTN/HLD: no acute issues, cont home meds (minus ASA) 5. COPD: cont nebs, O2 PRN Problems Medical Problems: (1) GI bleed Status: Acute Brief Hospital Course Allergies Allergies Coded Allergies Type Severity Reaction Last Updated Verified No Known Drug Allergies 04/14/15 No Vital Signs Vital Signs Date Time Temp Pulse Resp B/P Pulse Ox O2 Delivery O2 Flow Rate FiO2 01/26/17 15:21 Nasal Cannula 2.0 01/26/17 15:00 98.9 80 18 135/63 93 98.9 Lab Results Laboratory Tests Test 01/24/17 16:44 01/24/17 21:17 01/25/17 04:00 01/25/17 08:01 Glucose (Fingerstick) 121mg/dL (70-99) 122mg/dL (70-99) 94mg/dL (70-99) White Blood Count 7.3x10^3/uL (4.0-11.0) Red Blood Count 3.16x10^6/uL (4.30-5.70) Hemoglobin 8.3g/dL (13.0-17.5) Hematocrit 25.1% (39.0-53.0) Mean Corpuscular Volume 79fL (79-100) Mean Corpuscular Hemoglobin 26pg (25-35) Mean Corpuscular Hemoglobin Concent 33g/dL (31-37) Red Cell Distribution Width 19.3% (11.5-14.5) Platelet Count 187x10^3/uL (140-400) Neutrophils (%) (Auto) 70% (31-73) Lymphocytes (%) (Auto) 14% (24-48) Monocytes (%) (Auto) 12% (0-9) Eosinophils (%) (Auto) 3% (0-3) Basophils (%) (Auto) 1% (0-3) Neutrophils # (Auto) 5.1x10^3uL (1.8-7.7) Lymphocytes # (Auto) 1.0x10^3/uL (1.0-4.8) Monocytes # (Auto) 0.9x10^3/uL (0.0-1.1) Eosinophils # (Auto) 0.2x10^3/uL (0.0-0.7) Basophils # (Auto) 0.0x10^3/uL (0.0-0.2) Sodium Level 146mmol/L (136-145) Potassium Level 4.1mmol/L (3.5-5.1) Chloride Level 111mmol/L (98-107) Carbon Dioxide Level 27mmol/L (21-32) Anion Gap 8 (6-14) Blood Urea Nitrogen 18mg/dL (8-26) Creatinine 1.7mg/dL (0.7-1.3) Estimated GFR (Cockcroft-Gault) 47.5 Glucose Level 96mg/dL (70-99) Calcium Level 8.2mg/dL (8.5-10.1) Test 01/25/17 11:19 01/25/17 16:54 01/25/17 21:40 01/26/17 04:30 Glucose (Fingerstick) 120mg/dL (70-99) 121mg/dL (70-99) 150mg/dL (70-99) White Blood Count 7.1x10^3/uL (4.0-11.0) Red Blood Count 3.25x10^6/uL (4.30-5.70) Hemoglobin 8.5g/dL (13.0-17.5) Hematocrit 25.9% (39.0-53.0) Mean Corpuscular Volume 80fL (79-100) Mean Corpuscular Hemoglobin 26pg (25-35) Mean Corpuscular Hemoglobin Concent 33g/dL (31-37) Red Cell Distribution Width 19.4% (11.5-14.5) Platelet Count 187x10^3/uL (140-400) Neutrophils (%) (Auto) 71% (31-73) Lymphocytes (%) (Auto) 14% (24-48) Monocytes (%) (Auto) 12% (0-9) Eosinophils (%) (Auto) 3% (0-3) Basophils (%) (Auto) 1% (0-3) Neutrophils # (Auto) 5.0x10^3uL (1.8-7.7) Lymphocytes # (Auto) 1.0x10^3/uL (1.0-4.8) Monocytes # (Auto) 0.8x10^3/uL (0.0-1.1) Eosinophils # (Auto) 0.2x10^3/uL (0.0-0.7) Basophils # (Auto) 0.0x10^3/uL (0.0-0.2) Sodium Level 146mmol/L (136-145) Potassium Level 4.2mmol/L (3.5-5.1) Chloride Level 111mmol/L (98-107) Carbon Dioxide Level 27mmol/L (21-32) Anion Gap 8 (6-14) Blood Urea Nitrogen 15mg/dL (8-26) Creatinine 1.8mg/dL (0.7-1.3) Estimated GFR (Cockcroft-Gault) 44.5 Glucose Level 90mg/dL (70-99) Calcium Level 8.4mg/dL (8.5-10.1) Iron Level 31ug/dL (65-175) Total Iron Binding Capacity 161ug/dL (250-450) Iron Saturation 19% (15-34) Test 01/26/17 07:41 01/26/17 08:11 Glucose (Fingerstick) 108mg/dL (70-99) 105mg/dL (70-99) Laboratory Tests Test 01/25/17 16:54 01/25/17 21:40 01/26/17 04:30 01/26/17 07:41 Glucose (Fingerstick) 121mg/dL (70-99) 150mg/dL (70-99) 108mg/dL (70-99) White Blood Count 7.1x10^3/uL (4.0-11.0) Red Blood Count 3.25x10^6/uL (4.30-5.70) Hemoglobin 8.5g/dL (13.0-17.5) Hematocrit 25.9% (39.0-53.0) Mean Corpuscular Volume 80fL (79-100) Mean Corpuscular Hemoglobin 26pg (25-35) Mean Corpuscular Hemoglobin Concent 33g/dL (31-37) Red Cell Distribution Width 19.4% (11.5-14.5) Platelet Count 187x10^3/uL (140-400) Neutrophils (%) (Auto) 71% (31-73) Lymphocytes (%) (Auto) 14% (24-48) Monocytes (%) (Auto) 12% (0-9) Eosinophils (%) (Auto) 3% (0-3) Basophils (%) (Auto) 1% (0-3) Neutrophils # (Auto) 5.0x10^3uL (1.8-7.7) Lymphocytes # (Auto) 1.0x10^3/uL (1.0-4.8) Monocytes # (Auto) 0.8x10^3/uL (0.0-1.1) Eosinophils # (Auto) 0.2x10^3/uL (0.0-0.7) Basophils # (Auto) 0.0x10^3/uL (0.0-0.2) Sodium Level 146mmol/L (136-145) Potassium Level 4.2mmol/L (3.5-5.1) Chloride Level 111mmol/L (98-107) Carbon Dioxide Level 27mmol/L (21-32) Anion Gap 8 (6-14) Blood Urea Nitrogen 15mg/dL (8-26) Creatinine 1.8mg/dL (0.7-1.3) Estimated GFR (Cockcroft-Gault) 44.5 Glucose Level 90mg/dL (70-99) Calcium Level 8.4mg/dL (8.5-10.1) Iron Level 31ug/dL (65-175) Total Iron Binding Capacity 161ug/dL (250-450) Iron Saturation 19% (15-34) Test 01/26/17 08:11 Glucose (Fingerstick) 105mg/dL (70-99) Brief Hospital Course Mr. Lema is a 76 old male, amdi twith GI bleed, Hgb dropped to 6.9, 2 u given, then 9.0 stable 3 days, 8.5 on DC normal stool felt well, good exercise abiel, on home 02 -colonoscopy 01/2017: normal anastomosis, non-bleeding diverticulosis (sigmoid), 3 adenomatous colon polyps -EGD 06/2009: suspected esophageal moniliasis, gastric erosions w/ gastritis (no H. pylori), normal duodenum Dr Hernandez/Refugio following, no intervention recommended. cont empiric Abx Discharge Information Condition at Discharge: Improved Follow Up: Weeks Disposition/Orders: D/C to Home Scheduled Albuterol Sulfate (Proair Hfa Inhaler) 2 PUFF IH PRN Q4-6HRS Aspirin (Aspir 81) 81 MG PO DAILY (Reported) Calcium Carbonate/Mag Hydrox (Antacid Chewable Tablet) 1 EACH PO DAILY (Reported ) Dutasteride (Avodart) 0.5 MG PO DAILY (Reported) Ferrous Sulfate (Ferrous Sulfate) 1 TAB PO DAILY Fluticasone/Salmeterol (Advair 250-50 Diskus) 1 INH IH BID (Reported) Folic Acid (Folic Acid) 1 MG PO DAILY (Reported) Hydralazine Hcl (Hydralazine Hcl) 50 MG PO TID (Reported) Insulin Aspart (Novolog Flexpen) 10 UNITS SQ TIDAC Insulin Detemir (Levemir Flextouch) 35 UNITS SQ HS Levofloxacin (Levaquin) 250 MG PO DAILY06 Metronidazole (Flagyl) 500 MG PO Q8HRS Simvastatin (Simvastatin) 20 MG PO HS (Reported) Verapamil Hcl (Verapamil Er) 360 MG PO DAILY (Reported) Zolpidem Tartrate (Zolpidem Tartrate) 1 TAB PO QHS (Reported) Patient Instructions Patient Instructions f/u Dr. Tom, I spoke to Dr. Tom by phone and discussed plan time > 30min SHRUTHI HARDWICK MD Jan 26, 2017 16:23
[2017-01-26] MEDS: INSULIN DETEMIR 300 UNITS/3 ML INSULN.PEN. SQ SCH (21:00)
[2017-01-26] MEDS: SIMVASTATIN 20 MG TABLET PO SCH (21:04)
[2017-01-26] MEDS: ZOLPIDEM 5 MG TABLET. PO SCH (23:26)
[2017-01-27 03:00] VITALS: BP 136/75
[2017-01-27 04:22] LABS: BASO % 1 % (0-3); EOS % 3 % (0-3); HEMATOCRIT 26.5 % (39.0-53.0); HEMOGLOBIN 8.5 g/dL (13.0-17.5); LYMPH # 0.8 x10^3/uL (1.0-4.8); LYMPH % 11 % (24-48); MEAN CORPUSCULAR HEMOGLOBIN 26 pg (25-35); MEAN CORPUSCULAR HGB CONC 32 g/dL (31-37); MEAN CORPUSCULAR VOLUME 80 fL (79-100); MONO % 12 % (0-9); NEUT % 74 % (31-73); PLATELET COUNT 196 x10^3/uL (140-400); RED BLOOD COUNT 3.32 x10^6/uL (4.30-5.70); RED CELL DISTRIBUTION WIDTH 19.3 % (11.5-14.5); WHITE BLOOD COUNT 7.3 x10^3/uL (4.0-11.0)
[2017-01-27 04:42] LABS: CALCIUM 8.6 mg/dL (8.5-10.1); CREATININE 1.6 mg/dL (0.7-1.3); POTASSIUM 4.1 mmol/L (3.5-5.1)
[2017-01-27] MEDS: LEVOFLOXACIN 250 MG TABLET. PO SCH (06:33)
[2017-01-27] MEDS: METRONIDAZOLE 500 MG TABLET. PO SCH ×2 (06:33→13:19)
[2017-01-27 07:00] VITALS: BP 148/79
[2017-01-27] MEDS: INSULIN ASPART 300 UNITS/3 ML INSULN.PEN SQ SCH ×2 (07:30→11:30)
[2017-01-27] MEDS: BUDESONIDE 0.5 MG/2 ML NEBU NEB SCH (07:46)
[2017-01-27] MEDS: ALBUTEROL SULFATE 2.5 MG/3 ML NEBU. NEB SCH ×2 (07:46→11:06)
[2017-01-27] MEDS: CALCIUM CARBONATE 500 MG TAB.CHEW PO SCH (08:52)
[2017-01-27] MEDS: HYDRALAZINE 50 MG TABLET PO SCH ×2 (08:52→13:19)
[2017-01-27] MEDS: VERAPAMIL SR 180 MG TABLET.ER. PO SCH (08:52)
[2017-01-27] MEDS: DUTASTERIDE 0.5 MG CAPSULE PO SCH (08:53)
[2017-01-27] MEDS: FOLIC ACID 1 MG TABLET PO SCH (08:54)
[2017-01-27 11:00] VITALS: BP 146/64
--- NOTE | 2017-01-27 11:29 | PDOC ---
Subjective: Subjective: Had a BM yesterday w/o blood. Ready to DC. Objective: Vital Signs: Vital Signs Date Time Temp Pulse Resp B/P Pulse Ox O2 Delivery O2 Flow Rate FiO2 01/27/17 11:07 Nasal Cannula 2.0 01/27/17 11:00 98.7 80 18 146/64 98 98.7 Labs: Laboratory Tests Test 01/26/17 16:47 01/26/17 21:02 01/27/17 03:38 01/27/17 07:44 Glucose (Fingerstick) 114mg/dL 164mg/dL 96mg/dL White Blood Count 7.3x10^3/uL Red Blood Count 3.32x10^6/uL Hemoglobin 8.5g/dL Hematocrit 26.5% Mean Corpuscular Volume 80fL Mean Corpuscular Hemoglobin 26pg Mean Corpuscular Hemoglobin Concent 32g/dL Red Cell Distribution Width 19.3% Platelet Count 196x10^3/uL Neutrophils (%) (Auto) 74% Lymphocytes (%) (Auto) 11% Monocytes (%) (Auto) 12% Eosinophils (%) (Auto) 3% Basophils (%) (Auto) 1% Neutrophils # (Auto) 5.4x10^3uL Lymphocytes # (Auto) 0.8x10^3/uL Monocytes # (Auto) 0.9x10^3/uL Eosinophils # (Auto) 0.2x10^3/uL Basophils # (Auto) 0.0x10^3/uL Sodium Level 141mmol/L Potassium Level 4.1mmol/L Chloride Level 106mmol/L Carbon Dioxide Level 29mmol/L Anion Gap 6 Blood Urea Nitrogen 14mg/dL Creatinine 1.6mg/dL Estimated GFR (Cockcroft-Gault) 51.0 Glucose Level 103mg/dL Calcium Level 8.6mg/dL Test 01/27/17 10:28 Glucose (Fingerstick) 142mg/dL PE: GEN: NAD LUNGS: clear anteriorly, nasal cannula HEART: RRR ABD: NABS, S/ND/NT NEURO/PSYCH: A & O 3 A/P: Recurrent rectal bleeding - resolved -Hgb stable s/p transfusions 01/22-01/23 -on Flagyl and Levaquin -h/o colon cancer w/ resection, surgery has followed here -colonoscopy 01/2017: normal anastomosis, non-bleeding diverticulosis (sigmoid), 3 adenomatous colon polyps -EGD 06/2009: suspected esophageal moniliasis, gastric erosions w/ gastritis (no H. pylori), normal duodenum (random biopsy unrevealing for sprue) -- Bleeding resolved w/ stable Hgb. Agree w/ DC. KITTY GOMEZ Jan 27, 2017 11:29
--- NOTE | 2017-01-27 12:29 | PDOC ---
SURGICAL PROGRESS NOTE Subjective no complaints no blood in stool Vital Signs Vital Signs Date Time Temp Pulse Resp B/P Pulse Ox O2 Delivery O2 Flow Rate FiO2 01/27/17 11:07 Nasal Cannula 2.0 01/27/17 11:00 98.7 80 18 146/64 98 98.7 I&O Intake and Output 01/27/17 07:00 Intake Total 1160 ml Output Total 1665 ml Balance -505 ml Intake Oral 1050 ml IV Total 110 ml Output Urine Total 1665 ml General: Alert, Oriented X3, Cooperative, No acute distress Abdomen: Soft, No tenderness Labs Laboratory Tests Test 01/25/17 16:54 01/25/17 21:40 01/26/17 04:30 01/26/17 07:41 Glucose (Fingerstick) 121mg/dL (70-99) 150mg/dL (70-99) 108mg/dL (70-99) White Blood Count 7.1x10^3/uL (4.0-11.0) Red Blood Count 3.25x10^6/uL (4.30-5.70) Hemoglobin 8.5g/dL (13.0-17.5) Hematocrit 25.9% (39.0-53.0) Mean Corpuscular Volume 80fL (79-100) Mean Corpuscular Hemoglobin 26pg (25-35) Mean Corpuscular Hemoglobin Concent 33g/dL (31-37) Red Cell Distribution Width 19.4% (11.5-14.5) Platelet Count 187x10^3/uL (140-400) Neutrophils (%) (Auto) 71% (31-73) Lymphocytes (%) (Auto) 14% (24-48) Monocytes (%) (Auto) 12% (0-9) Eosinophils (%) (Auto) 3% (0-3) Basophils (%) (Auto) 1% (0-3) Neutrophils # (Auto) 5.0x10^3uL (1.8-7.7) Lymphocytes # (Auto) 1.0x10^3/uL (1.0-4.8) Monocytes # (Auto) 0.8x10^3/uL (0.0-1.1) Eosinophils # (Auto) 0.2x10^3/uL (0.0-0.7) Basophils # (Auto) 0.0x10^3/uL (0.0-0.2) Sodium Level 146mmol/L (136-145) Potassium Level 4.2mmol/L (3.5-5.1) Chloride Level 111mmol/L (98-107) Carbon Dioxide Level 27mmol/L (21-32) Anion Gap 8 (6-14) Blood Urea Nitrogen 15mg/dL (8-26) Creatinine 1.8mg/dL (0.7-1.3) Estimated GFR (Cockcroft-Gault) 44.5 Glucose Level 90mg/dL (70-99) Calcium Level 8.4mg/dL (8.5-10.1) Iron Level 31ug/dL (65-175) Total Iron Binding Capacity 161ug/dL (250-450) Iron Saturation 19% (15-34) Test 01/26/17 08:11 01/26/17 10:12 01/26/17 16:47 01/26/17 21:02 Glucose (Fingerstick) 105mg/dL (70-99) 134mg/dL (70-99) 114mg/dL (70-99) 164mg/dL (70-99) Test 01/27/17 03:38 01/27/17 07:44 01/27/17 10:28 White Blood Count 7.3x10^3/uL (4.0-11.0) Red Blood Count 3.32x10^6/uL (4.30-5.70) Hemoglobin 8.5g/dL (13.0-17.5) Hematocrit 26.5% (39.0-53.0) Mean Corpuscular Volume 80fL (79-100) Mean Corpuscular Hemoglobin 26pg (25-35) Mean Corpuscular Hemoglobin Concent 32g/dL (31-37) Red Cell Distribution Width 19.3% (11.5-14.5) Platelet Count 196x10^3/uL (140-400) Neutrophils (%) (Auto) 74% (31-73) Lymphocytes (%) (Auto) 11% (24-48) Monocytes (%) (Auto) 12% (0-9) Eosinophils (%) (Auto) 3% (0-3) Basophils (%) (Auto) 1% (0-3) Neutrophils # (Auto) 5.4x10^3uL (1.8-7.7) Lymphocytes # (Auto) 0.8x10^3/uL (1.0-4.8) Monocytes # (Auto) 0.9x10^3/uL (0.0-1.1) Eosinophils # (Auto) 0.2x10^3/uL (0.0-0.7) Basophils # (Auto) 0.0x10^3/uL (0.0-0.2) Sodium Level 141mmol/L (136-145) Potassium Level 4.1mmol/L (3.5-5.1) Chloride Level 106mmol/L (98-107) Carbon Dioxide Level 29mmol/L (21-32) Anion Gap 6 (6-14) Blood Urea Nitrogen 14mg/dL (8-26) Creatinine 1.6mg/dL (0.7-1.3) Estimated GFR (Cockcroft-Gault) 51.0 Glucose Level 103mg/dL (70-99) Calcium Level 8.6mg/dL (8.5-10.1) Glucose (Fingerstick) 96mg/dL (70-99) 142mg/dL (70-99) Laboratory Tests Test 01/26/17 16:47 01/26/17 21:02 01/27/17 03:38 01/27/17 07:44 Glucose (Fingerstick) 114mg/dL (70-99) 164mg/dL (70-99) 96mg/dL (70-99) White Blood Count 7.3x10^3/uL (4.0-11.0) Red Blood Count 3.32x10^6/uL (4.30-5.70) Hemoglobin 8.5g/dL (13.0-17.5) Hematocrit 26.5% (39.0-53.0) Mean Corpuscular Volume 80fL (79-100) Mean Corpuscular Hemoglobin 26pg (25-35) Mean Corpuscular Hemoglobin Concent 32g/dL (31-37) Red Cell Distribution Width 19.3% (11.5-14.5) Platelet Count 196x10^3/uL (140-400) Neutrophils (%) (Auto) 74% (31-73) Lymphocytes (%) (Auto) 11% (24-48) Monocytes (%) (Auto) 12% (0-9) Eosinophils (%) (Auto) 3% (0-3) Basophils (%) (Auto) 1% (0-3) Neutrophils # (Auto) 5.4x10^3uL (1.8-7.7) Lymphocytes # (Auto) 0.8x10^3/uL (1.0-4.8) Monocytes # (Auto) 0.9x10^3/uL (0.0-1.1) Eosinophils # (Auto) 0.2x10^3/uL (0.0-0.7) Basophils # (Auto) 0.0x10^3/uL (0.0-0.2) Sodium Level 141mmol/L (136-145) Potassium Level 4.1mmol/L (3.5-5.1) Chloride Level 106mmol/L (98-107) Carbon Dioxide Level 29mmol/L (21-32) Anion Gap 6 (6-14) Blood Urea Nitrogen 14mg/dL (8-26) Creatinine 1.6mg/dL (0.7-1.3) Estimated GFR (Cockcroft-Gault) 51.0 Glucose Level 103mg/dL (70-99) Calcium Level 8.6mg/dL (8.5-10.1) Test 01/27/17 10:28 Glucose (Fingerstick) 142mg/dL (70-99) Problem List Problems Medical Problems: (1) GI bleed Status: Acute Assessment/Plan stable hgb dc plans will sign off, available as needed Problems: ANNE MARIE FERRERA APRN Jan 27, 2017 12:29
[2017-01-27 13:19] VITALS: BP 146/84
--- NOTE | 2017-01-27 22:19 | PDOC ---
PROGRESS NOTES Chief Complaint Chief Complaint LATE ENTRY, pt seen 01/26, could not DC as IV infusion got finished near dark. I would have preferred discharging or finding him a ride LGIB ASSESSMENT AND PLAN: 1. GIB: 2/2 diverticulosis, resolved. Dr.s Hernandez/Refugio following, 2. Anemia: acute blood loss. stabilizing post PRBC x5. on folate 3. DM: great control on current regimen 4. CAD/HTN/HLD: no acute issues, cont home meds (minus ASA) 5. COPD: cont nebs, O2 PRN History of Present Illness History of Present Illness plan was discussed by phone with his PCP IV iron given cont PO iron n Vitals Vitals Vital Signs Date Time Temp Pulse Resp B/P Pulse Ox O2 Delivery O2 Flow Rate FiO2 01/27/17 13:19 80 146/84 01/27/17 11:07 Nasal Cannula 2.0 01/27/17 11:00 98.7 18 98 98.7 Physical Exam General: Alert, Oriented X3, Cooperative, No acute distress Heart: Regular rate, No murmurs Lungs: Clear, Other Abdomen: Soft, No tenderness Extremities: No clubbing, No edema Skin: No significant lesion Labs LABS Laboratory Tests Test 01/27/17 03:38 01/27/17 07:44 01/27/17 10:28 White Blood Count 7.3x10^3/uL (4.0-11.0) Red Blood Count 3.32x10^6/uL (4.30-5.70) Hemoglobin 8.5g/dL (13.0-17.5) Hematocrit 26.5% (39.0-53.0) Mean Corpuscular Volume 80fL (79-100) Mean Corpuscular Hemoglobin 26pg (25-35) Mean Corpuscular Hemoglobin Concent 32g/dL (31-37) Red Cell Distribution Width 19.3% (11.5-14.5) Platelet Count 196x10^3/uL (140-400) Neutrophils (%) (Auto) 74% (31-73) Lymphocytes (%) (Auto) 11% (24-48) Monocytes (%) (Auto) 12% (0-9) Eosinophils (%) (Auto) 3% (0-3) Basophils (%) (Auto) 1% (0-3) Neutrophils # (Auto) 5.4x10^3uL (1.8-7.7) Lymphocytes # (Auto) 0.8x10^3/uL (1.0-4.8) Monocytes # (Auto) 0.9x10^3/uL (0.0-1.1) Eosinophils # (Auto) 0.2x10^3/uL (0.0-0.7) Basophils # (Auto) 0.0x10^3/uL (0.0-0.2) Sodium Level 141mmol/L (136-145) Potassium Level 4.1mmol/L (3.5-5.1) Chloride Level 106mmol/L (98-107) Carbon Dioxide Level 29mmol/L (21-32) Anion Gap 6 (6-14) Blood Urea Nitrogen 14mg/dL (8-26) Creatinine 1.6mg/dL (0.7-1.3) Estimated GFR (Cockcroft-Gault) 51.0 Glucose Level 103mg/dL (70-99) Calcium Level 8.6mg/dL (8.5-10.1) Glucose (Fingerstick) 96mg/dL (70-99) 142mg/dL (70-99) Assessment and Plan Assessmemt and Plan Problems Medical Problems: (1) GI bleed Status: Acute Problems: Comment Review of Relevant I have reviewed the following items lauren (where applicable) has been applied. Labs Laboratory Tests Test 01/26/17 04:30 01/26/17 07:41 01/26/17 08:11 01/26/17 10:12 White Blood Count 7.1x10^3/uL (4.0-11.0) Red Blood Count 3.25x10^6/uL (4.30-5.70) Hemoglobin 8.5g/dL (13.0-17.5) Hematocrit 25.9% (39.0-53.0) Mean Corpuscular Volume 80fL (79-100) Mean Corpuscular Hemoglobin 26pg (25-35) Mean Corpuscular Hemoglobin Concent 33g/dL (31-37) Red Cell Distribution Width 19.4% (11.5-14.5) Platelet Count 187x10^3/uL (140-400) Neutrophils (%) (Auto) 71% (31-73) Lymphocytes (%) (Auto) 14% (24-48) Monocytes (%) (Auto) 12% (0-9) Eosinophils (%) (Auto) 3% (0-3) Basophils (%) (Auto) 1% (0-3) Neutrophils # (Auto) 5.0x10^3uL (1.8-7.7) Lymphocytes # (Auto) 1.0x10^3/uL (1.0-4.8) Monocytes # (Auto) 0.8x10^3/uL (0.0-1.1) Eosinophils # (Auto) 0.2x10^3/uL (0.0-0.7) Basophils # (Auto) 0.0x10^3/uL (0.0-0.2) Sodium Level 146mmol/L (136-145) Potassium Level 4.2mmol/L (3.5-5.1) Chloride Level 111mmol/L (98-107) Carbon Dioxide Level 27mmol/L (21-32) Anion Gap 8 (6-14) Blood Urea Nitrogen 15mg/dL (8-26) Creatinine 1.8mg/dL (0.7-1.3) Estimated GFR (Cockcroft-Gault) 44.5 Glucose Level 90mg/dL (70-99) Calcium Level 8.4mg/dL (8.5-10.1) Iron Level 31ug/dL (65-175) Total Iron Binding Capacity 161ug/dL (250-450) Iron Saturation 19% (15-34) Glucose (Fingerstick) 108mg/dL (70-99) 105mg/dL (70-99) 134mg/dL (70-99) Test 01/26/17 16:47 01/26/17 21:02 01/27/17 03:38 01/27/17 07:44 Glucose (Fingerstick) 114mg/dL (70-99) 164mg/dL (70-99) 96mg/dL (70-99) White Blood Count 7.3x10^3/uL (4.0-11.0) Red Blood Count 3.32x10^6/uL (4.30-5.70) Hemoglobin 8.5g/dL (13.0-17.5) Hematocrit 26.5% (39.0-53.0) Mean Corpuscular Volume 80fL (79-100) Mean Corpuscular Hemoglobin 26pg (25-35) Mean Corpuscular Hemoglobin Concent 32g/dL (31-37) Red Cell Distribution Width 19.3% (11.5-14.5) Platelet Count 196x10^3/uL (140-400) Neutrophils (%) (Auto) 74% (31-73) Lymphocytes (%) (Auto) 11% (24-48) Monocytes (%) (Auto) 12% (0-9) Eosinophils (%) (Auto) 3% (0-3) Basophils (%) (Auto) 1% (0-3) Neutrophils # (Auto) 5.4x10^3uL (1.8-7.7) Lymphocytes # (Auto) 0.8x10^3/uL (1.0-4.8) Monocytes # (Auto) 0.9x10^3/uL (0.0-1.1) Eosinophils # (Auto) 0.2x10^3/uL (0.0-0.7) Basophils # (Auto) 0.0x10^3/uL (0.0-0.2) Sodium Level 141mmol/L (136-145) Potassium Level 4.1mmol/L (3.5-5.1) Chloride Level 106mmol/L (98-107) Carbon Dioxide Level 29mmol/L (21-32) Anion Gap 6 (6-14) Blood Urea Nitrogen 14mg/dL (8-26) Creatinine 1.6mg/dL (0.7-1.3) Estimated GFR (Cockcroft-Gault) 51.0 Glucose Level 103mg/dL (70-99) Calcium Level 8.6mg/dL (8.5-10.1) Test 01/27/17 10:28 Glucose (Fingerstick) 142mg/dL (70-99) Laboratory Tests Test 01/27/17 03:38 01/27/17 07:44 01/27/17 10:28 White Blood Count 7.3x10^3/uL (4.0-11.0) Red Blood Count 3.32x10^6/uL (4.30-5.70) Hemoglobin 8.5g/dL (13.0-17.5) Hematocrit 26.5% (39.0-53.0) Mean Corpuscular Volume 80fL (79-100) Mean Corpuscular Hemoglobin 26pg (25-35) Mean Corpuscular Hemoglobin Concent 32g/dL (31-37) Red Cell Distribution Width 19.3% (11.5-14.5) Platelet Count 196x10^3/uL (140-400) Neutrophils (%) (Auto) 74% (31-73) Lymphocytes (%) (Auto) 11% (24-48) Monocytes (%) (Auto) 12% (0-9) Eosinophils (%) (Auto) 3% (0-3) Basophils (%) (Auto) 1% (0-3) Neutrophils # (Auto) 5.4x10^3uL (1.8-7.7) Lymphocytes # (Auto) 0.8x10^3/uL (1.0-4.8) Monocytes # (Auto) 0.9x10^3/uL (0.0-1.1) Eosinophils # (Auto) 0.2x10^3/uL (0.0-0.7) Basophils # (Auto) 0.0x10^3/uL (0.0-0.2) Sodium Level 141mmol/L (136-145) Potassium Level 4.1mmol/L (3.5-5.1) Chloride Level 106mmol/L (98-107) Carbon Dioxide Level 29mmol/L (21-32) Anion Gap 6 (6-14) Blood Urea Nitrogen 14mg/dL (8-26) Creatinine 1.6mg/dL (0.7-1.3) Estimated GFR (Cockcroft-Gault) 51.0 Glucose Level 103mg/dL (70-99) Calcium Level 8.6mg/dL (8.5-10.1) Glucose (Fingerstick) 96mg/dL (70-99) 142mg/dL (70-99) Medications Current Medications Ondansetron HCl 4 mg 4 mg PRN Q8HRS PRN IV NAUSEA/VOMITING; Start 01/22/17 at 00:00; Stop 01/22/17 at 23:59; Status DC Sodium Chloride 1,000 ml @ 100 mls/hr Q10H IV Last administered on 01/22/17 20:44; Start 01/22/17 at 00:00; Stop 01/22/17 at 23:59; Status DC Metronidazole (FLAGYL 500Mmg PREMIX) 100 ml @ 100 mls/hr Q8HRS IV Last administered on 01/25/17 14:45; Start 01/22/17 at 13:00; Stop 01/25/17 at 15:37 ; Status DC Dutasteride (Avodart) 0.5 mg DAILY PO Last administered on 01/27/17 08:53; Start 01/22/17 at 14:00; Stop 01/27/17 at 14:35; Status DC Folic Acid (Folic Acid) 1 mg DAILY PO Last administered on 01/27/17 08:54; Start 01/22/17 at 14:00; Stop 01/27/17 at 14:35; Status DC Hydralazine HCl (Apresoline) 50 mg TID PO Last administered on 01/27/17 13:19 ; Start 01/22/17 at 14:00; Stop 01/27/17 at 14:35; Status DC Insulin Aspart (Novolog) 10 units TIDAC SQ ; Start 01/22/17 at 16:30; Stop 01/27 at 14:35; Status DC Insulin Detemir (Levemir) 35 units HS SQ ; Start 01/22/17 at 21:00; Stop at 14:35; Status DC Simvastatin (Zocor) 20 mg HS PO Last administered on 01/26/17 21:04; Start at 21:00; Stop 01/27/17 at 14:35; Status DC Zolpidem Tartrate (Ambien) 5 mg QHS PO Last administered on 01/26/17 23:26; Start 01/22/17 at 21:00; Stop 01/27/17 at 14:35; Status DC Albuterol Sulfate (Ventolin Neb Soln) 2.5 mg PRN Q4HRS PRN NEB SHORTNESS OF BREATH; Start 01/22/17 at 13:30; Stop 01/27/17 at 14:35; Status DC Calcium Carbonate/ Glycine (Tums) 500 mg DAILY PO Last administered on 08:52; Start 01/22/17 at 14:00; Stop 01/27/17 at 14:35; Status DC Albuterol Sulfate (Ventolin Neb Soln) 2.5 mg RTQID NEB Last administered on 11:06; Start 01/22/17 at 16:00; Stop 01/27/17 at 14:35; Status DC Verapamil HCl 360 mg 360 mg DAILY PO Last administered on 01/27/17 08:52; Start 01/22/17 at 14:00; Stop 01/27/17 at 14:35; Status DC Levofloxacin/ Dextrose (LEVAQUIN 250mg PREMIX) 50 ml @ 50 mls/hr Q24H IV Last administered on 01/24/17 13:34; Start 01/22/17 at 14:00; Stop 01/25/17 at 15:36 ; Status DC Budesonide (Pulmicort) 0.5 mg RTBID NEB Last administered on 01/27/17 07:46; Start 01/22/17 at 20:00; Stop 01/27/17 at 14:35; Status DC Iohexol (Omnipaque 350 Mg/ml) 75 ml 1X ONCE IV Last administered on 01/23/17 10:49; Start 01/23/17 at 10:30; Stop 01/23/17 at 10:31; Status DC Info (Do NOT chart on this entry -- for MONITORING) 1 each PRN DAILY PRN MC SEE COMMENTS; Start 01/23/17 at 10:30; Stop 01/25/17 at 10:29; Status DC Levofloxacin (Levaquin) 250 mg DAILY06 PO Last administered on 01/27/17 06:33 ; Start 01/25/17 at 15:00; Stop 01/27/17 at 14:35; Status DC Metronidazole 500 mg 500 mg Q8HRS PO Last administered on 01/27/17 13:19; Start 01/25/17 at 22:00; Stop 01/27/17 at 14:36; Status DC Iron Sucrose/ Sodium Chloride (Venofer/Iv Sodium Chloride 0.9% 100ml) 110 ml @ 55 mls/hr 1X ONCE IV Last administered on 01/26/17 16:17; Start 01/26/17 at 16:00; Stop 01/26/17 at 17:59; Status DC Active Scripts Active Ferrous Sulfate 325 Mg Tablet 1 Tab PO DAILY Flagyl (Metronidazole) 500 Mg Tablet 500 Mg PO Q8HRS Levaquin (Levofloxacin) 250 Mg Tablet 250 Mg PO DAILY06 Levemir Flextouch (Insulin Detemir) 100 Unit/1 Ml Insuln.pen 35 Units SQ HS 30 Days Proair Hfa Inhaler (Albuterol Sulfate) 8.5 Gm Hfa.aer.ad 2 Puff IH PRN Q4-6HRS Novolog Flexpen (Insulin Aspart) 300 Units/3 Ml Insuln.pen 10 Units SQ TIDAC Reported Zolpidem Tartrate 5 Mg Tablet 1 Tab PO QHS Hydralazine Hcl 50 Mg Tablet 50 Mg PO TID Verapamil Er (Verapamil Hcl) 240 Mg Cap24h.pel 360 Mg PO DAILY Antacid Chewable Tablet (Calcium Carbonate/Mag Hydrox) 1 Each Tab.chew 1 Each PO DAILY Advair 250-50 Diskus (Fluticasone/Salmeterol) 1 Each Disk.w.dev 1 Inh IH BID Aspir 81 (Aspirin) 81 Mg Tablet.dr 81 Mg PO DAILY Folic Acid 1 Mg Tablet 1 Mg PO DAILY Avodart (Dutasteride) 0.5 Mg Capsule 0.5 Mg PO DAILY Simvastatin 20 Mg Tablet 20 Mg PO HS Vitals/I & O Vital Sign - Last 24 Hours 01/26/17 01/27/17 01/27/17 01/27/17 23:00 03:00 07:00 07:46 Temp 98.1 99.3 98.5 98.1 99.3 98.5 Pulse 80 86 79 Resp 16 18 18 B/P 144/75 136/75 148/79 Pulse Ox 95 95 98 98 O2 Delivery Nasal Cannula Nasal Cannula O2 Flow Rate 3.0 2.0 01/27/17 01/27/17 01/27/17 01/27/17 08:00 08:52 08:52 11:00 Temp 98.7 98.7 Pulse 79 79 80 Resp 18 B/P 148/79 148/79 146/64 Pulse Ox 98 O2 Delivery Nasal Cannula Nasal Cannula O2 Flow Rate 3.0 3.0 01/27/17 01/27/17 11:07 13:19 Pulse 80 B/P 146/84 O2 Delivery Nasal Cannula O2 Flow Rate 2.0 Intake and Output 01/26/17 01/26/17 01/27/17 15:00 23:00 07:00 Intake Total 450 ml 590 ml 120 ml Output Total 840 ml 425 ml 400 ml Balance -390 ml 165 ml -280 ml SHRUTHI HARDWICK MD Jan 27, 2017 22:19
== END 2017-01-27 14:00 | disposition home health service (06) | DRG 378 ==
LOC: ER 23:25 → 5 NORTH 23:59
PROVIDERS: ADMIT Internal Medicine; ATTEND Internal Medicine
PROC: 30233N1 Transfusion of Nonautologous Red Blood Cells into Peripheral Vein, Percutaneous Approach (ICD-10-PCS; principal; 2017-01-22)
DX: K57.31 Diverticulosis of large intestine without perforation or abscess with bleeding (principal); D62 Acute posthemorrhagic anemia; J98.11 Atelectasis; N17.9 Acute kidney failure, unspecified; E11.22 Type 2 diabetes mellitus with diabetic chronic kidney disease; E78.5 Hyperlipidemia, unspecified; I12.9 Hypertensive chronic kidney disease with stage 1 through stage 4 chronic kidney disease, or unspecified chronic kidney disease; I25.10 Atherosclerotic heart disease of native coronary artery without angina pectoris; M19.90 Unspecified osteoarthritis, unspecified site; J44.9 Chronic obstructive pulmonary disease, unspecified; K59.00 Constipation, unspecified; M06.9 Rheumatoid arthritis, unspecified; N18.9 Chronic kidney disease, unspecified; Z82.49 Family history of ischemic heart disease and other diseases of the circulatory system; Z85.038 Personal history of other malignant neoplasm of large intestine
CPT/HCPCS: 36415; 74174; 78278; 80048; 82274; 82947; 83540; 83550; 85007; 85014; 85018; 85027; 85610; 86850; 86900; 86901; 86920; 93005; 94250; 94640; 94760; 96374; A9560; J1756; J1815; J1956; J3490; J7030; P9016; Q9967; 97110; 99285-25

== ENCOUNTER 2017-08-23 09:47 | Inpatient (IN) | payer MEDICARE, BC ==
[~2017-08-23] VITALS: Ht 170.2 cm; Wt 87.7 kg
[~2017-08-23 09:47] MED LIST changes: +ASPI-630 PO; -ASPI81TA2 PO; -BENZ200C39 PO; +BENZ200C47 PO; +FERR-26 PO; +LEVO250T25 PO; -LEVO500T38 PO; +LEVO500T59 PO; +METF-620 PO; -METF10002 PO; +METR500T PO; +ZOLP5TAB5 PO
[2017-08-23] MEDS ORDERED: INSU100V13 SQ (16:30)
[2017-08-23 16:45] LABS: BASO % 1 % (0-3); EOS % 4 % (0-3); HEMATOCRIT 37.9 % (39.0-53.0); HEMOGLOBIN 12.2 g/dL (13.0-17.5); LYMPH # 1.4 x10^3/uL (1.0-4.8); LYMPH % 16 % (24-48); MEAN CORPUSCULAR HEMOGLOBIN 22 pg (25-35); MEAN CORPUSCULAR HGB CONC 32 g/dL (31-37); MEAN CORPUSCULAR VOLUME 69 fL (79-100); MONO % 8 % (0-9); NEUT % 72 % (31-73); PLATELET COUNT 287 x10^3/uL (140-400); RED BLOOD COUNT 5.49 x10^6/uL (4.30-5.70); RED CELL DISTRIBUTION WIDTH 23.4 % (11.5-14.5); WHITE BLOOD COUNT 8.7 x10^3/uL (4.0-11.0)
[2017-08-23 17:01] LABS: CREATININE 1.9 mg/dL (0.7-1.3); GFR 41.8; POTASSIUM 4.8 mmol/L (3.5-5.1)
[2017-08-23 17:26] LABS: PLT ESTIMATE ADEQUATE (ADEQUATE)
[2017-08-23 17:30] LABS: ANISOCYTOSIS MOD; MICROCYTOSIS MOD; OVALOCYTES PRESENT; POIKILOCYTOSIS MOD; POLYCHROMASIA SLIGHT; TARGET CELLS PRESENT; TEAR DROP CELLS PRESENT
[2017-08-23 17:31] LABS: HELMET CELLS PRESENT; SCHISTOCYTES FEW
[2017-08-23 17:32] LABS: HYPOCHROMIA MOD
[2017-08-23 19:40] VITALS: BP 127/70
[2017-08-23] MEDS: BUDESONIDE 0.5 MG/2 ML NEBU. NEB SCH (19:47)
[2017-08-23] MEDS: ALBUTEROL SULFATE 2.5 MG/3 ML NEBU. NEB SCH (19:47)
[2017-08-23] MEDS: IV NORMAL SALINE 1000ML BAG 1,000 ML IV SCH (20:04)
--- NOTE | 2017-08-23 20:11 | EKG ---
[facility] [address] [place] [address] Test Date: 2017-08-23 Test Time: 20:08:12 Pat Name: CLARISSE MORENO Department: Room: 210 1 Gender: M Gun Examiner: JOYA : 1940 Requested By: NABIL WARREN Order Number: [id number] Reading MD: Measurements Intervals [place] Rate: 85 P: 108 VT: 132 QRS: 109 QRSD: 76 T: 99 QT: 370 QTc: 440 Interpretive Statements SINUS RHYTHM ATRIAL PREMATURE COMPLEX(ES) RIGHTWARD AXIS QRS(T) CONTOUR ABNORMALITY CONSISTENT WITH HIGH LATERAL INFARCT PROBABLY OLD ABNORMAL ECG RI6.01 Unconfirmed report Compared to ECG 01/21/2017 23:39:02 Right-axis deviation now present Myocardial infarct finding now present Atrial abnormality no longer present T-wave abnormality no longer present
[2017-08-23] MEDS: ATORVASTATIN CALCIUM 10 MG TABLET. PO SCH (21:45)
[2017-08-23] MEDS: ACETYLCYSTEINE 20% ORAL SOLN 600 MG/3 ML SYRINGE. PO SCH (21:46)
--- NOTE | 2017-08-23 22:31 | HP ---
ADMIT DATE: 08/23/2017 HISTORY OF PRESENT ILLNESS: This is a 76-year-old black male who has been hospitalized for coronary arteriograms. I saw him in the office on 08/20/2017. He said that he has had chronic obstructive pulmonary disease. He had smoked in the past, but has since stopped smoking. He needs oxygen quite often and has portable oxygen at home, though he does not use it all the time. Over the last 3 months, apart from the shortness of breath with exertion, he has been experiencing a tightness in the chest with exertion. This happens quite easily. He walks a certain distance and gets the tightness. He can climb a few steps and get it. He can lift a weight that is not heavy and get it. He then rests and waits about 5 minutes and it resolves. Once it resolves, he resumes his activity, but at a much lower level. There is no associated diaphoresis. He has his usual shortness of breath with it. There is no radiation of the discomfort into his jaws, the back or arms. He has noticed this consistently for the last 1 month and it appears to be getting worse. He has no discomfort at rest. He gives history of hypertension. He has diabetes mellitus. There is no history of previous myocardial infarction. There is no history of stroke. Several years ago he had similar symptoms and he underwent coronary arteriograms. He was informed that he had a 60% obstruction in one of the coronary arteries, but it was not significant enough to be intervened upon. He does have diabetes mellitus. He says that it has been under control with insulin. In general he is much more fatigued now and is not able to do as much as before. PAST MEDICAL HISTORY: He had carcinoma of the colon. He underwent a partial colectomy. He did not have to have any more surgery. His last colonoscopy showed no evidence of residual cancer or metastasis. SOCIAL HISTORY: He does not take alcohol and he does not smoke. FAMILY HISTORY: Father of pancreatitis. He was an alcoholic. Mother of emphysema at the age of 75. Two sisters and one brother are alive. Of them, 1 sister has carcinoma of the colon and she smokes. PRESENT MEDICATIONS: 1. Hydralazine 50 mg twice a day. 2. NovoLog 10 units before each meal. 3. ProAir p.r.n. 4. Aspirin 81 mg a day. 5. Folic acid 1 mg a day. 6. Verapamil CR 240 mg a day. 7. Ambien 10 mg at bedtime p.r.n. 8. Simvastatin 10 mg a day. 9. Levemir 18 units at night. 10. Advair 2 puffs twice a day. 11. Spiriva 2 puffs once a day. PHYSICAL EXAMINATION: GENERAL: He was in no distress while seated. VITAL SIGNS: The heart rate was 60 per minute and regular. The blood pressure was 144/86. He weighed 191 pounds, standing 5 feet 7 inches tall. LUNGS: Clear. HEART: The heart sounds were normal with no murmur or gallop. ABDOMEN: Soft. EXTREMITIES: There is no edema of the legs and the distal pulses are palpable. NECK: The carotids are palpable with no bruits. LABORATORY DATA: An EKG was normal. Labs from Dr. Tom were reviewed. The hemoglobin was 11.6 grams percent. His sed rate was 57. The TSH was 1.11. The total cholesterol while on statin was 109, triglycerides 84, HDL cholesterol was 44 and VLDL cholesterol was 48. The BUN was 25 and the creatinine was 1.62. He had been told that he has chronic kidney disease stage 3. The GFR was 47. Sodium was 140, potassium was 4.5. Albumin was 3.4. Liver function tests were normal. This was from a lab drawn on 08/05/2017 and thus recent. IMPRESSION: 1. Angina pectoris, functional class 3. 2. History of coronary artery disease. 3. Hypertension. 4. Diabetes mellitus. 5. Dyslipidemia. This patient has been having several episodes of chest pain. The pain is very typical in location and precipitating factor, relieved with rest in 5 minutes. This is a classical history of coronary artery disease and angina. This being the case, I thought we should proceed with coronary arteriograms sooner than later. This was just before the weekend that I saw him on a Thursday and I thought the best approach would be to proceed with coronary arteriograms on Thursday rather than delay by doing a stress test. He was agreeable. His creatinine is elevated to 1.62 and he has diabetes. This being the case, he was agreeable to being admitted the previous night for hydration with normal saline, acetylcysteine and Nephrology consultation. An echocardiogram was done on 08/20/2017, so that we would not have to do LV gram and thus conserve the amount of iodine use. The ejection fraction was 62% and there was no significant valvular dysfunction. He is thus being scheduled for coronary arteriograms by Dr. Gibbs at 11:00 a.m. on 08/24/2017. NABIL WARREN MD DR: CLEO/aaron JOB#: [id number] / [id number]
[2017-08-23 23:10] VITALS: BP 140/73
[2017-08-24] VITALS (17 sets, daily range): BP systolic 94–154; BP diastolic 58–73
[2017-08-24] MEDS: ZOLPIDEM 5 MG TABLET. PO PRN ×2 (00:27→21:12)
[2017-08-24 05:14] LABS: CALCIUM 8.5 mg/dL (8.5-10.1); CREATININE 1.8 mg/dL (0.7-1.3); GFR 44.5; POTASSIUM 4.3 mmol/L (3.5-5.1)
[2017-08-24 06:02] LABS: CHOLESTEROL/HDL RATIO 2.5
[2017-08-24] MEDS: INSULIN ASPART 300 UNITS/3 ML INSULN.PEN SQ SCH ×3 (07:30→16:30)
[2017-08-24] MEDS: ALBUTEROL SULFATE 2.5 MG/3 ML NEBU. NEB SCH ×4 (08:09→19:52)
[2017-08-24] MEDS: BUDESONIDE 0.5 MG/2 ML NEBU. NEB SCH ×2 (08:09→19:52)
--- NOTE | 2017-08-24 08:27 | RAD ---
Indication: Chest pain. Technique: Two-view chest radiograph was obtained. Comparison is from November 26, 2016. Findings: There is basilar opacity bilaterally, may represent atelectasis and or infiltrate. Upper lung white are clear. The heart is not enlarged and there is no obvious heart failure. There is no pleural effusion. There are degenerative changes in the spine. Leads overlie the patient. Impression: Basilar atelectasis and/or infiltrate.
[2017-08-24] MEDS: IV NORMAL SALINE 1000ML BAG 1,000 ML IV SCH ×2 (09:03→21:13)
[2017-08-24] MEDS: ASPIRIN 325 MG TABLET PO SCH (09:05)
[2017-08-24] MEDS: FOLIC ACID 1 MG TABLET. PO SCH (09:05)
[2017-08-24] MEDS: DUTASTERIDE 0.5 MG CAPSULE PO SCH (09:06)
[2017-08-24] MEDS: ACETYLCYSTEINE 20% ORAL SOLN 600 MG/3 ML SYRINGE. PO SCH ×2 (09:06→21:13)
[2017-08-24] MEDS: VERAPAMIL SR 180 MG TABLET.ER. PO SCH (09:06)
--- NOTE | 2017-08-24 11:12 | PDOC2 ---
CONSULT Date of Consult Date of Consult DATE: 08/24/17 TIME: 10:56 Reason for Consult Reason for Consult: CKD III Referring Physician Referring Physician: Dr Carlson Identification/Chief Complaint Chief Complaint CP, SOB Problems: Source Source: Chart review, Patient History of Present Illness Reason for Visit: as dictated Past Medical History Cardiovascular: HTN Pulmonary: COPD CENTRAL NERVOUS SYSTEM: Other GI: Other Heme/Onc: Cancer Hepatobiliary: No pertinent hx Psych: No pertinent hx Musculoskeletal: Osteoarthritis Rheumatologic: Rheumatoid arthritis Infectious disease: Herpes zoster Renal/: Chronic renal insuff, Benign prostatic enlarg. Endocrine: Diabetes Past Surgical History Past Surgical History: Colon Resection Family History Family History Father of pancreatitis. He was an alcoholic. Mother of emphysema at the age of 75. Two sisters and one brother are alive. Of them, 1 sister has carcinoma of the colon and she smokes. Family History: No Significant Social History ALCOHOL: none Drugs: None Lives: with Family Current Medications Current Medications Current Medications Sodium Chloride 1,000 ml @ 75 mls/hr [id number] IV Last administered on 09:03; Start 08/23/17 at 18:30 Albuterol Sulfate (Ventolin Neb Soln) 2.5 mg RTQID NEB Last administered on 08:09; Start 08/23/17 at 20:00 Aspirin (Gagan Aspirin) 325 mg [id number] PO Last administered on 08/24/17 09 :05; Start 08/24/17 at 08:00 Dutasteride (Avodart) 0.5 mg DAILY PO Last administered on 08/24/17 09:06; Start 08/24/17 at 09:00 Budesonide (Pulmicort) 0.5 mg RTBID NEB Last administered on 08/24/17 08:09; Start 08/23/17 at 20:00 Folic Acid (Folic Acid) 1 mg DAILY PO Last administered on 08/24/17 09:05; Start 08/24/17 at 09:00 Hydralazine HCl (Apresoline) 50 mg [id number] PO Last administered on 08/24/17 06: 20; Start 08/23/17 at 19:30 Insulin Aspart (NovoLOG) 10 units TIDAC SQ ; Start 08/24/17 at 07:30 Atorvastatin Calcium (Lipitor) 10 mg QHS PO Last administered on 08/23/17 21: 45; Start 08/23/17 at 21:00 Verapamil HCl (Calan Sr) 360 mg DAILY PO Last administered on 08/24/17 09:06 ; Start 08/24/17 at 09:00 Zolpidem Tartrate (Ambien) 5 mg PRN QHS PRN PO INSOMNIA Last administered on 00:27; Start 08/23/17 at 18:30 Acetylcysteine (Mucomyst 20% Oral Solution) 600 mg BID PO Last administered on 08/24/17 09:06; Start 08/23/17 at 21:00; Stop 08/25/17 at 20:59 Active Scripts Active Proair Hfa Inhaler (Albuterol Sulfate) 8.5 Gm Hfa.aer.ad 2 Puff IH PRN Q4-6HRS Novolog Flexpen (Insulin Aspart) 300 Units/3 Ml Insuln.pen 10 Units SQ TIDAC Reported Levemir (Insulin Detemir) 100 Unit/1 Ml Vial 18 Unit SQ HS Zolpidem Tartrate 5 Mg Tablet 1 Tab PO QHS Hydralazine Hcl 50 Mg Tablet 50 Mg PO TID Verapamil Er (Verapamil Hcl) 240 Mg Cap24h.pel 360 Mg PO DAILY Advair 250-50 Diskus (Fluticasone/Salmeterol) 1 Each Disk.w.dev 1 Inh IH BID Aspir 81 (Aspirin) 81 Mg Tablet.dr 81 Mg PO DAILY Folic Acid 1 Mg Tablet 1 Mg PO DAILY Avodart (Dutasteride) 0.5 Mg Capsule 0.5 Mg PO DAILY Simvastatin 20 Mg Tablet 20 Mg PO HS Allergies Allergies: Coded Allergies: No Known Drug Allergies (Unverified , 04/14/15) ROS Review of System GEN: no Fevers no Chills EYES: no Visual Complaints ENT: no EN Drainage no new Hearing deficiets CVS: ? Orthopnea + CP (with min exertion) RESP: no SOB ? CABELLO vs CP or Both GI: no Nausea no Vomiting : no Dysuria occ Urgency HEME: no easy bruising no Palp Ly Nodes NEURO no Focal Weakness no Sz PSYCH: no Suicidal Ideation no Depression SKIN: no Rashes ENDO: no Polyuria or Polydipsia no Hot/Cold Intolerance MU SK: min Arthraigia no Myalgia Physical Exam Physical Exam General Appearance: Awake Alert Oriented x 3 In no obvious Distress Eyes: VIsion Unchanged Conjunctiva Normal EN: No EN Drainage Mucous Memb. moist Neck: no JVD min JVP Supple no Thyromegaly CVS: S1 S2 soft Murmur No Gallop No Rub no Edema Resp: no Rales no Rhonchi no Acc. Muscle use GI: BAS +ve NO Bruit Non Tender Non Distended : no CVA tenderness; no Suprapubic Tenderness SKIN: no Rashes Breast Exam deferred Mu.Sk: Adequate ROM no Muscle Atrophy Heme: Unable to palpate Obvious LAD no Splenomegaly NEURO: Good Strength and Tone Cranial Nerves II - XII grossly intact Psych: no Depressed no Active hallucination Vital Signs Vital Signs Date Time Temp Pulse Resp B/P (MAP) Pulse Ox O2 Delivery O2 Flow Rate FiO2 08/24/17 09:06 80 135/71 08/24/17 08:09 100 Nasal Cannula 3.0 08/24/17 07:00 97.5 19 97.5 Assessment & Plan CKD III: creat at or close to previous Basline - suspect HTnsive / NS; Current FLuid and E-lyte status does not necessitate emergent need for Dialysis. Will re-evaluate for Dialysis in am CAD with Angina on min exertion - LHC when planned per Dr Carlson - IVF and NAC as ordereed Anemia: margina - cehck Iron given MCV of 69 HTN: BP are well controlled on Current BP meds as reviewed. defer further management to Dr Carlson after LHC Discussed Plan of Care and prognosis etc. at length with pt Labs Labs Laboratory Tests Test 08/23/17 16:40 08/23/17 20:56 08/24/17 03:30 08/24/17 07:26 White Blood Count 8.7 x10^3/uL (4.0-11.0) Red Blood Count 5.49 x10^6/uL (4.30-5.70) Hemoglobin 12.2 g/dL (13.0-17.5) Hematocrit 37.9 % (39.0-53.0) Mean Corpuscular Volume 69 fL (79-100) Mean Corpuscular Hemoglobin 22 pg (25-35) Mean Corpuscular Hemoglobin Concent 32 g/dL (31-37) Red Cell Distribution Width 23.4 % (11.5-14.5) Platelet Count 287 x10^3/uL (140-400) Neutrophils (%) (Auto) 72 % (31-73) Lymphocytes (%) (Auto) 16 % (24-48) Monocytes (%) (Auto) 8 % (0-9) Eosinophils (%) (Auto) 4 % (0-3) Basophils (%) (Auto) 1 % (0-3) Neutrophils # (Auto) 6.3 x10^3uL (1.8-7.7) Lymphocytes # (Auto) 1.4 x10^3/uL (1.0-4.8) Monocytes # (Auto) 0.7 x10^3/uL (0.0-1.1) Eosinophils # (Auto) 0.3 x10^3/uL (0.0-0.7) Basophils # (Auto) 0.0 x10^3/uL (0.0-0.2) Platelet Estimate Adequate (ADEQUATE) Polychromasia Slight Hypochromasia Mod Poikilocytosis Mod Anisocytosis Mod Microcytosis Mod Target Cells Present Tear Drop Cells Present Ovalocytes Present Helmet Cells Present Schistocytes Few RBC Morphology Bizarre Forms Few Sodium Level 142 mmol/L (136-145) 141 mmol/L (136-145) Potassium Level 4.8 mmol/L (3.5-5.1) 4.3 mmol/L (3.5-5.1) Chloride Level 106 mmol/L (98-107) 108 mmol/L (98-107) Carbon Dioxide Level 30 mmol/L (21-32) 28 mmol/L (21-32) Anion Gap 6 (6-14) 5 (6-14) Blood Urea Nitrogen 28 mg/dL (8-26) 27 mg/dL (8-26) Creatinine 1.9 mg/dL (0.7-1.3) 1.8 mg/dL (0.7-1.3) Estimated GFR (Cockcroft-Gault) 41.8 44.5 Glucose Level 160 mg/dL (70-99) 120 mg/dL (70-99) Calcium Level 9.0 mg/dL (8.5-10.1) 8.5 mg/dL (8.5-10.1) Glucose (Fingerstick) 179 mg/dL (70-99) 119 mg/dL (70-99) Triglycerides Level 62 mg/dL (0-150) Cholesterol Level 91 mg/dL (0-200) LDL Cholesterol, Calculated 42 mg/dL (0-100) VLDL Cholesterol, Calculated 12 mg/dL (0-40) Non-HDL Cholesterol Calculated 54 mg/dL (0-129) HDL Cholesterol 37 mg/dL (40-60) Cholesterol/HDL Ratio 2.5 Laboratory Tests Test 08/23/17 16:40 08/23/17 20:56 08/24/17 03:30 08/24/17 07:26 White Blood Count 8.7 x10^3/uL (4.0-11.0) Red Blood Count 5.49 x10^6/uL (4.30-5.70) Hemoglobin 12.2 g/dL (13.0-17.5) Hematocrit 37.9 % (39.0-53.0) Mean Corpuscular Volume 69 fL (79-100) Mean Corpuscular Hemoglobin 22 pg (25-35) Mean Corpuscular Hemoglobin Concent 32 g/dL (31-37) Red Cell Distribution Width 23.4 % (11.5-14.5) Platelet Count 287 x10^3/uL (140-400) Neutrophils (%) (Auto) 72 % (31-73) Lymphocytes (%) (Auto) 16 % (24-48) Monocytes (%) (Auto) 8 % (0-9) Eosinophils (%) (Auto) 4 % (0-3) Basophils (%) (Auto) 1 % (0-3) Neutrophils # (Auto) 6.3 x10^3uL (1.8-7.7) Lymphocytes # (Auto) 1.4 x10^3/uL (1.0-4.8) Monocytes # (Auto) 0.7 x10^3/uL (0.0-1.1) Eosinophils # (Auto) 0.3 x10^3/uL (0.0-0.7) Basophils # (Auto) 0.0 x10^3/uL (0.0-0.2) Platelet Estimate Adequate (ADEQUATE) Polychromasia Slight Hypochromasia Mod Poikilocytosis Mod Anisocytosis Mod Microcytosis Mod Target Cells Present Tear Drop Cells Present Ovalocytes Present Helmet Cells Present Schistocytes Few RBC Morphology Bizarre Forms Few Sodium Level 142 mmol/L (136-145) 141 mmol/L (136-145) Potassium Level 4.8 mmol/L (3.5-5.1) 4.3 mmol/L (3.5-5.1) Chloride Level 106 mmol/L (98-107) 108 mmol/L (98-107) Carbon Dioxide Level 30 mmol/L (21-32) 28 mmol/L (21-32) Anion Gap 6 (6-14) 5 (6-14) Blood Urea Nitrogen 28 mg/dL (8-26) 27 mg/dL (8-26) Creatinine 1.9 mg/dL (0.7-1.3) 1.8 mg/dL (0.7-1.3) Estimated GFR (Cockcroft-Gault) 41.8 44.5 Glucose Level 160 mg/dL (70-99) 120 mg/dL (70-99) Calcium Level 9.0 mg/dL (8.5-10.1) 8.5 mg/dL (8.5-10.1) Glucose (Fingerstick) 179 mg/dL (70-99) 119 mg/dL (70-99) Triglycerides Level 62 mg/dL (0-150) Cholesterol Level 91 mg/dL (0-200) LDL Cholesterol, Calculated 42 mg/dL (0-100) VLDL Cholesterol, Calculated 12 mg/dL (0-40) Non-HDL Cholesterol Calculated 54 mg/dL (0-129) HDL Cholesterol 37 mg/dL (40-60) Cholesterol/HDL Ratio 2.5 Images Images The right kidney measures 11.2 x 5.3 x 5.7 cm. There are occasional renal cysts associated with the right kidney the largest measuring 3 cm in greatest dimension. The left kidney measures 12.1 x 4.8 x 5.2 cm. There are several left renal masses also compatible with cysts the largest measuring 4 cm. Both kidneys are echogenic suggesting medical renal disease. The urinary bladder appeared grossly normal. IMPRESSION: Bilateral renal cysts. KEDAR CURRY MD Aug 24, 2017 11:12
[2017-08-24] MEDS ORDERED: MAGNESIUM SULFATE 2GM 50 ML IV PRN (11:15)
[2017-08-24 11:54] LABS: % SAT IRON 16 % (15-34); IRON,SERUM 32 ug/dL (65-175)
--- NOTE | 2017-08-24 12:58 | PDOC ---
MODERATE SEDATION ASSESSMENT RISKS/ALTERNATIVES Risks/Alternatives Risks and alternatives of this type of sedation and procedure discussed with: RISK/ALTERNATIVES: Patient H & P ON CHART H & P H & P on chart and reviewed for co-morbid conditions and appropriate labs. H&P ON CHART: Yes STATUS PREG STATUS ASSESSED: Yes MEDS/ALLERGIES REVIEWED Meds/Allergies Reviewed Medications and Allergies including time and route of recently administered narcotics and sedatives. MEDS/ALLERGIES REVIEWED: Yes ASA RATING ASA RATING: II AIRWAY ASSESSMENT Airway Assessment Airway patency, oral function limitations, presence of caps, crowns, dentures, partials, and ability to extend neck assessed. AIRWAY ASSESSMENT: Yes MALLAMPATI SCORE MALLAMPATI SCORE: II PRE-SEDATION ASSESSMENT PRE-SEDATION ASSESSMENT: Yes WINSTON SEGOVIA MD Aug 24, 2017 12:58
--- NOTE | 2017-08-24 13:41 | CONS ---
DATE OF CONSULTATION: HISTORY OF PRESENT ILLNESS: The patient is a 76-year-old -[place] gentleman who used to be seen by Dr. Jose in the past and now follows with our practice, has not seen us in the recent past, though. He claims every time he has an appointment, he ends up in the hospital. He is known to have severe underlying COPD and is chronically short of breath at baseline. He, however, had noticed worsening chest pain with minimal exertion. He points to the front door and tells me he could barely get there without getting short of breath. In this setting, he was admitted to the hospital for further evaluation with considerations for left heart catheterization. He is noted to have CKD with a baseline creatinine of 1.8. He has been as high in the mid 2s in the past, also occasionally as high as in the 3s. For rest of the details, please see electronic records. KEDAR CURRY MD DR: JAMES/aaron JOB#: [id number] / [id number]
[2017-08-24] MEDS ORDERED: fentaNYL PF VIAL 100 MCG/2 ML VIAL IV ONE (13:45)
[2017-08-24] MEDS ORDERED: IODIXANOL 320 MG/ML 100 ML VIAL. IART ONE (13:45)
[2017-08-24] MEDS ORDERED: MIDAZOLAM HCL/PF 2 MG/2 ML VIAL. IV ONE (13:45)
[2017-08-24] MEDS ORDERED: LIDOCAINE 2% 20 ML VIAL. IJ ONE (13:45)
[2017-08-24] MEDS ORDERED: CONTRAST GIVEN MC PRN (14:00)
--- NOTE | 2017-08-24 17:49 | CARD ---
APPROVED REPORT Procedure(s) performed: moderate sedation: 26 minutes HISTORY The patient is a 76 year-old male with a history of : renal failure without dialysis, hypertension. INDICATION The indication(s) include : chest pain, abnormal ECG. CASE TECHNIQUE The patient was brought electively into the cardiac catheterization lab. A timeout was performed conf irming the patient's name, date of , procedure, and site of procedure. All necessary parties wer e wearing the appropriate personal protective equipment and radiation monitoring devices. After expla ining the risks and benefits of the procedure, informed consent was obtained.(See nursing notes for m edications administered). The right groin was sterilely prepped and draped. The right femoral groin w as infiltrated with 2% Lidocaine subcutaneous anesthesia. During this case, Fluoroscopy and low osmol ar contrast were used for imaging. A sheath was inserted into the right femoral artery without diffic ulty. Coronary angiography was performed using coronary diagnostic catheters. The left coronary syste m was accessed and visualized with a Diagnostic catheter. The right coronary system was accessed and visualized with a Diagnostic catheter. Pre-demployment femoral angiogram was performed . Closure pablo ce was deployed with a Angioseal without any complications. The patient tolerated the procedure well and there were no complications associated with the procedure. Coronary Angiography The patient's coronary anatomy is right dominant. The left main coronary artery is a large size vessel free of disease. The left main trifurcates to th e left anterior descending, circumflex, and ramus. The left anterior descending artery is a large size vessel with intimal irregularities and without si gnificant stenosis. The first diagonal branch is a medium size vessel with intimal irregularities and without significant stenosis. The second diagonal branch is a small size vessel with intimal irregul arities and without significant stenosis. The third diagonal branch is a small size vessel with intim al irregularities and without significant stenosis. The circumflex artery is a large size vessel with intimal irregularities and without significant sten osis. The first obtuse marginal branch is a medium size vessel with intimal irregularities and withou t significant stenosis. The second obtuse marginal branch is a medium size vessel with intimal irregu larities and without significant stenosis. The third obtuse marginal branch is a small size vessel wi th intimal irregularities and without significant stenosis. The ramus intermedius artery is a small size vessel free of disease. The right coronary artery is a large size vessel that courses in the normal fashion. it is aneurismat ically dilated There is a 60% stenosis in the distal segment. The right posterior descending artery i s a medium size vessel with intimal irregularities. There is a 40% stenosis in the proximal segment. The right posterolateral branch is a small size vessel free of disease. 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 There is mild CAD. Further work up and treatment as per Dr Carlson Recommendations Medical Therapy
[2017-08-24] MEDS ORDERED: HYDROcodone/APAP 5/325MG 1 TAB TABLET PO PRN (19:30)
[2017-08-24] MEDS ORDERED: MAGNESIUM HYDROXIDE 2,400 MG/30 ML ORAL.SUSP. PO PRN (20:15)
--- NOTE | 2017-08-24 20:18 | PDOC ---
Provider Note Provider Note Chest pain suggestive of angina. CAD with no significant obstruction to warrant percutaneous intervention. H/O COPD.Consult pulmonary NABIL WARREN MD Aug 24, 2017 20:18
[2017-08-24] MEDS ORDERED: INSULIN DETEMIR 300 UNITS/3 ML INSULN.PEN. SQ SCH (21:00)
[2017-08-24] MEDS: DOCUSATE SODIUM 100 MG CAPSULE. PO SCH (21:12)
[2017-08-24] MEDS: ATORVASTATIN CALCIUM 10 MG TABLET. PO SCH (21:12)
[2017-08-25 03:25] VITALS: BP 119/66
[2017-08-25 06:33] LABS: ALBUMIN 2.2 g/dL (3.4-5.0); CALCIUM 8.2 mg/dL (8.5-10.1); CREATININE 1.8 mg/dL (0.7-1.3); GFR 44.5; PHOSPHORUS 4.4 mg/dL (2.6-4.7); POTASSIUM 4.8 mmol/L (3.5-5.1)
[2017-08-25 07:28] VITALS: BP 132/81
[2017-08-25] MEDS: INSULIN ASPART 300 UNITS/3 ML INSULN.PEN SQ SCH ×3 (07:30→16:30)
[2017-08-25] MEDS: ALBUTEROL SULFATE 2.5 MG/3 ML NEBU. NEB SCH ×3 (08:00→15:42)
[2017-08-25] MEDS: BUDESONIDE 0.5 MG/2 ML NEBU. NEB SCH (08:01)
[2017-08-25] MEDS: ACETYLCYSTEINE 20% ORAL SOLN 600 MG/3 ML SYRINGE. PO SCH (09:27)
[2017-08-25] MEDS: ASPIRIN 325 MG TABLET PO SCH (09:27)
[2017-08-25] MEDS: DUTASTERIDE 0.5 MG CAPSULE PO SCH (09:27)
[2017-08-25] MEDS: DOCUSATE SODIUM 100 MG CAPSULE. PO SCH (09:27)
[2017-08-25] MEDS: VERAPAMIL SR 180 MG TABLET.ER. PO SCH (09:28)
[2017-08-25] MEDS: FOLIC ACID 1 MG TABLET. PO SCH (09:28)
[2017-08-25] MEDS: IV NORMAL SALINE 1000ML BAG 1,000 ML IV SCH (09:45)
[2017-08-25 10:07] VITALS: BP 149/69
--- NOTE | 2017-08-25 11:46 | PDOC ---
SUBJECTIVE ROS CKD III/ CP Doing better, Now s/p LHC - still SOB CVS: no Orthopnea, no CP RESP: + SOB, + CABELLO GI: no Nausea, no Vomiting : no Dysuria, no Urgency OBJECTIVE Vital Signs Vital Signs Date Time Temp Pulse Resp B/P (MAP) Pulse Ox O2 Delivery O2 Flow Rate FiO2 08/25/17 11:15 Nasal Cannula 3.0 08/25/17 10:07 98.0 85 20 149/69 (95) 97 98.0 I & 0 Intake and Output 08/26/17 07:00 Intake Total 720 ml Output Total 400 ml Balance 320 ml Intake Oral 720 ml Output Urine Total 400 ml PHYSICAL EXAM Physical Exam General Appearance: Awake Alert Oriented x 3 In no obvious Distress Eyes: VIsion Unchanged Conjunctiva Normal EN: No EN Drainage Mucous Memb. moist Neck: no JVD min JVP Supple no Thyromegaly CVS: S1 S2 soft Murmur No Gallop No Rub no Edema Resp: no Rales no Rhonchi no Acc. Muscle use GI: BAS +ve NO Bruit Non Tender Non Distended : no CVA tenderness; no Suprapubic Tenderness Assessment & Plan: CKD III: creat at or close to previous Basline - suspect HTnsive / NS; Current FLuid and E-lyte status does not necessitate emergent need for Dialysis. If felt to have a component of pulm edema - lasix can be ^ed and we can accept creat of 2.0 -2.2 based on likelihood of progression of CKD. CAD with Angina on min exertion (now resolved) - LHC noted - IVF and NAC as done Fe def Anemia: PO + IV Iron (as OP) given MCV of 69 - PCP to update Colonoscopy HTN: BP are well controlled on Current BP meds as reviewed. defer further management to Dr Carlson Discussed Plan of Care and prognosis etc. at length with pt F/up with us in 4-6 weeks COMMENT/RELEVANT DATA Meds Current Medications Medications (Trade) Dose Ordered Sig/Lindsay Start Time Stop Time Status Last Admin Dose Admin Acetaminophen/ Hydrocodone Bitart (Lortab 5/325) 1 tab PRN Q4HRS PRN 08/24/17 19:30 08/24/17 23:17 1 TAB Acetylcysteine (Mucomyst 20% Oral Solution) 1,200 mg BID 08/24/17 21:00 08/26/17 20:59 08/25/17 09:27 1,200 MG Albuterol Sulfate (Ventolin Neb Soln) 2.5 mg RTQID 08/23/17 20:00 08/25/17 11:14 2.5 MG Aspirin (Gagan Aspirin) 325 mg [id number] 08/24/17 08:00 08/25/17 09:27 325 MG Atorvastatin Calcium (Lipitor) 10 mg QHS 08/23/17 21:00 08/24/17 21:12 10 MG Budesonide (Pulmicort) 0.5 mg RTBID 08/23/17 20:00 08/25/17 08:01 0.5 MG Docusate Sodium (Colace) 100 mg DAILY 08/24/17 21:00 08/25/17 09:27 100 MG Dutasteride (Avodart) 0.5 mg DAILY 08/24/17 09:00 08/25/17 09:27 0.5 MG Fentanyl Citrate (Fentanyl 2ml Vial) 100 mcg 1X ONCE 08/24/17 13:45 08/24/17 13:47 DC 08/24/17 13:58 75 MCG Folic Acid (Folic Acid) 1 mg DAILY 08/24/17 09:00 08/25/17 09:28 1 MG Heparin Sodium/ Sodium Chloride 1,000 unit 1X ONCE 08/24/17 13:45 08/24/17 13:47 DC 08/24/17 13:57 1,000 UNIT Hydralazine HCl (Apresoline) 50 mg [id number] 08/23/17 19:30 08/25/17 06:04 50 MG Info (Do NOT chart on this entry -- for MONITORING) 1 each PRN DAILY PRN 08/24/17 14:00 08/26/17 13:59 Insulin Aspart (NovoLOG) 10 units TIDAC 08/24/17 07:30 Insulin Detemir (Levemir) 18 units QHS 08/24/17 21:00 08/24/17 21:21 18 UNITS Iodixanol (Visipaque 320) 100 ml 1X ONCE 08/24/17 13:45 08/24/17 13:47 DC 08/24/17 13:57 60 ML Lidocaine HCl 20 ml 1X ONCE 08/24/17 13:45 08/24/17 13:47 DC 08/24/17 13:57 18 ML Magnesium Hydroxide (Milk Of Magnesia) 2,400 mg PRN DAILY PRN 08/24/17 20:15 Magnesium Sulfate/ Dextrose 50 ml @ 25 mls/hr PRN DAILY PRN 08/24/17 11:15 Midazolam HCl (Versed) 2 mg 1X ONCE 08/24/17 13:45 08/24/17 13:47 DC 08/24/17 13:58 2 MG Sodium Chloride 1,000 ml @ 75 mls/hr [id number] 08/23/17 18:30 08/25/17 09:45 75 MLS/HR Verapamil HCl (Calan Sr) 360 mg DAILY 08/24/17 09:00 08/25/17 09:28 360 MG Zolpidem Tartrate (Ambien) 5 mg PRN QHS PRN 08/23/17 18:30 08/24/17 21:12 5 MG Lab Laboratory Tests Test 08/24/17 11:43 08/24/17 16:28 08/24/17 20:43 08/25/17 05:25 Glucose (Fingerstick) 147 mg/dL (70-99) 177 mg/dL (70-99) 147 mg/dL (70-99) Hemoglobin 9.6 g/dL (13.0-17.5) Sodium Level 143 mmol/L (136-145) Potassium Level 4.8 mmol/L (3.5-5.1) Chloride Level 110 mmol/L (98-107) Carbon Dioxide Level 28 mmol/L (21-32) Anion Gap 5 (6-14) Blood Urea Nitrogen 23 mg/dL (8-26) Creatinine 1.8 mg/dL (0.7-1.3) Estimated GFR (Cockcroft-Gault) 44.5 Glucose Level 91 mg/dL (70-99) Calcium Level 8.2 mg/dL (8.5-10.1) Phosphorus Level 4.4 mg/dL (2.6-4.7) Magnesium Level 1.8 mg/dL (1.8-2.4) Albumin 2.2 g/dL (3.4-5.0) Test 08/25/17 07:30 Glucose (Fingerstick) 74 mg/dL (70-99) KEDAR CURRY MD Aug 25, 2017 11:46
[2017-08-25] MEDS ORDERED: DOCUSATE SODIUM 100 MG CAPSULE. PO SCH (12:00)
[2017-08-25 14:16] VITALS: BP 105/65
[2017-08-25] MEDS ORDERED: FERROUS SULFATE 325 MG TABLET. PO SCH (17:00)
[2017-08-25] MEDS ORDERED: ALPR0.5T PO (17:25)
[2017-08-25] MEDS ORDERED: TIOT18CA IH (17:26)
[2017-08-25 17:48] VITALS: BP 105/65
--- NOTE | 2017-08-25 20:00 | CONS ---
DATE OF CONSULTATION: 08/25/2017 ATTENDING PHYSICIAN: Dr. Carlson. REASON FOR CONSULTATION: The patient is seen in pulmonary consultation at the request of Dr. Carlson for shortness of breath, chest pain. HISTORY OF PRESENT ILLNESS: The patient is a 76-year-old male who has been experiencing some increasing shortness of breath. He states that when he starts to exert himself, he starts to get even more short of breath and then starts to experience some chest pain across his chest. He was admitted and underwent coronary angiogram. There was mild coronary artery disease. It was recommended that he undergo medical treatment. I was asked to see him prior to his discharge for further evaluation and management. The patient does have oxygen at home, but he does not use it on a regular basis. He also has inhalers that he is not using on a regular basis. He denies fever, chills or night sweats. He is currently not producing any mucus. No hemoptysis. PAST MEDICAL HISTORY: Remarkable for hypertension, chronic respiratory failure, chronic obstructive pulmonary disease, pneumonia, rheumatoid arthritis, herpes zoster, chronic renal insufficiency, diabetes. PAST SURGICAL HISTORY: Status post colon resection, hernia repair. FAMILY HISTORY: Noncontributory in this case. SOCIAL HISTORY: He quit tobacco many years ago, has a [id number] history of tobacco use. REVIEW OF SYSTEMS: As indicated above, otherwise a 10-point system was reviewed and negative. ALLERGIES: No known drug allergies. CURRENT MEDICATIONS: List was reviewed. Please see the MRAD. PHYSICAL EXAMINATION: VITAL SIGNS: The patient was in no respiratory distress, currently on 2 L of oxygen supplementation, saturation was greater than 92%. HEENT: Eyes, the sclerae were nonicteric. NECK: Jugular venous distention was not elevated. No lymphadenopathy. CHEST: Full expansion. LUNGS: Poor airway flow with no wheezes, rales or rhonchi. CARDIOVASCULAR: Regular rate and rhythm with S1, S2, no S3. ABDOMEN: Soft, nontender, nondistended. EXTREMITIES: No clubbing, cyanosis or edema. NEUROLOGIC: The patient was awake, alert, following commands. A detailed neuro exam was not performed. LABORATORY DATA: Reviewed. White count was normal. Hemoglobin and hematocrit were noted. Electrolytes were noted. Albumin was low. Chest x-ray reviewed, there was some basilar atelectasis. IMPRESSION: 1. Chronic respiratory failure. 2. Chest pain, suspect related to the patient's underlying emphysema with hyperinflation doing exercise, the patient is not using inhalers and does not wear his oxygen. 3. Coronary artery disease, needs medical treatment. 4. Mild protein malnutrition present upon admission. 5. Chronic obstructive pulmonary disease. 6. History of tobacco dependence. PLAN: 1. Discharge on Spiriva Respimat 2.5 mcg 2 puffs daily. 2. Anxiety is certainly a component to the patient's dyspnea. Prescription written for Xanax 0.5 one p.o. b.i.d., dispensed 60 with 1 refill. 3. Continue oxygen supplementation, the patient instructed on the importance of oxygen supplementation on a regular basis. 4. Follow up in my office in September, he already has a scheduled appointment. At that time, I may consider obtaining a CT of the chest for cancer surveillance. I do appreciate the privilege in sharing in the patient's care. SAMANTA RODARTE MD DR: LASHONDA/aaron JOB#: [id number] / [id number] KULDIP Velazquez
--- NOTE | 2017-08-25 21:51 | DS ---
DATE OF DISCHARGE: 08/25/2017 HOSPITAL COURSE: This is a 76-year-old black male who was seen in the office complaining of chest discomfort with exertion. It always occurred with exertion and was relieved at rest. He has had known coronary artery disease. Because of this, it was decided to proceed with coronary arteriograms. He has chronic kidney disease stage 3. He was thus hospitalized the previous day and was given normal saline and acetylcysteine. He was seen in consultation by Dr. Sotelo, the professor of communication. His creatinine on admission was 1.8 and the next morning it was again 1.8. He underwent coronary arteriograms by Dr. Gibbs. There were areas of 50-60% obstruction, but none of them were severe enough to warrant percutaneous intervention. Thus, none was carried out. An LV gram was not done to conserve iodine. He had had echocardiogram in the office on 08/21/2017, which showed an ejection fraction of 60%. The IV fluids were continued that day and the next morning his creatinine was 1.8. Because he had no significant coronary artery disease and because he gave a history of chronic obstructive pulmonary disease with shortness of breath with exertion, he was seen in consultation by Dr. Mulligan. Dr. Mulligan stated that he has oxygen at home, but he does not use it on a regular basis. In fact, when he came into the office he did not come in with his oxygen on. He stopped smoking many years ago, but has a [id number] history of smoking. NABIL WARREN MD DR: CLEO/aaron JOB#: [id number] / [id number]
== END 2017-08-25 18:55 | disposition home or self-care (01) | DRG 287 ==
LOC: 2 NORTH 15:22 → OBSVTOIN 18:39
PROVIDERS: ADMIT Specialist; ATTEND Specialist
PROC: 4A023N7 Measurement of Cardiac Sampling and Pressure, Left Heart, Percutaneous Approach (ICD-10-PCS; principal; 2017-08-24)
PROC: B2111ZZ Fluoroscopy of Multiple Coronary Arteries using Low Osmolar Contrast (ICD-10-PCS; 2017-08-24)
DX: I25.119 Atherosclerotic heart disease of native coronary artery with unspecified angina pectoris (principal); J96.10 Chronic respiratory failure, unspecified whether with hypoxia or hypercapnia; E11.22 Type 2 diabetes mellitus with diabetic chronic kidney disease; E44.1 Mild protein-calorie malnutrition; J44.9 Chronic obstructive pulmonary disease, unspecified; E78.5 Hyperlipidemia, unspecified; I12.9 Hypertensive chronic kidney disease with stage 1 through stage 4 chronic kidney disease, or unspecified chronic kidney disease; M06.9 Rheumatoid arthritis, unspecified; N18.3 Chronic kidney disease, stage 3 (moderate); D50.9 Iron deficiency anemia, unspecified; M19.90 Unspecified osteoarthritis, unspecified site; N40.0 Benign prostatic hyperplasia without lower urinary tract symptoms; F41.9 Anxiety disorder, unspecified; Z80.0 Family history of malignant neoplasm of digestive organs; Z82.5 Family history of asthma and other chronic lower respiratory diseases; Z83.79 Family history of other diseases of the digestive system; Z85.038 Personal history of other malignant neoplasm of large intestine; Z87.891 Personal history of nicotine dependence; Z90.49 Acquired absence of other specified parts of digestive tract; Z99.81 Dependence on supplemental oxygen
CPT/HCPCS: 36415; 71020; 80048; 80061; 80069; 82728; 82962; 83036; 83540; 83550; 83735; 85018; 85025; 85045; 93005; 93454; 94250; 94620; 94640; 94760; 99152; 99153; C1769; C1771; C1892; G0269; G0378; G0379; J1644; J1815; J2250; J3010; J7030; J7613; J7626; J2001

== ENCOUNTER → 2017-10-30 | Outpatient (CLI) | payer MEDICARE, BC ==
[~2017-10-30] MED LIST changes: +ALPR0.5T PO; +INSU100V13 SQ; +TIOT18CA IH
--- NOTE | 2017-10-30 11:26 | RAD ---
CT scan of the chest without contrast to include high-resolution images 10/30/2017 Clinical history: Shortness of breath. Basilar infiltrates. Interstitial lung disease. Technique: Unenhanced, contiguous, 5 mm axial sections were obtained through the abdomen and pelvis. Noncontiguous, high-resolution 1 mm axial sections were obtained through the chest post inspiration supine and prone position. 1 mm axial high-resolution sections were obtained through the chest during expiration. One or more of the following individualized dose reduction techniques were utilized for this study: 1. Automated exposure control. 2. Adjustment of the mA and/or kV according to patient size. 3. Use of iterative reconstruction technique. Findings: Comparison is made to patient's CT scan of the chest dated 12/31/2015. Atherosclerotic calcification of the thoracic aorta and its branches is seen. The thoracic aorta is tortuous but tapers normally. Coronary artery calcifications are seen. The heart is mildly enlarged. Enlarged mediastinal lymph nodes are seen which measure 1 to 2.3 cm in size. These have increased in size since the previous examination where they measured 5 mm to 1.8 cm in size. A 1.8 cm slightly lobulated mass is seen involving the medial aspect of the left upper lobe near the left hilum which is new since the previous examination. This is concerning for bronchogenic carcinoma. High-resolution images demonstrate mild to moderate emphysematous changes involving both lungs. Peripheral reticular opacities are seen involving both lower lobes. Mild bronchiectasis is noted. Small areas of honeycombing are seen involving both lower lobes. 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 No area of consolidation is noted. No pneumothorax or pleural effusion is seen. No area of airtrapping is noted. Images through the upper abdomen demonstrate the adrenal glands to be within normal limits. Atherosclerotic calcification of the abdominal aorta is seen. Degenerative changes are seen involving the thoracic spine. Impression: 1. 1.8 cm mass is seen involving the left upper lobe which is new since the previous examination. This is concerning for bronchogenic carcinoma. 2. Interval increase in the size of the enlarged mediastinal lymph nodes since the previous study. 3. Findings are seen consistent with UIP, unchanged.
== END | disposition home or self-care (01) ==
LOC: CT 08:51
PROVIDERS: ATTEND Internal Medicine Pulmonary Disease
DX: C34.12 Malignant neoplasm of upper lobe, left bronchus or lung (principal); J84.10 Pulmonary fibrosis, unspecified; I70.0 Atherosclerosis of aorta; J47.9 Bronchiectasis, uncomplicated
CPT/HCPCS: 71250

== ENCOUNTER 2018-01-01 11:20 | Inpatient (IN) | payer MEDICARE, BC ==
[2018-01-01 12:29] LABS: ADD MAN DIFF? NO
[2018-01-01 12:32] LABS: BASO # 0.1 x10^3/uL (0.0-0.2); BASO % 1 % (0-3); EOS # 0.5 x10^3/uL (0.0-0.7); EOS % 10 % (0-3); HEMATOCRIT 30.3 % (39.0-53.0); HEMOGLOBIN 9.7 g/dL (13.0-17.5); LYMPH # 1.2 x10^3/uL (1.0-4.8); LYMPH % 23 % (24-48); MEAN CORPUSCULAR HEMOGLOBIN 23 pg (25-35); MEAN CORPUSCULAR HGB CONC 32 g/dL (31-37); MEAN CORPUSCULAR VOLUME 71 fL (79-100); MONO # 0.5 x10^3/uL (0.0-1.1); MONO % 10 % (0-9); NEUT # 2.9 x10^3uL (1.8-7.7); NEUT % 56 % (31-73); PLATELET COUNT 180 x10^3/uL (140-400); RED CELL DISTRIBUTION WIDTH 26.7 % (11.5-14.5); WHITE BLOOD COUNT 5.2 x10^3/uL (4.0-11.0)
[2018-01-01 12:39] LABS: ANION GAP 7 (6-14); BLOOD UREA NITROGEN 33 mg/dL (8-26); BUN/CREATININE RATIO 12 (6-20); CALCIUM 7.7 mg/dL (8.5-10.1); CARBON DIOXIDE 30 mmol/L (21-32); CHLORIDE 106 mmol/L (98-107); CREATININE 2.7 mg/dL (0.7-1.3); GFR 27.8; GLUCOSE 79 mg/dL (70-99); POTASSIUM 3.4 mmol/L (3.5-5.1); SODIUM 143 mmol/L (136-145)
[2018-01-01 12:41] LABS: BILIRUBIN,URINE NEGATIVE (NEG); CLARITY,URINE CLEAR; COLOR,URINE YELLOW; GLUCOSE,URINE NEGATIVE (NEG); NITRITE,URINE NEGATIVE (NEG); PH,URINE 6.5; PROTEIN,URINE >=300 mg/dL (NEG-TRACE)
[2018-01-01 12:45] LABS: ALBUMIN 2.4 g/dL (3.4-5.0); ALBUMIN/GLOBULIN RATIO 0.6 (1.0-1.7); ALK PHOS 91 U/L (46-116); ALT (SGPT) 18 U/L (16-63); AST (SGOT) 30 U/L (15-37); TOTAL BILIRUBIN 0.6 mg/dL (0.2-1.0); TOTAL PROTEIN 6.5 g/dL (6.4-8.2)
[2018-01-01 12:46] LABS: TROPONINI 0.021 ng/mL (0.000-0.055)
[2018-01-01 12:50] LABS: BACTERIA,URINE 0 /HPF (0-FEW); HYALINE CASTS, URINE OCCASIONAL /HPF
[2018-01-01 12:54] LABS: CKMB INDEX 0.9 % (0-4); CKMB MASS 3.1 ng/mL (0.0-3.6); CREATINE KINASE 329 U/L (39-308)
[2018-01-01 12:54] LABS: NT-PRO BNP 5720 pg/mL (0-449)
[2018-01-01 13:10] LABS: ANISOCYTOSIS MOD; PLT ESTIMATE ADEQUATE (ADEQUATE); POLYCHROMASIA SLIGHT
[2018-01-01 13:11] LABS: BIZZARE CELLS FEW; POIKILOCYTOSIS SLIGHT; SCHISTOCYTES FEW
[2018-01-01] MEDS ORDERED: IV NORMAL SALINE 1000ML BAG 1,000 ML IV (14:09)
[2018-01-01] MEDS ORDERED: ONDANSETRON PF 4 MG/2 ML VIAL. IV (14:15)
[2018-01-01 14:36] LABS: INFLUENZA B PATIENT POSITIVE (NEGATIVE); OBC FLU VALID
[2018-01-01 14:37] LABS: INFLUENZA A PATIENT POSITIVE (NEGATIVE)
[2018-01-01] MEDS: hydrALAZINE 20 MG/ML VIAL. IVP (14:37)
[2018-01-01] MEDS: ASPIRIN ENTERIC COATED 81 MG TABLET.DR. PO (15:30)
[2018-01-01] MEDS ORDERED: MAGNESIUM SULFATE 2GM 50 ML IV (15:30)
[2018-01-01 15:31] LABS: THYROID STIM HORMONE (TSH) 2.442 uIU/mL (0.358-3.74)
[2018-01-01 15:56] LABS: RETIC COUNT 1.3 % (0.5-2.5)
[2018-01-01 15:59] LABS: % SAT IRON 35 % (15-34); IRON,SERUM 74 ug/dL (65-175)
[2018-01-01] MEDS: IPRATRPIUM/ALBUTEROL 0.5/2.5MG 3 ML NEBU. NEB ×2 (16:00→20:41)
[2018-01-01 16:10] LABS: FERRITIN 367 ng/mL (26-388)
[2018-01-01] MEDS: amLODIPine BESYLATE 10 MG TABLET PO (16:43)
[2018-01-01] MEDS: CARVEDILOL 12.5 MG TABLET. PO (16:43)
[2018-01-01] MEDS: FUROSEMIDE 40 MG/4 ML VIAL. IVP (16:44)
[2018-01-01] MEDS: POTASSIUM CHLORIDE 20 MEQ TABLET.ER. PO (16:44)
[2018-01-01 17:14] LABS: POC GLUCOSE 75 mg/dL (70-99)
[2018-01-01] MEDS: INSULIN DETEMIR 300 UNITS/3 ML INSULN.PEN. SQ (21:00)
[2018-01-01] MEDS: OSELTAMIVIR 30 MG CAPSULE PO (21:10)
[2018-01-01] MEDS: ACETAMINOPHEN 325 MG TABLET. PO (21:10)
[2018-01-01] MEDS: SIMVASTATIN 20 MG TABLET PO (21:10)
[2018-01-01 21:16] LABS: POC GLUCOSE 113 mg/dL (70-99)
[2018-01-01] MEDS: ZOLPIDEM 5 MG TABLET. PO (23:07)
[2018-01-02 02:14] LABS: TOTAL PROTEIN CREATININE RATIO 8599 mg/g creat (0-200); UR CREATININE RD 24.2 mg/dL (Not Estab.); UR PROTEIN RD 208.1 mg/dL (Not Estab.)
[2018-01-02 04:47] LABS: ADD MAN DIFF? NO
[2018-01-02 05:03] LABS: BASO % 1 % (0-3); EOS # 0.5 x10^3/uL (0.0-0.7); EOS % 12 % (0-3); HEMOGLOBIN 8.7 g/dL (13.0-17.5); LYMPH # 1.2 x10^3/uL (1.0-4.8); LYMPH % 30 % (24-48); MEAN CORPUSCULAR HEMOGLOBIN 23 pg (25-35); MEAN CORPUSCULAR HGB CONC 32 g/dL (31-37); MEAN CORPUSCULAR VOLUME 71 fL (79-100); MONO # 0.4 x10^3/uL (0.0-1.1); MONO % 11 % (0-9); NEUT # 1.8 x10^3uL (1.8-7.7); NEUT % 46 % (31-73); PLATELET COUNT 121 x10^3/uL (140-400); RED BLOOD COUNT 3.81 x10^6/uL (4.30-5.70); RED CELL DISTRIBUTION WIDTH 25.6 % (11.5-14.5); WHITE BLOOD COUNT 3.9 x10^3/uL (4.0-11.0)
[2018-01-02 05:26] LABS: ANION GAP 5 (6-14); BLOOD UREA NITROGEN 33 mg/dL (8-26); CALCIUM 7.4 mg/dL (8.5-10.1); CARBON DIOXIDE 31 mmol/L (21-32); CHLORIDE 108 mmol/L (98-107); CREATININE 2.6 mg/dL (0.7-1.3); GLUCOSE 101 mg/dL (70-99); PHOSPHORUS 3.5 mg/dL (2.6-4.7); POTASSIUM 3.7 mmol/L (3.5-5.1); SODIUM 144 mmol/L (136-145)
[2018-01-02 05:28] LABS: MAGNESIUM 1.2 mg/dL (1.8-2.4)
[2018-01-02 05:33] LABS: CHOLESTEROL 144 mg/dL (0-200); CHOLESTEROL/HDL RATIO 2.4; HDLC 61 mg/dL (40-60); LDLC 64 mg/dL (0-100); NON-HDL CHOLESTEROL 83 mg/dL (0-129); TRIGLYCERIDES 94 mg/dL (0-150); VLDLC 19 mg/dL (0-40)
[2018-01-02] MEDS: INSULIN ASPART 300 UNITS/3 ML INSULN.PEN SQ ×3 (07:30→16:30)
[2018-01-02] MEDS: ASPIRIN ENTERIC COATED 81 MG TABLET.DR. PO (08:33)
[2018-01-02] MEDS: FUROSEMIDE 40 MG/4 ML VIAL. IVP (08:33)
[2018-01-02] MEDS: CARVEDILOL 12.5 MG TABLET. PO ×2 (08:33→17:31)
[2018-01-02] MEDS: amLODIPine BESYLATE 10 MG TABLET PO (08:33)
[2018-01-02] MEDS: OSELTAMIVIR 30 MG CAPSULE PO ×2 (08:33→21:15)
[2018-01-02 08:41] LABS: POC GLUCOSE 78 mg/dL (70-99)
[2018-01-02] MEDS: IPRATRPIUM/ALBUTEROL 0.5/2.5MG 3 ML NEBU. NEB ×4 (09:23→20:51)
[2018-01-02] MEDS: MAGNESIUM SULFATE 4GM 100 ML IV (12:04)
[2018-01-02] MEDS: ISOSORBIDE MONONITRATE ER 30 MG TAB.ER.24H PO (12:07)
[2018-01-02 12:21] LABS: POC GLUCOSE 142 mg/dL (70-99)
[2018-01-02] MEDS: LOSARTAN POTASSIUM 50 MG TABLET. PO (13:36)
[2018-01-02 17:35] LABS: POC GLUCOSE 131 mg/dL (70-99)
[2018-01-02] MEDS: SIMVASTATIN 20 MG TABLET PO (21:15)
[2018-01-02] MEDS: INSULIN DETEMIR 300 UNITS/3 ML INSULN.PEN. SQ (21:20)
[2018-01-02 21:23] LABS: POC GLUCOSE 143 mg/dL (70-99)
[2018-01-02] MEDS: ZOLPIDEM 5 MG TABLET. PO (23:34)
[2018-01-03 06:24] LABS: ALBUMIN 2.1 g/dL (3.4-5.0); ANION GAP 7 (6-14); BLOOD UREA NITROGEN 36 mg/dL (8-26); CALCIUM 7.9 mg/dL (8.5-10.1); CARBON DIOXIDE 30 mmol/L (21-32); CHLORIDE 105 mmol/L (98-107); GFR 24.6; GLUCOSE 112 mg/dL (70-99); PHOSPHORUS 3.5 mg/dL (2.6-4.7); POTASSIUM 3.5 mmol/L (3.5-5.1); SODIUM 142 mmol/L (136-145)
[2018-01-03 06:27] LABS: MAGNESIUM 1.9 mg/dL (1.8-2.4)
[2018-01-03] MEDS: INSULIN ASPART 300 UNITS/3 ML INSULN.PEN SQ ×3 (07:30→16:30)
[2018-01-03 07:38] LABS: POC GLUCOSE 89 mg/dL (70-99)
[2018-01-03] MEDS: IPRATRPIUM/ALBUTEROL 0.5/2.5MG 3 ML NEBU. NEB ×4 (07:39→18:30)
[2018-01-03] MEDS: amLODIPine BESYLATE 10 MG TABLET PO (08:28)
[2018-01-03] MEDS: ASPIRIN ENTERIC COATED 81 MG TABLET.DR. PO (08:29)
[2018-01-03] MEDS: OSELTAMIVIR 30 MG CAPSULE PO ×2 (08:29→20:58)
[2018-01-03] MEDS: LOSARTAN POTASSIUM 50 MG TABLET. PO (08:29)
[2018-01-03] MEDS: metOLazone 2.5 MG TABLET PO (08:29)
[2018-01-03] MEDS: CARVEDILOL 12.5 MG TABLET. PO ×2 (08:30→17:13)
[2018-01-03] MEDS: FUROSEMIDE 40 MG/4 ML VIAL. IVP (08:30)
[2018-01-03] MEDS: ISOSORBIDE MONONITRATE ER 30 MG TAB.ER.24H PO (08:30)
[2018-01-03 11:34] LABS: POC GLUCOSE 127 mg/dL (70-99)
[2018-01-03 16:41] LABS: POC GLUCOSE 118 mg/dL (70-99)
[2018-01-03] MEDS: SIMVASTATIN 20 MG TABLET PO (20:59)
[2018-01-03] MEDS: INSULIN DETEMIR 300 UNITS/3 ML INSULN.PEN. SQ (21:07)
[2018-01-03 21:30] LABS: POC GLUCOSE 162 mg/dL (70-99)
[2018-01-03] MEDS: ZOLPIDEM 5 MG TABLET. PO (23:05)
[2018-01-03] MEDS: LABETALOL 20 MG/4 ML DISP.SYRIN. IVP (23:13)
[2018-01-04 05:37] LABS: ALBUMIN 2.1 g/dL (3.4-5.0); BLOOD UREA NITROGEN 36 mg/dL (8-26); CALCIUM 8.2 mg/dL (8.5-10.1); CHLORIDE 102 mmol/L (98-107); CREATININE 2.9 mg/dL (0.7-1.3); GFR 25.6; GLUCOSE 105 mg/dL (70-99); POTASSIUM 3.4 mmol/L (3.5-5.1); SODIUM 139 mmol/L (136-145)
[2018-01-04 05:38] LABS: ANION GAP 7 (6-14); CARBON DIOXIDE 30 mmol/L (21-32); MAGNESIUM 1.7 mg/dL (1.8-2.4); PHOSPHORUS 3.7 mg/dL (2.6-4.7)
[2018-01-04 07:26] LABS: POC GLUCOSE 108 mg/dL (70-99)
[2018-01-04] MEDS: INSULIN ASPART 300 UNITS/3 ML INSULN.PEN SQ ×3 (07:30→16:30)
[2018-01-04] MEDS: IPRATRPIUM/ALBUTEROL 0.5/2.5MG 3 ML NEBU. NEB ×4 (07:45→20:38)
[2018-01-04] MEDS: FUROSEMIDE 40 MG/4 ML VIAL. IVP (08:35)
[2018-01-04] MEDS: OSELTAMIVIR 30 MG CAPSULE PO ×2 (08:36→21:00)
[2018-01-04] MEDS: CARVEDILOL 12.5 MG TABLET. PO ×2 (08:36→17:47)
[2018-01-04] MEDS: ISOSORBIDE MONONITRATE ER 30 MG TAB.ER.24H PO (08:36)
[2018-01-04] MEDS: LOSARTAN POTASSIUM 50 MG TABLET. PO (08:37)
[2018-01-04] MEDS: ASPIRIN ENTERIC COATED 81 MG TABLET.DR. PO (08:37)
[2018-01-04] MEDS: metOLazone 2.5 MG TABLET PO (08:38)
[2018-01-04] MEDS: amLODIPine BESYLATE 10 MG TABLET PO (08:38)
[2018-01-04 11:20] LABS: POC GLUCOSE 126 mg/dL (70-99)
[2018-01-04] MEDS: POTASSIUM CHLORIDE 20 MEQ TABLET.ER. PO (13:12)
[2018-01-04 15:26] LABS: MAGNESIUM 1.7 mg/dL (1.8-2.4)
[2018-01-04 17:02] LABS: POC GLUCOSE 133 mg/dL (70-99)
[2018-01-04] MEDS: MAGNESIUM SULFATE 2GM 50 ML IV (19:40)
[2018-01-04 20:18] LABS: POC GLUCOSE 167 mg/dL (70-99)
[2018-01-04] MEDS: SIMVASTATIN 20 MG TABLET PO (21:00)
[2018-01-04] MEDS: INSULIN DETEMIR 300 UNITS/3 ML INSULN.PEN. SQ (21:04)
[2018-01-04] MEDS: ZOLPIDEM 5 MG TABLET. PO (23:04)
[2018-01-05 07:30] LABS: ALBUMIN 2.3 g/dL (3.4-5.0); ANION GAP 2 (6-14); BLOOD UREA NITROGEN 37 mg/dL (8-26); CALCIUM 8.2 mg/dL (8.5-10.1); CARBON DIOXIDE 35 mmol/L (21-32); CHLORIDE 104 mmol/L (98-107); CREATININE 2.8 mg/dL (0.7-1.3); GFR 26.7; GLUCOSE 76 mg/dL (70-99); MAGNESIUM 2.1 mg/dL (1.8-2.4); PHOSPHORUS 3.9 mg/dL (2.6-4.7); POTASSIUM 3.9 mmol/L (3.5-5.1); SODIUM 141 mmol/L (136-145)
[2018-01-05] MEDS: INSULIN ASPART 300 UNITS/3 ML INSULN.PEN SQ ×2 (07:30→11:30)
[2018-01-05 07:55] LABS: POC GLUCOSE 80 mg/dL (70-99)
[2018-01-05] MEDS: IPRATRPIUM/ALBUTEROL 0.5/2.5MG 3 ML NEBU. NEB ×2 (08:18→10:53)
[2018-01-05] MEDS: ASPIRIN ENTERIC COATED 81 MG TABLET.DR. PO (08:36)
[2018-01-05] MEDS: OSELTAMIVIR 30 MG CAPSULE PO (08:36)
[2018-01-05] MEDS: FUROSEMIDE 40 MG TABLET. PO (08:37)
[2018-01-05] MEDS: ISOSORBIDE MONONITRATE ER 30 MG TAB.ER.24H PO (08:37)
[2018-01-05] MEDS: LOSARTAN POTASSIUM 50 MG TABLET. PO (08:38)
[2018-01-05] MEDS: amLODIPine BESYLATE 10 MG TABLET PO (08:38)
[2018-01-05] MEDS: CARVEDILOL 12.5 MG TABLET. PO (08:38)
[2018-01-05] MEDS ORDERED: POTASSIUM CHLORIDE 20 MEQ TABLET.ER. PO (14:00)
== END 2018-01-05 15:43 | disposition home or self-care (01) | DRG 682 ==
LOC: ER 11:20 → 2 NORTH 13:33
DX: N17.0 Acute kidney failure with tubular necrosis (principal); I50.43 Acute on chronic combined systolic (congestive) and diastolic (congestive) heart failure; J96.10 Chronic respiratory failure, unspecified whether with hypoxia or hypercapnia; E11.22 Type 2 diabetes mellitus with diabetic chronic kidney disease; I27.20 Pulmonary hypertension, unspecified; E88.09 Other disorders of plasma-protein metabolism, not elsewhere classified; J44.1 Chronic obstructive pulmonary disease with (acute) exacerbation; I13.0 Hypertensive heart and chronic kidney disease with heart failure and stage 1 through stage 4 chronic kidney disease, or unspecified chronic kidney disease; N18.4 Chronic kidney disease, stage 4 (severe); D63.8 Anemia in other chronic diseases classified elsewhere; J10.1 Influenza due to other identified influenza virus with other respiratory manifestations; E78.5 Hyperlipidemia, unspecified; E87.6 Hypokalemia; G47.33 Obstructive sleep apnea (adult) (pediatric); I25.10 Atherosclerotic heart disease of native coronary artery without angina pectoris; M06.9 Rheumatoid arthritis, unspecified; N40.1 Benign prostatic hyperplasia with lower urinary tract symptoms; Z82.49 Family history of ischemic heart disease and other diseases of the circulatory system; Z85.038 Personal history of other malignant neoplasm of large intestine; Z87.891 Personal history of nicotine dependence; M19.90 Unspecified osteoarthritis, unspecified site; D50.9 Iron deficiency anemia, unspecified
CPT/HCPCS: 36415; 71045; 71250; 76770; 80053; 80061; 80069; 81001; 82553; 82570; 82728; 82962; 83540; 83550; 83735; 83880; 84156; 84443; 84484; 85025; 85045; 87804; 87804-59; 93005; 93306; 94640; 94760; 99285; 99285-25; J0360; J1815; J1940; J3475; J3490; J7620

== ENCOUNTER → 2018-03-29 | Outpatient (CLI) | payer MEDICARE, BC ==
[2018-03-29 09:11] LABS: CREATININE 2.3 mg/dL (0.7-1.3); GFR 33.4
[2018-03-29 09:11] LABS: BLOOD UREA NITROGEN 45 mg/dL (8-26)
== END | disposition home or self-care (01) ==
LOC: CT 08:48
DX: R91.1 Solitary pulmonary nodule (principal); J44.9 Chronic obstructive pulmonary disease, unspecified; I13.0 Hypertensive heart and chronic kidney disease with heart failure and stage 1 through stage 4 chronic kidney disease, or unspecified chronic kidney disease; E11.22 Type 2 diabetes mellitus with diabetic chronic kidney disease; I50.32 Chronic diastolic (congestive) heart failure; N18.4 Chronic kidney disease, stage 4 (severe); R91.8 Other nonspecific abnormal finding of lung field
CPT/HCPCS: 36415; 71250; 82565; 84520

== ENCOUNTER → 2018-04-15 | Outpatient (CLI) | payer MEDICARE, BC | END | disposition home or self-care (01) | LOC: PETSC 07:22 | DX: N28.1 Cyst of kidney, acquired (principal); N40.0 Benign prostatic hyperplasia without lower urinary tract symptoms; R91.8 Other nonspecific abnormal finding of lung field | CPT/HCPCS: 78815; A9552 ==

== ENCOUNTER 2018-05-05 07:01 | Outpatient (CLI) | payer MEDICARE, BC ==
[2018-05-05 07:26] LABS: ADD MAN DIFF? NO
[2018-05-05 07:30] LABS: BASO % 0 % (0-3); EOS # 0.3 x10^3/uL (0.0-0.7); EOS % 3 % (0-3); HEMATOCRIT 33.3 % (39.0-53.0); HEMOGLOBIN 10.8 g/dL (13.0-17.5); LYMPH # 1.3 x10^3/uL (1.0-4.8); LYMPH % 17 % (24-48); MEAN CORPUSCULAR HEMOGLOBIN 23 pg (25-35); MEAN CORPUSCULAR HGB CONC 32 g/dL (31-37); MEAN CORPUSCULAR VOLUME 71 fL (79-100); MONO # 0.9 x10^3/uL (0.0-1.1); MONO % 11 % (0-9); NEUT # 5.4 x10^3uL (1.8-7.7); NEUT % 69 % (31-73); PLATELET COUNT 187 x10^3/uL (140-400); RED CELL DISTRIBUTION WIDTH 20.4 % (11.5-14.5); WHITE BLOOD COUNT 7.8 x10^3/uL (4.0-11.0)
[2018-05-05 07:40] LABS: INR 1.1 (0.8-1.1); PARTIAL THROMBOPLASTIN TIME 28 SEC (24-38); PROTHROMBIN TIME PATIENT 13.7 SEC (11.7-14.0)
[2018-05-05] MEDS ORDERED: LIDOCAINE WITH 8.4% SOD BICARB 3 ML DISP.SYRIN. (07:45)
[2018-05-05] MEDS ORDERED: MIDAZOLAM HCL/PF 2 MG/2 ML VIAL. (08:26)
[2018-05-05] MEDS ORDERED: fentaNYL PF VIAL 100 MCG/2 ML VIAL (08:26)
[2018-05-05 08:35] LABS: ANISOCYTOSIS MOD; HYPOCHROMIA SLIGHT; PLT ESTIMATE ADEQUATE (ADEQUATE)
[2018-05-05 08:36] LABS: MICROCYTOSIS MOD
[2018-05-05] MEDS: LIDOCAINE WITH 8.4% SOD BICARB 3 ML DISP.SYRIN. IJ (08:58)
[2018-05-05] MEDS: fentaNYL PF VIAL 100 MCG/2 ML VIAL IV (08:59)
[2018-05-05] MEDS: MIDAZOLAM HCL/PF 2 MG/2 ML VIAL. IV (08:59)
[2018-05-05] MEDS ORDERED: fentaNYL PF VIAL 250 MCG/5 ML VIAL (09:51)
[2018-05-05] MEDS ORDERED: MIDAZOLAM HCL/PF 5 MG/5 ML VIAL. (09:51)
== END 2018-05-05 12:10 | disposition home or self-care (01) ==
LOC: INTRAD 07:01
DX: C34.92 Malignant neoplasm of unspecified part of left bronchus or lung (principal); I25.10 Atherosclerotic heart disease of native coronary artery without angina pectoris; E78.00 Pure hypercholesterolemia, unspecified; I10 Essential (primary) hypertension; J44.9 Chronic obstructive pulmonary disease, unspecified; E11.9 Type 2 diabetes mellitus without complications; F17.210 Nicotine dependence, cigarettes, uncomplicated; D64.9 Anemia, unspecified; Z87.01 Personal history of pneumonia (recurrent); Z86.010 Personal history of colon polyps; Z85.038 Personal history of other malignant neoplasm of large intestine; Z98.890 Other specified postprocedural states; Z87.39 Personal history of other diseases of the musculoskeletal system and connective tissue; Z90.49 Acquired absence of other specified parts of digestive tract; Z79.82 Long term (current) use of aspirin
CPT/HCPCS: 32405; 36415; 71045; 77012; 85025; 85610; 85730; 88305; 88341; 88342; 99152; 99153; J2250; J3010

== ENCOUNTER → 2018-05-28 | Outpatient (CLI) | payer MEDICARE, BC ==
[2018-05-28 10:31] LABS: CREATININE 2.2 mg/dL (0.7-1.3)
[2018-05-28 10:31] LABS: GFR 35.2
[2018-05-28] MEDS: GADOBUTROL 7.5 MMOL/7.5 ML VIAL IV (11:22)
== END | disposition home or self-care (01) ==
LOC: MRI 10:02
DX: R51 Headache (principal); I13.0 Hypertensive heart and chronic kidney disease with heart failure and stage 1 through stage 4 chronic kidney disease, or unspecified chronic kidney disease; E11.22 Type 2 diabetes mellitus with diabetic chronic kidney disease; I50.32 Chronic diastolic (congestive) heart failure; N18.4 Chronic kidney disease, stage 4 (severe); E66.9 Obesity, unspecified; K21.9 Gastro-esophageal reflux disease without esophagitis
CPT/HCPCS: 36415; 70553; 82565; A9585

== ENCOUNTER → 2018-06-01 | Outpatient (CLI) | payer MEDICARE, BC | END | disposition home or self-care (01) | LOC: KCIC CT 12:11 | DX: C34.12 Malignant neoplasm of upper lobe, left bronchus or lung (principal); M47.892 Other spondylosis, cervical region; J43.9 Emphysema, unspecified; M48.02 Spinal stenosis, cervical region; M25.78 Osteophyte, vertebrae; I13.0 Hypertensive heart and chronic kidney disease with heart failure and stage 1 through stage 4 chronic kidney disease, or unspecified chronic kidney disease; E11.22 Type 2 diabetes mellitus with diabetic chronic kidney disease; I50.32 Chronic diastolic (congestive) heart failure; N18.4 Chronic kidney disease, stage 4 (severe); E78.5 Hyperlipidemia, unspecified; E78.00 Pure hypercholesterolemia, unspecified; E87.5 Hyperkalemia; D50.9 Iron deficiency anemia, unspecified; K21.9 Gastro-esophageal reflux disease without esophagitis; E66.9 Obesity, unspecified; R59.0 Localized enlarged lymph nodes; Z82.5 Family history of asthma and other chronic lower respiratory diseases; Z87.891 Personal history of nicotine dependence; Z87.39 Personal history of other diseases of the musculoskeletal system and connective tissue | CPT/HCPCS: 70490 ==

== ENCOUNTER → 2018-07-29 | Outpatient (CLI) | payer MEDICARE, BC ==
[2018-05-05 10:45] VITALS: BP 151/80
[~2018-07-29] MED LIST changes: -AMLO5TAB2 PO; +AMLO5TAB4 PO; +AMLO5TAB7 PO; +CARV12.5 PO; -FERR-26 PO; +FERR325T14 PO; +FURO-68 PO; +ISOS30TA4 PO; -METF-620 PO; +METF10007 PO; +OSEL30CA PO; +POTA20TA4 PO
[2018-07-29 09:21] LABS: CREATININE 2.1 mg/dL (0.7-1.3); GFR 37.1
--- NOTE | 2018-07-29 15:09 | RAD ---
CT CHEST WO CONTRAST Indication: Lung cancer Technique: Noncontrast CT imaging was performed of the chest, multiplanar reconstruction images submitted. One or more of the following individualized dose reduction techniques were utilized for this examination: 1. Automated exposure control 2. Adjustment of the mA and/or kV according to patient size 3. Use of iterative reconstruction technique. Comparison: March 29, 2018 CT chest exam and also PET/CT April 15, 2018 Findings: There is some motion degradation. There are again markers of the left upper lobe. Previously seen left upper lobe mass is much smaller, now more linear and reticular appearing density at the location of the previously seen mass rather than discrete nodularity. As measured lateral to the most inferior marker, focus of density in this region measures about 1.8 cm transverse by 1.1 cm AP by 0.5 cm cc although again now more linear-appearing density present. Previously more focal area of nodularity in this region measured about 2.4 cm transverse by 2 cm AP by about 1.4 cm CC. Previously seen irregular density also more extending more laterally also now has more reticular linear appearance. Small focus of relative nodularity of the left upper lobe axial images 37 at 0.5 cm is similar with adjacent mild reticular density. There is slightly increased likely atelectasis more laterally of the lingula. There is again emphysema. There is no new significant pulmonary nodularity, lobar infiltrate, pleural or pericardial effusion. There is mild dilatation tubular ascending thoracic aorta about 4 cm as seen previously. There is persistent left paratracheal node about 1.6 cm short axis dimension which is similar. There are again AP window nodes although slightly less prominent in size, largest of these about 0.8 cm short axis dimension versus previously about 1 cm. There is multilevel thoracic spondylosis. There are again some hypodense foci of the visualized left kidney not fully included, visualized foci likely cysts. IMPRESSION: 1. Previously seen left upper lobe masses are much smaller, now more linear and reticular appearing density present. There is persistent mediastinal lymphadenopathy on the left, slightly decreased size of AP window nodes. There is no new pulmonary nodularity. 2. There is emphysema. 3. 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 Electronically signed by: Akbar Armenta MD (07/29/2018 3:06 PM) [id number]
== END | disposition home or self-care (01) ==
LOC: CT 08:58
PROVIDERS: ATTEND Radiology Radiation Oncology
DX: C34.92 Malignant neoplasm of unspecified part of left bronchus or lung (principal); J43.8 Other emphysema; I72.8 Aneurysm of other specified arteries; R59.1 Generalized enlarged lymph nodes
CPT/HCPCS: 36415; 71250; 82565; 99211

== ENCOUNTER → 2018-10-28 | Outpatient (CLI) | payer MEDICARE, BC ==
[2018-05-05 10:45] VITALS: BP 151/80
[~2018-10-28] MED LIST changes: +ALBU2.5V8 IH; -HYDR12.53 PO; +HYDR12.575 PO; -PROAIR HFA8.5 GM IH
--- NOTE | 2018-10-28 15:39 | RAD ---
EXAM: CT Chest with IV contrast CLINICAL HISTORY: F/U SMALL CELL LUNG CA S/P RADIATION COMPARISON: 07/29/2018. TECHNIQUE: CT of the chest following the administration of intravenous contrast. Axial, coronal and sagittal reformatted images were generated. ---PQRS compliance statement - One or more of the following individualized dose reduction techniques were utilized for this study: 1. Automated exposure control 2. Adjustment of the mA and/or kV according to patient size 3. Use of iterative reconstruction technique--- FINDINGS: CHEST: The heart is not enlarged. No pericardial effusion. Coronary artery calcifications are seen. A pretracheal lymph node measures 1.2 x 1 cm (image 11) a 1.5 x 0.5 cm left paratracheal lymph node previously measured 1.6 x 0.6 cm, previously 1.2 x 0.7 cm when measured in similar fashion. An AP window lymph node measures 2.5 x 1.5 cm, possibly conglomerate of lymph nodes, previously 3 x 1.5 cm. No pleural effusion or pneumothorax. The left upper lobe mass is slightly smaller measuring 1.4 x 1.4 cm, previously 1.5 x 1.5 cm when measured in a similar fashion. Associated linear opacities emanating from this area possibly posttreatment change or scarring. This area is more difficult to measure, likely 1.6 x 0.6 cm, previously 1.8 x 1.1. The linearity extends to the fissure where a focal nodular thickening measures 5 mm, stable (image 36). Subpleural cystic change in the lung bases likely from emphysematous change. No new suspicious lung nodule or mass is identified. Bilateral emphysematous changes are seen. Visualized Upper abdomen: Bilateral adrenal gland thickening is seen. 7 and 9 mm right hepatic lobe hypodense lesion are grossly stable. A 1.1 cm left adrenal nodule is stable. Bones: Multilevel degenerative changes of the spine are seen. No definite aggressive osseous lesion is seen. IMPRESSION: The nodular left upper lobe mass is smaller. The previously seen linear portions are also less conspicuous. The prominent and enlarged mediastinal lymph nodes are in general grossly stable to borderline decreased in size. Electronically signed by: Suimt Jordan MD (10/28/2018 3:35 PM) [facility]
== END | disposition home or self-care (01) ==
LOC: CT 11:45
PROVIDERS: ATTEND Radiology Radiation Oncology
DX: R91.8 Other nonspecific abnormal finding of lung field (principal); E27.8 Other specified disorders of adrenal gland; I25.10 Atherosclerotic heart disease of native coronary artery without angina pectoris; Z85.118 Personal history of other malignant neoplasm of bronchus and lung
CPT/HCPCS: 71250

== ENCOUNTER → 2019-01-26 | Outpatient (CLI) | payer MEDICARE, BC ==
[2018-05-05 10:45] VITALS: BP 151/80
[~2019-01-26] MED LIST changes: +AMLO5TAB10 PO; -AMLO5TAB7 PO; +TAMS0.4C97 PO
--- NOTE | 2019-01-26 15:48 | RAD ---
PQRS Compliance statement: One or more of the following individualized dose reduction techniques were utilized for this examination: 1. Automated exposure control. 2. Adjustment of the mA and/or kV according to patient size. 3. Use of iterative reconstruction technique. Indication:LUNG CA F/U, PRIOR SENT, NON CONTRAST PER ORDER TECHNIQUE: CT chest without IV contrast with multiplanar reformats. COMPARISON: 10/28/2018 FINDINGS: Heart is normal in size. No pericardial or pleural effusion. Dilated main pulmonary trunk is seen measuring 4.3 cm. Mild diffuse atherosclerotic disease of the thoracic aorta. No enlarged axillary adenopathy. Stable prominent and mildly enlarged mediastinal lymph nodes are seen, the largest in the prevascular space measuring 1.2 x 1.1 cm which is stable. Evaluation of hilar lymphadenopathy is limited due to lack of IV contrast. Central airways are patent. No measurable mass is seen in the left perihilar region. Fiducial marker is seen. Interstitial opacities and scarring is seen in the lingula and left perihilar region extending to the pleura. Stable 5 mm nodular opacity in the left lower lobe (series 2 image 41. Bilateral subpleural reticular opacities are seen in the lower lobes. Visualized sections through the noncontrast liver, spleen, gallbladder, pancreas and adrenals within normal limits. No suspicious bony lesion. IMPRESSION: 1. No measurable left upper lobe mass seen. 2. Stable left lower lobe nodule. Attention on follow-up. Electronically signed by: Edis Zamora DO (01/26/2019 3:45 PM) [facility]
== END | disposition home or self-care (01) ==
LOC: CT 12:26
PROVIDERS: ATTEND Radiology Radiation Oncology
DX: C34.92 Malignant neoplasm of unspecified part of left bronchus or lung (principal); R91.1 Solitary pulmonary nodule; I70.0 Atherosclerosis of aorta; R59.0 Localized enlarged lymph nodes
CPT/HCPCS: 71250

== ENCOUNTER → 2019-05-05 | Outpatient (CLI) | payer MEDICARE, BC ==
[2018-05-05 10:45] VITALS: BP 151/80
[~2019-05-05] MED LIST changes: +FLUT1BLS3 IH; -PANT40TA3 PO; +PANT40TA77 PO
--- NOTE | 2019-05-05 12:32 | RAD ---
CT of the chest with and without contrast 05/05/2019 INDICATION: History of lung cancer COMPARISON STUDY: CT of the chest without contrast January 26, 2019 TECHNIQUE: Multidetector CT imaging of the chest was performed without contrast. FINDINGS: Heart size is normal. No pericardial effusion is identified. Coronary calcification noted. Significant ectasia of the pulmonary arterial trunk is similar to comparison studies. Findings likely reflect some degree of pulmonary arterial hypertension. Small lymph nodes are again seen scattered throughout the mediastinum including pretracheal and prevascular spaces. Somewhat prominent in regards number but are stable in the interim since comparison study. Small nodes immediately to the right of the distal thoracic aorta are also similar. Note that evaluation of the mediastinum is limited without contrast. Fiducial marker seen in the left hilum and left upper lobe are unchanged. No associated mass is identified. No acute abnormalities of the upper abdomen are identified. Severe emphysematous changes again noted. No pneumothorax or pleural effusion is seen. Scattered sub-5 mm pulmonary nodules are noted throughout the lungs which are unchanged with respect to comparison study. Areas of pleural parenchymal scarring are grossly stable. No acute-appearing consolidative infiltrate is seen. Lower lobe bronchiectasis noted. No evidence of acute osseous abnormality is identified. IMPRESSION: 1. Stable appearance of the chest 2. Stable appearance of 5 mm nodule, left lower lobe. Other scattered , even smaller nodules, and small mediastinal lymph nodes are stable. CT DOSING PQRS STATEMENT: One or more of the following individualized dose reduction techniques were utilized for this examination: 1. Automated exposure control 2. Adjustment of the mA and/or kV according to patient size 3. Use of iterative reconstruction technique Electronically signed by: J Luis Rivera MD (05/05/2019 12:29 PM) [id number]
== END | disposition home or self-care (01) ==
LOC: CT 08:54
PROVIDERS: ATTEND Radiology Radiation Oncology
DX: C34.12 Malignant neoplasm of upper lobe, left bronchus or lung (principal); J43.9 Emphysema, unspecified; J47.9 Bronchiectasis, uncomplicated; J98.4 Other disorders of lung; R91.8 Other nonspecific abnormal finding of lung field; I25.10 Atherosclerotic heart disease of native coronary artery without angina pectoris
CPT/HCPCS: 71250

== ENCOUNTER → 2019-08-11 | Outpatient (CLI) | payer MEDICARE, BC ==
[2018-05-05 10:45] VITALS: BP 151/80
--- NOTE | 2019-08-11 17:06 | RAD ---
CT CHEST WO CONTRAST Indication: Lung cancer Technique: Noncontrast CT imaging was performed of the chest, multiplanar reconstruction images submitted. One or more of the following individualized dose reduction techniques were utilized for this examination: 1. Automated exposure control 2. Adjustment of the mA and/or kV according to patient size 3. Use of iterative reconstruction technique. Comparison: May 05, 2019 Findings: There is again emphysema. There is no pleural or pericardial effusion or pneumothorax. There is again degree of septal thickening with lower lobe predominance. There increased nodular appearing density at the margin of the left major fissure abutting pleural surface image 36 series 2 about 1.2 cm AP by 0.8 cm transverse by 1.4 cm CC. There is a new focus of somewhat irregular appearing nodular density in the left upper lobe closer to the apex about 0.8 cm image 11 series 2. Left paratracheal node about 1.3 cm short axis dimension is similar. There are again some nodes of the superior mediastinum with the largest about 0.9 cm short axis dimension, overall similar. There is again left adrenal nodule with density measurements suggestive of adenoma about 1.8 cm in size as seen previously. There is multilevel thoracic spondylosis. Main pulmonary artery is dilated about 4.3 cm. There is again ectatic tubular ascending thoracic aorta about 3.9 cm. There is coronary calcification IMPRESSION: 1. There are some new foci of nodular appearing density as described of the left hemithorax. Short-term follow-up in [address] is recommended. 2. There is again emphysema. There is again degree of septal thickening. 3. There is again dilatation of the main pulmonary artery, evidence of pulmonary hypertension. There is similar ectasia of the ascending thoracic aorta. 4. There is coronary calcification. 5. Previously seen mediastinal lymph nodes are similar. Electronically signed by: Akbar Armenta MD (08/11/2019 5:03 PM) [id number]
== END | disposition home or self-care (01) ==
LOC: CT 10:21
PROVIDERS: ATTEND Radiology Radiation Oncology
DX: J43.8 Other emphysema (principal); M47.894 Other spondylosis, thoracic region; I25.10 Atherosclerotic heart disease of native coronary artery without angina pectoris; I27.20 Pulmonary hypertension, unspecified
CPT/HCPCS: 71250

== ENCOUNTER 2019-08-27 15:17 | Inpatient (IN) | payer MEDICARE, BC ==
[~2019-08-27] VITALS: Ht 170.2 cm; Wt 85.3 kg
[~2019-08-27 15:17] MED LIST changes: +SIMV20TA18 PO; -SIMV20TA3 PO
[2019-08-27 17:35] LABS: BASO # 0.1 x10^3/uL (0.0-0.2); BASO % 1 % (0-3); EOS # 0.3 x10^3/uL (0.0-0.7); EOS % 5 % (0-3); HEMATOCRIT 32.9 % (39.0-53.0); HEMOGLOBIN 10.4 g/dL (13.0-17.5); LYMPH # 0.9 x10^3/uL (1.0-4.8); LYMPH % 15 % (24-48); MEAN CORPUSCULAR HEMOGLOBIN 23 pg (25-35); MEAN CORPUSCULAR HGB CONC 32 g/dL (31-37); MEAN CORPUSCULAR VOLUME 72 fL (79-100); MONO # 0.6 x10^3/uL (0.0-1.1); MONO % 11 % (0-9); NEUT # 4.2 x10^3/uL (1.8-7.7); NEUT % 68 % (31-73); PLATELET COUNT 247 x10^3/uL (140-400); RED BLOOD COUNT 4.57 x10^6/uL (4.30-5.70); RED CELL DISTRIBUTION WIDTH 20.6 % (11.5-14.5); WHITE BLOOD COUNT 6.1 x10^3/uL (4.0-11.0)
[2019-08-27] MEDS: IV NORMAL SALINE 1000ML BAG 1,000 ML IV SCH ×2 (17:36→22:22)
[2019-08-27 17:44] LABS: PROTHROMBIN TIME PATIENT 13.1 SEC (11.7-14.0)
[2019-08-27 17:48] LABS: ALBUMIN 3.1 g/dL (3.4-5.0); ALBUMIN/GLOBULIN RATIO 0.8 (1.0-1.7); CALCIUM 8.7 mg/dL (8.5-10.1); CREATININE 2.2 mg/dL (0.7-1.3); GFR 35.1; TOTAL BILIRUBIN 0.3 mg/dL (0.2-1.0); TOTAL PROTEIN 7.1 g/dL (6.4-8.2)
--- NOTE | 2019-08-27 17:50 | PHYS DOC ---
Past Medical History Past Medical History: CAD, Cancer, COPD, Diabetes-Type II, Hypertension, Renal Disease, Other Additional Past Medical Histor: COLON CANCER Past Surgical History: Cancer Surgery, Other Additional Past Surgical Histo: Heart cath, COLON RESECTION, HERNIA Alcohol Use: None Drug Use: None Adult General Chief Complaint Chief Complaint: RECTAL BLEED HPI HPI Patient is a 78 year old male history of colon cancer status post surgery diverticular bleed in 2017 multiple other medical problems COPD on home oxygen 24 7 present with rectal bleeding 2 episodes one last night when this morning he said it was at least a cup is not sure exactly he really do not see any brown stool however does feel some abdominal fullness but no pain really positive nausea no fever he has been constipated recently so he was thinking maybe was a hemorrhoid. In 2017 he was admitted to the ICU for a GI bleed that required multiple units of packed red blood cells thought to be diverticular in nature ultimately. Medical decision making: I spoke with Dr. JONES at this point blood pressures in the 140s plan to admit for serial hemoglobins and go from there. At this point time abdomen exam was benign I think hemoglobin is 10.4 blood pressures in the 140s gentle IV fluids were given patient had a type and screen in the emergency room serial CBCs were ordered for bridge orders and patient will be admitted in stable condition patient and family are up-to-date on the plan Review of Systems Review of Systems Constitutional: Denies fever or chills [] Eyes: Denies change in visual acuity, redness, or eye pain [] HENT: Denies nasal congestion or sore throat [] Respiratory: No change in usual shortness of breath Neurologic: Denies headache, focal weakness or sensory changes [] Endocrine: Denies polyuria or polydipsia [] All other systems were reviewed and found to be within normal limits, except as documented in this note. Current Medications Current Medications Current Medications Medications (Trade) Dose Ordered Sig/Lindsay Start Time Stop Time Status Last Admin Dose Admin Sodium Chloride 1,000 ml @ 75 mls/hr [id number] 08/27/19 17:36 08/28/19 17:35 Allergies Allergies Allergies Coded Allergies Type Severity Reaction Last Updated Verified No Known Drug Allergies 04/14/15 No Physical Exam Physical Exam Constitutional: Well developed, well nourished, no acute distress, non-toxic appearance. [] HENT: Normocephalic, atraumatic, bilateral external ears normal, oropharynx moist, no oral exudates, nose normal. [] Eyes: PERRLA, EOMI, conjunctiva normal, no discharge. [] Neck: Normal range of motion, no tenderness, supple, no stridor. [] Cardiovascular:Heart rate regular rhythm, no murmur [] Lungs & Thorax: Faint wheezing noted patient is breathing comfortably on oxygen Abdomen: Bowel sounds normal, soft, no tenderness, no masses, no pulsatile masses. [] Rectal examination did show no hemorrhoid or maroon-colored stool sent to lab for testing Skin: Warm, dry, no erythema, no rash. [] Back: No tenderness, no CVA tenderness. [] Extremities: No tenderness, no cyanosis, no clubbing, ROM intact, no edema. [] Neurologic: Alert and oriented X 3, normal motor function, normal sensory func tion, no focal deficits noted. [] Psychologic: Affect normal, judgement normal, mood normal. [] Current Patient Data Vital Signs Vital Signs Date Time Temp Pulse Resp B/P (MAP) Pulse Ox O2 Delivery O2 Flow Rate FiO2 08/27/19 16:15 97.7 75 20 151/64 (93) 95 Nasal Cannula 3.0 97.7 Lab Values Laboratory Tests Test 08/27/19 17:20 White Blood Count 6.1 x10^3/uL (4.0-11.0) Red Blood Count 4.57 x10^6/uL (4.30-5.70) Hemoglobin 10.4 g/dL (13.0-17.5) L Hematocrit 32.9 % (39.0-53.0) L Mean Corpuscular Volume 72 fL (79-100) L Mean Corpuscular Hemoglobin 23 pg (25-35) L Mean Corpuscular Hemoglobin Concent 32 g/dL (31-37) Red Cell Distribution Width 20.6 % (11.5-14.5) H Platelet Count 247 x10^3/uL (140-400) Neutrophils (%) (Auto) 68 % (31-73) Lymphocytes (%) (Auto) 15 % (24-48) L Monocytes (%) (Auto) 11 % (0-9) H Eosinophils (%) (Auto) 5 % (0-3) H Basophils (%) (Auto) 1 % (0-3) Neutrophils # (Auto) 4.2 x10^3/uL (1.8-7.7) Lymphocytes # (Auto) 0.9 x10^3/uL (1.0-4.8) L Monocytes # (Auto) 0.6 x10^3/uL (0.0-1.1) Eosinophils # (Auto) 0.3 x10^3/uL (0.0-0.7) Basophils # (Auto) 0.1 x10^3/uL (0.0-0.2) Laboratory Tests 08/27/19 17:20 EKG EKG [] Radiology/Procedures Radiology/Procedures [] Course & Med Decision Making Course & Med Decision Making Pertinent Labs and Imaging studies reviewed. (See chart for details) []SEE HPI FOR MDM Dragon Disclaimer Dragon Disclaimer This electronic medical record was generated, in whole or in part, using a voice recognition dictation system. Departure Departure Impression: Primary Impression: GI bleed Disposition: ADMITTED INPATIENT Admitting Physician: Amisha Jones Condition: STABLE Referrals: AMISHA JONES MD (PCP) DEANNA LINK MD Aug 27, 2019 17:50
[2019-08-27 17:53] LABS: POTASSIUM 6.3 mmol/L (3.5-5.1)
[2019-08-27] MEDS ORDERED: DEXTROSE 50% 25 GM / 50ML DISP.SYRIN. IV ONE (18:00)
[2019-08-27] MEDS ORDERED: INSULIN REGULAR 100 UNIT/ML 3ML VIAL. IV ONE (18:00)
[2019-08-27] MEDS ORDERED: CALCIUM GLUCONATE 1,000 MG/10 ML VIAL. IVP ONE (18:00)
[2019-08-27] MEDS ORDERED: SODIUM POLYSTYRENE SULFON/SORB 15 GM/60 ML ORAL.SUSP PO ONE (18:00)
[2019-08-27] MEDS ORDERED: SODIUM BICARB ADULT 8.4% 50 MEQ/50 ML DISP.SYRIN. IV ONE (18:00)
[2019-08-27 18:01] LABS: FECAL OB PT POSITIVE (NEG)
[2019-08-27 18:11] LABS: PLT ESTIMATE ADEQUATE (ADEQUATE)
[2019-08-27 18:12] LABS: ANISOCYTOSIS MOD; HYPOCHROMIA MOD; MICROCYTOSIS MOD; TARGET CELLS OCC
[2019-08-27 18:13] LABS: SCHISTOCYTES MOD
[2019-08-27 18:35] LABS: CALCIUM 8.7 mg/dL (8.5-10.1); CREATININE 2.2 mg/dL (0.7-1.3); GFR 35.1
[2019-08-27 18:51] LABS: POTASSIUM 6.2 mmol/L (3.5-5.1)
[2019-08-27] MEDS ORDERED: PANTOPRAZOLE IV PUSH 40 MG VIAL. IVP ONE (20:00)
[2019-08-27] MEDS ORDERED: CONTRAST GIVEN. MC PRN (20:15)
[2019-08-27] MEDS ORDERED: IOHEXOL 240 MG/ML 50ML VIAL. PO ONE (20:15)
[2019-08-27] MEDS ORDERED: HEPARIN for NUC MED 500 UNIT/5 ML DISP.SYRIN. IV ONE (21:45)
[2019-08-27 22:00] VITALS: BP 136/69
[2019-08-27 22:15] VITALS: BP 111/63
[2019-08-27] MEDS: PANTOPRAZOLE SODIUM IV DRIP 80 MG in IV NORMAL SALINE 100ML 100 ML IV SCH (22:22)
[2019-08-27 22:30] VITALS: BP 126/66
[2019-08-27 22:32] LABS: BASO % 0 % (0-3); EOS # 0.2 x10^3/uL (0.0-0.7); EOS % 2 % (0-3); HEMATOCRIT 32.1 % (39.0-53.0); HEMOGLOBIN 10.1 g/dL (13.0-17.5); LYMPH # 0.6 x10^3/uL (1.0-4.8); LYMPH % 6 % (24-48); MEAN CORPUSCULAR HEMOGLOBIN 23 pg (25-35); MEAN CORPUSCULAR HGB CONC 32 g/dL (31-37); MEAN CORPUSCULAR VOLUME 73 fL (79-100); MONO # 0.7 x10^3/uL (0.0-1.1); MONO % 8 % (0-9); NEUT % 84 % (31-73); PLATELET COUNT 206 x10^3/uL (140-400); RED CELL DISTRIBUTION WIDTH 20.1 % (11.5-14.5); WHITE BLOOD COUNT 9.6 x10^3/uL (4.0-11.0)
[2019-08-27 23:00] VITALS: BP 138/72
[2019-08-27 23:30] VITALS: BP 139/70
[2019-08-27 23:59] VITALS: BP 139/70
[2019-08-28] VITALS (23 sets, daily range): BP systolic 104–153; BP diastolic 48–71
--- NOTE | 2019-08-28 00:56 | RAD ---
Indication: Acute GI bleed. Bright red blood stool. TECHNIQUE: Nuclear medicine GI bleed scan with 22 mCi of technetium 99m ultratagged RBC. COMPARISON: None FINDINGS: Radiotracer activity seen in the descending colon with antegrade movement into the sigmoid colon. IMPRESSION: Scintigraphic evidence of distal descending colon bleed. Critical findings were identified on 08/28/2019 12:48 AM, read back and verified with Nurse Herlinda on 08/28/2019 12:[address] Edis Zamora DO. Electronically signed by: Edis Zamora DO (08/28/2019 12:52 AM) [facility]
[2019-08-28] MEDS ORDERED: PEG 3350/NA SULF,BICARB,CL/KCL 4,000 ML SOLUTION. PO ONE (03:15)
[2019-08-28] MEDS ORDERED: POLYETHYLENE GLYCOL 3350 BTL 238 GM POWDER PO ONE ×2 (04:00→16:00)
[2019-08-28 04:43] LABS: BASO % 1 % (0-3); EOS # 0.1 x10^3/uL (0.0-0.7); EOS % 2 % (0-3); LYMPH # 0.8 x10^3/uL (1.0-4.8); LYMPH % 12 % (24-48); MEAN CORPUSCULAR HEMOGLOBIN 23 pg (25-35); MEAN CORPUSCULAR HGB CONC 31 g/dL (31-37); MEAN CORPUSCULAR VOLUME 73 fL (79-100); MONO # 0.5 x10^3/uL (0.0-1.1); MONO % 8 % (0-9); NEUT % 78 % (31-73); PLATELET COUNT 201 x10^3/uL (140-400); RED BLOOD COUNT 4.38 x10^6/uL (4.30-5.70); WHITE BLOOD COUNT 6.4 x10^3/uL (4.0-11.0)
[2019-08-28 04:57] LABS: CALCIUM 9.2 mg/dL (8.5-10.1); CREATININE 2.1 mg/dL (0.7-1.3)
[2019-08-28 05:06] LABS: POTASSIUM 7.2 mmol/L (3.5-5.1)
[2019-08-28] MEDS: IV NORMAL SALINE 1000ML BAG 1,000 ML IV SCH ×3 (06:56→17:23)
[2019-08-28] MEDS: PANTOPRAZOLE SODIUM IV DRIP 80 MG in IV NORMAL SALINE 100ML 100 ML IV SCH (08:06)
--- NOTE | 2019-08-28 08:45 | RAD ---
Abdominal and Pelvis CT, Without Contrast: History: Active GI bleed. Comparison: None. Procedure: Axial images are obtained of the abdomen and pelvis, without IV but with oral contrast. CT Abdomen without Contrast: Findings: Evaluation of solid organs is limited without contrast. Liver: There is a subcentimeter hypoattenuating lesion in the right lobe of the liver laterally which is too small to characterize.. Spleen: Normal. Pancreas: Normal. Adrenal Glands: Normal. Kidneys: Bilateral renal cysts. There is no free air or free fluid. There is no lymphadenopathy. Impression: Please see CT Pelvis without Contrast. End Impression. CT Pelvis without Contrast: Findings: The urinary bladder appears normal. There is no free fluid. There is no lymphadenopathy. There is no pericolonic inflammation identified. The appendix is not seen. Impression: 1. Indeterminate lesion in the liver. 2. Otherwise no acute findings. End impression PQRS Compliance Statement: One or more of the following individualized dose reduction techniques were utilized for this examination: 1. Automated exposure control 2. Adjustment of the mA and/or kV according to patient size 3. Use of iterative reconstruction technique Electronically signed by: Chivo Beckman III, MD (08/28/2019 8:43 AM) [facility]
[2019-08-28 10:33] LABS: CALCIUM 8.8 mg/dL (8.5-10.1); GFR 39.2; POTASSIUM 5.2 mmol/L (3.5-5.1)
[2019-08-28] MEDS ORDERED: ZOLP10TA4 PO (10:36)
[2019-08-28] MEDS ORDERED: SIMV20TA18 PO (10:36)
--- NOTE | 2019-08-28 10:41 | PDOC ---
PROGRESS NOTES Subjective Subjective Patient denies abdominal pain at this time. Objective Objective Vital Signs Date Time Temp Pulse Resp B/P (MAP) Pulse Ox O2 Delivery O2 Flow Rate FiO2 08/28/19 10:00 63 18 134/70 (91) 100 Nasal Cannula 3.0 08/28/19 07:00 97.9 97.9 Intake and Output 08/28/19 07:00 Intake Total 1351 ml Output Total 120 ml Balance 1231 ml Intake Oral 760 ml IV Total 591 ml Output Estimated Blood Loss 120 ml # Voids 6 # Bowel Movements 4 Physical Exam Abdomen: Normal bowel sounds, Soft, No tenderness Heart: Regular rate Extremities: No edema General: Alert, Oriented X3, No acute distress Lungs: Other (BS decreased throughout but otherwise CTA) Assessment Assessment Problems Medical Problems: (1) GI bleed Status: Acute Plan Plan of Care 1. Lower GI bleed - appears to have stopped at present and Hgb stable. Dr Knight plans colonoscopy today, patient has completed prep. Hx of colon cancer, last colonoscopy was 01/23 with removal of adenomatous polyps. 2. hyperkalemia with hx CKD III - patient has been taking his usual po K+ at home but did not do routine lab ordered at last OV 05/27 so unclear how long K+ has been elevated. Renal function not at baseline on admission lab. Will give Lasix today and recheck K+ in AM. Kayexalate would be indicated but was not given due to GI bleed and prep for colonoscopy already ordered. 3. COPD with chronic respiratory failure - stable, continue nebs and O2. 4. DM2 - patient reports this has been fairly well controlled with Levemir only (overdue lab for this also). Will check A1C, follow [facility]SB[facility] here. 5. HTN - continue home medications and follow. 6. hyperlipidemia - continue statin, check FLP. 7. hx lung cancer - has been stable, no evidence of recurrence on last CT chest. 8. elevated PSA - patient was referred to Urology last summer for further evaluation of this but did not go. Will refer to Urology as outpatient. Comment Review of Relevant I have reviewed the following items lauren (where applicable) has been applied. Labs Laboratory Tests Test 08/27/19 17:20 08/27/19 17:25 08/27/19 18:25 08/27/19 22:15 White Blood Count 6.1 x10^3/uL (4.0-11.0) 9.6 x10^3/uL (4.0-11.0) Red Blood Count 4.57 x10^6/uL (4.30-5.70) 4.40 x10^6/uL (4.30-5.70) Hemoglobin 10.4 g/dL (13.0-17.5) 10.1 g/dL (13.0-17.5) Hematocrit 32.9 % (39.0-53.0) 32.1 % (39.0-53.0) Mean Corpuscular Volume 72 fL (79-100) 73 fL (79-100) Mean Corpuscular Hemoglobin 23 pg (25-35) 23 pg (25-35) Mean Corpuscular Hemoglobin Concent 32 g/dL (31-37) 32 g/dL (31-37) Red Cell Distribution Width 20.6 % (11.5-14.5) 20.1 % (11.5-14.5) Platelet Count 247 x10^3/uL (140-400) 206 x10^3/uL (140-400) Neutrophils (%) (Auto) 68 % (31-73) 84 % (31-73) Lymphocytes (%) (Auto) 15 % (24-48) 6 % (24-48) Monocytes (%) (Auto) 11 % (0-9) 8 % (0-9) Eosinophils (%) (Auto) 5 % (0-3) 2 % (0-3) Basophils (%) (Auto) 1 % (0-3) 0 % (0-3) Neutrophils # (Auto) 4.2 x10^3/uL (1.8-7.7) 8.0 x10^3/uL (1.8-7.7) Lymphocytes # (Auto) 0.9 x10^3/uL (1.0-4.8) 0.6 x10^3/uL (1.0-4.8) Monocytes # (Auto) 0.6 x10^3/uL (0.0-1.1) 0.7 x10^3/uL (0.0-1.1) Eosinophils # (Auto) 0.3 x10^3/uL (0.0-0.7) 0.2 x10^3/uL (0.0-0.7) Basophils # (Auto) 0.1 x10^3/uL (0.0-0.2) 0.0 x10^3/uL (0.0-0.2) Platelet Estimate Adequate (ADEQUATE) Hypochromasia Mod Anisocytosis Mod Microcytosis Mod Target Cells Occ Schistocytes Mod Prothrombin Time 13.1 SEC (11.7-14.0) Prothromb Time International Ratio 1.0 (0.8-1.1) Sodium Level 144 mmol/L (136-145) 143 mmol/L (136-145) Potassium Level 6.3 mmol/L (3.5-5.1) 6.2 mmol/L (3.5-5.1) Chloride Level 109 mmol/L (98-107) 109 mmol/L (98-107) Carbon Dioxide Level 31 mmol/L (21-32) 31 mmol/L (21-32) Anion Gap 4 (6-14) 3 (6-14) Blood Urea Nitrogen 43 mg/dL (8-26) 44 mg/dL (8-26) Creatinine 2.2 mg/dL (0.7-1.3) 2.2 mg/dL (0.7-1.3) Estimated GFR (Cockcroft-Gault) 35.1 35.1 BUN/Creatinine Ratio 20 (6-20) Glucose Level 128 mg/dL (70-99) 97 mg/dL (70-99) Calcium Level 8.7 mg/dL (8.5-10.1) 8.7 mg/dL (8.5-10.1) Total Bilirubin 0.3 mg/dL (0.2-1.0) Aspartate Amino Transf (AST/SGOT) 22 U/L (15-37) Alanine Aminotransferase (ALT/SGPT) 13 U/L (16-63) Alkaline Phosphatase 73 U/L (46-116) Total Protein 7.1 g/dL (6.4-8.2) Albumin 3.1 g/dL (3.4-5.0) Albumin/Globulin Ratio 0.8 (1.0-1.7) Stool Occult Blood Positive (NEG) Test 08/28/19 04:00 08/28/19 04:42 White Blood Count 6.4 x10^3/uL (4.0-11.0) Red Blood Count 4.38 x10^6/uL (4.30-5.70) Hemoglobin 10.0 g/dL (13.0-17.5) Hematocrit 32.0 % (39.0-53.0) Mean Corpuscular Volume 73 fL (79-100) Mean Corpuscular Hemoglobin 23 pg (25-35) Mean Corpuscular Hemoglobin Concent 31 g/dL (31-37) Red Cell Distribution Width 21.0 % (11.5-14.5) Platelet Count 201 x10^3/uL (140-400) Neutrophils (%) (Auto) 78 % (31-73) Lymphocytes (%) (Auto) 12 % (24-48) Monocytes (%) (Auto) 8 % (0-9) Eosinophils (%) (Auto) 2 % (0-3) Basophils (%) (Auto) 1 % (0-3) Neutrophils # (Auto) 5.0 x10^3/uL (1.8-7.7) Lymphocytes # (Auto) 0.8 x10^3/uL (1.0-4.8) Monocytes # (Auto) 0.5 x10^3/uL (0.0-1.1) Eosinophils # (Auto) 0.1 x10^3/uL (0.0-0.7) Basophils # (Auto) 0.0 x10^3/uL (0.0-0.2) Sodium Level 142 mmol/L (136-145) Potassium Level 7.2 mmol/L (3.5-5.1) Chloride Level 109 mmol/L (98-107) Carbon Dioxide Level 30 mmol/L (21-32) Anion Gap 3 (6-14) Blood Urea Nitrogen 45 mg/dL (8-26) Creatinine 2.1 mg/dL (0.7-1.3) Estimated GFR (Cockcroft-Gault) 37.0 Glucose Level 92 mg/dL (70-99) Calcium Level 9.2 mg/dL (8.5-10.1) Glucose (Fingerstick) 127 mg/dL (70-99) Laboratory Tests Test 08/27/19 17:20 08/27/19 17:25 08/27/19 18:25 08/27/19 22:15 White Blood Count 6.1 x10^3/uL (4.0-11.0) 9.6 x10^3/uL (4.0-11.0) Red Blood Count 4.57 x10^6/uL (4.30-5.70) 4.40 x10^6/uL (4.30-5.70) Hemoglobin 10.4 g/dL (13.0-17.5) 10.1 g/dL (13.0-17.5) Hematocrit 32.9 % (39.0-53.0) 32.1 % (39.0-53.0) Mean Corpuscular Volume 72 fL (79-100) 73 fL (79-100) Mean Corpuscular Hemoglobin 23 pg (25-35) 23 pg (25-35) Mean Corpuscular Hemoglobin Concent 32 g/dL (31-37) 32 g/dL (31-37) Red Cell Distribution Width 20.6 % (11.5-14.5) 20.1 % (11.5-14.5) Platelet Count 247 x10^3/uL (140-400) 206 x10^3/uL (140-400) Neutrophils (%) (Auto) 68 % (31-73) 84 % (31-73) Lymphocytes (%) (Auto) 15 % (24-48) 6 % (24-48) Monocytes (%) (Auto) 11 % (0-9) 8 % (0-9) Eosinophils (%) (Auto) 5 % (0-3) 2 % (0-3) Basophils (%) (Auto) 1 % (0-3) 0 % (0-3) Neutrophils # (Auto) 4.2 x10^3/uL (1.8-7.7) 8.0 x10^3/uL (1.8-7.7) Lymphocytes # (Auto) 0.9 x10^3/uL (1.0-4.8) 0.6 x10^3/uL (1.0-4.8) Monocytes # (Auto) 0.6 x10^3/uL (0.0-1.1) 0.7 x10^3/uL (0.0-1.1) Eosinophils # (Auto) 0.3 x10^3/uL (0.0-0.7) 0.2 x10^3/uL (0.0-0.7) Basophils # (Auto) 0.1 x10^3/uL (0.0-0.2) 0.0 x10^3/uL (0.0-0.2) Platelet Estimate Adequate (ADEQUATE) Hypochromasia Mod Anisocytosis Mod Microcytosis Mod Target Cells Occ Schistocytes Mod Prothrombin Time 13.1 SEC (11.7-14.0) Prothromb Time International Ratio 1.0 (0.8-1.1) Sodium Level 144 mmol/L (136-145) 143 mmol/L (136-145) Potassium Level 6.3 mmol/L (3.5-5.1) 6.2 mmol/L (3.5-5.1) Chloride Level 109 mmol/L (98-107) 109 mmol/L (98-107) Carbon Dioxide Level 31 mmol/L (21-32) 31 mmol/L (21-32) Anion Gap 4 (6-14) 3 (6-14) Blood Urea Nitrogen 43 mg/dL (8-26) 44 mg/dL (8-26) Creatinine 2.2 mg/dL (0.7-1.3) 2.2 mg/dL (0.7-1.3) Estimated GFR (Cockcroft-Gault) 35.1 35.1 BUN/Creatinine Ratio 20 (6-20) Glucose Level 128 mg/dL (70-99) 97 mg/dL (70-99) Calcium Level 8.7 mg/dL (8.5-10.1) 8.7 mg/dL (8.5-10.1) Total Bilirubin 0.3 mg/dL (0.2-1.0) Aspartate Amino Transf (AST/SGOT) 22 U/L (15-37) Alanine Aminotransferase (ALT/SGPT) 13 U/L (16-63) Alkaline Phosphatase 73 U/L (46-116) Total Protein 7.1 g/dL (6.4-8.2) Albumin 3.1 g/dL (3.4-5.0) Albumin/Globulin Ratio 0.8 (1.0-1.7) Stool Occult Blood Positive (NEG) Test 08/28/19 04:00 08/28/19 04:42 White Blood Count 6.4 x10^3/uL (4.0-11.0) Red Blood Count 4.38 x10^6/uL (4.30-5.70) Hemoglobin 10.0 g/dL (13.0-17.5) Hematocrit 32.0 % (39.0-53.0) Mean Corpuscular Volume 73 fL (79-100) Mean Corpuscular Hemoglobin 23 pg (25-35) Mean Corpuscular Hemoglobin Concent 31 g/dL (31-37) Red Cell Distribution Width 21.0 % (11.5-14.5) Platelet Count 201 x10^3/uL (140-400) Neutrophils (%) (Auto) 78 % (31-73) Lymphocytes (%) (Auto) 12 % (24-48) Monocytes (%) (Auto) 8 % (0-9) Eosinophils (%) (Auto) 2 % (0-3) Basophils (%) (Auto) 1 % (0-3) Neutrophils # (Auto) 5.0 x10^3/uL (1.8-7.7) Lymphocytes # (Auto) 0.8 x10^3/uL (1.0-4.8) Monocytes # (Auto) 0.5 x10^3/uL (0.0-1.1) Eosinophils # (Auto) 0.1 x10^3/uL (0.0-0.7) Basophils # (Auto) 0.0 x10^3/uL (0.0-0.2) Sodium Level 142 mmol/L (136-145) Potassium Level 7.2 mmol/L (3.5-5.1) Chloride Level 109 mmol/L (98-107) Carbon Dioxide Level 30 mmol/L (21-32) Anion Gap 3 (6-14) Blood Urea Nitrogen 45 mg/dL (8-26) Creatinine 2.1 mg/dL (0.7-1.3) Estimated GFR (Cockcroft-Gault) 37.0 Glucose Level 92 mg/dL (70-99) Calcium Level 9.2 mg/dL (8.5-10.1) Glucose (Fingerstick) 127 mg/dL (70-99) Medications Current Medications Sodium Chloride 1,000 ml @ 75 mls/hr [id number] IV ; Start 08/27/19 at 17:36; Stop 08/28/19 at 17:35 Calcium Gluconate (Calcium Gluconate) 1,000 mg 1X ONCE IVP Last administered on 08/27/19at 18:37; Start 08/27/19 at 18:00; Stop 08/27/19 at 18:04; Status DC Sodium Bicarbonate (Sodium Bicarb Adult 8.4% Syr) 50 meq 1X ONCE IV Last administered on 08/27/19at 18:30; Start 08/27/19 at 18:00; Stop 08/27/19 at 18:04; Status DC Dextrose (Dextrose 50%-Water Syringe) 25 gm 1X ONCE IV Last administered on 08/27/19at 18:00; Start 08/27/19 at 18:00; Stop 08/27/19 at 18:04; Status DC Insulin Human Regular (HumuLIN R VIAL) 10 unit 1X ONCE IV Last administered on 08/27/19at 18:33; Start 08/27/19 at 18:00; Stop 08/27/19 at 18:04; Status DC Sodium Polystyrene Sulfonate (Kayexalate) 30 gm 1X ONCE PO ; Start 08/27/19 at 18:00; Stop 08/27/19 at 19:25; Status DC Sodium Chloride 1,000 ml @ 100 mls/hr Q10H IV Last administered on 08/28/19at 08:07; Start 08/27/19 at 19:15 Pantoprazole Sodium 80 mg/ Sodium Chloride 100 ml @ 10 mls/hr Q10H IV Last administered on 08/28/19at 08:06; Start 08/27/19 at 20:00 Pantoprazole Sodium (PROTONIX VIAL for IV PUSH) 80 mg 1X ONCE IVP Last administered on 08/27/19at 22:21; Start 08/27/19 at 20:00; Stop 08/27/19 at 20:01; Status DC Iohexol (Omnipaque 240 Mg/ml) 30 ml 1X ONCE PO Last administered on 08/27/19at 20:15; Start 08/27/19 at 20:15; Stop 08/27/19 at 20:16; Status DC Info (CONTRAST GIVEN -- Rx MONITORING) 1 each PRN DAILY PRN MC SEE COMMENTS; Start 08/27/19 at 20:15; Stop 08/29/19 at 20:14 Heparin Sodium (Porcine) (HEPARIN for NUC MED) 100 unit 1X ONCE IV ; Start 08/27/19 at 21:45; Stop 08/27/19 at 21:49; Status DC Polyethylene Glycol (miraLAX Powder BULK BOTTLE) 238 gm 1X ONCE PO ; Start 08/28/19 at 16:00; Stop 08/28/19 at 03:32; Status DC Sodium Cl/Sod Bicarb/Potass Cl/ PEG (Golytely) 4,000 ml 1X ONCE PO ; Start 08/28/19 at 03:15; Stop 08/28/19 at 03:16; Status UNV Polyethylene Glycol (miraLAX Powder BULK BOTTLE) 238 gm 1X ONCE PO Last administered on 08/28/19at 04:01; Start 08/28/19 at 04:00; Stop 08/28/19 at 04:01; Status DC Active Scripts Active Simvastatin 20 Mg Tablet 1 Tab PO QHS 30 Days Zolpidem Tartrate 10 Mg Tablet 10 Mg PO PRN QHS PRN 30 Days Proair Hfa Inhaler (Albuterol Sulfate) 8.5 Gm Hfa.aer.ad 2 Puff IH PRN Q4-6HRS Reported Trelegy Ellipta 100-62.5-25 (Fluticasone/Umeclidin/Vilanter) 1 Each Blst.w.dev 1 Each IH BID Flomax (Tamsulosin Hcl) 0.4 Mg Cap.er.24h 0.4 Mg PO DAILY Novolog Flexpen (Insulin Aspart) 100 Unit/1 Ml Insuln.pen 1 Unit SQ TIDAC SLIDING SCALE Klor-Con M20 (Potassium Chloride) 20 Meq Tab.er.prt 20 Meq PO DAILY Lasix (Furosemide) 40 Mg Tablet 40 Mg PO DAILY Isosorbide Mononitrate Er (Isosorbide Mononitrate) 30 Mg Tab.er.24h 30 Mg PO DAILY Coreg (Carvedilol) 12.5 Mg Tablet 12.5 Mg PO BIDWMEALS Norvasc (Amlodipine Besylate) 5 Mg Tablet 5 Mg PO DAILY Levemir (Insulin Detemir) 100 Unit/1 Ml Vial 18 Unit SQ HS Hydralazine Hcl 50 Mg Tablet 50 Mg PO BID Aspir 81 (Aspirin) 81 Mg Tablet.dr 81 Mg PO DAILY Vitals/I & O Vital Sign - Last 24 Hours 08/27/19 08/27/19 08/27/19 08/27/19 16:15 18:00 19:00 20:00 Temp 97.7 97.7 Pulse 75 66 69 64 Resp 20 22 20 20 B/P (MAP) 151/64 (93) 115/58 (77) 133/68 (89) 111/72 (85) Pulse Ox 95 100 100 98 O2 Delivery Nasal Cannula Nasal Cannula Nasal Cannula Nasal Cannula O2 Flow Rate 3.0 3.0 3.0 3.0 08/27/19 08/27/19 08/27/19 08/27/19 21:00 22:00 22:15 22:30 Temp 98.1 98.1 Pulse 62 52 58 56 Resp 18 12 12 11 B/P (MAP) 125/85 (98) 136/69 (91) 111/63 (79) 126/66 (86) Pulse Ox 100 100 100 100 O2 Delivery Nasal Cannula Nasal Cannula Nasal Cannula Nasal Cannula O2 Flow Rate 3.0 3.0 3.0 3.0 08/27/19 08/27/19 08/27/19 08/27/19 23:00 23:00 23:30 23:59 Temp 98.1 98.1 Pulse 56 54 54 Resp 11 11 12 B/P (MAP) 138/72 (94) 139/70 (93) 139/70 (93) Pulse Ox 100 100 100 O2 Delivery Nasal Cannula Nasal Cannula Nasal Cannula Nasal Cannula O2 Flow Rate 3.0 3.0 3.0 3.0 08/28/19 08/28/19 08/28/19 08/28/19 01:00 02:00 03:00 04:00 Temp 98.5 98.5 Pulse 52 56 73 55 Resp 18 18 20 20 B/P (MAP) 113/52 (72) 120/52 (74) 118/54 (75) 112/51 (71) Pulse Ox 100 100 100 100 O2 Delivery Nasal Cannula Nasal Cannula Nasal Cannula Nasal Cannula O2 Flow Rate 3.0 3.0 3.0 3.0 08/28/19 08/28/19 08/28/19 08/28/19 04:00 05:00 06:00 07:00 Temp 97.9 97.9 Pulse 91 72 60 Resp 20 20 18 B/P (MAP) 153/71 (98) 123/57 (79) 128/54 (78) Pulse Ox 100 100 100 O2 Delivery Nasal Cannula Nasal Cannula Nasal Cannula Nasal Cannula O2 Flow Rate 3.0 3.0 3.0 3.0 08/28/19 08/28/19 08/28/19 08/28/19 08:00 08:00 09:00 10:00 Pulse 56 58 63 Resp 18 B/P (MAP) 115/49 (71) 129/66 (87) 134/70 (91) Pulse Ox 100 100 100 O2 Delivery Nasal Cannula Nasal Cannula Nasal Cannula Nasal Cannula O2 Flow Rate 3.0 3.0 3.0 3.0 Intake and Output 08/27/19 08/27/19 08/28/19 15:00 23:00 07:00 Intake Total 1351 ml Output Total 120 ml Balance -120 ml 1351 ml TERRANCE ESPINAL MD Aug 28, 2019 10:41
[2019-08-28] MEDS ORDERED: DEXTROSE 50% 25 GM / 50ML DISP.SYRIN. IV PRN (10:45)
[2019-08-28] MEDS ORDERED: ALBUTEROL SULFATE 2.5 MG/3 ML NEBU. NEB PRN ×2 (11:00→21:45)
[2019-08-28] MEDS ORDERED: ZOLPIDEM 5 MG TABLET. PO PRN (11:15)
--- NOTE | 2019-08-28 11:27 | HP ---
ADMIT DATE: 08/28/2019 CHIEF COMPLAINT: Blood in stool. HISTORY OF PRESENT ILLNESS: The patient is a 78-year-old male with a history of colon cancer and previous lower GI bleeds, who presented to the Emergency Room with the above complaint. He reported the onset of bloody stools on the evening prior to admission. He had one episode at that time and when he experienced another episode on the morning of admission, he decided to come to the Emergency Room. Evaluation there showed the patient to have stable vital signs. His stool was grossly positive for blood. Initial hemoglobin was 10.4. Admission lab was also significant for potassium of 6.3. Treatment was started and he was admitted for further care. PAST MEDICAL HISTORY: Colon cancer; treated surgically many years ago, lung cancer; treated with radiation therapy, chronic kidney disease stage 3, hypertension, congestive heart failure with diastolic dysfunction, hyperlipidemia, diabetes mellitus type 2, insomnia, chronic respiratory failure with COPD, BPH. PAST SURGICAL HISTORY: Colon resection, hernia repair. ALLERGIES: The patient has no known drug allergies. HOME MEDICATIONS: Albuterol p.r.n., amlodipine 5 mg daily, aspirin 81 mg daily, carvedilol 12.5 mg b.i.d., Trelegy Ellipta inhaler 1 puff daily, furosemide 40 mg daily, hydralazine 50 mg b.i.d., NovoLog insulin; the patient states he has not been taking this at all, Levemir insulin 18 units at bedtime, Imdur 30 mg daily, potassium 20 mEq daily, tamsulosin 0.4 mg daily, zolpidem 10 mg daily p.r.n. FAMILY HISTORY: Noncontributory. SOCIAL HISTORY: The patient is and lives at home with his . He quit smoking cigarettes many years ago. He does not drink alcohol to excess. REVIEW OF SYSTEMS: The patient denies fever or chills. He has some chronic dyspnea on exertion, which has not worsened. He denies an acute cough. He has already received his flu shot for this season. He denies chest pain or palpitations. He denies abdominal pain, nausea, or vomiting. He has had some chronic constipation prior to the onset of his rectal bleeding. He denies lower extremity edema. He has been taking his medications daily. He admits that he did not get the blood drawn for the routine lab that was ordered in our office in May after his last office visit there. He was referred to Dr. Melvin due to an elevated PSA, but did not go to see him due to some scheduling problems. PHYSICAL EXAMINATION: GENERAL: The patient is alert and oriented x 3, resting comfortably in bed, in no acute distress. HEENT: PERRL, EOMI, sclerae clear. Oropharynx: Mucous membranes moist. NECK: Supple, without lymphadenopathy. CHEST: Breath sounds decreased throughout, but otherwise clear to auscultation. CARDIOVASCULAR: Regular rhythm. ABDOMEN: Soft, nontender, normoactive bowel sounds are present. EXTREMITIES: Bilateral lower extremities are without edema. ASSESSMENT AND PLAN: 1. Lower gastrointestinal bleed. The patient did have some grossly bloody stools after admission to the ICU yesterday evening, but these have resolved. The patient's hemoglobin is stable at 10.[address] Knight plans a colonoscopy today. The patient has already undergone the prep for this and tolerated this well. His last colonoscopy was 01/2017 and he had the removal of adenomatous polyps at that time. 2. Hyperkalemia with a history of chronic kidney disease stage 3. The patient has been taking his usual oral potassium at home, but did not do the routine lab as ordered in his office visit in May so it is unclear how long his potassium has been elevated. His renal function is slightly decreased compared to his usual levels on the admission lab. His hyperkalemia was not treated with Kayexalate yesterday due to his active gastrointestinal bleed and the fact that he was already to undergo a preparation for colonoscopy. His potassium was still elevated at 7.2 at 0400 today, but has now decreased to 5.2. We will give the patient his usual Lasix today and recheck lab in the morning. 3. Chronic respiratory failure with chronic obstructive pulmonary disease. This appears stable. Continue oxygen and nebulized treatments. 4. Diabetes mellitus type 2. The patient reports this has been fairly well controlled with his Levemir only. He was overdue for lab on this, so an A1c has been ordered and we will follow his fingersticks here, adjusting his medications as indicated. 5. Hypertension. Hold home medications today and resume tomorrow. 6. Hyperlipidemia. Continue statin. Check a fasting lipid profile. 7. History of lung cancer. This has been stable. There was no evidence of recurrence on the patient's last CT of the chest. 8. Elevated PSA. The patient needs follow up with Urology for this and this will be arranged as an outpatient. TERRANCE ESPINAL MD DR: XOCHILT/aaron JOB#: [id number] / [id number]
[2019-08-28] MEDS: FUROSEMIDE 40 MG/4 ML VIAL. IVP SCH (11:56)
[2019-08-28] MEDS: INSULIN LISPRO 300 UNITS/3 ML VIAL. SQ SCH ×2 (12:00→17:00)
[2019-08-28] MEDS: ALBUTEROL SULFATE 2.5 MG/3 ML NEBU. NEB SCH ×2 (12:00→16:00)
[2019-08-28 12:29] LABS: HEMATOCRIT 29.5 % (39.0-53.0); HEMOGLOBIN 9.3 g/dL (13.0-17.5); RED BLOOD COUNT 4.12 x10^6/uL (4.30-5.70); RED CELL DISTRIBUTION WIDTH 20.3 % (11.5-14.5); WHITE BLOOD COUNT 5.7 x10^3/uL (4.0-11.0)
--- NOTE | 2019-08-28 14:46 | PDOC2 ---
GI CONSULT Reason For Consult: GI bleed HPI: HPI: 78-year-old male with a history of colon cancer and previous lower GI bleeds, who presented to the Emergency Room with the onset of bloody stools on the evening prior to admission. He had one episode at that time and when he experienced another episode on the morning of admission, he decided to present to the Emergency Room. Evaluation there showed the patient to have stable vital signs. His stool was grossly positive for blood. Initial hemoglobin was 10.4. Most recent Hgb 9.3. CT A/P unrevealing. GI bleed scan positive in distal descending colon PMH: PMH: PAST MEDICAL HISTORY: Colon cancer; treated surgically many years ago, lung cancer; treated with radiation therapy, chronic kidney disease stage 3, hypertension, congestive heart failure with diastolic dysfunction, hyperlipidemia, diabetes mellitus type 2, insomnia, chronic respiratory failure with COPD, BPH. PAST SURGICAL HISTORY: Colon resection, hernia repair. ALLERGIES: The patient has no known drug allergies. HOME MEDICATIONS: Albuterol p.r.n., amlodipine 5 mg daily, aspirin 81 mg daily, carvedilol 12.5 mg b.i.d., Trelegy Ellipta inhaler 1 puff daily, furosemide 40 mg daily, hydralazine 50 mg b.i.d., NovoLog insulin; the patient states he has not been taking this at all, Levemir insulin 18 units at bedtime, Imdur 30 mg daily, potassium 20 mEq daily, tamsulosin 0.4 mg daily, zolpidem 10 mg daily p.r.n. FAMILY HISTORY: Noncontributory. SOCIAL HISTORY: The patient is and lives at home with his . He quit smoking cigarettes many years ago. He does not drink alcohol to excess. FH: Family History: Other Social History: ALCOHOL: none Drugs: None ROS: GEN: Denies fevers, chills, sweats HEENT: Denies blurred vision, sore throat CV: Denies chest pain RESP: chronic dyspnea on exertion, which has not worsened. GI: Per HPI : Denies hematuria, dysuria ENDO: Denies weight changes NEURO: Denies confusion, dizziness MSK: Denies weakness, joint pain/swelling SKIN: Denies jaundice, pruritus VItals: Vitals: Vital Signs Date Time Temp Pulse Resp B/P (MAP) Pulse Ox O2 Delivery O2 Flow Rate FiO2 08/28/19 14:25 65 20 94/47 96 Nasal Cannula 2 08/28/19 14:10 97.4 97.4 Labs: Labs: Laboratory Tests Test 08/27/19 17:20 08/27/19 17:25 08/27/19 18:25 08/27/19 22:15 White Blood Count 6.1 x10^3/uL (4.0-11.0) 9.6 x10^3/uL (4.0-11.0) Red Blood Count 4.57 x10^6/uL (4.30-5.70) 4.40 x10^6/uL (4.30-5.70) Hemoglobin 10.4 g/dL (13.0-17.5) 10.1 g/dL (13.0-17.5) Hematocrit 32.9 % (39.0-53.0) 32.1 % (39.0-53.0) Mean Corpuscular Volume 72 fL (79-100) 73 fL (79-100) Mean Corpuscular Hemoglobin 23 pg (25-35) 23 pg (25-35) Mean Corpuscular Hemoglobin Concent 32 g/dL (31-37) 32 g/dL (31-37) Red Cell Distribution Width 20.6 % (11.5-14.5) 20.1 % (11.5-14.5) Platelet Count 247 x10^3/uL (140-400) 206 x10^3/uL (140-400) Neutrophils (%) (Auto) 68 % (31-73) 84 % (31-73) Lymphocytes (%) (Auto) 15 % (24-48) 6 % (24-48) Monocytes (%) (Auto) 11 % (0-9) 8 % (0-9) Eosinophils (%) (Auto) 5 % (0-3) 2 % (0-3) Basophils (%) (Auto) 1 % (0-3) 0 % (0-3) Neutrophils # (Auto) 4.2 x10^3/uL (1.8-7.7) 8.0 x10^3/uL (1.8-7.7) Lymphocytes # (Auto) 0.9 x10^3/uL (1.0-4.8) 0.6 x10^3/uL (1.0-4.8) Monocytes # (Auto) 0.6 x10^3/uL (0.0-1.1) 0.7 x10^3/uL (0.0-1.1) Eosinophils # (Auto) 0.3 x10^3/uL (0.0-0.7) 0.2 x10^3/uL (0.0-0.7) Basophils # (Auto) 0.1 x10^3/uL (0.0-0.2) 0.0 x10^3/uL (0.0-0.2) Platelet Estimate Adequate (ADEQUATE) Hypochromasia Mod Anisocytosis Mod Microcytosis Mod Target Cells Occ Schistocytes Mod Prothrombin Time 13.1 SEC (11.7-14.0) Prothromb Time International Ratio 1.0 (0.8-1.1) Sodium Level 144 mmol/L (136-145) 143 mmol/L (136-145) Potassium Level 6.3 mmol/L (3.5-5.1) 6.2 mmol/L (3.5-5.1) Chloride Level 109 mmol/L (98-107) 109 mmol/L (98-107) Carbon Dioxide Level 31 mmol/L (21-32) 31 mmol/L (21-32) Anion Gap 4 (6-14) 3 (6-14) Blood Urea Nitrogen 43 mg/dL (8-26) 44 mg/dL (8-26) Creatinine 2.2 mg/dL (0.7-1.3) 2.2 mg/dL (0.7-1.3) Estimated GFR (Cockcroft-Gault) 35.1 35.1 BUN/Creatinine Ratio 20 (6-20) Glucose Level 128 mg/dL (70-99) 97 mg/dL (70-99) Calcium Level 8.7 mg/dL (8.5-10.1) 8.7 mg/dL (8.5-10.1) Total Bilirubin 0.3 mg/dL (0.2-1.0) Aspartate Amino Transf (AST/SGOT) 22 U/L (15-37) Alanine Aminotransferase (ALT/SGPT) 13 U/L (16-63) Alkaline Phosphatase 73 U/L (46-116) Total Protein 7.1 g/dL (6.4-8.2) Albumin 3.1 g/dL (3.4-5.0) Albumin/Globulin Ratio 0.8 (1.0-1.7) Stool Occult Blood Positive (NEG) Test 08/28/19 04:00 08/28/19 04:42 08/28/19 10:05 08/28/19 12:10 White Blood Count 6.4 x10^3/uL (4.0-11.0) 5.7 x10^3/uL (4.0-11.0) Red Blood Count 4.38 x10^6/uL (4.30-5.70) 4.12 x10^6/uL (4.30-5.70) Hemoglobin 10.0 g/dL (13.0-17.5) 9.3 g/dL (13.0-17.5) Hematocrit 32.0 % (39.0-53.0) 29.5 % (39.0-53.0) Mean Corpuscular Volume 73 fL (79-100) 72 fL (79-100) Mean Corpuscular Hemoglobin 23 pg (25-35) 23 pg (25-35) Mean Corpuscular Hemoglobin Concent 31 g/dL (31-37) 32 g/dL (31-37) Red Cell Distribution Width 21.0 % (11.5-14.5) 20.3 % (11.5-14.5) Platelet Count 201 x10^3/uL (140-400) 218 x10^3/uL (140-400) Neutrophils (%) (Auto) 78 % (31-73) Lymphocytes (%) (Auto) 12 % (24-48) Monocytes (%) (Auto) 8 % (0-9) Eosinophils (%) (Auto) 2 % (0-3) Basophils (%) (Auto) 1 % (0-3) Neutrophils # (Auto) 5.0 x10^3/uL (1.8-7.7) Lymphocytes # (Auto) 0.8 x10^3/uL (1.0-4.8) Monocytes # (Auto) 0.5 x10^3/uL (0.0-1.1) Eosinophils # (Auto) 0.1 x10^3/uL (0.0-0.7) Basophils # (Auto) 0.0 x10^3/uL (0.0-0.2) Sodium Level 142 mmol/L (136-145) 143 mmol/L (136-145) Potassium Level 7.2 mmol/L (3.5-5.1) 5.2 mmol/L (3.5-5.1) Chloride Level 109 mmol/L (98-107) 109 mmol/L (98-107) Carbon Dioxide Level 30 mmol/L (21-32) 28 mmol/L (21-32) Anion Gap 3 (6-14) 6 (6-14) Blood Urea Nitrogen 45 mg/dL (8-26) 43 mg/dL (8-26) Creatinine 2.1 mg/dL (0.7-1.3) 2.0 mg/dL (0.7-1.3) Estimated GFR (Cockcroft-Gault) 37.0 39.2 Glucose Level 92 mg/dL (70-99) 106 mg/dL (70-99) Calcium Level 9.2 mg/dL (8.5-10.1) 8.8 mg/dL (8.5-10.1) Glucose (Fingerstick) 127 mg/dL (70-99) Imaging: Imaging: ATIENT: CLARISSE MORENO Ora ACCOUNT: [id number] : 1940 LOCATION: [address] [place] [address] AGE: 78 SEX: M EXAM STATUS: ADM IN ORD. PHYSICIAN: BUDDY VALENZUELA MD REASON: Active G.I. Bleed, bright red bloody stool at 1900 and 2300 today PROCEDURE: GI BLEED Indication: Acute GI bleed. Bright red blood stool. TECHNIQUE: Nuclear medicine GI bleed scan with 22 mCi of technetium 99m ultratagged RBC. COMPARISON: None FINDINGS: Radiotracer activity seen in the descending colon with antegrade movement into the sigmoid colon. IMPRESSION: Scintigraphic evidence of distal descending colon bleed. Critical findings were identified on 08/28/2019 12:48 AM, read back and verified with Nurse Pate on 08/28/2019 12:[address] Edis Zamora DO. Electronically signed by: Edis Zamora DO (08/28/2019 12:52 AM) [facility] PATIENT: CLARISSE MORENO ACCOUNT: [id number] : 1940 LOCATION: [facility] ICU AGE: 78 SEX: M EXAM STATUS: ADM IN ORD. PHYSICIAN: BUDDY VALENZUELA MD REASON: Active G.I. Bleed PROCEDURE: CT ABD PEL W/ORAL CONTRST ONLY Abdominal and Pelvis CT, Without Contrast: History: Active GI bleed. Comparison: None. Procedure: Axial images are obtained of the abdomen and pelvis, without IV but with oral contrast. CT Abdomen without Contrast: Findings: Evaluation of solid organs is limited without contrast. Liver: There is a subcentimeter hypoattenuating lesion in the right lobe of the liver laterally which is too small to characterize.. Spleen: Normal. Pancreas: Normal. Adrenal Glands: Normal. Kidneys: Bilateral renal cysts. There is no free air or free fluid. There is no lymphadenopathy. Impression: Please see CT Pelvis without Contrast. End Impression. CT Pelvis without Contrast: Findings: The urinary bladder appears normal. There is no free fluid. There is no lymphadenopathy. There is no pericolonic inflammation identified. The appendix is not seen. Impression: 1. Indeterminate lesion in the liver. 2. Otherwise no acute findings. End impression PQRS Compliance Statement: One or more of the following individualized dose reduction techniques were utilized for this examination: 1. Automated exposure control 2. Adjustment of the mA and/or kV according to patient size 3. Use of iterative reconstruction technique Electronically signed by: Christiana Quiles III, MD (08/28/2019 8:43 AM) [facility] DICTATED and SIGNED BY: CHRISTIANA QUILES III, MD DATE: 08/28/19 0843 PE: GEN: NAD HEENT: Atraumatic, PERRLA LUNGS: CTAB HEART: RRR, no murmurs ABD: NABS, S/ND/NT, no masses EXTREMITY: No edema SKIN: No rashes, no jaundice NEURO/PSYCH: A & O 3 A/P: A/P: A) 1) GI bleed 2) PMH colon cancer P 1) colonoscopy Procedure report-colonoscopy- full note dictated [id number] Findin) Diverticulosis 2) sigmoid anastomosis 3)Cecal anastomosis 4) Large clot in right colon 5) Blood in entire colon 6) No clear source of bleeding 7)internal hemorrhoids Plan 1) D/w Dr Quiles and Dr Hdez (IR). IR consult placed 2) Monitor Hgb 3) Transfuse prn 4) CTA not ordered due elevated Cr (D/w Dr Hdez) BUDDY VALENZUELA MD Aug 28, 2019 14:46
--- NOTE | 2019-08-28 15:30 | OP ---
DATE OF SURGERY: 08/28/2019 PROCEDURE: Colonoscopy. REQUESTING PHYSICIAN: Dr. Amisha Jones. PRIMARY CARE PHYSICIAN: Dr. Amisha Jones. REASON FOR PROCEDURE: Gastrointestinal bleed. HISTORY OF PRESENT ILLNESS: This is a 78-year-old gentleman who presented to the ER with rectal bleeding. He has a history of colon cancer and has had 1 prior bleed in 2017. He is to undergo colonoscopy for further evaluation of the bleed. The risks and benefits of the procedure including bleeding, perforation, non-diagnosis and sedation were explained and he has agreed to proceed. PROCEDURE: The Olympus adult colonoscope was introduced from the rectum and passed through the sigmoid colon where an anastomosis was found. There was blood present. The scope was then passed through the descending colon, transverse colon, ascending colon and there appeared to be another anastomosis in the cecum. Blood was found throughout the colon. No active source of bleeding was found. There was a large clot in the cecal area that was removed. There was no particular source of this clot that it was not attached. Otherwise, diverticulosis was found throughout the entire colon. A 360-degree withdrawal was performed. Copious washing with sterile water was performed. No clear source of bleeding. There were multiple diverticula present. Blood was suctioned through the scope. Retroflexion was performed in the rectum, and internal hemorrhoids were found. The scope was completely withdrawn. The patient suffered no complications. FINDINGS: 1. Diverticulosis. 2. Sigmoid anastomosis. 3. Cecal anastomosis. 4. Large clot in the right colon. 5. Blood in the entire colon. 6. No clear source of bleeding. 7. Internal hemorrhoids. PLAN: 1. We will continue to monitor his hemoglobin and transfuse p.r.n. 2. I discussed this case with Dr. Krause of Radiology and reviewed the CT scan and the bleeding scan with him. I also discussed the case with Dr. Hdez of Interventional Radiology. He will review all the findings and consider whether or not further intervention by IR might be necessary. CT angiography was not ordered due to creatinine elevation over 2 range. This was discussed with Dr. Hdez. BUDDY VALENZUELA MD DR: ENZO/aaron JOB#: [id number] / [id number]
[2019-08-28] MEDS ORDERED: PROPOFOL 20 ML IV ONE (15:33)
--- NOTE | 2019-08-28 16:11 | RAD ---
One view abdomen pelvis HISTORY: GI bleed Supine AP view of the pelvis obtained in order to determine if there is contrast in the colon. There is air scattered throughout large and small bowel. There is no obvious free air on this supine view. IMPRESSION: Mild ileus. No significant contrast. Electronically signed by: Chivo Beckman III, MD (08/28/2019 4:08 PM) [facility]
[2019-08-28] MEDS: CARVEDILOL 12.5 MG TABLET. PO SCH ×2 (17:00→17:41)
[2019-08-28] MEDS ORDERED: BUDESONIDE 0.5 MG/2 ML NEBU. NEB SCH (20:00)
[2019-08-28] MEDS: INSULIN GLARGINE SYRINGE. SQ SCH (20:48)
[2019-08-28] MEDS: SIMVASTATIN 20 MG TABLET PO SCH (21:00)
[2019-08-28] MEDS ORDERED: BUDESONIDE 0.5 MG/2 ML NEBU. NEB PRN (21:45)
[2019-08-28 23:52] LABS: HEMATOCRIT 26.4 % (39.0-53.0); HEMOGLOBIN 8.4 g/dL (13.0-17.5)
[2019-08-28] MEDS: ZOLPIDEM 5 MG TABLET. PO SCH (23:58)
[2019-08-29] VITALS (23 sets, daily range): BP systolic 98–142; BP diastolic 41–70
[2019-08-29] MEDS: IV NORMAL SALINE 1000ML BAG 1,000 ML IV SCH ×2 (02:33→12:39)
[2019-08-29 04:38] LABS: HEMATOCRIT 27.1 % (39.0-53.0); HEMOGLOBIN 8.4 g/dL (13.0-17.5); RED BLOOD COUNT 3.73 x10^6/uL (4.30-5.70); RED CELL DISTRIBUTION WIDTH 20.3 % (11.5-14.5); WHITE BLOOD COUNT 7.1 x10^3/uL (4.0-11.0)
[2019-08-29 04:56] LABS: CALCIUM 8.6 mg/dL (8.5-10.1); CREATININE 2.3 mg/dL (0.7-1.3); GFR 33.4; POTASSIUM 5.6 mmol/L (3.5-5.1)
--- NOTE | 2019-08-29 07:58 | PDOC ---
Provider Note Provider Note IR NOTE Consulted for lower GI bleed. Tagged scan weakly positive left colon. Colonoscopy without active bleed or identified source. Renal failure with elevated Cr. Hb stable between last two data points. Patient hemodynamically stable. Given comorbidities and stability, would continue conservative management, as most lower GI bleeds will resolve without intervention. If bleeding becomes more brisk recommend CTA. Then if positive, could go to targeted angio and hopefully minimize contrast exposure. KELLEE MAI MD Aug 29, 2019 07:58
[2019-08-29] MEDS: INSULIN LISPRO 300 UNITS/3 ML VIAL. SQ SCH ×3 (08:00→17:00)
--- NOTE | 2019-08-29 08:04 | EKG ---
[facility] [address] [place] [address] Test Date: 2019-08-27 Test Time: 18:01:33 Pat Name: CLARISSE MORENO Department: Room: 108 1 Gender: M [employer] Strategy Analyst: JOE : 1940 Requested By: DEANNA LINK Order Number: [id number] Reading MD: Angelito Ziegler MD Measurements Intervals [place] Rate: 62 P: 38 [place]: 148 QRS: 48 QRSD: 72 T: 78 QT: 378 QTc: 389 Interpretive Statements SINUS RHYTHM Electronically Signed On 09-06-2019 13:24:16 CDT by Angelito Ziegler MD
--- NOTE | 2019-08-29 08:20 | PDOC ---
PROGRESS NOTES Subjective Subjective Patient without complaint. Hungry. Has not seen blood in stool since last evening. Objective Objective Vital Signs Date Time Temp Pulse Resp B/P (MAP) Pulse Ox O2 Delivery O2 Flow Rate FiO2 08/29/19 06:17 66 139/62 (87) 08/29/19 05:16 98.4 16 96 Nasal Cannula 3.0 98.4 Intake and Output 08/29/19 06:59 Intake Total 1100 ml Output Total 1325 ml Balance -225 ml Intake Oral 0 ml Blood Product IV Normal Saline Flush 1100 ml Output Urine Total 1325 ml # Bowel Movements 7 Physical Exam Abdomen: Normal bowel sounds, Soft, No tenderness Heart: Regular rate Extremities: No edema General: Alert, Oriented X3, No acute distress Lungs: Other (BS decreased throughout but otherwise CTA) Assessment Assessment Problems Medical Problems: (1) GI bleed Status: Acute Plan Plan of Care 1. Lower GI bleed - colonoscopy yesterday did not show site of bleeding. Hgb decreased but stable since last night. IR does not recommend further imaging/tx at this time. Will d/c NPO and follow lab. 2. hyperkalemia with CKD - K+ still mildly elevated. Creatinine not far from recent baseline. Will give IV Lasix again today. Continue IVF until this evening. 3. DM2 - insulins were held due to NPO. Resume as needed today. 4. HTN - controlled, continue home medications. 5. chronic respiratory failure with COPD - stable, continue nebs and O2. 6. CHF with diastolic dysfunction - stable. Comment Review of Relevant I have reviewed the following items lauren (where applicable) has been applied. Labs Laboratory Tests Test 08/27/19 17:20 08/27/19 17:25 08/27/19 18:25 08/27/19 22:15 White Blood Count 6.1 x10^3/uL (4.0-11.0) 9.6 x10^3/uL (4.0-11.0) Red Blood Count 4.57 x10^6/uL (4.30-5.70) 4.40 x10^6/uL (4.30-5.70) Hemoglobin 10.4 g/dL (13.0-17.5) 10.1 g/dL (13.0-17.5) Hematocrit 32.9 % (39.0-53.0) 32.1 % (39.0-53.0) Mean Corpuscular Volume 72 fL (79-100) 73 fL (79-100) Mean Corpuscular Hemoglobin 23 pg (25-35) 23 pg (25-35) Mean Corpuscular Hemoglobin Concent 32 g/dL (31-37) 32 g/dL (31-37) Red Cell Distribution Width 20.6 % (11.5-14.5) 20.1 % (11.5-14.5) Platelet Count 247 x10^3/uL (140-400) 206 x10^3/uL (140-400) Neutrophils (%) (Auto) 68 % (31-73) 84 % (31-73) Lymphocytes (%) (Auto) 15 % (24-48) 6 % (24-48) Monocytes (%) (Auto) 11 % (0-9) 8 % (0-9) Eosinophils (%) (Auto) 5 % (0-3) 2 % (0-3) Basophils (%) (Auto) 1 % (0-3) 0 % (0-3) Neutrophils # (Auto) 4.2 x10^3/uL (1.8-7.7) 8.0 x10^3/uL (1.8-7.7) Lymphocytes # (Auto) 0.9 x10^3/uL (1.0-4.8) 0.6 x10^3/uL (1.0-4.8) Monocytes # (Auto) 0.6 x10^3/uL (0.0-1.1) 0.7 x10^3/uL (0.0-1.1) Eosinophils # (Auto) 0.3 x10^3/uL (0.0-0.7) 0.2 x10^3/uL (0.0-0.7) Basophils # (Auto) 0.1 x10^3/uL (0.0-0.2) 0.0 x10^3/uL (0.0-0.2) Platelet Estimate Adequate (ADEQUATE) Hypochromasia Mod Anisocytosis Mod Microcytosis Mod Target Cells Occ Schistocytes Mod Prothrombin Time 13.1 SEC (11.7-14.0) Prothromb Time International Ratio 1.0 (0.8-1.1) Sodium Level 144 mmol/L (136-145) 143 mmol/L (136-145) Potassium Level 6.3 mmol/L (3.5-5.1) 6.2 mmol/L (3.5-5.1) Chloride Level 109 mmol/L (98-107) 109 mmol/L (98-107) Carbon Dioxide Level 31 mmol/L (21-32) 31 mmol/L (21-32) Anion Gap 4 (6-14) 3 (6-14) Blood Urea Nitrogen 43 mg/dL (8-26) 44 mg/dL (8-26) Creatinine 2.2 mg/dL (0.7-1.3) 2.2 mg/dL (0.7-1.3) Estimated GFR (Cockcroft-Gault) 35.1 35.1 BUN/Creatinine Ratio 20 (6-20) Glucose Level 128 mg/dL (70-99) 97 mg/dL (70-99) Calcium Level 8.7 mg/dL (8.5-10.1) 8.7 mg/dL (8.5-10.1) Total Bilirubin 0.3 mg/dL (0.2-1.0) Aspartate Amino Transf (AST/SGOT) 22 U/L (15-37) Alanine Aminotransferase (ALT/SGPT) 13 U/L (16-63) Alkaline Phosphatase 73 U/L (46-116) Total Protein 7.1 g/dL (6.4-8.2) Albumin 3.1 g/dL (3.4-5.0) Albumin/Globulin Ratio 0.8 (1.0-1.7) Stool Occult Blood Positive (NEG) Test 08/28/19 04:00 08/28/19 04:42 08/28/19 10:05 08/28/19 11:53 White Blood Count 6.4 x10^3/uL (4.0-11.0) Red Blood Count 4.38 x10^6/uL (4.30-5.70) Hemoglobin 10.0 g/dL (13.0-17.5) Hematocrit 32.0 % (39.0-53.0) Mean Corpuscular Volume 73 fL (79-100) Mean Corpuscular Hemoglobin 23 pg (25-35) Mean Corpuscular Hemoglobin Concent 31 g/dL (31-37) Red Cell Distribution Width 21.0 % (11.5-14.5) Platelet Count 201 x10^3/uL (140-400) Neutrophils (%) (Auto) 78 % (31-73) Lymphocytes (%) (Auto) 12 % (24-48) Monocytes (%) (Auto) 8 % (0-9) Eosinophils (%) (Auto) 2 % (0-3) Basophils (%) (Auto) 1 % (0-3) Neutrophils # (Auto) 5.0 x10^3/uL (1.8-7.7) Lymphocytes # (Auto) 0.8 x10^3/uL (1.0-4.8) Monocytes # (Auto) 0.5 x10^3/uL (0.0-1.1) Eosinophils # (Auto) 0.1 x10^3/uL (0.0-0.7) Basophils # (Auto) 0.0 x10^3/uL (0.0-0.2) Sodium Level 142 mmol/L (136-145) 143 mmol/L (136-145) Potassium Level 7.2 mmol/L (3.5-5.1) 5.2 mmol/L (3.5-5.1) Chloride Level 109 mmol/L (98-107) 109 mmol/L (98-107) Carbon Dioxide Level 30 mmol/L (21-32) 28 mmol/L (21-32) Anion Gap 3 (6-14) 6 (6-14) Blood Urea Nitrogen 45 mg/dL (8-26) 43 mg/dL (8-26) Creatinine 2.1 mg/dL (0.7-1.3) 2.0 mg/dL (0.7-1.3) Estimated GFR (Cockcroft-Gault) 37.0 39.2 Glucose Level 92 mg/dL (70-99) 106 mg/dL (70-99) Calcium Level 9.2 mg/dL (8.5-10.1) 8.8 mg/dL (8.5-10.1) Glucose (Fingerstick) 127 mg/dL (70-99) 90 mg/dL (70-99) Test 08/28/19 12:10 08/28/19 17:22 08/28/19 20:45 08/28/19 21:00 White Blood Count 5.7 x10^3/uL (4.0-11.0) Red Blood Count 4.12 x10^6/uL (4.30-5.70) Hemoglobin 9.3 g/dL (13.0-17.5) 9.0 g/dL (13.0-17.5) Hematocrit 29.5 % (39.0-53.0) Mean Corpuscular Volume 72 fL (79-100) Mean Corpuscular Hemoglobin 23 pg (25-35) Mean Corpuscular Hemoglobin Concent 32 g/dL (31-37) Red Cell Distribution Width 20.3 % (11.5-14.5) Platelet Count 218 x10^3/uL (140-400) Glucose (Fingerstick) 79 mg/dL (70-99) 78 mg/dL (70-99) Test 08/28/19 22:45 08/28/19 23:40 08/29/19 04:20 08/29/19 07:52 Glucose (Fingerstick) 120 mg/dL (70-99) 89 mg/dL (70-99) Hemoglobin 8.4 g/dL (13.0-17.5) 8.4 g/dL (13.0-17.5) Hematocrit 26.4 % (39.0-53.0) 27.1 % (39.0-53.0) Mean Corpuscular Hemoglobin Concent 32 g/dL (31-37) 31 g/dL (31-37) White Blood Count 7.1 x10^3/uL (4.0-11.0) Red Blood Count 3.73 x10^6/uL (4.30-5.70) Mean Corpuscular Volume 73 fL (79-100) Mean Corpuscular Hemoglobin 22 pg (25-35) Red Cell Distribution Width 20.3 % (11.5-14.5) Platelet Count 192 x10^3/uL (140-400) Sodium Level 145 mmol/L (136-145) Potassium Level 5.6 mmol/L (3.5-5.1) Chloride Level 110 mmol/L (98-107) Carbon Dioxide Level 28 mmol/L (21-32) Anion Gap 7 (6-14) Blood Urea Nitrogen 35 mg/dL (8-26) Creatinine 2.3 mg/dL (0.7-1.3) Estimated GFR (Cockcroft-Gault) 33.4 Glucose Level 105 mg/dL (70-99) Calcium Level 8.6 mg/dL (8.5-10.1) Triglycerides Level 116 mg/dL (0-150) Cholesterol Level 98 mg/dL (0-200) LDL Cholesterol, Calculated 42 mg/dL (0-100) VLDL Cholesterol, Calculated 23 mg/dL (0-40) Non-HDL Cholesterol Calculated 65 mg/dL (0-129) HDL Cholesterol 33 mg/dL (40-60) Cholesterol/HDL Ratio 3.0 Laboratory Tests Test 08/28/19 10:05 08/28/19 11:53 08/28/19 12:10 08/28/19 17:22 Sodium Level 143 mmol/L (136-145) Potassium Level 5.2 mmol/L (3.5-5.1) Chloride Level 109 mmol/L (98-107) Carbon Dioxide Level 28 mmol/L (21-32) Anion Gap 6 (6-14) Blood Urea Nitrogen 43 mg/dL (8-26) Creatinine 2.0 mg/dL (0.7-1.3) Estimated GFR (Cockcroft-Gault) 39.2 Glucose Level 106 mg/dL (70-99) Calcium Level 8.8 mg/dL (8.5-10.1) Glucose (Fingerstick) 90 mg/dL (70-99) 79 mg/dL (70-99) White Blood Count 5.7 x10^3/uL (4.0-11.0) Red Blood Count 4.12 x10^6/uL (4.30-5.70) Hemoglobin 9.3 g/dL (13.0-17.5) Hematocrit 29.5 % (39.0-53.0) Mean Corpuscular Volume 72 fL (79-100) Mean Corpuscular Hemoglobin 23 pg (25-35) Mean Corpuscular Hemoglobin Concent 32 g/dL (31-37) Red Cell Distribution Width 20.3 % (11.5-14.5) Platelet Count 218 x10^3/uL (140-400) Test 08/28/19 20:45 08/28/19 21:00 08/28/19 22:45 08/28/19 23:40 Glucose (Fingerstick) 78 mg/dL (70-99) 120 mg/dL (70-99) Hemoglobin 9.0 g/dL (13.0-17.5) 8.4 g/dL (13.0-17.5) Hematocrit 26.4 % (39.0-53.0) Mean Corpuscular Hemoglobin Concent 32 g/dL (31-37) Test 08/29/19 04:20 08/29/19 07:52 White Blood Count 7.1 x10^3/uL (4.0-11.0) Red Blood Count 3.73 x10^6/uL (4.30-5.70) Hemoglobin 8.4 g/dL (13.0-17.5) Hematocrit 27.1 % (39.0-53.0) Mean Corpuscular Volume 73 fL (79-100) Mean Corpuscular Hemoglobin 22 pg (25-35) Mean Corpuscular Hemoglobin Concent 31 g/dL (31-37) Red Cell Distribution Width 20.3 % (11.5-14.5) Platelet Count 192 x10^3/uL (140-400) Sodium Level 145 mmol/L (136-145) Potassium Level 5.6 mmol/L (3.5-5.1) Chloride Level 110 mmol/L (98-107) Carbon Dioxide Level 28 mmol/L (21-32) Anion Gap 7 (6-14) Blood Urea Nitrogen 35 mg/dL (8-26) Creatinine 2.3 mg/dL (0.7-1.3) Estimated GFR (Cockcroft-Gault) 33.4 Glucose Level 105 mg/dL (70-99) Calcium Level 8.6 mg/dL (8.5-10.1) Triglycerides Level 116 mg/dL (0-150) Cholesterol Level 98 mg/dL (0-200) LDL Cholesterol, Calculated 42 mg/dL (0-100) VLDL Cholesterol, Calculated 23 mg/dL (0-40) Non-HDL Cholesterol Calculated 65 mg/dL (0-129) HDL Cholesterol 33 mg/dL (40-60) Cholesterol/HDL Ratio 3.0 Glucose (Fingerstick) 89 mg/dL (70-99) Medications Current Medications Sodium Chloride 1,000 ml @ 75 mls/hr [id number] IV ; Start 08/27/19 at 17:36; Stop 08/28/19 at 17:35; Status DC Calcium Gluconate (Calcium Gluconate) 1,000 mg 1X ONCE IVP Last administered on 08/27/19at 18:37; Start 08/27/19 at 18:00; Stop 08/27/19 at 18:04; Status DC Sodium Bicarbonate (Sodium Bicarb Adult 8.4% Syr) 50 meq 1X ONCE IV Last administered on 08/27/19at 18:30; Start 08/27/19 at 18:00; Stop 08/27/19 at 18:04; Status DC Dextrose (Dextrose 50%-Water Syringe) 25 gm 1X ONCE IV Last administered on 08/27/19at 18:00; Start 08/27/19 at 18:00; Stop 08/27/19 at 18:04; Status DC Insulin Human Regular (HumuLIN R VIAL) 10 unit 1X ONCE IV Last administered on 08/27/19at 18:33; Start 08/27/19 at 18:00; Stop 08/27/19 at 18:04; Status DC Sodium Polystyrene Sulfonate (Kayexalate) 30 gm 1X ONCE PO ; Start 08/27/19 at 18:00; Stop 08/27/19 at 19:25; Status DC Sodium Chloride 1,000 ml @ 100 mls/hr Q10H IV Last administered on 08/29/19at 02:33; Start 08/27/19 at 19:15 Pantoprazole Sodium 80 mg/ Sodium Chloride 100 ml @ 10 mls/hr Q10H IV Last administered on 08/28/19at 08:06; Start 08/27/19 at 20:00; Stop 08/28/19 at 11:01; Status DC Pantoprazole Sodium (PROTONIX VIAL for IV PUSH) 80 mg 1X ONCE IVP Last administered on 08/27/19at 22:21; Start 08/27/19 at 20:00; Stop 08/27/19 at 20:01; Status DC Iohexol (Omnipaque 240 Mg/ml) 30 ml 1X ONCE PO Last administered on 08/27/19at 20:15; Start 08/27/19 at 20:15; Stop 08/27/19 at 20:16; Status DC Info (CONTRAST GIVEN -- Rx MONITORING) 1 each PRN DAILY PRN MC SEE COMMENTS; Start 08/27/19 at 20:15; Stop 08/29/19 at 20:14 Heparin Sodium (Porcine) (HEPARIN for NUC MED) 100 unit 1X ONCE IV ; Start 08/27/19 at 21:45; Stop 08/27/19 at 21:49; Status DC Polyethylene Glycol (miraLAX Powder BULK BOTTLE) 238 gm 1X ONCE PO ; Start 08/28/19 at 16:00; Stop 08/28/19 at 03:32; Status DC Sodium Cl/Sod Bicarb/Potass Cl/ PEG (Golytely) 4,000 ml 1X ONCE PO ; Start 08/28/19 at 03:15; Stop 08/28/19 at 03:16; Status UNV Polyethylene Glycol (miraLAX Powder BULK BOTTLE) 238 gm 1X ONCE PO Last administered on 08/28/19at 04:01; Start 08/28/19 at 04:00; Stop 08/28/19 at 04:01; Status DC Insulin Human Lispro (HumaLOG) 0-5 UNITS TIDWMEALS SQ ; Start 08/28/19 at 12:00 Dextrose (Dextrose 50%-Water Syringe) 12.5 gm PRN Q15MIN PRN IV SEE COMMENTS; Start 08/28/19 at 10:45 Amlodipine Besylate (Norvasc) 5 mg DAILY PO ; Start 08/29/19 at 09:00 Carvedilol (Coreg) 12.5 mg BIDWMEALS PO Last administered on 08/28/19at 17:41; Start 08/28/19 at 17:00 Hydralazine HCl (Apresoline) 50 mg BID PO Last administered on 08/28/19at 20:48; Start 08/28/19 at 21:00 Isosorbide Mononitrate (Imdur) 30 mg DAILY PO ; Start 08/29/19 at 09:00 Simvastatin (Zocor) 20 mg QHS PO ; Start 08/28/19 at 21:00 Tamsulosin HCl (Flomax) 0.4 mg DAILY PO ; Start 08/29/19 at 09:00 Albuterol Sulfate (Ventolin Neb Soln) 2.5 mg RTQID NEB ; Start 08/28/19 at 12:00; Stop 08/28/19 at 21:45; Status DC Insulin Glargine (Lantus Syringe) 18 unit QHS SQ ; Start 08/28/19 at 21:00 Zolpidem Tartrate (Ambien) 5 mg QHS PO Last administered on 08/28/19at 23:58; Start 08/28/19 at 21:00 Albuterol Sulfate (Ventolin Neb Soln) 2.5 mg PRN Q6HRS PRN NEB SHORTNESS OF BREATH; Start 08/28/19 at 11:00; Stop 08/28/19 at 21:47; Status DC Furosemide (Lasix) 40 mg DAILY IVP Last administered on 08/28/19at 11:56; Start 08/28/19 at 11:00 Zolpidem Tartrate (Ambien) 5 mg PRN QHS PRN PO INSOMNIA; Start 08/28/19 at 11:15 Budesonide (Pulmicort) 0.5 mg RTBID NEB ; Start 08/28/19 at 20:00; Stop 08/28/19 at 21:45; Status DC Propofol 20 ml @ As Directed STK-MED ONCE IV ; Start 08/28/19 at 15:33; Stop 08/28/19 at 15:34; Status DC Albuterol Sulfate (Ventolin Neb Soln) 2.5 mg PRN QID PRN NEB WHEEZING; Start 08/28/19 at 21:45 Budesonide (Pulmicort) 0.5 mg PRN BID PRN NEB SHORTNESS OF BREATH; Start 08/28/19 at 21:45 Active Scripts Active Zolpidem Tartrate 10 Mg Tablet 10 Mg PO PRN QHS PRN 30 Days Proair Hfa Inhaler (Albuterol Sulfate) 8.5 Gm Hfa.aer.ad 2 Puff IH PRN Q4-6HRS Reported Trelegy Ellipta 100-62.5-25 (Fluticasone/Umeclidin/Vilanter) 1 Each Blst.w.dev 1 Each IH BID Flomax (Tamsulosin Hcl) 0.4 Mg Cap.er.24h 0.4 Mg PO DAILY Novolog Flexpen (Insulin Aspart) 100 Unit/1 Ml Insuln.pen 1 Unit SQ TIDAC SLIDING SCALE Klor-Con M20 (Potassium Chloride) 20 Meq Tab.er.prt 20 Meq PO DAILY Lasix (Furosemide) 40 Mg Tablet 40 Mg PO DAILY Isosorbide Mononitrate Er (Isosorbide Mononitrate) 30 Mg Tab.er.24h 30 Mg PO DAILY Coreg (Carvedilol) 12.5 Mg Tablet 12.5 Mg PO BIDWMEALS Norvasc (Amlodipine Besylate) 5 Mg Tablet 5 Mg PO DAILY Levemir (Insulin Detemir) 100 Unit/1 Ml Vial 18 Unit SQ HS Hydralazine Hcl 50 Mg Tablet 50 Mg PO BID Aspir 81 (Aspirin) 81 Mg Tablet.dr 81 Mg PO DAILY Vitals/I & O Vital Sign - Last 24 Hours 08/28/19 08/28/19 08/28/19 08/28/19 09:00 10:00 11:00 12:09 Temp 99.0 99.0 Pulse 58 63 65 Resp 18 20 B/P (MAP) 129/66 (87) 134/70 (91) 130/62 (84) Pulse Ox 100 100 100 O2 Delivery Nasal Cannula Nasal Cannula Nasal Cannula Nasal Cannula O2 Flow Rate 3.0 3.0 3.0 3.0 08/28/19 08/28/19 08/28/19 08/28/19 12:10 13:00 13:20 13:25 Temp 97.9 97.9 Pulse 60 64 62 Resp 18 18 18 B/P (MAP) 124/65 (84) 132/68 (89) Pulse Ox 100 100 100 O2 Delivery Nasal Cannula Nasal Cannula Nasal Cannula O2 Flow Rate 3.0 3.0 3.0 08/28/19 08/28/19 08/28/19 08/28/19 14:00 14:10 14:25 15:00 Temp 97.4 97.9 97.4 97.9 Pulse 72 73 65 70 Resp 18 18 20 20 B/P (MAP) 105/61 (76) 109/54 94/47 129/69 (89) Pulse Ox 100 98 96 96 O2 Delivery Nasal Cannula Nasal Cannula Nasal Cannula O2 Flow Rate 3.0 2 2.0 08/28/19 08/28/19 08/28/19 08/28/19 16:00 16:00 17:00 17:33 Temp 97.9 97.9 Pulse 63 64 Resp 20 18 B/P (MAP) 149/57 (87) 144/70 (94) Pulse Ox 96 96 100 O2 Delivery Nasal Cannula Nasal Cannula Nasal Cannula Nasal Cannula O2 Flow Rate 2.0 2.0 2.0 2.0 08/28/19 08/28/19 08/28/19 08/28/19 17:41 18:00 19:12 20:00 Temp 98.6 98.6 98.6 98.6 Pulse 65 64 64 60 Resp 18 B/P (MAP) 158/81 146/69 (94) 146/69 (94) 143/70 (94) Pulse Ox 98 98 97 O2 Delivery Nasal Cannula Nasal Cannula Nasal Cannula O2 Flow Rate 2.0 2.0 2.0 08/28/19 08/28/19 08/28/19 08/28/19 20:00 20:48 21:00 22:40 Pulse 66 64 56 B/P (MAP) 135/76 134/67 (89) 107/48 (67) O2 Delivery Nasal Cannula O2 Flow Rate 2.0 08/28/19 08/28/19 08/29/19 08/29/19 23:00 23:55 00:05 01:00 Pulse 60 78 78 B/P (MAP) 104/54 (71) 113/55 (74) 123/58 (79) O2 Delivery Nasal Cannula O2 Flow Rate 2.0 08/29/19 08/29/19 08/29/19 08/29/19 02:00 03:00 04:00 04:07 Pulse 68 73 68 B/P (MAP) 110/41 (64) 101/ 112/60 (77) O2 Delivery Nasal Cannula O2 Flow Rate 3.0 08/29/19 08/29/19 05:16 06:17 Temp 98.4 98.4 Pulse 87 66 Resp 16 B/P (MAP) 123/48 (73) 139/62 (87) Pulse Ox 96 O2 Delivery Nasal Cannula O2 Flow Rate 3.0 Intake and Output 08/28/19 08/28/19 08/29/19 14:59 22:59 06:59 Intake Total 200 ml 900 ml 0 ml Output Total 1125 ml 200 ml Balance 200 ml -225 ml -200 ml TERRANCE ESPINAL MD Aug 29, 2019 08:20
[2019-08-29] MEDS: TAMSULOSIN 0.4 MG CAP.ER.24H. PO SCH (08:26)
[2019-08-29] MEDS: FUROSEMIDE 40 MG/4 ML VIAL. IVP SCH (08:26)
[2019-08-29] MEDS: ISOSORBIDE MONONITRATE ER 30 MG TAB.ER.24H PO SCH (08:28)
[2019-08-29] MEDS: amLODIPine BESYLATE 5 MG TABLET PO SCH (08:29)
[2019-08-29] MEDS: CARVEDILOL 12.5 MG TABLET. PO SCH ×2 (08:30→17:00)
[2019-08-29] MEDS ORDERED: FLU VAX QS 2019-20 (36MOS+)/PF 0.5 ML SYRINGE. VAX IM ONE (09:00)
--- NOTE | 2019-08-29 09:26 | PDOC ---
Subjective: Subjective: Had some cereal. No "gurgling" today but has a little lower abd discomfort. Denies bleeding. Objective: Objective: Nurse says no further bleeding and has regular diet ordered. Vital Signs: Vital Signs Date Time Temp Pulse Resp B/P (MAP) Pulse Ox O2 Delivery O2 Flow Rate FiO2 08/29/19 08:30 70 139/70 08/29/19 05:16 98.4 16 96 Nasal Cannula 3.0 98.4 Labs: Laboratory Tests Test 08/28/19 10:05 08/28/19 11:53 08/28/19 12:10 08/28/19 17:22 Sodium Level 143 mmol/L Potassium Level 5.2 mmol/L Chloride Level 109 mmol/L Carbon Dioxide Level 28 mmol/L Anion Gap 6 Blood Urea Nitrogen 43 mg/dL Creatinine 2.0 mg/dL Estimated GFR (Cockcroft-Gault) 39.2 Glucose Level 106 mg/dL Calcium Level 8.8 mg/dL Glucose (Fingerstick) 90 mg/dL 79 mg/dL White Blood Count 5.7 x10^3/uL Red Blood Count 4.12 x10^6/uL Hemoglobin 9.3 g/dL Hematocrit 29.5 % Mean Corpuscular Volume 72 fL Mean Corpuscular Hemoglobin 23 pg Mean Corpuscular Hemoglobin Concent 32 g/dL Red Cell Distribution Width 20.3 % Platelet Count 218 x10^3/uL Test 08/28/19 20:45 08/28/19 21:00 08/28/19 22:45 08/28/19 23:40 Glucose (Fingerstick) 78 mg/dL 120 mg/dL Hemoglobin 9.0 g/dL 8.4 g/dL Hematocrit 26.4 % Mean Corpuscular Hemoglobin Concent 32 g/dL Test 08/29/19 04:20 08/29/19 07:52 White Blood Count 7.1 x10^3/uL Red Blood Count 3.73 x10^6/uL Hemoglobin 8.4 g/dL Hematocrit 27.1 % Mean Corpuscular Volume 73 fL Mean Corpuscular Hemoglobin 22 pg Mean Corpuscular Hemoglobin Concent 31 g/dL Red Cell Distribution Width 20.3 % Platelet Count 192 x10^3/uL Sodium Level 145 mmol/L Potassium Level 5.6 mmol/L Chloride Level 110 mmol/L Carbon Dioxide Level 28 mmol/L Anion Gap 7 Blood Urea Nitrogen 35 mg/dL Creatinine 2.3 mg/dL Estimated GFR (Cockcroft-Gault) 33.4 Glucose Level 105 mg/dL Calcium Level 8.6 mg/dL Triglycerides Level 116 mg/dL Cholesterol Level 98 mg/dL LDL Cholesterol, Calculated 42 mg/dL VLDL Cholesterol, Calculated 23 mg/dL Non-HDL Cholesterol Calculated 65 mg/dL HDL Cholesterol 33 mg/dL Cholesterol/HDL Ratio 3.0 Glucose (Fingerstick) 89 mg/dL Imaging: Colonoscopy 08/28 FINDINGS: 1. Diverticulosis. 2. Sigmoid anastomosis. 3. Cecal anastomosis. 4. Large clot in the right colon. 5. Blood in the entire colon. 6. No clear source of bleeding. 7. Internal hemorrhoids. Bleeding Scan 08/27 IMPRESSION: Scintigraphic evidence of distal descending colon bleed. PE: GEN: NAD LUNGS: CTAB HEART: RRR ABD: NABS, S/ND/NT NEURO/PSYCH: A & O 3 A/P: Recurrent GI bleeding, hematochezia, +bleeding scan -h/o colon cancer w/ resections; colonoscopy 01/2017 w/ normal anastomosis, diverticulosis, three tubular adenomas; colonoscopy this admission as above -last EGD 2008 -- Bleeding resolved w/ stable Hgb, trying diet, IR following. Consider addition of iron. KITTY GOMEZ Aug 29, 2019 09:26
[2019-08-29] MEDS: PANTOPRAZOLE 40 MG TABLET.DR. PO SCH (12:54)
--- NOTE | 2019-08-29 15:48 | NUR ---
SS following for discharge planning. SS reviewed pt chart. Pt is from home with spouse and is currently requiring oxygen. SS will continue to follow for discharge planning.
[2019-08-29] MEDS: INSULIN GLARGINE SYRINGE. SQ SCH (21:00)
[2019-08-29] MEDS ORDERED: FUROSEMIDE 20 MG/2 ML VIAL. IVP ONE (21:15)
[2019-08-29] MEDS: SIMVASTATIN 20 MG TABLET PO SCH (21:35)
[2019-08-29] MEDS: ZOLPIDEM 5 MG TABLET. PO SCH (21:35)
[2019-08-30] VITALS (12 sets, daily range): BP systolic 111–134; BP diastolic 43–65
[2019-08-30 07:32] LABS: HEMATOCRIT 30.4 % (39.0-53.0); HEMOGLOBIN 9.9 g/dL (13.0-17.5); RED BLOOD COUNT 4.07 x10^6/uL (4.30-5.70); RED CELL DISTRIBUTION WIDTH 20.2 % (11.5-14.5); WHITE BLOOD COUNT 6.3 x10^3/uL (4.0-11.0)
[2019-08-30 07:36] LABS: CALCIUM 8.7 mg/dL (8.5-10.1); CREATININE 2.1 mg/dL (0.7-1.3); POTASSIUM 4.6 mmol/L (3.5-5.1)
[2019-08-30] MEDS: INSULIN LISPRO 300 UNITS/3 ML VIAL. SQ SCH ×3 (08:00→17:00)
[2019-08-30] MEDS ORDERED: HEPARIN for NUC MED 500 UNIT/5 ML DISP.SYRIN. IV ONE (08:15)
--- NOTE | 2019-08-30 08:28 | PDOC ---
PROGRESS NOTES Subjective Subjective Patient reports feeling hungry. Mild abdominal discomfort in lower abdomen. Has not seen blood in stool since yesterday afternoon. Objective Objective Vital Signs Date Time Temp Pulse Resp B/P (MAP) Pulse Ox O2 Delivery O2 Flow Rate FiO2 08/30/19 07:00 98.6 73 18 120/65 (83) 98 Nasal Cannula 3.0 98.6 Intake and Output 08/30/19 07:00 Intake Total 500 ml Output Total 1990 ml Balance -1490 ml Intake Oral 480 ml Blood Product IV Normal Saline Flush 20 ml Output Urine Total 1990 ml Physical Exam Abdomen: Normal bowel sounds, Soft, Other (mild TTP without guarding or rebound) Heart: Regular rate Extremities: No edema General: Alert, Oriented X3, No acute distress Lungs: Other (BS decreased throughout but otherwise CTA) Assessment Assessment Problems Medical Problems: (1) GI bleed Status: Acute Plan Plan of Care 1. Lower GI bleed - recurrence yesterday PM. Hgb decreased to 7.5, transfused two units overnight and Hgb 9.9 this AM. Await repeat bleeding scan, follow lab. 2. hyperkalemia with CKD - K+ now WNL and creatinine at baseline. Continue to hold potassium supplement and follow lab. PO fluids encouraged. 3. HTN - well controlled with home medications. 4. DM2 - FSBG good, not eating much so not taking his usual Levemir. 5. Chronic respiratory failure with COPD - stable, continue O2. 6. CHF with diastolic dysfunction - stable, change Lasix to po and continue daily. Comment Review of Relevant I have reviewed the following items lauren (where applicable) has been applied. Labs Laboratory Tests Test 08/28/19 10:05 08/28/19 11:53 08/28/19 12:10 08/28/19 17:22 Sodium Level 143 mmol/L (136-145) Potassium Level 5.2 mmol/L (3.5-5.1) Chloride Level 109 mmol/L (98-107) Carbon Dioxide Level 28 mmol/L (21-32) Anion Gap 6 (6-14) Blood Urea Nitrogen 43 mg/dL (8-26) Creatinine 2.0 mg/dL (0.7-1.3) Estimated GFR (Cockcroft-Gault) 39.2 Glucose Level 106 mg/dL (70-99) Calcium Level 8.8 mg/dL (8.5-10.1) Glucose (Fingerstick) 90 mg/dL (70-99) 79 mg/dL (70-99) White Blood Count 5.7 x10^3/uL (4.0-11.0) Red Blood Count 4.12 x10^6/uL (4.30-5.70) Hemoglobin 9.3 g/dL (13.0-17.5) Hematocrit 29.5 % (39.0-53.0) Mean Corpuscular Volume 72 fL (79-100) Mean Corpuscular Hemoglobin 23 pg (25-35) Mean Corpuscular Hemoglobin Concent 32 g/dL (31-37) Red Cell Distribution Width 20.3 % (11.5-14.5) Platelet Count 218 x10^3/uL (140-400) Test 08/28/19 20:45 08/28/19 21:00 08/28/19 22:45 08/28/19 23:40 Glucose (Fingerstick) 78 mg/dL (70-99) 120 mg/dL (70-99) Hemoglobin 9.0 g/dL (13.0-17.5) 8.4 g/dL (13.0-17.5) Hematocrit 26.4 % (39.0-53.0) Mean Corpuscular Hemoglobin Concent 32 g/dL (31-37) Test 08/29/19 04:20 08/29/19 07:52 08/29/19 12:07 08/29/19 14:05 White Blood Count 7.1 x10^3/uL (4.0-11.0) Red Blood Count 3.73 x10^6/uL (4.30-5.70) Hemoglobin 8.4 g/dL (13.0-17.5) 8.9 g/dL (13.0-17.5) Hematocrit 27.1 % (39.0-53.0) Mean Corpuscular Volume 73 fL (79-100) Mean Corpuscular Hemoglobin 22 pg (25-35) Mean Corpuscular Hemoglobin Concent 31 g/dL (31-37) Red Cell Distribution Width 20.3 % (11.5-14.5) Platelet Count 192 x10^3/uL (140-400) Sodium Level 145 mmol/L (136-145) Potassium Level 5.6 mmol/L (3.5-5.1) Chloride Level 110 mmol/L (98-107) Carbon Dioxide Level 28 mmol/L (21-32) Anion Gap 7 (6-14) Blood Urea Nitrogen 35 mg/dL (8-26) Creatinine 2.3 mg/dL (0.7-1.3) Estimated GFR (Cockcroft-Gault) 33.4 Glucose Level 105 mg/dL (70-99) Calcium Level 8.6 mg/dL (8.5-10.1) Triglycerides Level 116 mg/dL (0-150) Cholesterol Level 98 mg/dL (0-200) LDL Cholesterol, Calculated 42 mg/dL (0-100) VLDL Cholesterol, Calculated 23 mg/dL (0-40) Non-HDL Cholesterol Calculated 65 mg/dL (0-129) HDL Cholesterol 33 mg/dL (40-60) Cholesterol/HDL Ratio 3.0 Glucose (Fingerstick) 89 mg/dL (70-99) 126 mg/dL (70-99) Test 08/29/19 18:01 08/29/19 20:10 08/29/19 21:25 08/30/19 05:50 Glucose (Fingerstick) 122 mg/dL (70-99) 137 mg/dL (70-99) Hemoglobin 7.5 g/dL (13.0-17.5) 9.9 g/dL (13.0-17.5) White Blood Count 6.3 x10^3/uL (4.0-11.0) Red Blood Count 4.07 x10^6/uL (4.30-5.70) Hematocrit 30.4 % (39.0-53.0) Mean Corpuscular Volume 75 fL (79-100) Mean Corpuscular Hemoglobin 24 pg (25-35) Mean Corpuscular Hemoglobin Concent 33 g/dL (31-37) Red Cell Distribution Width 20.2 % (11.5-14.5) Platelet Count 180 x10^3/uL (140-400) Test 08/30/19 06:25 08/30/19 07:19 Sodium Level 146 mmol/L (136-145) Potassium Level 4.6 mmol/L (3.5-5.1) Chloride Level 110 mmol/L (98-107) Carbon Dioxide Level 29 mmol/L (21-32) Anion Gap 7 (6-14) Blood Urea Nitrogen 29 mg/dL (8-26) Creatinine 2.1 mg/dL (0.7-1.3) Estimated GFR (Cockcroft-Gault) 37.0 Glucose Level 92 mg/dL (70-99) Calcium Level 8.7 mg/dL (8.5-10.1) Glucose (Fingerstick) 97 mg/dL (70-99) Laboratory Tests Test 08/29/19 12:07 08/29/19 14:05 08/29/19 18:01 08/29/19 20:10 Glucose (Fingerstick) 126 mg/dL (70-99) 122 mg/dL (70-99) Hemoglobin 8.9 g/dL (13.0-17.5) 7.5 g/dL (13.0-17.5) Test 08/29/19 21:25 08/30/19 05:50 08/30/19 06:25 08/30/19 07:19 Glucose (Fingerstick) 137 mg/dL (70-99) 97 mg/dL (70-99) White Blood Count 6.3 x10^3/uL (4.0-11.0) Red Blood Count 4.07 x10^6/uL (4.30-5.70) Hemoglobin 9.9 g/dL (13.0-17.5) Hematocrit 30.4 % (39.0-53.0) Mean Corpuscular Volume 75 fL (79-100) Mean Corpuscular Hemoglobin 24 pg (25-35) Mean Corpuscular Hemoglobin Concent 33 g/dL (31-37) Red Cell Distribution Width 20.2 % (11.5-14.5) Platelet Count 180 x10^3/uL (140-400) Sodium Level 146 mmol/L (136-145) Potassium Level 4.6 mmol/L (3.5-5.1) Chloride Level 110 mmol/L (98-107) Carbon Dioxide Level 29 mmol/L (21-32) Anion Gap 7 (6-14) Blood Urea Nitrogen 29 mg/dL (8-26) Creatinine 2.1 mg/dL (0.7-1.3) Estimated GFR (Cockcroft-Gault) 37.0 Glucose Level 92 mg/dL (70-99) Calcium Level 8.7 mg/dL (8.5-10.1) Medications Current Medications Sodium Chloride 1,000 ml @ 75 mls/hr [id number] IV ; Start 08/27/19 at 17:36; Stop 08/28/19 at 17:35; Status DC Calcium Gluconate (Calcium Gluconate) 1,000 mg 1X ONCE IVP Last administered on 08/27/19at 18:37; Start 08/27/19 at 18:00; Stop 08/27/19 at 18:04; Status DC Sodium Bicarbonate (Sodium Bicarb Adult 8.4% Syr) 50 meq 1X ONCE IV Last administered on 08/27/19at 18:30; Start 08/27/19 at 18:00; Stop 08/27/19 at 18:04; Status DC Dextrose (Dextrose 50%-Water Syringe) 25 gm 1X ONCE IV Last administered on 08/27/19at 18:00; Start 08/27/19 at 18:00; Stop 08/27/19 at 18:04; Status DC Insulin Human Regular (HumuLIN R VIAL) 10 unit 1X ONCE IV Last administered on 08/27/19at 18:33; Start 08/27/19 at 18:00; Stop 08/27/19 at 18:04; Status DC Sodium Polystyrene Sulfonate (Kayexalate) 30 gm 1X ONCE PO ; Start 08/27/19 at 18:00; Stop 08/27/19 at 19:25; Status DC Sodium Chloride 1,000 ml @ 100 mls/hr Q10H IV Last administered on 08/29/19at 12:39; Start 08/27/19 at 19:15; Stop 08/29/19 at 17:00; Status DC Pantoprazole Sodium 80 mg/ Sodium Chloride 100 ml @ 10 mls/hr Q10H IV Last administered on 08/28/19at 08:06; Start 08/27/19 at 20:00; Stop 08/28/19 at 11:01; Status DC Pantoprazole Sodium (PROTONIX VIAL for IV PUSH) 80 mg 1X ONCE IVP Last administered on 08/27/19at 22:21; Start 08/27/19 at 20:00; Stop 08/27/19 at 20:01; Status DC Iohexol (Omnipaque 240 Mg/ml) 30 ml 1X ONCE PO Last administered on 08/27/19at 20:15; Start 08/27/19 at 20:15; Stop 08/27/19 at 20:16; Status DC Info (CONTRAST GIVEN -- Rx MONITORING) 1 each PRN DAILY PRN MC SEE COMMENTS; Start 08/27/19 at 20:15; Stop 08/29/19 at 20:14; Status DC Heparin Sodium (Porcine) (HEPARIN for NUC MED) 100 unit 1X ONCE IV ; Start 08/27/19 at 21:45; Stop 08/27/19 at 21:49; Status DC Polyethylene Glycol (miraLAX Powder BULK BOTTLE) 238 gm 1X ONCE PO ; Start 08/28/19 at 16:00; Stop 08/28/19 at 03:32; Status DC Sodium Cl/Sod Bicarb/Potass Cl/ PEG (Golytely) 4,000 ml 1X ONCE PO ; Start 08/28/19 at 03:15; Stop 08/28/19 at 03:16; Status UNV Polyethylene Glycol (miraLAX Powder BULK BOTTLE) 238 gm 1X ONCE PO Last administered on 08/28/19at 04:01; Start 08/28/19 at 04:00; Stop 08/28/19 at 04:01; Status DC Insulin Human Lispro (HumaLOG) 0-5 UNITS TIDWMEALS SQ ; Start 08/28/19 at 12:00 Dextrose (Dextrose 50%-Water Syringe) 12.5 gm PRN Q15MIN PRN IV SEE COMMENTS; Start 08/28/19 at 10:45 Amlodipine Besylate (Norvasc) 5 mg DAILY PO Last administered on 08/29/19at 08:29; Start 08/29/19 at 09:00 Carvedilol (Coreg) 12.5 mg BIDWMEALS PO Last administered on 08/29/19at 17:00; Start 08/28/19 at 17:00 Hydralazine HCl (Apresoline) 50 mg BID PO Last administered on 08/29/19at 21:35; Start 08/28/19 at 21:00 Isosorbide Mononitrate (Imdur) 30 mg DAILY PO Last administered on 08/29/19at 08:28; Start 08/29/19 at 09:00 Simvastatin (Zocor) 20 mg QHS PO Last administered on 08/29/19at 21:35; Start 08/28/19 at 21:00 Tamsulosin HCl (Flomax) 0.4 mg DAILY PO Last administered on 08/29/19at 08:26; Start 08/29/19 at 09:00 Albuterol Sulfate (Ventolin Neb Soln) 2.5 mg RTQID NEB ; Start 08/28/19 at 12:00; Stop 08/28/19 at 21:45; Status DC Insulin Glargine (Lantus Syringe) 18 unit QHS SQ ; Start 08/28/19 at 21:00 Zolpidem Tartrate (Ambien) 5 mg QHS PO Last administered on 08/29/19at 21:35; Start 08/28/19 at 21:00 Albuterol Sulfate (Ventolin Neb Soln) 2.5 mg PRN Q6HRS PRN NEB SHORTNESS OF BREATH; Start 08/28/19 at 11:00; Stop 08/28/19 at 21:47; Status DC Furosemide (Lasix) 40 mg DAILY IVP Last administered on 08/29/19at 08:26; Start 08/28/19 at 11:00 Zolpidem Tartrate (Ambien) 5 mg PRN QHS PRN PO INSOMNIA; Start 08/28/19 at 11:15 Budesonide (Pulmicort) 0.5 mg RTBID NEB ; Start 08/28/19 at 20:00; Stop 08/28/19 at 21:45; Status DC Propofol 20 ml @ As Directed STK-MED ONCE IV ; Start 08/28/19 at 15:33; Stop 08/28/19 at 15:34; Status DC Albuterol Sulfate (Ventolin Neb Soln) 2.5 mg PRN QID PRN NEB WHEEZING; Start 08/28/19 at 21:45 Budesonide (Pulmicort) 0.5 mg PRN BID PRN NEB SHORTNESS OF BREATH; Start 08/28/19 at 21:45 Influenza Virus Vaccine Quadrival (Afluria Quad 2019-20 (3yr Up) Syringe) 0.5 ml ONCE ONCE VAX IM ; Start 08/29/19 at 09:00; Stop 08/29/19 at 09:03; Status DC Pantoprazole Sodium (Protonix) 40 mg DAILYAC PO Last administered on 08/29/19at 12:54; Start 08/29/19 at 07:30 Furosemide (Lasix) 20 mg 1X ONCE IVP Last administered on 08/30/19at 00:57; Start 08/29/19 at 21:15; Stop 08/29/19 at 21:16; Status DC Active Scripts Active Zolpidem Tartrate 10 Mg Tablet 10 Mg PO PRN QHS PRN 30 Days Proair Hfa Inhaler (Albuterol Sulfate) 8.5 Gm Hfa.aer.ad 2 Puff IH PRN Q4-6HRS Reported Trelegy Ellipta 100-62.5-25 (Fluticasone/Umeclidin/Vilanter) 1 Each Blst.w.dev 1 Each IH BID Flomax (Tamsulosin Hcl) 0.4 Mg Cap.er.24h 0.4 Mg PO DAILY Novolog Flexpen (Insulin Aspart) 100 Unit/1 Ml Insuln.pen 1 Unit SQ TIDAC SLIDING SCALE Klor-Con M20 (Potassium Chloride) 20 Meq Tab.er.prt 20 Meq PO DAILY Lasix (Furosemide) 40 Mg Tablet 40 Mg PO DAILY Isosorbide Mononitrate Er (Isosorbide Mononitrate) 30 Mg Tab.er.24h 30 Mg PO DAILY Coreg (Carvedilol) 12.5 Mg Tablet 12.5 Mg PO BIDWMEALS Norvasc (Amlodipine Besylate) 5 Mg Tablet 5 Mg PO DAILY Levemir (Insulin Detemir) 100 Unit/1 Ml Vial 18 Unit SQ HS Hydralazine Hcl 50 Mg Tablet 50 Mg PO BID Aspir 81 (Aspirin) 81 Mg Tablet.dr 81 Mg PO DAILY Vitals/I & O Vital Sign - Last 24 Hours 08/29/19 08/29/19 08/29/19 08/29/19 08:28 08:28 08:29 08:30 Pulse 70 70 70 70 B/P (MAP) 139/70 139/70 139/70 139/70 08/29/19 08/29/19 08/29/19 08/29/19 09:00 10:00 11:00 11:59 Temp 98.4 98.7 98.6 98.4 98.7 98.6 Pulse 70 70 70 B/P (MAP) 128/70 (89) 140/70 (93) 128/68 (88) Pulse Ox 96 96 96 O2 Delivery Nasal Cannula Nasal Cannula Nasal Cannula Nasal Cannula O2 Flow Rate 3.0 3.0 3.0 3.0 08/29/19 08/29/19 08/29/19 08/29/19 12:00 13:00 16:03 16:08 Temp 98.6 98.5 98.5 98.6 98.5 98.5 Pulse 70 70 70 B/P (MAP) 135/68 (90) 142/58 (86) 98/48 (65) Pulse Ox 96 96 96 O2 Delivery Nasal Cannula Nasal Cannula Nasal Cannula Nasal Cannula O2 Flow Rate 3.0 3.0 3.0 3.0 08/29/19 08/29/19 08/29/19 08/29/19 17:00 17:00 18:36 19:13 Temp 98.5 98.5 98.5 98.5 Pulse 70 70 70 B/P (MAP) 124/48 124/48 (73) 118/48 (71) Pulse Ox 96 96 O2 Delivery Nasal Cannula Nasal Cannula Nasal Cannula O2 Flow Rate 3.0 3.0 3.0 08/29/19 08/29/19 08/29/19 08/29/19 19:45 21:35 21:56 22:20 Temp 98.6 98.2 98.2 98.6 98.2 98.2 Pulse 66 66 68 68 Resp 20 18 18 B/P (MAP) 107/59 (75) 107/59 117/58 118/56 (76) Pulse Ox 98 97 O2 Delivery Nasal Cannula Nasal Cannula O2 Flow Rate 3.0 3.0 08/29/19 08/29/19 08/30/19 08/30/19 22:50 23:57 00:58 01:24 Temp 97.2 98.1 98.4 98.9 97.2 98.1 98.4 98.9 Pulse 70 67 67 68 Resp 18 20 18 18 B/P (MAP) 115/59 116/60 127/62 115/56 08/30/19 08/30/19 08/30/19 08/30/19 01:38 02:37 02:50 03:30 Temp 98.2 98.9 98.5 98.1 98.2 98.9 98.5 98.1 Pulse 74 69 66 65 Resp 20 20 18 18 B/P (MAP) 114/43 113/45 113/45 (67) 120/61 Pulse Ox 97 O2 Delivery Nasal Cannula O2 Flow Rate 3.0 08/30/19 08/30/19 04:26 07:00 Temp 98.1 98.6 98.1 98.6 Pulse 73 73 Resp 18 18 B/P (MAP) 112/61 120/65 (83) Pulse Ox 98 O2 Delivery Nasal Cannula O2 Flow Rate 3.0 Intake and Output 08/29/19 08/29/19 08/30/19 15:00 23:00 07:00 Intake Total 420 ml 70 ml 10 ml Output Total 940 ml 350 ml 700 ml Balance -520 ml -280 ml -690 ml Nutrition Consultation Dietary Evaluation: Recommendations by RD: Increase Calorie Intake, Protein supplementation Comments: REC ADA/cardiac diet, will adjust diet order as needed REC Glucerna (chocolate) w/breakfast Expected Outcomes/Goals: PO intake to meet >75% est needs Interpretation of weight loss: >20% in 1 year Malnutrition Findings: Food and Nutrition Intake (Mod: <75% est energy req 7days Weight Status: Appropriate TERRANCE ESPINAL MD Aug 30, 2019 08:28
[2019-08-30] MEDS ORDERED: FUROSEMIDE 40 MG TABLET. PO SCH (09:00)
[2019-08-30] MEDS: ISOSORBIDE MONONITRATE ER 30 MG TAB.ER.24H PO SCH (10:31)
[2019-08-30] MEDS: PANTOPRAZOLE 40 MG TABLET.DR. PO SCH (10:32)
[2019-08-30] MEDS: TAMSULOSIN 0.4 MG CAP.ER.24H. PO SCH (10:32)
[2019-08-30] MEDS: amLODIPine BESYLATE 5 MG TABLET PO SCH (10:32)
[2019-08-30] MEDS: CARVEDILOL 12.5 MG TABLET. PO SCH ×2 (10:33→17:20)
--- NOTE | 2019-08-30 10:47 | RAD ---
Examination: GI BLEED History: GI bleed Comparison/Correlation: None Findings: 33 mCi technetium 99m UltraTag was intravenously administered. Uptake of radiotracer seen in the proximal descending colon and is identified to extend to the proximal sigmoid colon level. Impression: Uptake of radiotracer involving the descending colon compatible with active GI bleed. Electronically signed by: Nikolay Johnson MD (08/30/2019 10:44 AM) [facility]
--- NOTE | 2019-08-30 13:09 | PDOC ---
Subjective: Subjective: Brown stool w/ red blood yesterday at 3:00 p.m. No stooling/bleeding since. Has lower abd discomfort. Just ate a regular lunch. Objective: Objective: Transfused 2 units pRBCs yesterday. Vital Signs: Vital Signs Date Time Temp Pulse Resp B/P (MAP) Pulse Ox O2 Delivery O2 Flow Rate FiO2 08/30/19 11:03 98.6 73 18 120/65 (83) 98 Nasal Cannula 3.0 98.6 Labs: Laboratory Tests Test 08/29/19 14:05 08/29/19 18:01 08/29/19 20:10 08/29/19 21:25 Hemoglobin 8.9 g/dL 7.5 g/dL Glucose (Fingerstick) 122 mg/dL 137 mg/dL Test 08/30/19 06:25 08/30/19 07:19 08/30/19 11:27 White Blood Count 6.3 x10^3/uL Red Blood Count 4.07 x10^6/uL Hemoglobin 9.9 g/dL Hematocrit 30.4 % Mean Corpuscular Volume 75 fL Mean Corpuscular Hemoglobin 24 pg Mean Corpuscular Hemoglobin Concent 33 g/dL Red Cell Distribution Width 20.2 % Platelet Count 180 x10^3/uL Sodium Level 146 mmol/L Potassium Level 4.6 mmol/L Chloride Level 110 mmol/L Carbon Dioxide Level 29 mmol/L Anion Gap 7 Blood Urea Nitrogen 29 mg/dL Creatinine 2.1 mg/dL Estimated GFR (Cockcroft-Gault) 37.0 Glucose Level 92 mg/dL Calcium Level 8.7 mg/dL Glucose (Fingerstick) 97 mg/dL 159 mg/dL Imaging: GI Bleed Scan 08/30 Impression: Uptake of radiotracer involving the descending colon compatible with active GI bleed. PE: GEN: NAD - lunch tray empty LUNGS: NC 3L HEART: RRR ABD: BS+, soft, periumbilical/RLQ discomfort NEURO/PSYCH: A & O 3 A/P: Recurrent GI bleeding, hematochezia, +bleeding scan x2 -h/o colon cancer w/ resections; colonoscopy 01/2017 w/ normal anastomosis, diverticulosis, three tubular adenomas; colonoscopy this admission w/ diverticulosis, sigmoid and cecal anastomoses, clot in right colon, blood in entire colon, and internal hemorrhoids - no clear source of bleeding Anemia, CKD -- No obvious bleeding in nearly 24 hours but bleeding scan positive again. Reviewed w/ Dr. Hernandez re: ?need for CTA - would sit and watch for now. Clears, monitor Hgb. KITTY GOMEZ Aug 30, 2019 13:09
[2019-08-30] MEDS: INSULIN GLARGINE SYRINGE. SQ SCH (21:00)
[2019-08-30] MEDS: SIMVASTATIN 10 MG TABLET PO SCH (21:15)
[2019-08-30] MEDS: ZOLPIDEM 5 MG TABLET. PO SCH (21:15)
[2019-08-30 23:07] LABS: HEMOGLOBIN A1C 5.7 % (4.8-5.6)
[2019-08-31 05:02] LABS: HEMATOCRIT 27.7 % (39.0-53.0); RED BLOOD COUNT 3.7 x10^6/uL (4.30-5.70); RED CELL DISTRIBUTION WIDTH 20.7 % (11.5-14.5); WHITE BLOOD COUNT 5.6 x10^3/uL (4.0-11.0)
[2019-08-31 05:15] LABS: CALCIUM 8.3 mg/dL (8.5-10.1); CREATININE 2.3 mg/dL (0.7-1.3); GFR 33.4; POTASSIUM 4.1 mmol/L (3.5-5.1)
[2019-08-31 07:00] VITALS: BP 109/56
[2019-08-31] MEDS: INSULIN LISPRO 300 UNITS/3 ML VIAL. SQ SCH ×3 (08:00→17:00)
--- NOTE | 2019-08-31 08:23 | PDOC ---
PROGRESS NOTES Subjective Subjective Patient denies seeing blood in stool yesterday or today. Mild lower abdominal pain persists. Objective Objective Vital Signs Date Time Temp Pulse Resp B/P (MAP) Pulse Ox O2 Delivery O2 Flow Rate FiO2 08/30/19 23:00 99.9 79 20 134/58 (83) 93 Nasal Cannula 3.0 99.9 Intake and Output 08/31/19 07:00 Intake Total 0 ml Balance 0 ml IV Total 0 ml Physical Exam Abdomen: Normal bowel sounds, Soft, Other (scant diffuse lower abdominal TTP without guarding or rebound) Heart: Regular rate Extremities: No edema General: Alert, Oriented X3, No acute distress Lungs: Other (BS decreased throughout otherwise CTA) Assessment Assessment Problems Medical Problems: (1) GI bleed Status: Acute Plan Plan of Care 1. Lower GI bleed - bleeding scan yesterday AM was positive in area of sigmoid colon. Hgb mildly decreasing after transfusion. Discussed with patient, he is agreeable to CT angiography with tx if possible. 2. CKD - stable on lab. Start IVF while patient is NPO and follow lab. K+ continues WNL. 3. HTN - well controlled with home medications. 4. DM2 - well controlled prior to admission with A1C 5.7 on Levemir only. Holding Levemir now as not on regular diet yet. 5. chronic respiratory failure with COPD - stable, continue O2. 6. CHF with diastolic dysfunction - stable. Hold Lasix today to help prevent worsening of renal function with IV contrast. Comment Review of Relevant I have reviewed the following items lauren (where applicable) has been applied. Labs Laboratory Tests Test 08/29/19 12:07 08/29/19 14:05 08/29/19 18:01 08/29/19 20:10 Glucose (Fingerstick) 126 mg/dL (70-99) 122 mg/dL (70-99) Hemoglobin 8.9 g/dL (13.0-17.5) 7.5 g/dL (13.0-17.5) Test 08/29/19 21:25 08/30/19 06:25 08/30/19 07:19 08/30/19 11:27 Glucose (Fingerstick) 137 mg/dL (70-99) 97 mg/dL (70-99) 159 mg/dL (70-99) White Blood Count 6.3 x10^3/uL (4.0-11.0) Red Blood Count 4.07 x10^6/uL (4.30-5.70) Hemoglobin 9.9 g/dL (13.0-17.5) Hematocrit 30.4 % (39.0-53.0) Mean Corpuscular Volume 75 fL (79-100) Mean Corpuscular Hemoglobin 24 pg (25-35) Mean Corpuscular Hemoglobin Concent 33 g/dL (31-37) Red Cell Distribution Width 20.2 % (11.5-14.5) Platelet Count 180 x10^3/uL (140-400) Sodium Level 146 mmol/L (136-145) Potassium Level 4.6 mmol/L (3.5-5.1) Chloride Level 110 mmol/L (98-107) Carbon Dioxide Level 29 mmol/L (21-32) Anion Gap 7 (6-14) Blood Urea Nitrogen 29 mg/dL (8-26) Creatinine 2.1 mg/dL (0.7-1.3) Estimated GFR (Cockcroft-Gault) 37.0 Glucose Level 92 mg/dL (70-99) Hemoglobin A1c 5.7 % (4.8-5.6) Calcium Level 8.7 mg/dL (8.5-10.1) Test 08/30/19 14:05 08/30/19 17:11 08/30/19 21:14 08/30/19 22:15 Hemoglobin 9.6 g/dL (13.0-17.5) 9.3 g/dL (13.0-17.5) Glucose (Fingerstick) 133 mg/dL (70-99) 121 mg/dL (70-99) Test 08/31/19 04:25 08/31/19 07:51 White Blood Count 5.6 x10^3/uL (4.0-11.0) Red Blood Count 3.70 x10^6/uL (4.30-5.70) Hemoglobin 9.0 g/dL (13.0-17.5) Hematocrit 27.7 % (39.0-53.0) Mean Corpuscular Volume 75 fL (79-100) Mean Corpuscular Hemoglobin 24 pg (25-35) Mean Corpuscular Hemoglobin Concent 33 g/dL (31-37) Red Cell Distribution Width 20.7 % (11.5-14.5) Platelet Count 166 x10^3/uL (140-400) Sodium Level 143 mmol/L (136-145) Potassium Level 4.1 mmol/L (3.5-5.1) Chloride Level 107 mmol/L (98-107) Carbon Dioxide Level 29 mmol/L (21-32) Anion Gap 7 (6-14) Blood Urea Nitrogen 27 mg/dL (8-26) Creatinine 2.3 mg/dL (0.7-1.3) Estimated GFR (Cockcroft-Gault) 33.4 Glucose Level 100 mg/dL (70-99) Calcium Level 8.3 mg/dL (8.5-10.1) Glucose (Fingerstick) 103 mg/dL (70-99) Laboratory Tests Test 08/30/19 11:27 08/30/19 14:05 08/30/19 17:11 08/30/19 21:14 Glucose (Fingerstick) 159 mg/dL (70-99) 133 mg/dL (70-99) 121 mg/dL (70-99) Hemoglobin 9.6 g/dL (13.0-17.5) Test 08/30/19 22:15 08/31/19 04:25 08/31/19 07:51 Hemoglobin 9.3 g/dL (13.0-17.5) 9.0 g/dL (13.0-17.5) White Blood Count 5.6 x10^3/uL (4.0-11.0) Red Blood Count 3.70 x10^6/uL (4.30-5.70) Hematocrit 27.7 % (39.0-53.0) Mean Corpuscular Volume 75 fL (79-100) Mean Corpuscular Hemoglobin 24 pg (25-35) Mean Corpuscular Hemoglobin Concent 33 g/dL (31-37) Red Cell Distribution Width 20.7 % (11.5-14.5) Platelet Count 166 x10^3/uL (140-400) Sodium Level 143 mmol/L (136-145) Potassium Level 4.1 mmol/L (3.5-5.1) Chloride Level 107 mmol/L (98-107) Carbon Dioxide Level 29 mmol/L (21-32) Anion Gap 7 (6-14) Blood Urea Nitrogen 27 mg/dL (8-26) Creatinine 2.3 mg/dL (0.7-1.3) Estimated GFR (Cockcroft-Gault) 33.4 Glucose Level 100 mg/dL (70-99) Calcium Level 8.3 mg/dL (8.5-10.1) Glucose (Fingerstick) 103 mg/dL (70-99) Medications Current Medications Sodium Chloride 1,000 ml @ 75 mls/hr [id number] IV ; Start 08/27/19 at 17:36; Stop 08/28/19 at 17:35; Status DC Calcium Gluconate (Calcium Gluconate) 1,000 mg 1X ONCE IVP Last administered on 08/27/19at 18:37; Start 08/27/19 at 18:00; Stop 08/27/19 at 18:04; Status DC Sodium Bicarbonate (Sodium Bicarb Adult 8.4% Syr) 50 meq 1X ONCE IV Last administered on 08/27/19at 18:30; Start 08/27/19 at 18:00; Stop 08/27/19 at 18:04; Status DC Dextrose (Dextrose 50%-Water Syringe) 25 gm 1X ONCE IV Last administered on 08/27/19at 18:00; Start 08/27/19 at 18:00; Stop 08/27/19 at 18:04; Status DC Insulin Human Regular (HumuLIN R VIAL) 10 unit 1X ONCE IV Last administered on 08/27/19at 18:33; Start 08/27/19 at 18:00; Stop 08/27/19 at 18:04; Status DC Sodium Polystyrene Sulfonate (Kayexalate) 30 gm 1X ONCE PO ; Start 08/27/19 at 18:00; Stop 08/27/19 at 19:25; Status DC Sodium Chloride 1,000 ml @ 100 mls/hr Q10H IV Last administered on 08/29/19at 12:39; Start 08/27/19 at 19:15; Stop 08/29/19 at 17:00; Status DC Pantoprazole Sodium 80 mg/ Sodium Chloride 100 ml @ 10 mls/hr Q10H IV Last administered on 08/28/19at 08:06; Start 08/27/19 at 20:00; Stop 08/28/19 at 11:01; Status DC Pantoprazole Sodium (PROTONIX VIAL for IV PUSH) 80 mg 1X ONCE IVP Last administered on 08/27/19at 22:21; Start 08/27/19 at 20:00; Stop 08/27/19 at 20:01; Status DC Iohexol (Omnipaque 240 Mg/ml) 30 ml 1X ONCE PO Last administered on 08/27/19at 20:15; Start 08/27/19 at 20:15; Stop 08/27/19 at 20:16; Status DC Info (CONTRAST GIVEN -- Rx MONITORING) 1 each PRN DAILY PRN MC SEE COMMENTS; Start 08/27/19 at 20:15; Stop 08/29/19 at 20:14; Status DC Heparin Sodium (Porcine) (HEPARIN for NUC MED) 100 unit 1X ONCE IV ; Start 08/27/19 at 21:45; Stop 08/27/19 at 21:49; Status DC Polyethylene Glycol (miraLAX Powder BULK BOTTLE) 238 gm 1X ONCE PO ; Start 08/28/19 at 16:00; Stop 08/28/19 at 03:32; Status DC Sodium Cl/Sod Bicarb/Potass Cl/ PEG (Golytely) 4,000 ml 1X ONCE PO ; Start 08/28/19 at 03:15; Stop 08/28/19 at 03:16; Status UNV Polyethylene Glycol (miraLAX Powder BULK BOTTLE) 238 gm 1X ONCE PO Last administered on 08/28/19at 04:01; Start 08/28/19 at 04:00; Stop 08/28/19 at 04:01; Status DC Insulin Human Lispro (HumaLOG) 0-5 UNITS TIDWMEALS SQ ; Start 08/28/19 at 12:00 Dextrose (Dextrose 50%-Water Syringe) 12.5 gm PRN Q15MIN PRN IV SEE COMMENTS; Start 08/28/19 at 10:45 Amlodipine Besylate (Norvasc) 5 mg DAILY PO Last administered on 08/30/19at 10:32; Start 08/29/19 at 09:00 Carvedilol (Coreg) 12.5 mg BIDWMEALS PO Last administered on 08/30/19at 17:20; Start 08/28/19 at 17:00 Hydralazine HCl (Apresoline) 50 mg BID PO Last administered on 08/30/19at 21:15; Start 08/28/19 at 21:00 Isosorbide Mononitrate (Imdur) 30 mg DAILY PO Last administered on 08/30/19at 10:31; Start 08/29/19 at 09:00 Simvastatin (Zocor) 20 mg QHS PO Last administered on 08/29/19at 21:35; Start 08/28/19 at 21:00; Stop 08/30/19 at 08:16; Status DC Tamsulosin HCl (Flomax) 0.4 mg DAILY PO Last administered on 08/30/19at 10:32; Start 08/29/19 at 09:00 Albuterol Sulfate (Ventolin Neb Soln) 2.5 mg RTQID NEB ; Start 08/28/19 at 12:00; Stop 08/28/19 at 21:45; Status DC Insulin Glargine (Lantus Syringe) 18 unit QHS SQ ; Start 08/28/19 at 21:00 Zolpidem Tartrate (Ambien) 5 mg QHS PO Last administered on 08/30/19at 21:15; Start 08/28/19 at 21:00 Albuterol Sulfate (Ventolin Neb Soln) 2.5 mg PRN Q6HRS PRN NEB SHORTNESS OF BREATH; Start 08/28/19 at 11:00; Stop 08/28/19 at 21:47; Status DC Furosemide (Lasix) 40 mg DAILY IVP Last administered on 08/29/19at 08:26; Start 08/28/19 at 11:00; Stop 08/30/19 at 08:16; Status DC Zolpidem Tartrate (Ambien) 5 mg PRN QHS PRN PO INSOMNIA; Start 08/28/19 at 11:15 Budesonide (Pulmicort) 0.5 mg RTBID NEB ; Start 08/28/19 at 20:00; Stop 08/28/19 at 21:45; Status DC Propofol 20 ml @ As Directed STK-MED ONCE IV ; Start 08/28/19 at 15:33; Stop 08/28/19 at 15:34; Status DC Albuterol Sulfate (Ventolin Neb Soln) 2.5 mg PRN QID PRN NEB WHEEZING; Start 08/28/19 at 21:45 Budesonide (Pulmicort) 0.5 mg PRN BID PRN NEB SHORTNESS OF BREATH; Start 08/28/19 at 21:45 Influenza Virus Vaccine Quadrival (Afluria Quad 2019-20 (3yr Up) Syringe) 0.5 ml ONCE ONCE VAX IM ; Start 08/29/19 at 09:00; Stop 08/29/19 at 09:03; Status DC Pantoprazole Sodium (Protonix) 40 mg DAILYAC PO Last administered on 08/30/19at 10:32; Start 08/29/19 at 07:30 Furosemide (Lasix) 20 mg 1X ONCE IVP Last administered on 08/30/19at 00:57; Start 08/29/19 at 21:15; Stop 08/29/19 at 21:16; Status DC Heparin Sodium (Porcine) (HEPARIN for NUC MED) 100 unit 1X ONCE IV ; Start 08/30/19 at 08:15; Stop 08/30/19 at 08:16; Status DC Furosemide (Lasix) 40 mg DAILY PO Last administered on 08/30/19at 10:31; Start 08/30/19 at 09:00 Simvastatin (Zocor) 10 mg QHS PO Last administered on 08/30/19at 21:15; Start 08/30/19 at 21:00 Active Scripts Active Zolpidem Tartrate 10 Mg Tablet 10 Mg PO PRN QHS PRN 30 Days Proair Hfa Inhaler (Albuterol Sulfate) 8.5 Gm Hfa.aer.ad 2 Puff IH PRN Q4-6HRS Reported Trelegy Ellipta 100-62.5-25 (Fluticasone/Umeclidin/Vilanter) 1 Each Blst.w.dev 1 Each IH BID Flomax (Tamsulosin Hcl) 0.4 Mg Cap.er.24h 0.4 Mg PO DAILY Novolog Flexpen (Insulin Aspart) 100 Unit/1 Ml Insuln.pen 1 Unit SQ TIDAC SLID ING SCALE Klor-Con M20 (Potassium Chloride) 20 Meq Tab.er.prt 20 Meq PO DAILY Lasix (Furosemide) 40 Mg Tablet 40 Mg PO DAILY Isosorbide Mononitrate Er (Isosorbide Mononitrate) 30 Mg Tab.er.24h 30 Mg PO DAILY Coreg (Carvedilol) 12.5 Mg Tablet 12.5 Mg PO BIDWMEALS Norvasc (Amlodipine Besylate) 5 Mg Tablet 5 Mg PO DAILY Levemir (Insulin Detemir) 100 Unit/1 Ml Vial 18 Unit SQ HS Hydralazine Hcl 50 Mg Tablet 50 Mg PO BID Aspir 81 (Aspirin) 81 Mg Tablet. 81 Mg PO DAILY Vitals/I & O Vital Sign - Last 24 Hours 08/30/19 08/30/19 08/30/19 08/30/19 10:31 10:32 10:32 10:33 Pulse 73 73 73 73 B/P (MAP) 120/65 120/65 120/65 120/65 08/30/19 08/30/19 08/30/19 08/30/19 11:03 14:46 17:20 18:41 Temp 98.6 99.3 98.9 98.6 99.3 98.9 Pulse 73 78 78 79 Resp 18 16 18 B/P (MAP) 120/65 (83) 111/58 (75) 111/58 111/53 (72) Pulse Ox 98 98 99 O2 Delivery Nasal Cannula Nasal Cannula Nasal Cannula O2 Flow Rate 3.0 3.0 3.0 08/30/19 08/30/19 08/30/19 20:00 21:15 23:00 Temp 99.9 99.9 Pulse 79 79 Resp 20 B/P (MAP) 111/53 134/58 (83) Pulse Ox 93 O2 Delivery Nasal Cannula Nasal Cannula O2 Flow Rate 3.0 3.0 Intake and Output 08/30/19 08/30/19 08/31/19 15:00 23:00 07:00 Intake Total 0 ml Balance 0 ml Nutrition Consultation Dietary Evaluation: Recommendations by RD: Increase Calorie Intake, Protein supplementation Comments: REC ADA/cardiac diet, will adjust diet order as needed REC Glucerna (chocolate) w/breakfast Expected Outcomes/Goals: PO intake to meet >75% est needs Interpretation of weight loss: >20% in 1 year Malnutrition Findings: Food and Nutrition Intake (Mod: <75% est energy req 7days Weight Status: Appropriate TERRANCE ESPINAL MD Aug 31, 2019 08:22
--- NOTE | 2019-08-31 09:15 | PDOC ---
Subjective: Subjective: No bleeding or stools. Objective: Objective: Plans for CTA per primary. Temp 99.9 Vital Signs: Vital Signs Date Time Temp Pulse Resp B/P (MAP) Pulse Ox O2 Delivery O2 Flow Rate FiO2 08/31/19 07:00 99.6 79 18 109/56 (73) 93 Nasal Cannula 3.0 99.6 Labs: Laboratory Tests Test 08/30/19 11:27 08/30/19 14:05 08/30/19 17:11 08/30/19 21:14 Glucose (Fingerstick) 159 mg/dL 133 mg/dL 121 mg/dL Hemoglobin 9.6 g/dL Test 08/30/19 22:15 08/31/19 04:25 08/31/19 07:51 Hemoglobin 9.3 g/dL 9.0 g/dL White Blood Count 5.6 x10^3/uL Red Blood Count 3.70 x10^6/uL Hematocrit 27.7 % Mean Corpuscular Volume 75 fL Mean Corpuscular Hemoglobin 24 pg Mean Corpuscular Hemoglobin Concent 33 g/dL Red Cell Distribution Width 20.7 % Platelet Count 166 x10^3/uL Sodium Level 143 mmol/L Potassium Level 4.1 mmol/L Chloride Level 107 mmol/L Carbon Dioxide Level 29 mmol/L Anion Gap 7 Blood Urea Nitrogen 27 mg/dL Creatinine 2.3 mg/dL Estimated GFR (Cockcroft-Gault) 33.4 Glucose Level 100 mg/dL Calcium Level 8.3 mg/dL Glucose (Fingerstick) 103 mg/dL PE: GEN: NAD LUNGS: NC 3L HEART: RRR ABD: quiet BS, less tender compared to yesterday NEURO/PSYCH: A & O 3 A/P: Recurrent GI bleeding, +bleeding scan x2 -h/o colon cancer w/ resections, diverticulosis Anemia (stable), CKD -- Await CTA. KITTY GOMEZ Aug 31, 2019 09:15
[2019-08-31] MEDS: IV NORMAL SALINE 1000ML BAG 1,000 ML IV SCH ×2 (09:24→18:15)
[2019-08-31 11:00] VITALS: BP 105/52
[2019-08-31] MEDS ORDERED: IOHEXOL 350 MG/ML 100 ML VIAL. IV ONE (11:45)
[2019-08-31] MEDS ORDERED: CONTRAST GIVEN. MC PRN (11:45)
[2019-08-31] MEDS: PANTOPRAZOLE 40 MG TABLET.DR. PO SCH (12:29)
[2019-08-31] MEDS: CARVEDILOL 12.5 MG TABLET. PO SCH ×2 (12:29→18:35)
[2019-08-31] MEDS: amLODIPine BESYLATE 5 MG TABLET PO SCH (12:29)
[2019-08-31] MEDS: TAMSULOSIN 0.4 MG CAP.ER.24H. PO SCH (12:30)
--- NOTE | 2019-08-31 13:00 | NUR ---
SS following up with discharge planning. Pt is currently requiring oxygen. No PT needs at this time. SS will continue to follow for discharge planning.
[2019-08-31 15:00] VITALS: BP 122/57
--- NOTE | 2019-08-31 16:09 | RAD ---
CTA of the abdomen and pelvis compared to noncontrast CT scan of the abdomen and pelvis dated August 272018 for lower GI bleeding. TECHNIQUE: Contiguous helical 3 mm axial images are obtained from the apex of diaphragm to the pelvic floor following administration of IV contrast in the arterial phase. Sagittal and coronal MIPS are evaluated as are 3-D volume rendered images of the vasculature. Nonvascular findings: There are changes honeycombing of the lung bases, and there is smooth interstitial thickening throughout the lung bases suggesting of pulmonary edema. Coronary artery calcifications are seen. Heart size is borderline enlarged, without diann cardiomegaly. There are couple small hypodensities within the liver which appear to be simple cysts. No suspicious hepatic parenchymal abnormalities are seen. Pancreas is atrophic but otherwise unremarkable. There is fullness of the left adrenal gland without a discrete mass. No definite abnormalities of the spleen are seen. There are innumerable cysts involving the right kidney, most which are simple in nature. There is a 1.7 cm bilobed hyperdense cyst seen involving the posterior aspect of the midpole the right kidney which is equivocal on a single phase examination. A second cyst in the posterior medial aspect of the kidney slightly cephalad to the first measures 2.5 cm and has Hounsfield units of 21, as well as a small punctate calcification along the inferior margin. This most likely represents Bosniak 2 cyst but is also equivocal on this single phase examination. There are also innumerable cysts involving the left kidney, all of which appear simple in nature. There is no hydronephrosis involving either kidney. No suspicious mesenteric or retroperitoneal adenopathy is seen. The urinary bladder is fluid distended and grossly unremarkable. Prostate is enlarged. Evaluation of the large and small bowel is limited by lack of oral contrast. There are postsurgical changes of the ascending colon, and there are a few diverticula involving the descending colon, however no areas of gross bowel wall thickening or bowel obstruction are identified. No areas of contrast cannulation are seen within the enteric limited to suggest active arterial extravasation. Multilevel degenerative changes of the spine are seen. No suspicious osteoblastic or osteolytic bone lesions are evident. The gallbladder is grossly unremarkable. Vascular findings: There is moderate multifocal atherosclerosis in multiple distributions. The aorta is nonaneurysmal. The celiac artery, superior mesenteric artery, and single bilateral renal arteries are widely patent, with only mild atherosclerosis. The inferior mesenteric artery is patent as well, with moderate ostial stenosis. There is atherosclerosis involving the iliofemoral arteries, however the bilateral common iliac, internal iliac, external iliac, and common femoral arteries are patent. IMPRESSION: 1. Negative CTA of the abdomen and pelvis for depiction of active arterial gastrointestinal bleeding. 2. Pulmonary edema, superimposed on pulmonary fibrosis. 3. Fullness of left adrenal gland without a discrete mass. 4. 2 equivocal cysts involving the right kidney. These could be definitively characterized with renal ultrasound if clinically warranted. 5. Prior surgical changes involving the ascending colon. 6. Other chronic changes as described. PQRS Compliance Statement: One or more of the following individualized dose reduction techniques were utilized for this examination: 1. Automated exposure control 2. Adjustment of the mA and/or kV according to patient size 3. Use of iterative reconstruction technique Electronically signed by: Kris Fish MD (08/31/2019 4:06 PM) [email or web address]
[2019-08-31] MEDS: ISOSORBIDE MONONITRATE ER 30 MG TAB.ER.24H PO SCH (18:35)
[2019-08-31 18:39] VITALS: BP 120/59
[2019-08-31] MEDS: INSULIN GLARGINE SYRINGE. SQ SCH (21:00)
[2019-08-31] MEDS: SIMVASTATIN 10 MG TABLET PO SCH (21:03)
[2019-08-31] MEDS: ZOLPIDEM 5 MG TABLET. PO SCH (21:03)
[2019-08-31] MEDS: BENZONATATE 100 MG CAPSULE. PO PRN (21:03)
[2019-08-31 22:53] VITALS: BP 117/55
[2019-09-01 03:03] VITALS: BP_SYST 114; BP_SYST 95; BP_DIAS 49; BP_DIAS 62
[2019-09-01 05:35] LABS: HEMATOCRIT 24.9 % (39.0-53.0); RED BLOOD COUNT 3.32 x10^6/uL (4.30-5.70); RED CELL DISTRIBUTION WIDTH 20.4 % (11.5-14.5); WHITE BLOOD COUNT 6.8 x10^3/uL (4.0-11.0)
[2019-09-01 05:41] LABS: CREATININE 2.5 mg/dL (0.7-1.3); GFR 30.3; POTASSIUM 4.1 mmol/L (3.5-5.1)
[2019-09-01 07:00] VITALS: BP 99/54
[2019-09-01] MEDS: CARVEDILOL 12.5 MG TABLET. PO SCH ×2 (08:00→17:00)
[2019-09-01] MEDS: INSULIN LISPRO 300 UNITS/3 ML VIAL. SQ SCH ×3 (08:00→17:36)
--- NOTE | 2019-09-01 08:45 | PDOC ---
PROGRESS NOTES Subjective Subjective Patient reports increased cough and congestion overnight. No real abdominal pain. Objective Objective Vital Signs Date Time Temp Pulse Resp B/P (MAP) Pulse Ox O2 Delivery O2 Flow Rate FiO2 09/01/19 03:03 101.1 72 16 95/49 (64) 98 Nasal Cannula 3.0 101.1 Intake and Output 09/01/19 07:00 Intake Total 460 ml Output Total 800 ml Balance -340 ml Intake Oral 460 ml Output Urine Total 800 ml Physical Exam Abdomen: Normal bowel sounds, Soft, No tenderness Heart: Regular rate Extremities: No edema General: Alert, Oriented X3, No acute distress Lungs: Other (moderate expiratory wheezes throughout) Assessment Assessment Problems Medical Problems: (1) GI bleed Status: Acute Plan Plan of Care 1. Lower GI bleed - appears stable, no further blood in stools. CTA yesterday without active bleeding. Hgb decreased but may be dilutional from IVF he received yesterday. Continue to follow lab, advance diet. 2. fever and productive cough with chronic respiratory failure and COPD - check CXR, start Levaquin at renal dose and Solumedrol. 3. CKD III - creatinine a little elevated after contrast yesterday, po fluids encouraged, continue to follow lab. 4. CHF with diastolic dysfunction - stable, continue to hold Lasix to benefit renal function. 5. DM2 - expect glucose to be elevated with Solumedrol, continue insulins. 6. HTN - well controlled, continue home medications. Comment Review of Relevant I have reviewed the following items lauren (where applicable) has been applied. Labs Laboratory Tests Test 08/30/19 11:27 08/30/19 14:05 08/30/19 17:11 08/30/19 21:14 Glucose (Fingerstick) 159 mg/dL (70-99) 133 mg/dL (70-99) 121 mg/dL (70-99) Hemoglobin 9.6 g/dL (13.0-17.5) Test 08/30/19 22:15 08/31/19 04:25 08/31/19 07:51 08/31/19 12:23 Hemoglobin 9.3 g/dL (13.0-17.5) 9.0 g/dL (13.0-17.5) White Blood Count 5.6 x10^3/uL (4.0-11.0) Red Blood Count 3.70 x10^6/uL (4.30-5.70) Hematocrit 27.7 % (39.0-53.0) Mean Corpuscular Volume 75 fL (79-100) Mean Corpuscular Hemoglobin 24 pg (25-35) Mean Corpuscular Hemoglobin Concent 33 g/dL (31-37) Red Cell Distribution Width 20.7 % (11.5-14.5) Platelet Count 166 x10^3/uL (140-400) Sodium Level 143 mmol/L (136-145) Potassium Level 4.1 mmol/L (3.5-5.1) Chloride Level 107 mmol/L (98-107) Carbon Dioxide Level 29 mmol/L (21-32) Anion Gap 7 (6-14) Blood Urea Nitrogen 27 mg/dL (8-26) Creatinine 2.3 mg/dL (0.7-1.3) Estimated GFR (Cockcroft-Gault) 33.4 Glucose Level 100 mg/dL (70-99) Calcium Level 8.3 mg/dL (8.5-10.1) Glucose (Fingerstick) 103 mg/dL (70-99) 90 mg/dL (70-99) Test 08/31/19 17:23 08/31/19 20:25 09/01/19 05:00 Glucose (Fingerstick) 115 mg/dL (70-99) 147 mg/dL (70-99) White Blood Count 6.8 x10^3/uL (4.0-11.0) Red Blood Count 3.32 x10^6/uL (4.30-5.70) Hemoglobin 8.0 g/dL (13.0-17.5) Hematocrit 24.9 % (39.0-53.0) Mean Corpuscular Volume 75 fL (79-100) Mean Corpuscular Hemoglobin 24 pg (25-35) Mean Corpuscular Hemoglobin Concent 32 g/dL (31-37) Red Cell Distribution Width 20.4 % (11.5-14.5) Platelet Count 144 x10^3/uL (140-400) Sodium Level 140 mmol/L (136-145) Potassium Level 4.1 mmol/L (3.5-5.1) Chloride Level 108 mmol/L (98-107) Carbon Dioxide Level 26 mmol/L (21-32) Anion Gap 6 (6-14) Blood Urea Nitrogen 25 mg/dL (8-26) Creatinine 2.5 mg/dL (0.7-1.3) Estimated GFR (Cockcroft-Gault) 30.3 Glucose Level 112 mg/dL (70-99) Calcium Level 8.0 mg/dL (8.5-10.1) Laboratory Tests Test 08/31/19 12:23 08/31/19 17:23 08/31/19 20:25 09/01/19 05:00 Glucose (Fingerstick) 90 mg/dL (70-99) 115 mg/dL (70-99) 147 mg/dL (70-99) White Blood Count 6.8 x10^3/uL (4.0-11.0) Red Blood Count 3.32 x10^6/uL (4.30-5.70) Hemoglobin 8.0 g/dL (13.0-17.5) Hematocrit 24.9 % (39.0-53.0) Mean Corpuscular Volume 75 fL (79-100) Mean Corpuscular Hemoglobin 24 pg (25-35) Mean Corpuscular Hemoglobin Concent 32 g/dL (31-37) Red Cell Distribution Width 20.4 % (11.5-14.5) Platelet Count 144 x10^3/uL (140-400) Sodium Level 140 mmol/L (136-145) Potassium Level 4.1 mmol/L (3.5-5.1) Chloride Level 108 mmol/L (98-107) Carbon Dioxide Level 26 mmol/L (21-32) Anion Gap 6 (6-14) Blood Urea Nitrogen 25 mg/dL (8-26) Creatinine 2.5 mg/dL (0.7-1.3) Estimated GFR (Cockcroft-Gault) 30.3 Glucose Level 112 mg/dL (70-99) Calcium Level 8.0 mg/dL (8.5-10.1) Medications Current Medications Sodium Chloride 1,000 ml @ 75 mls/hr [id number] IV ; Start 08/27/19 at 17:36; Stop 08/28/19 at 17:35; Status DC Calcium Gluconate (Calcium Gluconate) 1,000 mg 1X ONCE IVP Last administered on 08/27/19at 18:37; Start 08/27/19 at 18:00; Stop 08/27/19 at 18:04; Status DC Sodium Bicarbonate (Sodium Bicarb Adult 8.4% Syr) 50 meq 1X ONCE IV Last administered on 08/27/19 18:30; Start 08/27/19 at 18:00; Stop 08/27/19 at 18:04; Status DC Dextrose (Dextrose 50%-Water Syringe) 25 gm 1X ONCE IV Last administered on 08/27/19at 18:00; Start 08/27/19 at 18:00; Stop 08/27/19 at 18:04; Status DC Insulin Human Regular (HumuLIN R VIAL) 10 unit 1X ONCE IV Last administered on 08/27/19 18:33; Start 08/27/19 at 18:00; Stop 08/27/19 at 18:04; Status DC Sodium Polystyrene Sulfonate (Kayexalate) 30 gm 1X ONCE PO ; Start 08/27/19 at 18:00; Stop 08/27/19 at 19:25; Status DC Sodium Chloride 1,000 ml @ 100 mls/hr Q10H IV Last administered on 08/29/19at 12:39; Start 08/27/19 at 19:15; Stop 08/29/19 at 17:00; Status DC Pantoprazole Sodium 80 mg/ Sodium Chloride 100 ml @ 10 mls/hr Q10H IV Last administered on 08/28/19at 08:06; Start 08/27/19 at 20:00; Stop 08/28/19 at 11:01; Status DC Pantoprazole Sodium (PROTONIX VIAL for IV PUSH) 80 mg 1X ONCE IVP Last administered on 08/27/19at 22:21; Start 08/27/19 at 20:00; Stop 08/27/19 at 20:01; Status DC Iohexol (Omnipaque 240 Mg/ml) 30 ml 1X ONCE PO Last administered on 08/27/19at 20:15; Start 08/27/19 at 20:15; Stop 08/27/19 at 20:16; Status DC Info (CONTRAST GIVEN -- Rx MONITORING) 1 each PRN DAILY PRN MC SEE COMMENTS; Start 08/27/19 at 20:15; Stop 08/29/19 at 20:14; Status DC Heparin Sodium (Porcine) (HEPARIN for NUC MED) 100 unit 1X ONCE IV ; Start 08/27/19 at 21:45; Stop 08/27/19 at 21:49; Status DC Polyethylene Glycol (miraLAX Powder BULK BOTTLE) 238 gm 1X ONCE PO ; Start 08/28/19 at 16:00; Stop 08/28/19 at 03:32; Status DC Sodium Cl/Sod Bicarb/Potass Cl/ PEG (Golytely) 4,000 ml 1X ONCE PO ; Start 08/28/19 at 03:15; Stop 08/28/19 at 03:16; Status UNV Polyethylene Glycol (miraLAX Powder BULK BOTTLE) 238 gm 1X ONCE PO Last administered on 08/28/19at 04:01; Start 08/28/19 at 04:00; Stop 08/28/19 at 04:01; Status DC Insulin Human Lispro (HumaLOG) 0-5 UNITS TIDWMEALS SQ ; Start 08/28/19 at 12:00 Dextrose (Dextrose 50%-Water Syringe) 12.5 gm PRN Q15MIN PRN IV SEE COMMENTS; Start 08/28/19 at 10:45 Amlodipine Besylate (Norvasc) 5 mg DAILY PO Last administered on 08/31/19at 12:29; Start 08/29/19 at 09:00 Carvedilol (Coreg) 12.5 mg BIDWMEALS PO Last administered on 08/31/19at 18:35; Start 08/28/19 at 17:00 Hydralazine HCl (Apresoline) 50 mg BID PO Last administered on 08/31/19at 21:03; Start 08/28/19 at 21:00 Isosorbide Mononitrate (Imdur) 30 mg DAILY PO Last administered on 08/31/19at 18:35; Start 08/29/19 at 09:00 Simvastatin (Zocor) 20 mg QHS PO Last administered on 08/29/19at 21:35; Start 08/28/19 at 21:00; Stop 08/30/19 at 08:16; Status DC Tamsulosin HCl (Flomax) 0.4 mg DAILY PO Last administered on 08/31/19at 12:30; Start 08/29/19 at 09:00 Albuterol Sulfate (Ventolin Neb Soln) 2.5 mg RTQID NEB ; Start 08/28/19 at 12:00; Stop 08/28/19 at 21:45; Status DC Insulin Glargine (Lantus Syringe) 18 unit QHS SQ ; Start 08/28/19 at 21:00 Zolpidem Tartrate (Ambien) 5 mg QHS PO Last administered on 08/31/19at 21:03; Start 08/28/19 at 21:00 Albuterol Sulfate (Ventolin Neb Soln) 2.5 mg PRN Q6HRS PRN NEB SHORTNESS OF BREATH; Start 08/28/19 at 11:00; Stop 08/28/19 at 21:47; Status DC Furosemide (Lasix) 40 mg DAILY IVP Last administered on 08/29/19at 08:26; Start 08/28/19 at 11:00; Stop 08/30/19 at 08:16; Status DC Zolpidem Tartrate (Ambien) 5 mg PRN QHS PRN PO INSOMNIA; Start 08/28/19 at 11:15 Budesonide (Pulmicort) 0.5 mg RTBID NEB ; Start 08/28/19 at 20:00; Stop 08/28/19 at 21:45; Status DC Propofol 20 ml @ As Directed STK-MED ONCE IV ; Start 08/28/19 at 15:33; Stop 08/28/19 at 15:34; Status DC Albuterol Sulfate (Ventolin Neb Soln) 2.5 mg PRN QID PRN NEB WHEEZING; Start 08/28/19 at 21:45 Budesonide (Pulmicort) 0.5 mg PRN BID PRN NEB SHORTNESS OF BREATH; Start 08/28/19 at 21:45 Influenza Virus Vaccine Quadrival (Afluria Quad 2019-20 (3yr Up) Syringe) 0.5 ml ONCE ONCE VAX IM ; Start 08/29/19 at 09:00; Stop 08/29/19 at 09:03; Status DC Pantoprazole Sodium (Protonix) 40 mg DAILYAC PO Last administered on 08/31/19at 12:29; Start 08/29/19 at 07:30 Furosemide (Lasix) 20 mg 1X ONCE IVP Last administered on 08/30/19at 00:57; Start 08/29/19 at 21:15; Stop 08/29/19 at 21:16; Status DC Heparin Sodium (Porcine) (HEPARIN for NUC MED) 100 unit 1X ONCE IV ; Start 08/30/19 at 08:15; Stop 08/30/19 at 08:16; Status DC Furosemide (Lasix) 40 mg DAILY PO Last administered on 08/30/19at 10:31; Start 08/30/19 at 09:00; Stop 08/31/19 at 08:23; Status DC Simvastatin (Zocor) 10 mg QHS PO Last administered on 08/31/19at 21:03; Start 08/30/19 at 21:00 Sodium Chloride 1,000 ml @ 100 mls/hr Q10H IV Last administered on 08/31/19at 18:15; Start 08/31/19 at 08:15; Stop 08/31/19 at 19:00; Status DC Iohexol (Omnipaque 350 Mg/ml) 60 ml 1X ONCE IV Last administered on 08/31/19at 11:58; Start 08/31/19 at 11:45; Stop 08/31/19 at 11:46; Status DC Info (CONTRAST GIVEN -- Rx MONITORING) 1 each PRN DAILY PRN MC SEE COMMENTS; Start 08/31/19 at 11:45; Stop 09/02/19 at 11:44 Benzonatate (Tessalon Perle) 100 mg PRN TID PRN PO COUGH Last administered on 08/31/19at 21:03; Start 08/31/19 at 18:45 Active Scripts Active Zolpidem Tartrate 10 Mg Tablet 10 Mg PO PRN QHS PRN 30 Days Proair Hfa Inhaler (Albuterol Sulfate) 8.5 Gm Hfa.aer.ad 2 Puff IH PRN Q4-6HRS Reported Trelegy Ellipta 100-62.5-25 (Fluticasone/Umeclidin/Vilanter) 1 Each Blst.w.dev 1 Each IH BID Flomax (Tamsulosin Hcl) 0.4 Mg Cap.er.24h 0.4 Mg PO DAILY Novolog Flexpen (Insulin Aspart) 100 Unit/1 Ml Insuln.pen 1 Unit SQ TIDAC SLIDING SCALE Klor-Con M20 (Potassium Chloride) 20 Meq Tab.er.prt 20 Meq PO DAILY Lasix (Furosemide) 40 Mg Tablet 40 Mg PO DAILY Isosorbide Mononitrate Er (Isosorbide Mononitrate) 30 Mg Tab.er.24h 30 Mg PO DAILY Coreg (Carvedilol) 12.5 Mg Tablet 12.5 Mg PO BIDWMEALS Norvasc (Amlodipine Besylate) 5 Mg Tablet 5 Mg PO DAILY Levemir (Insulin Detemir) 100 Unit/1 Ml Vial 18 Unit SQ HS Hydralazine Hcl 50 Mg Tablet 50 Mg PO BID Aspir 81 (Aspirin) 81 Mg Tablet.dr 81 Mg PO DAILY Vitals/I & O Vital Sign - Last 24 Hours 08/31/19 08/31/19 08/31/19 08/31/19 09:00 11:00 12:01 12:29 Temp 99.6 99.6 Pulse 73 73 73 Resp 16 B/P (MAP) 105/52 105/52 (69) 105/52 Pulse Ox 96 96 O2 Delivery Nasal Cannula Nasal Cannula O2 Flow Rate 3.0 3.0 08/31/19 08/31/19 08/31/19 08/31/19 12:29 15:00 18:35 18:35 Temp 99.2 99.2 Pulse 73 77 77 77 Resp 16 B/P (MAP) 105/52 122/57 (78) 122/57 122/57 Pulse Ox 94 O2 Delivery Nasal Cannula O2 Flow Rate 3.0 08/31/19 08/31/19 08/31/19 08/31/19 18:39 20:00 21:03 22:53 Temp 100.2 99.9 100.2 99.9 Pulse 78 78 81 Resp 16 16 B/P (MAP) 120/59 (79) 120/59 117/55 (75) Pulse Ox 96 97 O2 Delivery Nasal Cannula Nasal Cannula Nasal Cannula O2 Flow Rate 3.0 3.0 3.0 09/01/19 03:03 Temp 101.1 101.1 Pulse 72 Resp 16 B/P (MAP) 95/49 (64) Pulse Ox 98 O2 Delivery Nasal Cannula O2 Flow Rate 3.0 Intake and Output 08/31/19 08/31/19 09/01/19 15:00 23:00 07:00 Intake Total 360 ml 100 ml Output Total 500 ml 300 ml Balance -140 ml -200 ml Nutrition Consultation Dietary Evaluation: Recommendations by RD: Increase Calorie Intake, Protein supplementation Comments: REC ADA/cardiac diet, will adjust diet order as needed REC Glucerna (chocolate) w/breakfast Expected Outcomes/Goals: PO intake to meet >75% est needs Interpretation of weight loss: >20% in 1 year Malnutrition Findings: Food and Nutrition Intake (Mod: <75% est energy req 7days Weight Status: Appropriate TERRANCE ESPINAL MD Sep 01, 2019 08:45
[2019-09-01] MEDS ORDERED: ACETAMINOPHEN 500 MG TABLET PO PRN (09:00)
[2019-09-01] MEDS: ALBUTEROL SULFATE 2.5 MG/3 ML NEBU. NEB SCH ×4 (09:00→19:48)
[2019-09-01] MEDS: ISOSORBIDE MONONITRATE ER 30 MG TAB.ER.24H PO SCH (09:00)
[2019-09-01] MEDS ORDERED: cefTRIAXone IV Push 1 GM VIAL. IVP SCH (09:00)
[2019-09-01] MEDS: amLODIPine BESYLATE 5 MG TABLET PO SCH (09:00)
[2019-09-01] MEDS: TAMSULOSIN 0.4 MG CAP.ER.24H. PO SCH (09:21)
[2019-09-01] MEDS: PANTOPRAZOLE 40 MG TABLET.DR. PO SCH (09:22)
[2019-09-01] MEDS: methylPREDNISolone SOD SUCC PF 125 MG/2 ML VIAL. IV SCH ×3 (09:22→21:32)
[2019-09-01] MEDS ORDERED: AZITHROMYCIN 250 MG TABLET. PO ONE (09:30)
[2019-09-01 11:00] VITALS: BP 97/55
--- NOTE | 2019-09-01 11:41 | PDOC ---
Subjective: Subjective: No bleeding. Abdomen is a little sore but better compared to the last couple days. Hungry. Objective: Objective: ADA diet ordered. Vital Signs: Vital Signs Date Time Temp Pulse Resp B/P (MAP) Pulse Ox O2 Delivery O2 Flow Rate FiO2 09/01/19 09:00 76 100/50 09/01/19 08:00 Nasal Cannula 3.0 09/01/19 07:00 99.4 16 93 99.4 Labs: Laboratory Tests Test 08/31/19 12:23 08/31/19 17:23 08/31/19 20:25 09/01/19 05:00 Glucose (Fingerstick) 90 mg/dL 115 mg/dL 147 mg/dL White Blood Count 6.8 x10^3/uL Red Blood Count 3.32 x10^6/uL Hemoglobin 8.0 g/dL Hematocrit 24.9 % Mean Corpuscular Volume 75 fL Mean Corpuscular Hemoglobin 24 pg Mean Corpuscular Hemoglobin Concent 32 g/dL Red Cell Distribution Width 20.4 % Platelet Count 144 x10^3/uL Sodium Level 140 mmol/L Potassium Level 4.1 mmol/L Chloride Level 108 mmol/L Carbon Dioxide Level 26 mmol/L Anion Gap 6 Blood Urea Nitrogen 25 mg/dL Creatinine 2.5 mg/dL Estimated GFR (Cockcroft-Gault) 30.3 Glucose Level 112 mg/dL Calcium Level 8.0 mg/dL Test 09/01/19 07:36 Glucose (Fingerstick) 98 mg/dL Imaging: CTA A/P IMPRESSION: 1. Negative CTA of the abdomen and pelvis for depiction of active arterial gastrointestinal bleeding. 2. Pulmonary edema, superimposed on pulmonary fibrosis. 3. Fullness of left adrenal gland without a discrete mass. 4. 2 equivocal cysts involving the right kidney. These could be definitively characterized with renal ultrasound if clinically warranted. 5. Prior surgical changes involving the ascending colon. 6. Other chronic changes as described. PE: GEN: NAD LUNGS: NC 3L HEART: RRR ABD: NABS, S/ND/NT NEURO/PSYCH: A & O 3 A/P: Recurrent GI bleeding, +bleeding scan x2, CTA negative -h/o colon cancer w/ resections, diverticulosis Anemia, CKD Fever -- No recurrent bleeding. Plans to try regular diet. KITTY GOMEZ Sep 01, 2019 11:41
[2019-09-01] MEDS: BUDESONIDE 0.5 MG/2 ML NEBU. NEB SCH ×2 (12:52→19:48)
[2019-09-01 15:00] VITALS: BP 100/48
--- NOTE | 2019-09-01 15:29 | RAD ---
EXAM: CHEST 2 VIEWS. HISTORY: Cough. COMPARISON: 05/05/2018. CT 08/11/2019. FINDINGS: Frontal and lateral views of the chest are obtained. A nodule in the right midlung measures 2.0 x 1.4 cm. This does not have clear correlate on recent CT and may be a focal infiltrate or an artifact. Fiducial markers are noted about a treated mass in the left perihilar region. Interstitial infiltrates in the lung bases are more prominent than previously. Hyperinflation is consistent with chronic obstructive pulmonary disease. There is no pneumothorax or pleural effusion. The heart is not enlarged. There are atherosclerotic calcifications of the aorta. IMPRESSION: 1. New 2.0 cm right midlung nodule without clear correlate on recent CT. Correlate for new focal infiltrate. Ongoing follow-up is recommended. 2. Bibasilar infiltrates consistent with atypical pneumonia or mild pulmonary edema superimposed on interstitial lung disease and chronic obstructive pulmonary disease. Electronically signed by: Sonia Loyola MD (09/01/2019 3:25 PM) [facility]
[2019-09-01 19:40] VITALS: BP 113/67
[2019-09-01] MEDS: ZOLPIDEM 5 MG TABLET. PO SCH (21:00)
[2019-09-01] MEDS: BENZONATATE 100 MG CAPSULE. PO PRN (21:31)
[2019-09-01] MEDS: SIMVASTATIN 10 MG TABLET PO SCH (21:31)
[2019-09-01] MEDS: INSULIN GLARGINE SYRINGE. SQ SCH (21:38)
[2019-09-01 23:16] VITALS: BP 129/64
[2019-09-02 02:00] VITALS: BP 140/72
[2019-09-02 04:21] LABS: HEMATOCRIT 26.5 % (39.0-53.0); HEMOGLOBIN 8.5 g/dL (13.0-17.5); RED BLOOD COUNT 3.51 x10^6/uL (4.30-5.70); RED CELL DISTRIBUTION WIDTH 19.9 % (11.5-14.5); WHITE BLOOD COUNT 6.8 x10^3/uL (4.0-11.0)
[2019-09-02 04:35] LABS: CALCIUM 8.7 mg/dL (8.5-10.1); CREATININE 2.6 mg/dL (0.7-1.3); POTASSIUM 4.6 mmol/L (3.5-5.1)
[2019-09-02] MEDS: methylPREDNISolone SOD SUCC PF 125 MG/2 ML VIAL. IV SCH ×3 (06:11→21:12)
[2019-09-02 07:28] VITALS: BP 143/64
[2019-09-02] MEDS: PANTOPRAZOLE 40 MG TABLET.DR. PO SCH (07:31)
[2019-09-02] MEDS: amLODIPine BESYLATE 5 MG TABLET PO SCH (08:36)
[2019-09-02] MEDS: TAMSULOSIN 0.4 MG CAP.ER.24H. PO SCH (08:36)
[2019-09-02] MEDS: ISOSORBIDE MONONITRATE ER 30 MG TAB.ER.24H PO SCH (08:37)
[2019-09-02] MEDS: CARVEDILOL 12.5 MG TABLET. PO SCH ×2 (08:37→17:25)
[2019-09-02] MEDS: INSULIN LISPRO 300 UNITS/3 ML VIAL. SQ SCH ×3 (08:42→17:25)
[2019-09-02] MEDS ORDERED: AZITHROMYCIN 250 MG TABLET. PO SCH (09:00)
[2019-09-02] MEDS: ALBUTEROL SULFATE 2.5 MG/3 ML NEBU. NEB SCH ×4 (09:00→20:53)
[2019-09-02] MEDS: BUDESONIDE 0.5 MG/2 ML NEBU. NEB SCH ×3 (09:00→20:53)
--- NOTE | 2019-09-02 09:02 | PDOC ---
PROGRESS NOTES Subjective Subjective Patient reports cough is improving. Objective Objective Vital Signs Date Time Temp Pulse Resp B/P (MAP) Pulse Ox O2 Delivery O2 Flow Rate FiO2 09/02/19 08:37 71 143/64 09/02/19 07:28 97.6 16 97 Nasal Cannula 3.0 97.6 l Intake and Output 09/02/19 07:00 Intake Total 500 ml Output Total 1025 ml Balance -525 ml Intake Oral 500 ml Output Urine Total 1025 ml # Voids 1 # Bowel Movements 1 Physical Exam Abdomen: Normal bowel sounds, Soft, No tenderness Heart: Regular rate Extremities: No edema General: Alert, Oriented X3, No acute distress Lungs: Other (mild expiratory wheezes throughout with decreased breath sounds) Assessment Assessment Problems Medical Problems: (1) GI bleed Status: Acute Plan Plan of Care 1. Lower GI bleed - stable, no evidence of further bleeding. Hgb stable. 2. Possible pneumonia - bibasilar infiltrates seen on CXR as well as new R mid- lung nodule. Fever has resolved and chest exam is improving, continue Levaquin at renal dose, Solumedrol, O2 and scheduled nebs. 3. DM2 - blood sugars elevated due to Solumedrol, continue insulins. 4. HTN - controlled, continue home meds. 5. CKD III - stable on lab. 6. CHF with diastolic dysfunction - stable, resume his usual po Lasix daily. Comment Review of Relevant I have reviewed the following items lauern (where applicable) has been applied. Labs Laboratory Tests Test 08/31/19 12:23 08/31/19 17:23 08/31/19 20:25 09/01/19 05:00 Glucose (Fingerstick) 90 mg/dL (70-99) 115 mg/dL (70-99) 147 mg/dL (70-99) White Blood Count 6.8 x10^3/uL (4.0-11.0) Red Blood Count 3.32 x10^6/uL (4.30-5.70) Hemoglobin 8.0 g/dL (13.0-17.5) Hematocrit 24.9 % (39.0-53.0) Mean Corpuscular Volume 75 fL (79-100) Mean Corpuscular Hemoglobin 24 pg (25-35) Mean Corpuscular Hemoglobin Concent 32 g/dL (31-37) Red Cell Distribution Width 20.4 % (11.5-14.5) Platelet Count 144 x10^3/uL (140-400) Sodium Level 140 mmol/L (136-145) Potassium Level 4.1 mmol/L (3.5-5.1) Chloride Level 108 mmol/L (98-107) Carbon Dioxide Level 26 mmol/L (21-32) Anion Gap 6 (6-14) Blood Urea Nitrogen 25 mg/dL (8-26) Creatinine 2.5 mg/dL (0.7-1.3) Estimated GFR (Cockcroft-Gault) 30.3 Glucose Level 112 mg/dL (70-99) Calcium Level 8.0 mg/dL (8.5-10.1) Test 09/01/19 07:36 09/01/19 11:51 09/01/19 17:13 09/01/19 20:58 Glucose (Fingerstick) 98 mg/dL (70-99) 134 mg/dL (70-99) 285 mg/dL (70-99) 233 mg/dL (70-99) Test 09/02/19 04:00 09/02/19 07:32 White Blood Count 6.8 x10^3/uL (4.0-11.0) Red Blood Count 3.51 x10^6/uL (4.30-5.70) Hemoglobin 8.5 g/dL (13.0-17.5) Hematocrit 26.5 % (39.0-53.0) Mean Corpuscular Volume 76 fL (79-100) Mean Corpuscular Hemoglobin 24 pg (25-35) Mean Corpuscular Hemoglobin Concent 32 g/dL (31-37) Red Cell Distribution Width 19.9 % (11.5-14.5) Platelet Count 176 x10^3/uL (140-400) Sodium Level 139 mmol/L (136-145) Potassium Level 4.6 mmol/L (3.5-5.1) Chloride Level 106 mmol/L (98-107) Carbon Dioxide Level 24 mmol/L (21-32) Anion Gap 9 (6-14) Blood Urea Nitrogen 35 mg/dL (8-26) Creatinine 2.6 mg/dL (0.7-1.3) Estimated GFR (Cockcroft-Gault) 29.0 Glucose Level 250 mg/dL (70-99) Calcium Level 8.7 mg/dL (8.5-10.1) Glucose (Fingerstick) 229 mg/dL (70-99) Laboratory Tests Test 09/01/19 11:51 09/01/19 17:13 09/01/19 20:58 09/02/19 04:00 Glucose (Fingerstick) 134 mg/dL (70-99) 285 mg/dL (70-99) 233 mg/dL (70-99) White Blood Count 6.8 x10^3/uL (4.0-11.0) Red Blood Count 3.51 x10^6/uL (4.30-5.70) Hemoglobin 8.5 g/dL (13.0-17.5) Hematocrit 26.5 % (39.0-53.0) Mean Corpuscular Volume 76 fL (79-100) Mean Corpuscular Hemoglobin 24 pg (25-35) Mean Corpuscular Hemoglobin Concent 32 g/dL (31-37) Red Cell Distribution Width 19.9 % (11.5-14.5) Platelet Count 176 x10^3/uL (140-400) Sodium Level 139 mmol/L (136-145) Potassium Level 4.6 mmol/L (3.5-5.1) Chloride Level 106 mmol/L (98-107) Carbon Dioxide Level 24 mmol/L (21-32) Anion Gap 9 (6-14) Blood Urea Nitrogen 35 mg/dL (8-26) Creatinine 2.6 mg/dL (0.7-1.3) Estimated GFR (Cockcroft-Gault) 29.0 Glucose Level 250 mg/dL (70-99) Calcium Level 8.7 mg/dL (8.5-10.1) Test 09/02/19 07:32 Glucose (Fingerstick) 229 mg/dL (70-99) Medications Current Medications Sodium Chloride 1,000 ml @ 75 mls/hr [id number] IV ; Start 08/27/19 at 17:36; Stop 08/28/19 at 17:35; Status DC Calcium Gluconate (Calcium Gluconate) 1,000 mg 1X ONCE IVP Last administered on 08/27/19at 18:37; Start 08/27/19 at 18:00; Stop 08/27/19 at 18:04; Status DC Sodium Bicarbonate (Sodium Bicarb Adult 8.4% Syr) 50 meq 1X ONCE IV Last administered on 08/27/19at 18:30; Start 08/27/19 at 18:00; Stop 08/27/19 at 18:04; Status DC Dextrose (Dextrose 50%-Water Syringe) 25 gm 1X ONCE IV Last administered on 08/27/19at 18:00; Start 08/27/19 at 18:00; Stop 08/27/19 at 18:04; Status DC Insulin Human Regular (HumuLIN R VIAL) 10 unit 1X ONCE IV Last administered on 08/27/19at 18:33; Start 08/27/19 at 18:00; Stop 08/27/19 at 18:04; Status DC Sodium Polystyrene Sulfonate (Kayexalate) 30 gm 1X ONCE PO ; Start 08/27/19 at 18:00; Stop 08/27/19 at 19:25; Status DC Sodium Chloride 1,000 ml @ 100 mls/hr Q10H IV Last administered on 08/29/19at 12:39; Start 08/27/19 at 19:15; Stop 08/29/19 at 17:00; Status DC Pantoprazole Sodium 80 mg/ Sodium Chloride 100 ml @ 10 mls/hr Q10H IV Last administered on 08/28/19at 08:06; Start 08/27/19 at 20:00; Stop 08/28/19 at 11:01; Status DC Pantoprazole Sodium (PROTONIX VIAL for IV PUSH) 80 mg 1X ONCE IVP Last administered on 08/27/19at 22:21; Start 08/27/19 at 20:00; Stop 08/27/19 at 20:01; Status DC Iohexol (Omnipaque 240 Mg/ml) 30 ml 1X ONCE PO Last administered on 08/27/19at 20:15; Start 08/27/19 at 20:15; Stop 08/27/19 at 20:16; Status DC Info (CONTRAST GIVEN -- Rx MONITORING) 1 each PRN DAILY PRN MC SEE COMMENTS; Start 08/27/19 at 20:15; Stop 08/29/19 at 20:14; Status DC Heparin Sodium (Porcine) (HEPARIN for NUC MED) 100 unit 1X ONCE IV ; Start 08/27/19 at 21:45; Stop 08/27/19 at 21:49; Status DC Polyethylene Glycol (miraLAX Powder BULK BOTTLE) 238 gm 1X ONCE PO ; Start 08/28/19 at 16:00; Stop 08/28/19 at 03:32; Status DC Sodium Cl/Sod Bicarb/Potass Cl/ PEG (Golytely) 4,000 ml 1X ONCE PO ; Start 08/28/19 at 03:15; Stop 08/28/19 at 03:16; Status UNV Polyethylene Glycol (miraLAX Powder BULK BOTTLE) 238 gm 1X ONCE PO Last administered on 08/28/19at 04:01; Start 08/28/19 at 04:00; Stop 08/28/19 at 04:01; Status DC Insulin Human Lispro (HumaLOG) 0-5 UNITS TIDWMEALS SQ Last administered on 09/02/19at 08:42; Start 08/28/19 at 12:00 Dextrose (Dextrose 50%-Water Syringe) 12.5 gm PRN Q15MIN PRN IV SEE COMMENTS; Start 08/28/19 at 10:45 Amlodipine Besylate (Norvasc) 5 mg DAILY PO Last administered on 09/02/19at 08:36; Start 08/29/19 at 09:00 Carvedilol (Coreg) 12.5 mg BIDWMEALS PO Last administered on 09/02/19 08:37; Start 08/28/19 at 17:00 Hydralazine HCl (Apresoline) 50 mg BID PO Last administered on 09/02/19at 08:36; Start 08/28/19 at 21:00 Isosorbide Mononitrate (Imdur) 30 mg DAILY PO Last administered on 09/02/19at 08:37; Start 08/29/19 at 09:00 Simvastatin (Zocor) 20 mg QHS PO Last administered on 08/29/19at 21:35; Start 08/28/19 at 21:00; Stop 08/30/19 at 08:16; Status DC Tamsulosin HCl (Flomax) 0.4 mg DAILY PO Last administered on 09/02/19at 08:36; Start 08/29/19 at 09:00 Albuterol Sulfate (Ventolin Neb Soln) 2.5 mg RTQID NEB ; Start 08/28/19 at 12:00; Stop 08/28/19 at 21:45; Status DC Insulin Glargine (Lantus Syringe) 18 unit QHS SQ Last administered on 09/01/19at 21:38; Start 08/28/19 at 21:00 Zolpidem Tartrate (Ambien) 5 mg QHS PO Last administered on 09/01/19at 21:00; Start 08/28/19 at 21:00 Albuterol Sulfate (Ventolin Neb Soln) 2.5 mg PRN Q6HRS PRN NEB SHORTNESS OF BREATH; Start 08/28/19 at 11:00; Stop 08/28/19 at 21:47; Status DC Furosemide (Lasix) 40 mg DAILY IVP Last administered on 08/29/19at 08:26; Start 08/28/19 at 11:00; Stop 08/30/19 at 08:16; Status DC Zolpidem Tartrate (Ambien) 5 mg PRN QHS PRN PO INSOMNIA; Start 08/28/19 at 11:15 Budesonide (Pulmicort) 0.5 mg RTBID NEB ; Start 08/28/19 at 20:00; Stop 08/28 at 21:45; Status DC Propofol 20 ml @ As Directed STK-MED ONCE IV ; Start 08/28/19 at 15:33; Stop 08/28/19 at 15:34; Status DC Albuterol Sulfate (Ventolin Neb Soln) 2.5 mg PRN QID PRN NEB WHEEZING; Start 08/28/19 at 21:45; Stop 09/01/19 at 08:55; Status DC Budesonide (Pulmicort) 0.5 mg PRN BID PRN NEB SHORTNESS OF BREATH; Start 08/28/19 at 21:45; Stop 09/01/19 at 08:55; Status DC Influenza Virus Vaccine Quadrival (Afluria Quad 2019-20 (3yr Up) Syringe) 0.5 ml ONCE ONCE VAX IM ; Start 08/29/19 at 09:00; Stop 08/29/19 at 09:03; Status DC Pantoprazole Sodium (Protonix) 40 mg DAILYAC PO Last administered on 09/02/19at 07:31; Start 08/29/19 at 07:30 Furosemide (Lasix) 20 mg 1X ONCE IVP Last administered on 08/30/19at 00:57; Start 08/29/19 at 21:15; Stop 08/29/19 at 21:16; Status DC Heparin Sodium (Porcine) (HEPARIN for NUC MED) 100 unit 1X ONCE IV ; Start 08/30/19 at 08:15; Stop 08/30/19 at 08:16; Status DC Furosemide (Lasix) 40 mg DAILY PO Last administered on 08/30/19at 10:31; Start 08/30/19 at 09:00; Stop 08/31/19 at 08:23; Status DC Simvastatin (Zocor) 10 mg QHS PO Last administered on 09/01/19at 21:31; Start 08/30/19 at 21:00 Sodium Chloride 1,000 ml @ 100 mls/hr Q10H IV Last administered on 08/31/19at 18:15; Start 08/31/19 at 08:15; Stop 08/31/19 at 19:00; Status DC Iohexol (Omnipaque 350 Mg/ml) 60 ml 1X ONCE IV Last administered on 08/31/19at 11:58; Start 08/31/19 at 11:45; Stop 08/31/19 at 11:46; Status DC Info (CONTRAST GIVEN -- Rx MONITORING) 1 each PRN DAILY PRN MC SEE COMMENTS; Start 08/31/19 at 11:45; Stop 09/02/19 at 11:44 Benzonatate (Tessalon Perle) 100 mg PRN TID PRN PO COUGH Last administered on 09/01/19at 21:31; Start 08/31/19 at 18:45 Methylprednisolone Sodium Succinate (SOLU-Medrol 125MG VIAL) 60 mg Q8HRS IV Last administered on 09/02/19at 06:11; Start 09/01/19 at 09:00 Ceftriaxone Sodium (Rocephin) 1 gm Q24H IVP ; Start 09/01/19 at 09:00; Stop 09/01/19 at 08:51; Status DC Azithromycin (Zithromax) 500 mg 1X ONCE PO ; Start 09/01/19 at 09:30; Stop 09/01/19 at 08:51; Status DC Azithromycin (Zithromax) 250 mg DAILY PO ; Start 09/02/19 at 09:00; Stop 09/01/19 at 08:55; Status DC Levofloxacin/ Dextrose 150 ml @ 100 mls/hr QODAY IV Last administered on 09/01/19at 09:21; Start 09/01/19 at 09:00 Albuterol Sulfate (Ventolin Neb Soln) 2.5 mg QID NEB Last administered on 09/01/19at 19:48; Start 09/01/19 at 09:00 Budesonide (Pulmicort) 0.5 mg BID NEB Last administered on 09/01/19 19:48; Start 09/01/19 at 09:00 Acetaminophen (Tylenol) 1,000 mg PRN Q6HRS PRN PO mild pain or fever Last administered on 09/01/19at 09:21; Start 09/01/19 at 09:00 Active Scripts Active Zolpidem Tartrate 10 Mg Tablet 10 Mg PO PRN QHS PRN 30 Days Proair Hfa Inhaler (Albuterol Sulfate) 8.5 Gm Hfa.aer.ad 2 Puff IH PRN Q4-6HRS Reported Trelegy Ellipta 100-62.5-25 (Fluticasone/Umeclidin/Vilanter) 1 Each Blst.w.dev 1 Each IH BID Flomax (Tamsulosin Hcl) 0.4 Mg Cap.er.24h 0.4 Mg PO DAILY Novolog Flexpen (Insulin Aspart) 100 Unit/1 Ml Insuln.pen 1 Unit SQ TIDAC SLIDING SCALE Klor-Con M20 (Potassium Chloride) 20 Meq Tab.er.prt 20 Meq PO DAILY Lasix (Furosemide) 40 Mg Tablet 40 Mg PO DAILY Isosorbide Mononitrate Er (Isosorbide Mononitrate) 30 Mg Tab.er.24h 30 Mg PO DAILY Coreg (Carvedilol) 12.5 Mg Tablet 12.5 Mg PO BIDWMEALS Norvasc (Amlodipine Besylate) 5 Mg Tablet 5 Mg PO DAILY Levemir (Insulin Detemir) 100 Unit/1 Ml Vial 18 Unit SQ HS Hydralazine Hcl 50 Mg Tablet 50 Mg PO BID Aspir 81 (Aspirin) 81 Mg Tablet.dr 81 Mg PO DAILY Vitals/I & O Vital Sign - Last 24 Hours 09/01/19 09/01/19 09/01/19 09/01/19 09:00 09:00 11:00 12:55 Temp 98.4 98.4 Pulse 76 76 73 Resp 16 B/P (MAP) 100/50 100/50 97/55 (69) Pulse Ox 93 98 O2 Delivery Nasal Cannula Nasal Cannula O2 Flow Rate 3.0 3.0 09/01/19 09/01/19 09/01/19 09/01/19 15:00 15:44 17:00 19:40 Temp 98.4 98.5 98.4 98.5 Pulse 68 68 66 Resp 16 16 B/P (MAP) 100/48 (65) 100/48 113/67 (82) Pulse Ox 98 98 97 O2 Delivery Nasal Cannula Nasal Cannula Nasal Cannula O2 Flow Rate 3.0 3.0 3.0 09/01/19 09/01/19 09/01/19 09/01/19 19:51 20:00 21:32 23:16 Temp 98.9 98.9 Pulse 66 65 Resp 16 B/P (MAP) 113/67 129/64 (85) Pulse Ox 95 97 O2 Delivery Nasal Cannula Nasal Cannula Nasal Cannula O2 Flow Rate 3.0 3.0 3.0 09/02/19 09/02/19 09/02/19 09/02/19 02:00 07:28 08:36 08:36 Temp 98.6 97.6 98.6 97.6 Pulse 67 71 71 71 Resp 16 16 B/P (MAP) 140/72 (94) 143/64 (90) 143/64 143/64 Pulse Ox 97 97 O2 Delivery Nasal Cannula Nasal Cannula O2 Flow Rate 3.0 3.0 09/02/19 09/02/19 08:37 08:37 Pulse 71 71 B/P (MAP) 143/64 143/64 Intake and Output 09/01/19 09/01/19 09/02/19 15:00 23:00 07:00 Intake Total 500 ml Output Total 600 ml 425 ml Balance -600 ml 75 ml Nutrition Consultation Dietary Evaluation: Recommendations by RD: Increase Calorie Intake, Protein supplementation Comments: REC ADA/cardiac diet, will adjust diet order as needed REC Glucerna (chocolate) w/dinner Expected Outcomes/Goals: PO intake to meet >75% est needs - met at times, goal ongoing Interpretation of weight loss: >20% in 1 year Malnutrition Findings: Food and Nutrition Intake (Mod: <75% est energy req 7days Weight Status: Appropriate TERRANCE ESPINAL MD Sep 02, 2019 09:02
[2019-09-02] MEDS: FUROSEMIDE 40 MG TABLET. PO SCH (09:21)
[2019-09-02 10:20] VITALS: BP 155/71
--- NOTE | 2019-09-02 10:31 | PDOC ---
Subjective: Subjective: Might have seen a little blood with stool yesterday. Tolerating diet, no abd pain. Wheezing - says he has to stay in the hospital until that's better. Objective: Vital Signs: Vital Signs Date Time Temp Pulse Resp B/P (MAP) Pulse Ox O2 Delivery O2 Flow Rate FiO2 09/02/19 10:20 97.7 67 16 155/71 (99) 99 Nasal Cannula 3.0 97.7 Labs: Laboratory Tests Test 09/01/19 11:51 09/01/19 17:13 09/01/19 20:58 09/02/19 04:00 Glucose (Fingerstick) 134 mg/dL 285 mg/dL 233 mg/dL White Blood Count 6.8 x10^3/uL Red Blood Count 3.51 x10^6/uL Hemoglobin 8.5 g/dL Hematocrit 26.5 % Mean Corpuscular Volume 76 fL Mean Corpuscular Hemoglobin 24 pg Mean Corpuscular Hemoglobin Concent 32 g/dL Red Cell Distribution Width 19.9 % Platelet Count 176 x10^3/uL Sodium Level 139 mmol/L Potassium Level 4.6 mmol/L Chloride Level 106 mmol/L Carbon Dioxide Level 24 mmol/L Anion Gap 9 Blood Urea Nitrogen 35 mg/dL Creatinine 2.6 mg/dL Estimated GFR (Cockcroft-Gault) 29.0 Glucose Level 250 mg/dL Calcium Level 8.7 mg/dL Test 09/02/19 07:32 Glucose (Fingerstick) 229 mg/dL PE: GEN: NAD LUNGS: +wheezing, NC 3L HEART: RRR ABD: S/NT, round NEURO/PSYCH: A & O 3 A/P: Recurrent GI bleeding, +bleeding scan x2, CTA negative -h/o colon cancer w/ resections, diverticulosis Anemia, CKD Wheezing, COPD -- Hgb improving, bleeding resolving, tolerating diet. DC per primary, consider addition of iron. KITTY GOMEZ Sep 02, 2019 10:31
[2019-09-02 15:00] VITALS: BP 143/61
[2019-09-02] MEDS ORDERED: CARVEDILOL 12.5 MG TABLET. ONE (17:25)
[2019-09-02 19:35] VITALS: BP 132/65
[2019-09-02] MEDS: LACTOBACILLUS RHAMNOSUS GG 1 CAPSULE. PO SCH (21:06)
[2019-09-02] MEDS: SIMVASTATIN 10 MG TABLET PO SCH (21:06)
[2019-09-02] MEDS: INSULIN GLARGINE SYRINGE. SQ SCH (21:11)
[2019-09-02 23:00] VITALS: BP 122/66
[2019-09-02] MEDS: ZOLPIDEM 5 MG TABLET. PO SCH (23:17)
[2019-09-03 03:00] VITALS: BP 132/68
[2019-09-03] MEDS: methylPREDNISolone SOD SUCC PF 125 MG/2 ML VIAL. IV SCH (06:21)
[2019-09-03 07:00] VITALS: BP 129/70
[2019-09-03] MEDS: ALBUTEROL SULFATE 2.5 MG/3 ML NEBU. NEB SCH ×2 (07:40→11:25)
[2019-09-03] MEDS: BUDESONIDE 0.5 MG/2 ML NEBU. NEB SCH (07:40)
[2019-09-03] MEDS: TAMSULOSIN 0.4 MG CAP.ER.24H. PO SCH (09:16)
[2019-09-03] MEDS: FUROSEMIDE 40 MG TABLET. PO SCH (09:16)
[2019-09-03] MEDS: amLODIPine BESYLATE 5 MG TABLET PO SCH (09:16)
[2019-09-03] MEDS: ISOSORBIDE MONONITRATE ER 30 MG TAB.ER.24H PO SCH (09:17)
[2019-09-03] MEDS: LACTOBACILLUS RHAMNOSUS GG 1 CAPSULE. PO SCH (09:17)
[2019-09-03] MEDS: PANTOPRAZOLE 40 MG TABLET.DR. PO SCH (09:17)
[2019-09-03] MEDS: CARVEDILOL 12.5 MG TABLET. PO SCH (09:17)
[2019-09-03] MEDS: INSULIN LISPRO 300 UNITS/3 ML VIAL. SQ SCH ×2 (09:19→12:39)
[2019-09-03 11:00] VITALS: BP 124/67
[2019-09-03] MEDS ORDERED: PANT40TA77 PO (11:17)
[2019-09-03] MEDS ORDERED: ALBU2.5V5 NEB (11:17)
[2019-09-03] MEDS ORDERED: LEVO750T31 PO (11:17)
[2019-09-03] MEDS ORDERED: PRED-220 PO (11:17)
--- NOTE | 2019-09-03 13:46 | DS ---
DATE OF DISCHARGE: 09/03/2019 ADMIT DIAGNOSES: 1. Gastrointestinal bleed, lower gastrointestinal. 2. Acute on chronic respiratory failure. 3. Hyperkalemia, resolved. 4. Chronic obstructive pulmonary disease. 5. Type 2 diabetes. 6. Hypertension. 7. High cholesterol. 8. History of lung cancer without recurrence. 9. Elevated prostate-specific antigen. HISTORY OF PRESENT ILLNESS AND HOSPITAL COURSE: This patient is a 78-year-old -[place] male who began noticing large amounts of the bright red blood per rectum. He was found to have lower GI bleed and loss of hemoglobin from 10.4 down to 7.5, requiring transfusion. The patient had bleeding scans exhibiting lower GI bleed, but this was unable to be elucidated to colonoscopy. The patient did stabilize with conservative treatment, but prior to discharge, began having increasing shortness of breath, wheezing, and low oxygen saturations. He was increased on oxygen support and began routine breathing treatments as well as IV steroids. He improved within 24 to 48 hours prior to discharge. Therefore, plans for discharge were made. DISCHARGE MEDICATIONS: He was discharged on the following medications: Albuterol sulfate nebulizer treatments q.4 hours p.r.n., Levaquin 750 mg every other day for 2 more doses, pantoprazole 40 mg daily, prednisone taper starting at 50 mg daily, tapering by 10 mg every other day until off, albuterol inhaler p.r.n., amlodipine 5 mg daily, aspirin 81 mg daily, carvedilol 12.5 mg b.i.d., Trelegy Ellipta inhaler 1 puff b.i.d., Lasix 40 mg daily, hydralazine 50 mg b.i.d., insulin in the form of NovoLog sliding scale, insulin in the form of Levemir 18 units at bedtime, Imdur 30 mg daily, potassium 20 mEq daily, simvastatin 20 mg daily, tamsulosin 0.4 daily and Ambien 10 mg at bedtime p.r.n. He will be followed up with Dr. Jones in 1 week and continue current medical treatment plan. EKTA SUTTON MD DR: JORGE/aaron JOB#: [id number] / [id number]
--- NOTE | 2019-09-03 15:24 | NUR ---
Discharge Note: CLARISSE MORENO [address] Discharge instructions and discharge home medications reviewed with Patient and a copy given. All questions have been answered and understanding verbalized. Instructions and handouts were given. Discontinued lines and drains. Patient discharged to home self care.
== END 2019-09-03 15:30 | disposition home or self-care (01) | DRG 377 ==
LOC: ER 15:17 → 2 NORTH 17:32 → 1 WEST ICU 21:59 → 2 SOUTH 08-29 16:33
PROVIDERS: ADMIT Family Medicine; ATTEND Family Medicine
PROC: 0DJD8ZZ Inspection of Lower Intestinal Tract, Via Natural or Artificial Opening Endoscopic (ICD-10-PCS; principal; 2019-08-28 13:30)
PROC: 30233N1 Transfusion of Nonautologous Red Blood Cells into Peripheral Vein, Percutaneous Approach (ICD-10-PCS; 2019-08-29)
DX: K57.31 Diverticulosis of large intestine without perforation or abscess with bleeding (principal); J96.20 Acute and chronic respiratory failure, unspecified whether with hypoxia or hypercapnia; I50.32 Chronic diastolic (congestive) heart failure; I13.0 Hypertensive heart and chronic kidney disease with heart failure and stage 1 through stage 4 chronic kidney disease, or unspecified chronic kidney disease; I25.10 Atherosclerotic heart disease of native coronary artery without angina pectoris; J44.9 Chronic obstructive pulmonary disease, unspecified; N18.3 Chronic kidney disease, stage 3 (moderate); E11.22 Type 2 diabetes mellitus with diabetic chronic kidney disease; N40.0 Benign prostatic hyperplasia without lower urinary tract symptoms; E78.5 Hyperlipidemia, unspecified; E87.5 Hyperkalemia; K64.8 Other hemorrhoids; K63.89 Other specified diseases of intestine; D63.1 Anemia in chronic kidney disease; E78.00 Pure hypercholesterolemia, unspecified; R97.20 Elevated prostate specific antigen [PSA]; Z85.038 Personal history of other malignant neoplasm of large intestine; Z99.81 Dependence on supplemental oxygen; Z85.118 Personal history of other malignant neoplasm of bronchus and lung; Z92.3 Personal history of irradiation; Z87.891 Personal history of nicotine dependence; Z79.899 Other long term (current) drug therapy; Z90.49 Acquired absence of other specified parts of digestive tract
CPT/HCPCS: 36415; 45378; 71046; 74018; 74174; 74176; 78278; 80048; 80053; 80061; 82274; 82962; 83036; 85014; 85018; 85025; 85027; 85610; 86850; 86900; 86901; 86920; 93005; 94640; 94760; 96374; 96375; A9560; C9113; J0610; J1815; J1940; J1956; J2704; J2930; J7030; J7042; J7613; J7626; P9016; Q9966; Q9967; 99285-25; G0378

== ENCOUNTER → 2020-08-03 | Outpatient (CLI) | payer MEDICARE, BC ==
[2019-10-22 11:00] VITALS: BP 142/68
[~2020-08-03] MED LIST changes: +ALBU2.5V5 NEB; +VERA120T12 PO; -VERA120T5 PO; +ZOLP10TA4 PO; +guaiFENesin/CODEINE 100mg/10mg PO
--- NOTE | 2020-08-03 16:03 | RAD ---
CHEST CT WITHOUT CONTRAST CLINICAL INDICATIONS: Lung cancer. Follow-up study. COMPARISON: October 19, 2019. TECHNIQUE: Noncontrast helical CT scanning of the chest was performed. Without IV contrast, the sensitivity to detect organ pathology is decreased. PQRS compliance Statement One or more of the following individualized dose reduction techniques were utilized for this study: 1. Automated exposure control 2. Adjustment of the mA and/or kV according to patient size 3. Use of iterative reconstruction technique COMPARISON: October 19, 2019 FINDINGS: Mediastinal lymph nodes are unchanged. No enlarging thoracic lymphadenopathy is evident. No focal aneurysmal dilatation of the thoracic aorta is seen. Calcified atheromatous disease of the coronary arteries is seen. Heart size is normal and no pericardial effusion is evident. No pleural effusion or pneumothorax is seen. Bilateral emphysema is seen. Fiducial markers are present next to the left hilum. The left hilum is unchanged. There is a fiducial marker within the anterior upper aspect of the left upper lobe. Small nodular scar is seen here which is immeasurable and unchanged. On series 3 and image 25 and image 39, small 2 mm and 6 mm lung nodules are seen within the left upper lobe and left lower lobe respectively which are stable. No new lung nodule is evident on either side. There is a peripheral pleural-based lung infiltrate which has a plaque-like configuration within the lateral posterior aspect of the superior segment of the lingula of the left upper lobe. This has increased slightly in size. This measures 15 mm in thickness. This measured 9 mm thickness previously. Bilateral peripheral interstitial pulmonary fibrosis with honeycombing is again evident. There is adherent mucus within the distal trachea. The proximal bronchial tree is patent otherwise. No adrenal mass is seen. No lytic process is seen. IMPRESSION: Increase in plaque-like lateral pleural thickening of the superior segment of the lingula. Stable 2 lung nodules on the left side. No new lung nodules evident. Stable mediastinal lymph nodes. Electronically signed by: Juarez Ray MD (08/03/2020 4:00 PM) [id number]
== END | disposition home or self-care (01) ==
LOC: CT 09:37
PROVIDERS: ATTEND Internal Medicine Pulmonary Disease
DX: J92.9 Pleural plaque without asbestos (principal); R91.1 Solitary pulmonary nodule; J84.10 Pulmonary fibrosis, unspecified; I25.10 Atherosclerotic heart disease of native coronary artery without angina pectoris
CPT/HCPCS: 71250

== ENCOUNTER → 2021-01-15 | Outpatient (CLI) | payer MEDICARE, BC ==
[2019-10-22 11:00] VITALS: BP 142/68
[~2021-01-15] MED LIST changes: +AMLO-186 PO; -AMLO5TAB10 PO; -ISOS30TA4 PO; +ISOS30TA68 PO
--- NOTE | 2021-01-15 09:07 | RAD ---
EXAM: Chest CT without intravenous contrast. HISTORY: Lung cancer restaging. TECHNIQUE: Computed tomographic images of the chest were obtained without contrast. Multiplanar refor matting was performed. *One or more of the following individualized dose reduction techniques were utilized for this examina tion: 1. Automated exposure control. 2. Adjustment of the mA and/or kV according to patient size. 3. Use of iterative reconstruction technique. COMPARISON: 08/03/2020. FINDINGS: There are stable left perihilar and anterior inferior upper lobe metallic fiducials. There has been slight interval increase in lingular opacity and adjacent pleural thickening due to radiatio n changes or progressive malignancy. This is superimposed on emphysema and peripheral pleural parench ymal scarring throughout both lungs. There has been interval increase in a 6 mm nodule within the pos terior left lower lobe, previously measuring 4 mm. There has been interval increase in a 2 mm nodule within the left upper lobe. There is increase in bilateral lower lobe atelectasis and chronic appeari ng interstitial changes. The heart is upper normal in size. There is calcified scar plaque involving the aorta and coronary ar teries. There has been slight interval decrease in the size of prevascular lymph nodes. There has bee n no significant change in mediastinal lymphadenopathy. There is no acute finding involving the upper abdomen. There are degenerative changes throughout the spine. There is no acute osseous finding or s uspicious osseous lesion. IMPRESSION: 1. Slight interval increase in lingular opacity and overlying pleural thickening adjacent to metallic fiducials. The imaging appearance favors changes due to interval treatment rather than progressive m alignancy. The superimposed on emphysema and increasing peripheral and lower lobe predominant scarrin g. 2. Increase in indeterminant 6 mm left lower lobe and 2 mm left upper lobe nodules. 3. Stable mediastinal lymphadenopathy. Electronically signed by: Asiya Burgos MD (01/15/2021 9:05 AM) [id number]
== END ==
LOC: CT 08:25
PROVIDERS: ATTEND Internal Medicine Pulmonary Disease
DX: C78.00 Secondary malignant neoplasm of unspecified lung (principal); R91.1 Solitary pulmonary nodule
CPT/HCPCS: 71250

== ENCOUNTER 2021-01-19 11:29 | Emergency (ER) | payer MEDICARE, BC ==
[~2021-01-19] VITALS: Ht 167.6 cm; Wt 84.0 kg
--- NOTE | 2021-01-19 12:29 | RAD ---
EXAM: Frontal pelvis with two-view right hip. HISTORY: Right hip pain. COMPARISON: None. FINDINGS: Joint space narrowing and osteophytosis indicates moderate right hip osteoarthritis. Osteop hytosis results in moderately decreased femoral head/neck offset. The joint spaces of the left hip ap pear maintained. No fractures are identified. There are moderate degenerative changes of the lower catherine mbar spine. Calculus are noted. There is calcific tendinitis of the right hamstring origin. IMPRESSION: 1. Moderate right hip osteoarthritis. Electronically signed by: Sonia Loyola MD (01/19/2021 12:26 PM) [facility]
--- NOTE | 2021-01-19 14:22 | PHYS DOC ---
Past Medical History Past Medical History: CAD, Cancer, COPD, Diabetes-Type II, GI Bleed, High Cholesterol, Hypertension, Renal Disease, Other Additional Past Medical Histor: COLON CANCER Past Surgical History: Cancer Surgery, Other Additional Past Surgical Histo: Heart cath, COLON RESECTION, HERNIA Smoking Status: Former Smoker Alcohol Use: None Drug Use: None General Adult EDM: Chief Complaint: MECHANICAL FALL HPI: HPI: Patient is a 80 year old male patient with history of COPD on oxygen 2 L, hypertension, high cholesterol, kidney disease, who presents to the ED today complaining of mild intermittent right hip pain. Patient states this has been going on for 3 days. He states his right leg has been giving out at the hip level and sometimes he has to lower himself on the ground because he cannot move anymore. Patient denies falling. Denies any pain radiating to bilateral lower extremities. Reports pain is worse on weightbearing. Review of Systems: Review of Systems: Constitutional: Denies fever or chills. [] GI: Denies abdominal pain, nausea, vomiting, bloody stools or diarrhea. [] : Denies dysuria. [] Musculoskeletal: Reports right hip pain. Denies back pain Integument: Denies rash. [] Neurologic: Denies headache, focal weakness or sensory changes. [] Psychiatric: Denies depression or anxiety. [] Heart Score: C/O Chest Pain: N/A Risk Factors: Risk Factors: DM, Current or recent (<one month) smoker, HTN, HLP, family history of CAD, obesity. Risk Scores: Score 0 - 3: 2.5% MACE over next 6 weeks - Discharge Home Score 4 - 6: 20.3% MACE over next 6 weeks - Admit for Clinical Observation Score 7 - 10: 72.7% MACE over next 6 weeks - Early Invasive Strategies Current Medications: Current Medications Medications (Trade) Dose Ordered Sig/Lindsay Start Time Stop Time Status Last Admin Dose Admin Cyclobenzaprine HCl (Flexeril) 10 mg 1X ONCE 01/19/21 14:00 01/19/21 14:01 DC Methylprednisolone Sodium Succinate (SOLU-Medrol 125MG VIAL) 125 mg 1X ONCE 01/19/21 14:00 01/19/21 14:01 DC Naproxen (Naprosyn) 250 mg 1X STAT 01/19/21 13:52 01/19/21 13:56 DC Allergies: Allergies: Allergies Coded Allergies Type Severity Reaction Last Updated Verified No Known Drug Allergies 08/28/19 No Physical Exam: PE: Constitutional: Well developed, well nourished, no acute distress, non-toxic appearance. [] Lungs & Thorax: Patient is on oxygen in the ED-this is chronic Abdomen: Bowel sounds normal, soft, no tenderness, no masses, no pulsatile masses. [] Skin: Warm, dry, no erythema, no rash. [] Back: No tenderness, no CVA tenderness. [] Extremities: Right hip with no obvious deformity. Tenderness on palpation of the right lateral hip. Limited range of motion to the right hip due to pain. +2 right pedal pulse. Cap refill <2 seconds to the RLE Neurologic: Alert and oriented X 3, normal motor function, normal sensory function, no focal deficits noted. [] Psychologic: Affect normal, judgement normal, mood normal. [] Current Patient Data: Vital Signs: Vital Signs Date Time Temp Pulse Resp B/P (MAP) Pulse Ox O2 Delivery O2 Flow Rate FiO2 01/19/21 12:00 98.9 70 16 170/80 (110) 94 Room Air 3.0 98.9 EKG: EKG: [] Radiology/Procedures: Radiology/Procedures: []PROCEDURE: HIP RIGHT 2V WITH PELVIS EXAM: Frontal pelvis with two-view right hip. HISTORY: Right hip pain. COMPARISON: None. FINDINGS: Joint space narrowing and osteophytosis indicates moderate right hip osteoarthritis. Osteophytosis results in moderately decreased femoral head/neck offset. The joint spaces of the left hip appear maintained. No fractures are identified. There are moderate degenerative changes of the lower lumbar spine. Calculus are noted. There is calcific tendinitis of the right hamstring origin. IMPRESSION: 1. Moderate right hip osteoarthritis. Electronically signed by: Sonia Loyola MD (01/19/2021 12:26 PM) [facility] DICTATED and SIGNED BY: GERMAINE LOYOLA MD DATE: 01/19/21 [id number] 0 Course & Med Decision Making: Course & Med Decision Making Pertinent Labs and Imaging studies reviewed. (See chart for details) This is a 80 year old male with right hip pain for three days. Right hip xrays interpreted by radiologist-Moderate right hip osteoarthritis. Spoke to patient and grand daughter offering admission for PT and rehab. 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 Requested the granddaughter to consider getting help for their grandparents considering this is too much work for an 79-year-old male with COPD and other chronic condition. Patient himself refused to be admitted. Discharge to home, Medrol Dosepak and cyclobenzaprine prescriptions provided Rita Disclaimer: Rita Disclaimer: This electronic medical record was generated, in whole or in part, using a voice recognition dictation system. Departure Departure Impression: Primary Impression: Degenerative joint disease of right hip Qualified Codes: M16.11 - Unilateral primary osteoarthritis, right hip Additional Impression: Right hip pain Disposition: DC HOME SELF CARE/HOMELESS Condition: STABLE Referrals: TERRANCE ESPINAL MD (PCP) follow up next week JULIET ESPINOZA MD follow up in 1 week Patient Instructions: Arthritis, Reactive, Hip Pain Additional Instructions: You were evaluated in the emergency room for hip pain, you are noted to have arthritis in your hip. Please follow-up with the primary care doctor as well as the provided orthopedic doctor next week. Please consider asking family members to help with the care of your . Scripts Cyclobenzaprine Hcl (CYCLOBENZAPRINE HCL) 10 Mg Tablet 1 TAB PO TID, #30 TAB Prov: TREVON MEEKS APRN 01/19/21 Methylprednisolone (MEDROL) 4 Mg Tab.ds.pk 1 PKG PO UD, #1 PKG Prov: TREVON MEEKS APRN 01/19/21 TREVON MEEKS APRN Jan 19, 2021 14:22
[2021-01-19] MEDS ORDERED: CYCL10TA2 PO (14:35)
[2021-01-19] MEDS ORDERED: METH4TAB2 PO (14:35)
[2021-01-19 14:40] VITALS: BP 161/75
[2021-01-19] MEDS: CYCLOBENZAPRINE 10 MG TABLET. PO ONE (14:45)
[2021-01-19] MEDS: NAPROXEN 250 MG TABLET PO STA (14:46)
[2021-01-19] MEDS: methylPREDNISolone SOD SUCC PF 125 MG/2 ML VIAL. IM ONE (14:46)
== END 2021-01-19 14:51 | disposition home or self-care (01) ==
LOC: ER 11:29
DX: M16.11 Unilateral primary osteoarthritis, right hip (principal); M25.551 Pain in right hip; J44.9 Chronic obstructive pulmonary disease, unspecified; E11.9 Type 2 diabetes mellitus without complications; E78.00 Pure hypercholesterolemia, unspecified; I10 Essential (primary) hypertension; Z85.9 Personal history of malignant neoplasm, unspecified; Z87.891 Personal history of nicotine dependence; Z98.890 Other specified postprocedural states
CPT/HCPCS: 73502; 96372; 99284; J2930

== ENCOUNTER 2021-05-26 14:29 | Emergency (ER) | payer MEDICARE, BC ==
[~2021-05-26] VITALS: Ht 170.2 cm; Wt 82.0 kg
[~2021-05-26 14:29] MED LIST changes: +AMOX1TAB10 PO; +BENZ-8 PO; +BUDE0.5A NEB; +CYCL10TA2 PO; +GUAI120L35 PO; +HYDR-2761 PO; +METH4TAB2 PO
--- NOTE | 2021-05-26 15:14 | PHYS DOC ---
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 Patient states he took some of his medicines this afternoon including Tessalon Perles. He states a few minutes later he felt he could not swallow his own saliva. He states he panicked and came to the emergency room, he states he is able to tolerate his secretions with no issues right now. He now states he feels dizzy. Patient was discharged from the [facility] 4 days ago for COPD exacerbation (TREVON MEEKS ) Review of Systems: Review of Systems: Constitutional: Denies fever or chills. [] Eyes: Denies change in visual acuity. [] HENT: Reports difficulty swallowing. Denies nasal congestion or sore throat. [] Respiratory: Denies cough or shortness of breath. [] Cardiovascular: Denies chest pain or edema. [] GI: Denies abdominal pain, nausea, vomiting, bloody stools or diarrhea. [] : Denies dysuria. [] Musculoskeletal: Denies back pain or joint pain. [] Integument: Denies rash. [] Neurologic: Reports dizziness. Denies headache, focal weakness or sensory changes. [] Psychiatric: Denies depression or anxiety. [] (TREVON MEEKS ASSISTANT OPERATIONS MANAGER) Heart Score: C/O Chest Pain: N/A Risk Factors: Risk Factors: DM, Current or recent (<one month) smoker, HTN, HLP, family history of CAD, obesity. Risk Scores: Score 0 - 3: 2.5% MACE over next 6 weeks - Discharge Home Score 4 - 6: 20.3% MACE over next 6 weeks - Admit for Clinical Observation Score 7 - 10: 72.7% MACE over next 6 weeks - Early Invasive Strategies (TREVON MEEKS ASSISTANT OPERATIONS MANAGER) Allergies: Allergies: Allergies Coded Allergies Type Severity Reaction Last Updated Verified No Known Drug Allergies 08/28/19 No (TREVON MEEKS ASSISTANT OPERATIONS MANAGER) Physical Exam: PE: Constitutional: Well developed, well nourished, no acute distress, non-toxic appearance. [] HENT: Normocephalic, atraumatic, bilateral external ears normal, oropharynx moist, no oral exudates, nose normal. [] Airway is open. Eyes: PERRLA, EOMI, conjunctiva normal, no discharge. [] Neck: Normal range of motion, no tenderness, supple, no stridor. [] Cardiovascular:Heart rate regular rhythm Lungs & Thorax: Diminished breath sounds Abdomen: Bowel sounds normal, soft, no tenderness, no masses, no pulsatile masses. [] Skin: Warm, dry, no erythema, no rash. [] Back: No tenderness, no CVA tenderness. [] Extremities: No tenderness, no cyanosis, no clubbing, ROM intact, no edema. [] Neurologic: Alert and oriented X 3, normal motor function, normal sensory function, no focal deficits noted. Cranial nerves II through XII intact Psychologic: Affect normal, judgement normal, mood normal. [] (TREVON MEEKS ASSISTANT OPERATIONS MANAGER) EKG: EK interpreted by Dr. Britton sinus rhythm heart rate 74 no STEMI [] (TREVON MEEKS ASSISTANT OPERATIONS MANAGER) Radiology/Procedures: Radiology/Procedures: [] (TREVON MEEKS ASSISTANT OPERATIONS MANAGER) Course & Med Decision Making: Course & Med Decision Making Pertinent Labs and Imaging studies reviewed. (See chart for details) This is a 80-year-old male patient presented to the ED today stating he had difficulty swallowing his own secretions a couple minutes prior to coming to the ED. He had taken his afternoon medicines which included Tessalon Perles. On arrival to the ED, he states he is able to swallow. He states he would like to be checked out because now he has dizziness that developed a couple minutes ago. Of note patient was discharged from the hospital 4 days ago for COPD exac erbation. Patient's EKG is negative, labs are negative. Patient tolerating his secretions well in the ED has no difficulty swallowing. We will discharge him to home. (TREVON MEEKS APRN) Dragon Disclaimer: Dragon Disclaimer: This electronic medical record was generated, in whole or in part, using a voice recognition dictation system. (TREVON MEEKS APRN) Departure Departure Impression: Primary Impression: Difficulty swallowing Qualified Codes: R13.10 - Dysphagia, unspecified Additional Impression: Dizziness Disposition: HOME / SELF CARE / HOMELESS Condition: STABLE Referrals: TERRANCE ESPINAL MD (PCP) Follow-up in the course of this week or next week Patient Instructions: Dizziness, [id number], Dysphagia Additional Instructions: You were evaluated in the emergency room for difficulty swallowing. If you have any issues related to swallowing please return to the ED otherwise follow-up with your doctor in the course of this week or next week Attending Signature Attending Signature I have reviewed the PA/EMBOSSER APPRENTICE's note and plan of care. I was available for consult ation as needed during the patient's visit in the emergency department. I agree with the clinical impression, plan, and disposition. (EKTA BRITTON DO) TREVON MEEKS APRN May 26, 2021 15:14 EKTA BRITTON DO May 26, 2021 17:00
[2021-05-26 15:41] LABS: BASO # 0.1 x10^3/uL (0.0-0.2); BASO % 1 % (0-3); EOS # 0.2 x10^3/uL (0.0-0.7); EOS % 2 % (0-3); HEMATOCRIT 34.7 % (39.0-53.0); LYMPH # 0.8 x10^3/uL (1.0-4.8); LYMPH % 9 % (24-48); MEAN CORPUSCULAR HEMOGLOBIN 23 pg (25-35); MEAN CORPUSCULAR HGB CONC 32 g/dL (31-37); MEAN CORPUSCULAR VOLUME 72 fL (79-100); MONO # 0.9 x10^3/uL (0.0-1.1); MONO % 10 % (0-9); NEUT # 7.2 x10^3/uL (1.8-7.7); NEUT % 77 % (31-73); PLATELET COUNT 134 x10^3/uL (140-400); RED BLOOD COUNT 4.85 x10^6/uL (4.30-5.70); RED CELL DISTRIBUTION WIDTH 24.6 % (11.5-14.5); WHITE BLOOD COUNT 9.4 x10^3/uL (4.0-11.0)
[2021-05-26 15:46] LABS: BILIRUBIN,URINE NEGATIVE (NEG); CLARITY,URINE CLEAR; COLOR,URINE YELLOW; NITRITE,URINE NEGATIVE (NEG); PH,URINE 7.5 (<5.0-8.0); PROTEIN,URINE 30 mg/dL (NEG-TRACE)
[2021-05-26 15:58] LABS: CREATININE 1.5 mg/dL (0.7-1.3); GFR 54.3; POTASSIUM 5.1 mmol/L (3.5-5.1)
[2021-05-26 16:04] LABS: ALBUMIN 2.8 g/dL (3.4-5.0); ALBUMIN/GLOBULIN RATIO 0.8 (1.0-1.7); MAGNESIUM 1.9 mg/dL (1.8-2.4); TOTAL PROTEIN 6.4 g/dL (6.4-8.2)
[2021-05-26 16:05] LABS: HYALINE CASTS, URINE OCCASIONAL /HPF
[2021-05-26 16:08] LABS: WBC,URINE OCC /HPF (0-4)
[2021-05-26 16:09] LABS: BACTERIA,URINE FEW /HPF (0-FEW)
[2021-05-26 16:10] LABS: YEAST,URINE PRESENT /HPF
--- NOTE | 2021-05-26 16:29 | RAD ---
EXAM: XR NECK SOFT TISSUE, XR CHEST 2V 05/26/2021 2:50 PM CLINICAL INDICATION: Difficulty swallowing COMPARISON: CT chest 05/09/2021 TECHNIQUE: PA and lateral views of the chest. AP and lateral view of the cervical spine. FINDINGS: CHEST: Patchy basilar and peripheral predominant interstitial and alveolar opacities are unchanged. T here are fiducial markers near the left hilum. Nodularity at the hilum with adjacent linear scarring or architectural distortion is grossly unchanged. There is no pleural effusion or pneumothorax. No ac [place] osseous abnormality. NECK: The airway is patent. Epiglottis and aryepiglottic folds are normal. Prevertebral soft tissue i s normal. There is cervical degenerative disc disease with osseous fusion anteriorly at C4-C5 and C5- C6. IMPRESSION: 1. Fiducial markers at the left hilum with underlying nodularity and scarring or architectural distor tion and bilateral pulmonary opacities are grossly unchanged from CT chest 05/09/2021. No definite new abnormality. 2. No acute abnormality of the neck. Electronically signed by: Sandy Fuentes MD (05/26/2021 4:26 PM) [id number]
--- NOTE | 2021-05-26 16:29 | RAD ---
EXAM: XR NECK SOFT TISSUE, XR CHEST 2V 05/26/2021 2:50 PM CLINICAL INDICATION: Difficulty swallowing COMPARISON: CT chest 05/09/2021 TECHNIQUE: PA and lateral views of the chest. AP and lateral view of the cervical spine. FINDINGS: CHEST: Patchy basilar and peripheral predominant interstitial and alveolar opacities are unchanged. T here are fiducial markers near the left hilum. Nodularity at the hilum with adjacent linear scarring or architectural distortion is grossly unchanged. There is no pleural effusion or pneumothorax. No ac redding osseous abnormality. NECK: The airway is patent. Epiglottis and aryepiglottic folds are normal. Prevertebral soft tissue i s normal. There is cervical degenerative disc disease with osseous fusion anteriorly at C4-C5 and C5- C6. IMPRESSION: 1. Fiducial markers at the left hilum with underlying nodularity and scarring or architectural distor tion and bilateral pulmonary opacities are grossly unchanged from CT chest 05/09/2021. No definite new abnormality. 2. No acute abnormality of the neck. Electronically signed by: Sandy Fuentes MD (05/26/2021 4:26 PM) [id number]
[2021-05-26 17:00] VITALS: BP 118/76
[2021-05-26 18:51] LABS: PLT ESTIMATE DECREASED (ADEQUATE)
[2021-05-26 18:52] LABS: ANISOCYTOSIS MOD; HYPOCHROMIA MOD; MICROCYTOSIS MOD; SCHISTOCYTES FEW
[2021-05-26 18:53] LABS: OVALOCYTES FEW
--- NOTE | 2021-05-27 00:25 | EKG ---
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
== END 2021-05-26 17:15 | disposition home or self-care (01) ==
LOC: ER 14:29
DX: R13.10 Dysphagia, unspecified (principal); R42 Dizziness and giddiness; J44.9 Chronic obstructive pulmonary disease, unspecified; E11.9 Type 2 diabetes mellitus without complications; E78.00 Pure hypercholesterolemia, unspecified; I10 Essential (primary) hypertension; I25.10 Atherosclerotic heart disease of native coronary artery without angina pectoris; Z87.891 Personal history of nicotine dependence
CPT/HCPCS: 36415; 70360; 71046; 80053; 81001; 83735; 83880; 84484; 85025; 93005; 99285-25

== ENCOUNTER 2021-08-05 14:37 | Emergency (ER) | payer MEDICARE, BC ==
[~2021-08-05] VITALS: Ht 170.2 cm; Wt 80.0 kg
[~2021-08-05 14:37] MED LIST changes: +POTA-121 PO; -POTA20TA4 PO
[2021-08-05 16:13] LABS: BILIRUBIN,URINE NEGATIVE (NEG); CLARITY,URINE CLEAR; COLOR,URINE YELLOW; NITRITE,URINE NEGATIVE (NEG); PROTEIN,URINE 30 mg/dL (NEG-TRACE)
--- NOTE | 2021-08-05 16:17 | RAD ---
Study: XR BILATERAL HIP (WITH OR WITHOUT PELVIS) 2 VIEWS_RIGHT Indication: Pain. Comparison: 01/19/2021 Findings: Advanced right hip arthrosis with asymmetric joint space narrowing compared to the left hip. Arthrosi s at the left hip is more mild in severity. Within normal limits pubic symphysis. Incompletely charac terized degenerative changes at the lower lumbar spine. At least partial ankylosis across the right S I joint. There is the suggestion of some bony bridging at the upper margin of the left SI joint. The findings likely relate to diffuse idiopathic skeletal hyperostosis. No radiographic evidence for avas cular necrosis or stress reaction at the right hip. Vascular calcifications. Distal colonic suture chain. Impression: 1. No acute radiographic abnormality seen at the right hip or elsewhere throughout the partially asse ssed pelvis. 2. Asymmetrically advanced arthrosis at the right hip with joint space narrowing. Additional degenera tive/chronic findings described above. Electronically signed by: WISAM KRISHNAMURTHY MD (08/05/2021 4:15 PM) MELISSACANDIDO
[2021-08-05 16:23] LABS: AMORPHOUS SEDIMENT,UR PRESENT /HPF; BACTERIA,URINE 0 /HPF (0-FEW); HYALINE CASTS, URINE MODERATE /HPF
--- NOTE | 2021-08-05 16:43 | RAD ---
Exam: CT of abdomen and pelvis without contrast INDICATION: Flank pain TECHNIQUE: Sequential axial images through the abdomen and pelvis obtained without IV contrast. Sagit jeronimo and coronal reformatted images were reconstructed from the axial data and reviewed. Exposure: One or more of the following in the visualized dose reduction techniques were utilized for this examination: 1. Automated exposure control 2. Adjustment of the MA and/or KV according to patient size 3. Use of iterative of reconstructive technique Comparisons: Mabel radiograph same day, CT abdomen pelvis 08/27/2019 FINDINGS: Heart size is normal. No pericardial effusion. Strandy opacities at dependent portion lungs likely re presenting atelectasis. No pleural effusion. Evaluation of solid organs is limited secondary to noncontrast technique. Liver, spleen, pancreas and adrenals are unremarkable. Gallbladder is partially distended and appears thin-walled. No perinephric inflammation or hydronephrosis. Cystic lesions at the kidneys bilaterally incompletely characterized on noncontrast exam. No renal or ureteral calculi. Bladder is decompressed not well evaluated. Prostate is not enlarged. Diverticulosis is noted at the descending and sigmoid colon without evidence of acute diverticulitis. Appendix is not identified. No free intra-abdominal air or fluid. No obstruction. Abdominal aorta has a normal course and caliber. No enlarged intra-abdominal lymph nodes are identified. No suspicious osseous lesions or acute fractures. IMPRESSION: 1. No acute processes identified within the abdomen or pelvis. 2. Bilateral renal cystic lesions which are incompletely characterized on noncontrast exam, some of which appear mildly complex. Compared to the CT in 2019 these are similar to minimally increased in s ize. This can be better evaluated with nonemergent renal protocol CT or MRI. Electronically signed by: Salma Mcbride MD (08/05/2021 4:41 PM) [facility]
[2021-08-05] MEDS ORDERED: DICL20GE TP (17:13)
[2021-08-05] MEDS ORDERED: HYDR-2761 PO (17:13)
--- NOTE | 2021-08-05 17:15 | PHYS DOC ---
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 Patient states the right leg has given out several times. Patient denies falling. He states he has been able to hold on items around himself to prevent falling. Patient denies anything relieving the pain. He also states he has bilateral flank/ region hurting, he states he does not know if this is from how he is using his good leg. Denies any hematuria, urgency frequency or dysuria. (TREVON MEEKS MENTAL HEALTH PROGRAM MANAGER) Review of Systems: Review of Systems: Constitutional: Denies fever or chills. [] Eyes: Denies change in visual acuity. [] HENT: Denies nasal congestion or sore throat. [] Respiratory: Denies cough or shortness of breath. [] Cardiovascular: Denies chest pain or edema. [] GI: Denies abdominal pain, nausea, vomiting, bloody stools or diarrhea. [] : Reports bilateral flank pain. Denies dysuria. [] Musculoskeletal: Reports right hip pain. Denies back pain Integument: Denies rash. [] Neurologic: Denies headache, focal weakness or sensory changes. [] Psychiatric: Denies depression or anxiety. [] (TREVON MEEKS MENTAL HE[employer] PROGRAM MANAGER) Heart Score: C/O Chest Pain: N/A Risk Factors: Risk Factors: DM, Current or recent (<one month) smoker, HTN, HLP, family history of CAD, obesity. Risk Scores: Score 0 - 3: 2.5% MACE over next 6 weeks - Discharge Home Score 4 - 6: 20.3% MACE over next 6 weeks - Admit for Clinical Observation Score 7 - 10: 72.7% MACE over next 6 weeks - Early Invasive Strategies (TREVON MEEKS MENTAL HEALTH PROGRAM MANAGER) Allergies: Allergies: Allergies Coded Allergies Type Severity Reaction Last Updated Verified No Known Drug Allergies 08/28/19 No (TREVON MEEKS MENTAL HEALTH PROGRAM MANAGER) Physical Exam: PE: Constitutional: Well developed, well nourished, no acute distress, non-toxic appearance. [] HENT: Normocephalic, atraumatic, bilateral external ears normal, oropharynx moist, no oral exudates, nose normal. [] Eyes: PERRLA, EOMI, conjunctiva normal, no discharge. [] Neck: Normal range of motion, no tenderness, supple, no stridor. [] Cardiovascular:Heart rate regular rhythm, no murmur [] Lungs & Thorax: Bilateral breath sounds clear to auscultation [] Abdomen: Bowel sounds normal, soft, no tenderness, no masses, no pulsatile masses. [] Skin: Warm, dry, no erythema, no rash. [] Back: No tenderness, no CVA tenderness. [] Extremities: Bilateral lower extremities with no obvious deformities. Tenderness on palpation of the right lateral hip. Full range of motion to the right hip with pain elicited during internal rotation and external rotation of the right hip. +2 right pedal pulse. Cap refill less than 2 seconds to right lower extremity. Neurologic: Alert and oriented X 3, normal motor function, normal sensory function, no focal deficits noted. [] Psychologic: Affect normal, judgement normal, mood normal. [] (TREVON MEEKS MENTAL HEALTH PROGRAM MANAGER) Current Patient Data: Labs: Laboratory Tests Test 08/05/21 16:00 Urine Collection Type Unknown Urine Color Yellow Urine Clarity Clear Urine pH 5.0 (<5.0-8.0) Urine Specific [place] 1.010 (1.000-1.030) Urine Protein 30 mg/dL (NEG-TRACE) Urine Glucose (UA) Negative mg/dL (NEG) Urine Ketones (Stick) Negative mg/dL (NEG) Urine Blood Negative (NEG) Urine Nitrite Negative (NEG) Urine Bilirubin Negative (NEG) Urine Urobilinogen Dipstick 1.0 mg/dL (0.2 mg/dL) Urine Leukocyte Esterase Negative (NEG) Urine RBC 1-2 /HPF (0-2) Urine WBC 1-4 /HPF (0-4) Urine Squamous Epithelial Cells Few /LPF Urine Amorphous Sediment Present /HPF Urine Bacteria 0 /HPF (0-FEW) Urine Hyaline Casts Moderate /HPF Urine Mucus Mod /LPF Vital Signs: Vital Signs Date Time Temp Pulse Resp B/P (MAP) Pulse Ox O2 Delivery O2 Flow Rate FiO2 08/05/21 15:25 99.0 73 20 139/73 (95) 4 Nasal Cannula 99.0 (TREVON MEEKS MENT[employer] HE[employer] PROGRAM MANAGER) EKG: EKG: [] (TREVON MEEKS MENTAL HEALTH PROGRAM MANAGER) Radiology/Procedures: Radiology/Procedures: []PROCEDURE: HIP RIGHT 2V WITH PELVIS Study: XR BILATERAL HIP (WITH OR WITHOUT PELVIS) 2 VIEWS_RIGHT Indication: Pain. Comparison: 01/19/2021 Findings: Advanced right hip arthrosis with asymmetric joint space narrowing compared to the left hip. Arthrosis at the left hip is more mild in severity. Within normal limits pubic symphysis. Incompletely characterized degenerative changes at the lower lumbar spine. At least partial ankylosis across the right SI joint. There is the suggestion of some bony bridging at the upper margin of the left SI joint. The findings likely relate to diffuse idiopathic skeletal hyperostosis. No radiographic evidence for avascular necrosis or stress reaction at the right hip. Vascular calcifications. Distal colonic suture chain. Impression: 1. No acute radiographic abnormality seen at the right hip or elsewhere throughout the partially assessed pelvis. 2. Asymmetrically advanced arthrosis at the right hip with joint space narrowing. Additional degenerative/chronic findings described above. Electronically signed by: WISAM KRISHNAMURTHY MD (08/05/2021 4:15 PM) [facility] DICTATED and SIGNED BY: WISAM KRISHNAMURTHY MD DATE: 08/05/21 [id number] 0 PROCEDURE: CT ABDOMEN PELVIS WO CONTRAST Exam: CT of abdomen and pelvis without contrast INDICATION: Flank pain TECHNIQUE: Sequential axial images through the abdomen and pelvis obtained without IV contrast. Sagittal and coronal reformatted images were reconstructed from the axial data and reviewed. Exposure: One or more of the following in the visualized dose reduction techniques were utilized for this examination: 1. Automated exposure control 2. Adjustment of the MA and/or KV according to patient size 3. Use of iterative of reconstructive technique Comparisons: February radiograph same day, CT abdomen pelvis 08/27/2019 FINDINGS: Heart size is normal. No pericardial effusion. Strandy opacities at dependent portion lungs likely representing atelectasis. No pleural effusion. Evaluation of solid organs is limited secondary to noncontrast technique. Liver, spleen, pancreas and adrenals are unremarkable. Gallbladder is partially distended and appears thin-walled. No perinephric inflammation or hydronephrosis. Cystic lesions at the kidneys b ilaterally incompletely characterized on noncontrast exam. No renal or ureteral calculi. Bladder is decompressed not well evaluated. Prostate is not enlarged. Diverticulosis is noted at the descending and sigmoid colon without evidence of acute diverticulitis. Appendix is not identified. No free intra-abdominal air or fluid. No obstruction. Abdominal aorta has a normal course and caliber. No enlarged intra-abdominal lymph nodes are identified. No suspicious osseous lesions or acute fractures. IMPRESSION: 1. No acute processes identified within the abdomen or pelvis. 2. Bilateral renal cystic lesions which are incompletely characterized on noncontrast exam, some of which appear mildly complex. Compared to the CT in 2019 these are similar to minimally increased in size. This can be better evaluated with nonemergent renal protocol CT or MRI. Electronically signed by: Salma Eyl MD (08/05/2021 4:41 PM) [facility] DICTATED and SIGNED BY: SALMA ELY MD DATE: 08/05/21 [id number] 0 (TREVON MEEKS APRN) Course & Med Decision Making: Course & Med Decision Making Pertinent Labs and Imaging studies reviewed. (See chart for details) This 80-year-old male patient presented to the ED today with right hip pain for 4 days, no known injury. Right hip x-rays interpreted by radiologist were noted for DJD of the right hip. Patient was also complaining of bilateral flank pain, CT of the abdomen and pelvis was noted for renal cyst otherwise no acute findings. UA negative for infection. He states he already follows up with a paper machine operator and will let them know about the cyst. He was discharged to home with diclofenac cream and low-dose hydrocodone. Follow-up with Ortho. He refu sed admission stating he does not think it will benefit him considering he does not want surgery or going to rehab (TREVON MEEKS APRN) Dragon Disclaimer: Dragon Disclaimer: This electronic medical record was generated, in whole or in part, using a voice recognition dictation system. (TREVON MEEKS APRN) Departure Departure Impression: Primary Impression: Right hip pain Additional Impressions: Degenerative joint disease of right hip Qualified Codes: M16.11 - Unilateral primary osteoarthritis, right hip Flank pain Renal cyst, acquired, right Renal cyst, acquired, left Disposition: HOME / SELF CARE / HOMELESS Condition: STABLE Referrals: TERRANCE ESPINAL MD (PCP) follow up in one week BALAJI CLAROS DO call his office tomorrow and set up a follow up appointment ORLIN REBOLLAR MD follow up in one week Patient Instructions: Arthritis, Degenerative-Brief, Hip Pain Additional Instructions: You were evaluated in the emergency room for right hip pain and noted to have arthritis in your hip. We encourage you to contact the provided orthopedic doctor and to follow-up with them as soon as possible. You also have some cysts in your kidneys. Please follow-up with your paper machine operator/kidney doctor. Consider applying ice to your right hip. Scripts Hydrocodone Bit/Acetaminophen (HYDROCODONE-APAP 5-325 ) 1 Tab Tablet 0.5 TAB PO PRN Q6HRS PRN for PAIN, #10 TAB 0 Refills Prov: PUSHPATREVON OLMOS Johanna GUZMÁN 08/05/21 Diclofenac Sodium (Voltaren Arthritis Pain) 20 Gm Gel..gram. 1 GM TP Q4-6HRS PRN for PAIN, #20 GM Prov: PUSHPAAMARILISTREVON APRN 08/05/21 Attending Signature Attending Signature I have reviewed the PA/FIREARMS INSPECTOR's note and plan of care. I was available for consultation as needed during the patient's visit in the emergency department. I agree with the clinical impression, plan, and disposition. (EKTA BRITTON DO) TREVON MEEKS APRN Aug 05, 2021 17:15 EKTA BRITTON DO Aug 06, 2021 14:05
[2021-08-05 17:30] VITALS: BP 142/66
== END 2021-08-05 17:20 | disposition home or self-care (01) ==
LOC: ER 14:37
DX: N28.1 Cyst of kidney, acquired (principal); M16.11 Unilateral primary osteoarthritis, right hip; M25.551 Pain in right hip; J44.9 Chronic obstructive pulmonary disease, unspecified; E11.9 Type 2 diabetes mellitus without complications; E78.00 Pure hypercholesterolemia, unspecified; I25.10 Atherosclerotic heart disease of native coronary artery without angina pectoris; E11.22 Type 2 diabetes mellitus with diabetic chronic kidney disease; I12.9 Hypertensive chronic kidney disease with stage 1 through stage 4 chronic kidney disease, or unspecified chronic kidney disease; N18.9 Chronic kidney disease, unspecified
CPT/HCPCS: 73502; 74176; 81001; 99285-25

== ENCOUNTER 2021-08-20 13:49 | Inpatient (IN) | payer MEDICARE, BC ==
[~2021-08-20] VITALS: Ht 170.2 cm; Wt 80.1 kg
[~2021-08-20 13:49] MED LIST changes: -BUPIVACAINE MPF 0.5% 10 ML VIAL. INT ART ONE; -CYCL10TA19 PO; +CYCL10TA2 PO; -IOHEXOL 300 MG/ML 50 ML VIAL. INT ART ONE; -LIDOCAINE 1% Multi-Dose 20 ML VIAL. ID ONE; -TRIAMCINOLONE ACETONIDE 40 MG/ML VIAL. INT ART ONE
--- NOTE | 2021-08-20 15:48 | PHYS DOC ---
Past Medical History Past Medical History: CAD, Cancer, COPD, Diabetes-Type II, GI Bleed, High Cholesterol, Hypertension, Renal Disease, Other Additional Past Medical Histor: COLON CANCER, LUNG CANCER, 4L home o2 [place] Past Surgical History: Cancer Surgery, Other Additional Past Surgical Histo: Heart cath, COLON RESECTION, HERNIA Smoking Status: Former Smoker Alcohol Use: None Drug Use: None General Adult EDM: Chief Complaint: LOWER EXTREMITY SWELLING HPI: HPI: Patient is a 80 year old male who presents with for last 2 to 3 weeks he has been having left lower calf pain and swelling. Patient states he has been having pain in his right hip and has been favoring the hip and so he thought maybe that is why the calf is swelling up and very painful. It is more painful with movement and flexion. Patient rates his pain a 6 out of 10. 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 Denies skin color change or skin temperature change. He denies chest pain or shortness of air, headache, dizziness, abdominal pain, nausea, vomiting, diarrhea, fevers. He denies any increase of need for oxygen. Patient has a history of diabetes, kidney disease type III without dialysis, hypertension, high cholesterol, lung cancer and he wears 4 L of oxygen, colon cancer and had a resection, GI bleed, COPD, CAD, former smoker. He states he has not smoked for the last 20 years. He has had a heart cath. He states he takes no blood thinners. Review of Systems: Review of Systems: Constitutional: Denies fever or chills. [] Eyes: Denies change in visual acuity. [] HENT: Denies nasal congestion or sore throat. [] Respiratory: Denies cough or shortness of breath. [] Cardiovascular: Denies chest pain or + left lower leg edema. [] GI: Denies abdominal pain, nausea, vomiting, bloody stools or diarrhea. [] : Denies dysuria. [] Musculoskeletal: Denies back pain or joint pain. + Left lower leg pain [] Integument: Denies rash. [] Neurologic: Denies headache, focal weakness or sensory changes. [] Endocrine: Denies polyuria or polydipsia. [] Lymphatic: Denies swollen glands. [] Psychiatric: Denies depression or anxiety. [] Heart Score: C/O Chest Pain: No Allergies: Allergies: Allergies Coded Allergies Type Severity Reaction Last Updated Verified No Known Drug Allergies 08/28/19 No Physical Exam: PE: Constitutional: Well developed, well nourished, no acute distress, non-toxic appearance. [] HENT: Normocephalic, atraumatic, bilateral external ears normal, oropharynx moist, no oral exudates, nose normal. [] Eyes: PERRLA, EOMI, conjunctiva normal, no discharge. [] Neck: Normal range of motion, no tenderness, supple, no stridor. [] Cardiovascular:Heart rate regular rhythm, no murmur [] Lungs & Thorax: Bilateral breath sounds clear to auscultation [] Abdomen: Bowel sounds normal, soft, no tenderness, no masses, no pulsatile masses. [] Skin: Warm, dry, no erythema, no rash. [] Back: No tenderness, no CVA tenderness. [] Extremities: Left calf tenderness, no cyanosis, no clubbing, ROM intact, left calf 2-3+ edema. [] Neurologic: Alert and oriented X 3, normal motor function, normal sensory function, no focal deficits noted. [] Psychologic: Affect normal, judgement normal, mood normal. [] Current Patient Data: Vital Signs: Vital Signs Date Time Temp Pulse Resp B/P (MAP) Pulse Ox O2 Delivery O2 Flow Rate FiO2 08/20/21 14:41 98.3 16 142/66 (91) 95 Room Air 4.0 98.3 EKG: EKG: [] Radiology/Procedures: Radiology/Procedures: [] Impression: [facility] [address] [place], [place] [id number] IMAGING REPORT Signed PATIENT: CLARISSE MORENO ACCOUNT: [id number] : 1940 LOCATION: ER AGE: 80 SEX: M EXAM STATUS: REG ER ORD. PHYSICIAN: JH MACEDO DO REASON: calf pain/swelling PROCEDURE: VENOUS LOWER EXTREMITY LEFT EXAM: Left lower extremity venous Doppler. HISTORY: Left lower extremity pain/swelling. COMPARISON: None. FINDINGS: Grayscale and Doppler analysis of the left lower extremity deep venous system was performed with graded compression and augmentation. The common femoral, greater saphenous, superficial femoral, popliteal and calf veins were assessed. There is no evidence of deep venous thrombosis. At the site of pain, there is a moderate popliteal cyst that extends in to the calf. It contains debris or clot. IMPRESSION: 1. No evidence of deep venous thrombosis. 2. Popliteal cyst extending into the calf, concerning debris or clot. Electronically signed by: Sonia Loyola MD (08/20/2021 3:56 PM) [id number] DICTATED and SIGNED BY: GERMAINE LOYOLA MD DATE: 08/20/21 [id number] Course & Med Decision Making: Course & Med Decision Making Pertinent Labs and Imaging studies reviewed. (See chart for details) See HPI. Alert and oriented x4. Ambulatory steady gait but uses a cane. Tenderness to the left calf. Pedal pulse is present. Cap refill less than 2 seconds. Left calf 2-3+ swelling. Pain with flexion patient of the foot. Full range of motion of the extremity. No joint laxity or weakness of the extremity. Lungs are clear in upper lobes and diminished in lower lobes. Vital signs within normal limits. Patient denies any injury to the leg. CT scan shows a very big Smith's cyst that extends all the way down into the calf of the left leg and is concerning for debris's and clot. I spoke to Dr. Mchugh who is the orthopedic on-call and he states that but would really help the patient would be to put him in a cam boot and he probably needs interventional radiology to do a ultrasound guided drainage. He states the cyst is probably putting pressure on veins causing all the swelling and pain. Due to the patient already having a right back hip and having to walk with a cane and now having severe pain in the left calf with walking I feel that it is unsafe for the patient to go home or even to go home in a cam boot. Patient admitted to hospitalist. [] Rita Disclaimer: Rita Disclaimer: This electronic medical record was generated, in whole or in part, using a voice recognition dictation system. Departure Departure Impression: Primary Impression: Swelling of extremity, left Additional Impression: Bakers cyst Qualified Codes: M71.22 - Synovial cyst of popliteal space [Smith], left knee Disposition: ADMITTED INPATIENT [facility] Condition: STABLE Referrals: TERRANCE ESPINAL MD (PCP) KENRICK BOURNE APRN Aug 20, 2021 15:47
--- NOTE | 2021-08-20 15:59 | RAD ---
EXAM: Left lower extremity venous Doppler. HISTORY: Left lower extremity pain/swelling. COMPARISON: None. FINDINGS: Grayscale and Doppler analysis of the left lower extremity deep venous system was performed with graded compression and augmentation. The common femoral, greater saphenous, superficial femoral , popliteal and calf veins were assessed. There is no evidence of deep venous thrombosis. At the site of pain, there is a moderate popliteal cyst that extends in to the calf. It contains debr is or clot. IMPRESSION: 1. No evidence of deep venous thrombosis. 2. Popliteal cyst extending into the calf, concerning debris or clot. Electronically signed by: Sonia Loyola MD (08/20/2021 3:56 PM) [id number]
[2021-08-20 17:21] LABS: CREATININE 2.1 mg/dL (0.7-1.3); GFR 36.9; POTASSIUM 4.8 mmol/L (3.5-5.1); PROTHROMBIN TIME PATIENT 15.1 SEC (11.7-14.0)
[2021-08-20 17:27] LABS: ALBUMIN 2.6 g/dL (3.4-5.0); ALBUMIN/GLOBULIN RATIO 0.6 (1.0-1.7); TOTAL BILIRUBIN 0.6 mg/dL (0.2-1.0); TOTAL PROTEIN 7.1 g/dL (6.4-8.2)
--- NOTE | 2021-08-20 17:27 | PDOC1 ---
History and Physical Date of Admission Date of Admission DATE: 08/20/21 TIME: 17:25 Identification/Chief Complaint Chief Complaint Left leg swelling and pain Source Source: Patient History of Present Illness History of Present Illness Mr Mcgee is an 80-year-old male with past medical history COPD on 3-4L NCO2, lung cancer s/p radiation, DM2, CKD, HLD, colon ca s/p resection, CAD and ex-smoker presents to the ED with complaints of worsening pain and swelling of his left leg. He was sent at the behest of orthopedic surgery after a right hip intrarticular injection for concerns of progressive 2 to 3 left calf pain and swelling. Patient states he has been having pain in his right hip and has been favoring the hip and so he thought maybe that is why the calf is swelling up and very painful. It is more painful with movement and flexion and initially elevation helped with the swelling and pain, but the past few days it has not. Patient rates his pain a 6 out of 10. 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 Denies skin color change or skin temperature change. No chest pain or shortness of breath or recent sick contacts. He is followed by [facility]. States he is fully COVID-19 vaccinated. He denies any fever, chills, nausea, or vomiting. He states he has not smoked for the last 20 years. He takes no blood thinners. Gets primary care through the [facility]. labs with WBC 6.7, Hb 9.5, MCV 73, platelets 303, NA 139, K4.8, BUN 22, CR 2.1, glucose 135, calcium 9, bilirubin 0.6, AST 16, ALT 11, NT proBNP 2045, troponin 0, albumin 2.6, INR 1.2, PTT 33. A venous Doppler of the left lower extremity revealed no DVT but a popliteal cyst extending into the calf was noted with debris noted by radiology. Admitted for further care and pain control. Past Medical History Cardiovascular: HTN Pulmonary: COPD CENTRAL NERVOUS SYSTEM: Other GI: Other Heme/Onc: Cancer Hepatobiliary: No pertinent hx Psych: No pertinent hx Rheumatologic: Rheumatoid arthritis Infectious disease: Herpes zoster Renal/: Chronic renal insuff, Benign prostatic enlarg. Endocrine: Diabetes Past Surgical History Past Surgical History: Colon Resection, Other Family History Family History: Cancer, Chronic Bronchitis Social History Smoke: Quit (1999) ALCOHOL: none Drugs: None Current Problem List Problem List Problems Medical Problems: (1) Bakers cyst Status: Acute (2) Swelling of extremity, left Status: Acute Current Medications Current Medications Active Scripts Active Hydrocodone-Apap 5-325 (Hydrocodone Bit/Acetaminophen) 1 Tab Tablet 0.5 Tab PO PRN Q6HRS PRN Voltaren Arthritis Pain (Diclofenac Sodium) 20 Gm Gel..gram. 1 Gm TP Q4-6HRS PRN Budesonide 0.5 Mg/2 Ml Ampul.neb 0.5 Mg NEB RTBID 7 Days Codeine-Guaifen 10-100 mg/5 ml (Guaifenesin/Codeine Phosphate) 120 Ml Liquid 5 Ml PO PRN Q4HRS PRN 14 Days Benzonatate 100 Mg Capsule 100 Mg PO PRN Q6HRS PRN 30 Days Hydrocodone-Apap 5-325 (Hydrocodone Bit/Acetaminophen) 1 Tab Tablet 1 Tab PO PRN Q4HRS PRN 10 Days Amox Tr-K Clv 500-125 Mg Tab (Amoxicillin/Potassium Clav) 1 Each Tablet 1 Tab PO BID 10 Days Prednisone 20 Mg Tablet 20 Mg PO DAILY 30 Days Cyclobenzaprine Hcl 10 Mg Tablet 1 Tab PO TID Medrol (Methylprednisolone) 4 Mg Tab.ds.pk 1 Pkg PO UD Albuterol Sulfate Neb Soln (Albuterol Sulfate) 2.5 Mg/3 Ml Vial.neb 1 Vial NEB PRN Q4HRS Pantoprazole Sodium (Pantoprazole Sodium) 40 Mg Tablet.dr 40 Mg PO DAILYAC 30 Days Simvastatin 20 Mg Tablet 1 Tab PO QHS 30 Days Zolpidem Tartrate 10 Mg Tablet 10 Mg PO PRN QHS PRN 30 Days Proair Hfa Inhaler (Albuterol Sulfate) 8.5 Gm Hfa.aer.ad 2 Puff IH PRN Q4-6HRS Reported Trelegy Ellipta 100-62.5-25 (Fluticasone/Umeclidin/Vilanter) 1 Each Blst.w.dev 1 Each IH BID Flomax (Tamsulosin Hcl) 0.4 Mg Cap.er.24h 0.4 Mg PO DAILY Novolog Flexpen (Insulin Aspart) 100 Unit/1 Ml Insuln.pen 1 Unit SQ TIDAC SLIDING SCALE Klor-Con M20 (Potassium Chloride) 20 Meq Tab.er.prt 20 Meq PO DAILY Lasix (Furosemide) 40 Mg Tablet 40 Mg PO DAILY Isosorbide Mononitrate Er (Isosorbide Mononitrate) 30 Mg Tab.er.24h 30 Mg PO DAILY Coreg (Carvedilol) 12.5 Mg Tablet 12.5 Mg PO BIDWMEALS Norvasc (Amlodipine Besylate) 5 Mg Tablet 5 Mg PO DAILY Levemir (Insulin Detemir) 100 Unit/1 Ml Vial 18 Unit SQ HS Hydralazine Hcl 50 Mg Tablet 50 Mg PO BID Aspir 81 (Aspirin) 81 Mg Tablet.dr 81 Mg PO DAILY Allergies Allergies: Coded Allergies: No Known Drug Allergies (Unverified , 08/28/19) ROS General: YES: Fatigue, Malaise; No: Chills, Night Sweats, Appetite, Other PSYCHOLOGICAL ROS: No: Anxiety, Behavioral Disorder, Concentration difficultie, Decreased libido, Depression, Disorientation, Hallucinations, Hostility, Irritablity, Memory difficulties, Mood Swings, Obsessive thoughts, Physical abuse, Sexual abuse, Sleep disturbances, Suicidal ideation, Other Eyes: No Blurry vision, No Decreased vision, No Double vision, No Dry eyes, No Excessive tearing, No Eye Pain, No Itchy Eyes, No Loss of vision, No Photophobia, No Scotomata, No Uses contacts, No Uses glasses, No Other HEENT: No: Heacaches, Visual Changes, Hearing change, Nasal congestion, Nasal discharge, Oral lesions, Sinus pain, Sore Throat, Epistaxis, Sneezing, Snoring, Tinnitus, Vertigo, Vocal changes, Other ALLERGY AND IMMUNOLOGY: No: Hives, Insect Bite Sensitivity, Itchy/Watery Eyes, Nasal Congestion, Post Nasal Drip, Seasonal Allergies, Other Hematological and Lymphatic: No: Bleeding Problems, Blood Clots, Blood Transfusions, Brusing, Night Sweats, Pallor, Swollen Lymph Nodes, Other ENDOCRINE: No: Breast Changes, Galactorrhea, Hair Pattern Changes, Hot Flashes, Malaise/lethargy, Mood Swings, Palpitations, Polydipsia/polyuria, Skin Changes, Temperature Intolerance, Unexpected Weight Changes, Other Breast: No New/Changing Breast Lumps, No Nipple changes, No Nipple discharge, No Other Respiratory: No: Cough, Hemoptysis, Orthopnea, Pleuritic Pain, Shortness of breath, SOB with excertion, Sputum Changes, Stridor, Tachypnea, Wheezing, Other Cardiovascular: No Chest Pain, No Palpitations, No Orthopnea, No Paroxysmal Noc. Dyspnea, No Edema, No Lt Headedness, No Other Gastrointestinal: No Nausea, No Vomiting, No Abdominal Pain, No Diarrhea, No Constipation, No Melena, No Hematochezia, No Other Genitourinary: No Dysuria, No Frequency, No Incontinence, No Hematuria, No Retention, No Discharge, No Urgency, No Pain, No Flank Pain, No Other, No , No , No , No , No , No , No Musculoskeletal: Yes Gait Disturbance, Yes Joint Pain, Yes Joint Stiffness, Yes Muscle Pain; No Joint Swelling, No Muscular Weakness, No Pain In:, No Swelling In:, No Other Neurological: No Behavorial Changes, No Bowel/Bladder ControlChng, No Confusion, No Dizziness, No Gait Disturbance, No Headaches, No Impaired Coord/balance, No Memory Loss, No Numbness/Tingling, No Seizures, No Speech Problems, No Tremors, No Visual Changes, No Weakness, No Other Skin: No Dry Skin, No Eczema, No Hair Changes, No Lumps, No Mole Changes, No Mottling, No Nail Changes, No Pruritus, No Rash, No Skin Lesion Changes, No Other, No Acne Physical Exam General: Alert, Oriented X3, Cooperative, moderate distress HEENT: Atraumatic, PERRLA, EOMI, Mucous membr. moist/pink Lungs: Other (bilateral scattered wheezes) Heart: S1S2, RRR, no thrills, no rubs, no gallops, no murmurs Abdomen: Normal bowel sounds, Soft, No tenderness, No hepatosplenomegaly, No masses Extremities: No clubbing, No cyanosis, Normal pulses, Other (left calf swollen, tender) Skin: No rashes, No breakdown, No significant lesion Neuro: Normal speech, Strength at 5/5 X4 ext, Normal tone, Cranial nerves 3-12 NL, Reflexes 2+, Other (decreased peripheral sensation) Psych/Mental Status: Mental status NL, Mood NL Vitals Vitals Vital Signs Date Time Temp Pulse Resp B/P (MAP) Pulse Ox O2 Delivery O2 Flow Rate FiO2 08/20/21 14:41 98.3 16 142/66 (91) 95 Room Air 4.0 98.3 Labs Labs Laboratory Tests Test 08/20/21 17:00 Prothrombin Time 15.1 SEC (11.7-14.0) Prothromb Time International Ratio 1.2 (0.8-1.1) Activated Partial Thromboplast Time 33 SEC (24-38) Sodium Level 139 mmol/L (136-145) Potassium Level 4.8 mmol/L (3.5-5.1) Chloride Level 104 mmol/L (98-107) Carbon Dioxide Level 28 mmol/L (21-32) Anion Gap 7 (6-14) Blood Urea Nitrogen 22 mg/dL (8-26) Creatinine 2.1 mg/dL (0.7-1.3) Estimated GFR (Cockcroft-Gault) 36.9 BUN/Creatinine Ratio 10 (6-20) Glucose Level 135 mg/dL (70-99) Calcium Level 9.0 mg/dL (8.5-10.1) Laboratory Tests Test 08/20/21 17:00 Prothrombin Time 15.1 SEC (11.7-14.0) Prothromb Time International Ratio 1.2 (0.8-1.1) Activated Partial Thromboplast Time 33 SEC (24-38) Sodium Level 139 mmol/L (136-145) Potassium Level 4.8 mmol/L (3.5-5.1) Chloride Level 104 mmol/L (98-107) Carbon Dioxide Level 28 mmol/L (21-32) Anion Gap 7 (6-14) Blood Urea Nitrogen 22 mg/dL (8-26) Creatinine 2.1 mg/dL (0.7-1.3) Estimated GFR (Cockcroft-Gault) 36.9 BUN/Creatinine Ratio 10 (6-20) Glucose Level 135 mg/dL (70-99) Calcium Level 9.0 mg/dL (8.5-10.1) Images Images Venous lower extremity Doppler: Grayscale and Doppler analysis of the left lower extremity deep venous system was performed with graded compression and augmentation. The common femoral, greater saphenous, superficial femoral, popliteal and calf veins were assessed. There is no evidence of deep venous thrombosis. At the site of pain, there is a moderate popliteal cyst that extends in to the calf. It contains debris or clot. IMPRESSION: 1. No evidence of deep venous thrombosis. 2. Popliteal cyst extending into the calf, concerning debris or clot. VTE Prophylaxis Ordered VTE Prophylaxis Devices: Yes VTE Pharmacological Prophylaxi: Yes Assessment/Plan Assessment/Plan A/P: Left calf pain - concern for possible ruptured naranjo cyst. Peripheral pulses intact. Elevate extremity. Consult vascular surgery for further recommendations given proximity to popliteal artery COPD on 3-4L NCO2 - will cont home nebulizer treatments Elevated BNP - not in acute CHF KASEY on CKD - prior Cr down to 1.5 after hospital discharge. Likely vasomotor nephropathy. Will hold nephrotoxic meds, trend DM2 - A1c previously < 6.5, will monitor glucose HTN - cont home meds Anemia - microcytic, will check iron stores, may simply be anemia of chronic disease or renal insufficiency Osteoarthritis of right hip - s/p intrarticular corticosteroid injection with good improvement in his pain 08/20/2021 History of lung cancer - s/p radiation therapy. Has f/u in December 2021 FEN - Cardiac diet PPX - Heparin FULL CODE Dispo - inpatient for above Justifications for Admission Other Justification BALAJI MATTHEWS MD Aug 20, 2021 17:27
[2021-08-20] MEDS ORDERED: fentaNYL PF VIAL 100 MCG/2 ML VIAL IVP ONE (17:45)
[2021-08-20] MEDS ORDERED: ACETAMINOPHEN 325 MG TABLET. PO PRN (18:45)
[2021-08-20] MEDS ORDERED: fentaNYL PF VIAL 100 MCG/2 ML VIAL IVP PRN (18:45)
[2021-08-20] MEDS ORDERED: ONDANSETRON PF 4 MG/2 ML VIAL. IVP PRN (18:45)
[2021-08-20] MEDS ORDERED: SENNOSIDES/DOCUSATE 8.6/50MG TABLET. PO PRN (19:00)
[2021-08-20] MEDS ORDERED: HYDROcodone/APAP 5/325MG 1 TAB TABLET PO PRN (19:00)
[2021-08-20] MEDS ORDERED: ALBUTEROL SULFATE 2.5 MG/3 ML NEBU. NEB PRN (19:00)
[2021-08-20] MEDS ORDERED: guaiFENesin DM 200MG/20MG 10 ML SYRUP PO PRN (19:00)
[2021-08-20 19:05] VITALS: BP 131/70
[2021-08-20 20:02] LABS: BASO % 0 % (0-3); EOS % 0 % (0-3); HEMATOCRIT 30.6 % (39.0-53.0); HEMOGLOBIN 9.5 g/dL (13.0-17.5); LYMPH # 0.6 x10^3/uL (1.0-4.8); LYMPH % 8 % (24-48); MEAN CORPUSCULAR HEMOGLOBIN 23 pg (25-35); MEAN CORPUSCULAR HGB CONC 31 g/dL (31-37); MEAN CORPUSCULAR VOLUME 73 fL (79-100); MONO # 0.1 x10^3/uL (0.0-1.1); MONO % 2 % (0-9); NEUT % 89 % (31-73); PLATELET COUNT 303 x10^3/uL (140-400); RED BLOOD COUNT 4.21 x10^6/uL (4.30-5.70); RED CELL DISTRIBUTION WIDTH 18.8 % (11.5-14.5); WHITE BLOOD COUNT 6.7 x10^3/uL (4.0-11.0)
[2021-08-20 20:34] LABS: PLT ESTIMATE ADEQUATE (ADEQUATE)
[2021-08-20 20:35] LABS: ANISOCYTOSIS SLIGHT; HYPOCHROMIA MOD; MICROCYTOSIS SLIGHT; POIKILOCYTOSIS SLIGHT
[2021-08-20 20:36] LABS: OVALOCYTES PRESENT; SCHISTOCYTES OCC
[2021-08-20] MEDS: PSYLLIUM HUSK (SUGAR FREE) 1 PKT PACKET PO SCH (21:00)
[2021-08-20] MEDS: BUDESONIDE 0.5 MG/2 ML NEBU. NEB SCH (21:08)
[2021-08-20] MEDS: IPRATRPIUM/ALBUTEROL 0.5/2.5MG 3 ML NEBU. NEB SCH (21:08)
[2021-08-20] MEDS: HEPARIN for SUB-Q USE 5,000 UNIT/ML VIAL. SQ SCH (22:06)
[2021-08-20] MEDS ORDERED: FLUT1BLS3 IH (22:24)
[2021-08-20] MEDS ORDERED: FERR325T14 PO (22:24)
[2021-08-20] MEDS: ZOLPIDEM 5 MG TABLET. PO PRN (22:45)
[2021-08-20 23:20] VITALS: BP 148/64
[2021-08-21] MEDS: ZOLPIDEM 5 MG TABLET. PO PRN ×3 (00:04→22:41)
[2021-08-21 02:46] VITALS: BP 128/60
[2021-08-21] MEDS: HEPARIN for SUB-Q USE 5,000 UNIT/ML VIAL. SQ SCH ×3 (06:06→20:44)
[2021-08-21 07:00] VITALS: BP 135/71
[2021-08-21] MEDS: IPRATRPIUM/ALBUTEROL 0.5/2.5MG 3 ML NEBU. NEB SCH ×4 (07:47→19:45)
[2021-08-21] MEDS: BUDESONIDE 0.5 MG/2 ML NEBU. NEB SCH ×2 (07:48→19:45)
[2021-08-21 08:55] LABS: BASO % 0 % (0-3); EOS % 0 % (0-3); HEMATOCRIT 27.4 % (39.0-53.0); HEMOGLOBIN 8.6 g/dL (13.0-17.5); LYMPH # 0.5 x10^3/uL (1.0-4.8); LYMPH % 7 % (24-48); MEAN CORPUSCULAR HEMOGLOBIN 23 pg (25-35); MEAN CORPUSCULAR HGB CONC 31 g/dL (31-37); MEAN CORPUSCULAR VOLUME 72 fL (79-100); MONO # 0.3 x10^3/uL (0.0-1.1); MONO % 4 % (0-9); NEUT # 6.6 x10^3/uL (1.8-7.7); NEUT % 89 % (31-73); PLATELET COUNT 313 x10^3/uL (140-400); RED BLOOD COUNT 3.82 x10^6/uL (4.30-5.70); RED CELL DISTRIBUTION WIDTH 18.3 % (11.5-14.5); WHITE BLOOD COUNT 7.4 x10^3/uL (4.0-11.0)
--- NOTE | 2021-08-21 08:58 | PDOC2 ---
CONSULT Date of Consult Date of Consult DATE: 08/21/21 TIME: 08:48 Reason for Consult Reason for Consult: Ruptured bakers cyst LLE Referring Physician Referring Physician: Dr. Mae Identification/Chief Complaint Chief Complaint Left knee/calf pain Source Source: Patient History of Present Illness Reason for Visit: Mr Mcgee is an 80-year-old male with past medical history COPD on 3-4L NCO2, lung cancer s/p radiation, DM2, CKD, HLD, colon ca s/p resection, CAD and ex-smoker presents to the ED with complaints of worsening pain and swelling of his left leg. He reports worsening pain and swelling in his left calf over the past week. Recently he has been unable to bear weight on the left leg due to severe pain. The pain is aggravated by bending the knee or bearing weight on the leg but does not cause pain or discomfort at rest. The pain is localized to the left knee and posterior calf. Denies any new numbness but does feel weak in that leg. At its worst the pain is severe. He has no history of known aneurysm or FHx of aneurysm. The pain seemed to be more noticeable after undergoing right hip injection yesterday. Past Medical History Cardiovascular: HTN Pulmonary: COPD CENTRAL NERVOUS SYSTEM: Other GI: Other Heme/Onc: Cancer Hepatobiliary: No pertinent hx Psych: No pertinent hx Rheumatologic: Rheumatoid arthritis Infectious disease: Herpes zoster Renal/: Chronic renal insuff, Benign prostatic enlarg. Endocrine: Diabetes Past Surgical History Past Surgical History: Colon Resection, Other Family History Family History: Cancer, Chronic Bronchitis Social History Quit ALCOHOL: none Drugs: None Lives: with Family Current Problem List Problem List Problems Medical Problems: (1) Bakers cyst Status: Acute (2) Swelling of extremity, left Status: Acute Current Medications Current Medications Current Medications Fentanyl Citrate (Fentanyl 2ml Vial) 50 mcg 1X ONCE IVP ; Start 08/20/21 at 17:45; Stop 08/20/21 at 17:46; Status DC Fentanyl Citrate (Fentanyl 2ml Vial) 25 mcg PRN Q3HRS PRN IVP SEVERE PAIN 7-10; Start 08/20/21 at 18:45 Acetaminophen (Tylenol) 650 mg PRN Q6HRS PRN PO MILD PAIN / TEMP > 100.3'F; Start 08/20/21 at 18:45 Ondansetron HCl (Zofran) 4 mg PRN Q4HRS PRN IVP NAUSEA/VOMITING; Start 08/20/21 at 18:45 Albuterol Sulfate (Ventolin Neb Soln) 2.5 mg PRN Q4HRS PRN NEB SHORTNESS OF BREATH; Start 08/20/21 at 19:00 Budesonide (Pulmicort) 0.5 mg RTBID NEB Last administered on 08/21/21at 07:48; Start 08/20/21 at 20:00 Albuterol/ Ipratropium (Duoneb) 3 ml RTQID NEB Last administered on 08/21/21at 07:47; Start 08/20/21 at 20:00 Acetaminophen/ Hydrocodone Bitart (Lortab 5/325) 1 tab PRN Q4HRS PRN PO MILD PAIN 1-3; Start 08/20/21 at 19:00 Acetaminophen/ Hydrocodone Bitart (Lortab 5/325) 2 tab PRN Q4HRS PRN PO MODERATE PAIN, SEVERE PAIN; Start 08/20/21 at 19:00 Guaifenesin (Robitussin Dm) 10 ml PRN Q6HRS PRN PO COUGH; Start 08/20/21 at 19:00 Psyllium Hydrophilic Mucilloid (Metamucil Fiber Packet) 1 pkt QHS PO ; Start 08/20/21 at 21:00 Polyethylene Glycol (miraLAX PACKET) 17 gm DAILY PO ; Start 08/21/21 at 09:00 Senna/Docusate Sodium (Senna Plus) 2 tab PRN BID PRN PO CONSTIPATION; Start 08/20/21 at 19:00 Heparin Sodium (Porcine) (Heparin Sodium) 5,000 unit Q8HRS SQ Last administered on 08/21/21at 06:06; Start 08/20/21 at 22:00 Zolpidem Tartrate (Ambien) 5 mg PRN QHS PRN PO INSOMNIA, MAY REPEAT X1 Last administered on 08/21/21at 00:04; Start 08/20/21 at 22:45 Active Scripts Active Hydrocodone-Apap 5-325 (Hydrocodone Bit/Acetaminophen) 1 Tab Tablet 0.5 Tab PO PRN Q6HRS PRN Voltaren Arthritis Pain (Diclofenac Sodium) 20 Gm Gel..gram. 1 Gm TP Q4-6HRS PRN Budesonide 0.5 Mg/2 Ml Ampul.neb 0.5 Mg NEB RTBID 7 Days Codeine-Guaifen 10-100 mg/5 ml (Guaifenesin/Codeine Phosphate) 120 Ml Liquid 5 Ml PO PRN Q4HRS PRN 14 Days Benzonatate 100 Mg Capsule 100 Mg PO PRN Q6HRS PRN 30 Days Hydrocodone-Apap 5-325 (Hydrocodone Bit/Acetaminophen) 1 Tab Tablet 1 Tab PO PRN Q4HRS PRN 10 Days Prednisone 20 Mg Tablet 20 Mg PO DAILY 30 Days Medrol (Methylprednisolone) 4 Mg Tab.ds.pk 1 Pkg PO UD Albuterol Sulfate Neb Soln (Albuterol Sulfate) 2.5 Mg/3 Ml Vial.neb 1 Vial NEB PRN Q4HRS Pantoprazole Sodium (Pantoprazole Sodium) 40 Mg Tablet.dr 40 Mg PO DAILYAC 30 Days Simvastatin 20 Mg Tablet 1 Tab PO QHS 30 Days Zolpidem Tartrate 10 Mg Tablet 10 Mg PO PRN QHS PRN 30 Days Proair Hfa Inhaler (Albuterol Sulfate) 8.5 Gm Hfa.aer.ad 2 Puff IH PRN Q4-6HRS Reported Trelegy Ellipta 100-62.5-25 (Fluticasone/Umeclidin/Vilanter) 1 Each Blst.w.dev 1 Each IH PRN PRN Ferrous Sulfate 325 Mg Tablet 1 Tab PO DAILY Trelegy Ellipta 100-62.5-25 (Fluticasone/Umeclidin/Vilanter) 1 Each Blst.w.dev 1 Each IH BID Flomax (Tamsulosin Hcl) 0.4 Mg Cap.er.24h 0.4 Mg PO DAILY Novolog Flexpen (Insulin Aspart) 100 Unit/1 Ml Insuln.pen 1 Unit SQ TIDAC SLIDING SCALE Klor-Con M20 (Potassium Chloride) 20 Meq Tab.er.prt 20 Meq PO DAILY Lasix (Furosemide) 40 Mg Tablet 40 Mg PO DAILY Isosorbide Mononitrate Er (Isosorbide Mononitrate) 30 Mg Tab.er.24h 30 Mg PO DAILY Coreg (Carvedilol) 12.5 Mg Tablet 12.5 Mg PO BIDWMEALS Norvasc (Amlodipine Besylate) 5 Mg Tablet 5 Mg PO DAILY Levemir (Insulin Detemir) 100 Unit/1 Ml Vial 18 Unit SQ HS Hydralazine Hcl 50 Mg Tablet 50 Mg PO BID Allergies Allergies: Coded Allergies: No Known Drug Allergies (Unverified , 08/28/19) ROS General: No: Chills, Night Sweats, Fatigue, Malaise, Appetite, Other PSYCHOLOGICAL ROS: No: Anxiety, Disorientation Eyes: No Blurry vision, No Decreased vision HEENT: No: Heacaches, Visual Changes, Hearing change Hematological and Lymphatic: No: Brusing, Swollen Lymph Nodes ENDOCRINE: No: Palpitations, Polydipsia/polyuria Respiratory: No: Cough, Sputum Changes Cardiovascular: No Chest Pain, No Palpitations Gastrointestinal: No Nausea, No Vomiting, No Abdominal Pain Genitourinary: No Dysuria, No Frequency, No Hematuria Musculoskeletal: Yes Joint Pain, Yes Joint Stiffness, Yes Joint Swelling, Yes Muscle Pain Neurological: No Confusion, No Dizziness Skin: No Dry Skin, No Eczema Physical Exam General: Alert, Oriented X3 HEENT: Atraumatic, EOMI Lungs: Normal air movement, Other (symmetric expansion on NC) Heart: Regular rate, Other (regular rhythm to palpation. ) Extremities: No cyanosis, Other (Bilaterl femoral, popliteal and pedal pulses 2+ palpable. No appreciable popliteal aneurysm.) Skin: No rashes, Other (There is moderate swelling to the left posterior calf with fullness) Neuro: Sensation intact, Other (Normal left ankel dorsiflexion/extension and toe flexion / extension) Psych/Mental Status: Mental status NL MUSCULOSKELETAL: No deformity, Other (pain with passice and active range of motion of left knee.) Vitals VITALS Vital Signs Date Time Temp Pulse Resp B/P (MAP) Pulse Ox O2 Delivery O2 Flow Rate FiO2 08/21/21 07:48 98 Nasal Cannula 3.0 08/21/21 07:00 97.7 70 18 135/71 (92) 97.7 Labs Labs Laboratory Tests Test 08/20/21 17:00 08/20/21 19:50 Prothrombin Time 15.1 SEC (11.7-14.0) Prothromb Time International Ratio 1.2 (0.8-1.1) Activated Partial Thromboplast Time 33 SEC (24-38) Sodium Level 139 mmol/L (136-145) Potassium Level 4.8 mmol/L (3.5-5.1) Chloride Level 104 mmol/L (98-107) Carbon Dioxide Level 28 mmol/L (21-32) Anion Gap 7 (6-14) Blood Urea Nitrogen 22 mg/dL (8-26) Creatinine 2.1 mg/dL (0.7-1.3) Estimated GFR (Cockcroft-Gault) 36.9 BUN/Creatinine Ratio 10 (6-20) Glucose Level 135 mg/dL (70-99) Calcium Level 9.0 mg/dL (8.5-10.1) Iron Level 17 ug/dL (65-175) Total Iron Binding Capacity 157 ug/dL (250-450) Iron Saturation 11 % (15-34) Total Bilirubin 0.6 mg/dL (0.2-1.0) Aspartate Amino Transf (AST/SGOT) 16 U/L (15-37) Alanine Aminotransferase (ALT/SGPT) 11 U/L (16-63) Alkaline Phosphatase 69 U/L (46-116) Troponin I Quantitative < 0.017 ng/mL (0.000-0.055) YI-Xqh-M-Type Natriuretic Peptide 2045 pg/mL (0-449) Total Protein 7.1 g/dL (6.4-8.2) Albumin 2.6 g/dL (3.4-5.0) Albumin/Globulin Ratio 0.6 (1.0-1.7) White Blood Count 6.7 x10^3/uL (4.0-11.0) Red Blood Count 4.21 x10^6/uL (4.30-5.70) Hemoglobin 9.5 g/dL (13.0-17.5) Hematocrit 30.6 % (39.0-53.0) Mean Corpuscular Volume 73 fL (79-100) Mean Corpuscular Hemoglobin 23 pg (25-35) Mean Corpuscular Hemoglobin Concent 31 g/dL (31-37) Red Cell Distribution Width 18.8 % (11.5-14.5) Platelet Count 303 x10^3/uL (140-400) Neutrophils (%) (Auto) 89 % (31-73) Lymphocytes (%) (Auto) 8 % (24-48) Monocytes (%) (Auto) 2 % (0-9) Eosinophils (%) (Auto) 0 % (0-3) Basophils (%) (Auto) 0 % (0-3) Neutrophils # (Auto) 6.0 x10^3/uL (1.8-7.7) Lymphocytes # (Auto) 0.6 x10^3/uL (1.0-4.8) Monocytes # (Auto) 0.1 x10^3/uL (0.0-1.1) Eosinophils # (Auto) 0.0 x10^3/uL (0.0-0.7) Basophils # (Auto) 0.0 x10^3/uL (0.0-0.2) Platelet Estimate Adequate (ADEQUATE) Hypochromasia Mod Poikilocytosis Slight Anisocytosis Slight Microcytosis Slight Ovalocytes Present Schistocytes Occ Laboratory Tests Test 08/20/21 17:00 08/20/21 19:50 Prothrombin Time 15.1 SEC (11.7-14.0) Prothromb Time International Ratio 1.2 (0.8-1.1) Activated Partial Thromboplast Time 33 SEC (24-38) Sodium Level 139 mmol/L (136-145) Potassium Level 4.8 mmol/L (3.5-5.1) Chloride Level 104 mmol/L (98-107) Carbon Dioxide Level 28 mmol/L (21-32) Anion Gap 7 (6-14) Blood Urea Nitrogen 22 mg/dL (8-26) Creatinine 2.1 mg/dL (0.7-1.3) Estimated GFR (Cockcroft-Gault) 36.9 BUN/Creatinine Ratio 10 (6-20) Glucose Level 135 mg/dL (70-99) Calcium Level 9.0 mg/dL (8.5-10.1) Iron Level 17 ug/dL (65-175) Total Iron Binding Capacity 157 ug/dL (250-450) Iron Saturation 11 % (15-34) Total Bilirubin 0.6 mg/dL (0.2-1.0) Aspartate Amino Transf (AST/SGOT) 16 U/L (15-37) Alanine Aminotransferase (ALT/SGPT) 11 U/L (16-63) Alkaline Phosphatase 69 U/L (46-116) Troponin I Quantitative < 0.017 ng/mL (0.000-0.055) AB-Ldl-W-Type Natriuretic Peptide 2045 pg/mL (0-449) Total Protein 7.1 g/dL (6.4-8.2) Albumin 2.6 g/dL (3.4-5.0) Albumin/Globulin Ratio 0.6 (1.0-1.7) White Blood Count 6.7 x10^3/uL (4.0-11.0) Red Blood Count 4.21 x10^6/uL (4.30-5.70) Hemoglobin 9.5 g/dL (13.0-17.5) Hematocrit 30.6 % (39.0-53.0) Mean Corpuscular Volume 73 fL (79-100) Mean Corpuscular Hemoglobin 23 pg (25-35) Mean Corpuscular Hemoglobin Concent 31 g/dL (31-37) Red Cell Distribution Width 18.8 % (11.5-14.5) Platelet Count 303 x10^3/uL (140-400) Neutrophils (%) (Auto) 89 % (31-73) Lymphocytes (%) (Auto) 8 % (24-48) Monocytes (%) (Auto) 2 % (0-9) Eosinophils (%) (Auto) 0 % (0-3) Basophils (%) (Auto) 0 % (0-3) Neutrophils # (Auto) 6.0 x10^3/uL (1.8-7.7) Lymphocytes # (Auto) 0.6 x10^3/uL (1.0-4.8) Monocytes # (Auto) 0.1 x10^3/uL (0.0-1.1) Eosinophils # (Auto) 0.0 x10^3/uL (0.0-0.7) Basophils # (Auto) 0.0 x10^3/uL (0.0-0.2) Platelet Estimate Adequate (ADEQUATE) Hypochromasia Mod Poikilocytosis Slight Anisocytosis Slight Microcytosis Slight Ovalocytes Present Schistocytes Occ Images Images I reveiwed the venous US which shows no evidence of DVT. I also do not see evidence of a popliteal aneurysm although the popliteal artery was not directly imaged. There is a cyst with debris in the subcutaneous tissues Assessment/Plan Assessment/Plan 1. left leg ruptured bakers cyst Will obtain an arterial us to rule out a popliteal aneurysm although one is not appreciable on exam. There is no evidence of DVT or superficial venous thrombosis. Palpable pulses distally with excellent perfusion. Appreciate orth opedic recommendations for management of ruptured bakers cyst. Following ultrasound today would recommend compression with mora wrap to left lower extremity for symptom relief. GAYLA MCGRAW MD Aug 21, 2021 08:58
[2021-08-21 09:12] LABS: POTASSIUM 4.4 mmol/L (3.5-5.1)
[2021-08-21] MEDS: POLYETHYLENE GLYCOL 3350 17 GM PACKET. PO SCH (09:14)
[2021-08-21 11:00] VITALS: BP 129/64
--- NOTE | 2021-08-21 12:00 | RAD ---
EXAM: Left lower extremity arterial Doppler. HISTORY: Popliteal aneurysm. COMPARISON: None. FINDINGS: Grayscale and Doppler analysis of the left lower extremity arterial system was performed. There are triphasic waveforms from the common femoral artery through the proximal anterior tibial art theodore. They become monophasic within the dorsalis pedis artery. There are elevated velocities within th e mid superficial femoral artery, proximal posterior tibial and proximal anterior tibial arteries. There is no popliteal artery aneurysm. IMPRESSION: 1. No popliteal artery aneurysm. 2. Elevated peak systolic velocities within the mid superficial femoral artery and proximal anterior and posterior tibial arteries are consistent with focal stenosis. Stenosis eventually becomes flow-li miting by the dorsalis pedis artery. Electronically signed by: Sonia Loyola MD (08/21/2021 11:58 AM) [id number]
--- NOTE | 2021-08-21 13:26 | PDOC ---
[employer] PROGRESS NOTE Date of Service DOS: DATE: 08/21/21 TIME: 13:22 Chief Complaint Chief Complaint Left calf pain - new ruptured naranjo cyst. Peripheral pulses intact. Elevate extremity. [facility] wrap COPD on 3-4L NCO2 - will cont home nebulizer treatments Elevated BNP - not in acute CHF KASEY on CKD - prior Cr down to 1.5 after hospital discharge. Likely vasomotor nephropathy. Will hold nephrotoxic meds, trend DM2 - A1c previously < 6.5, will monitor glucose, cont home Long acting insulin HTN - cont home meds Anemia - microcytic, will check iron stores, may simply be anemia of chronic disease or renal insufficiency Osteoarthritis of right hip - s/p intrarticular corticosteroid injection with good improvement in his pain 08/20/2021 History of lung cancer - s/p radiation therapy. Has f/u in December 2021 History of Present Illness History of Present Illness [facility] wrap PT and OT he was unaware that he had pain meds available, pain 3/10 whennot moving, but he reports too much pain when he tries to move, lives in a 3 level house with 7 stairs minimum, not safe to DC home, cannot stand or transfer due to pain, he says Vitals/I&O Vitals/I&O: Vital Signs Date Time Temp Pulse Resp B/P (MAP) Pulse Ox O2 Delivery O2 Flow Rate FiO2 08/21/21 12:04 Nasal Cannula 3.0 08/21/21 11:00 98.2 72 18 129/64 (85) 92 98.2 I & O 0 08/20/21 08/20/21 08/21/21 15:00 23:00 07:00 Intake Total 120 ml Output Total 800 ml Balance -680 ml Physical Exam General: Alert, Oriented X3 Heart: Regular rate, Other (regular rhythm to palpation. ) Lungs: Clear, Other Abdomen: Normal bowel sounds, Soft, No tenderness, No hepatosplenomegaly, No masses Extremities: No cyanosis, Other (Bilaterl femoral, popliteal and pedal pulses 2+ palpable. No appreciable popliteal aneurysm.) Skin: No rashes, Other (There is moderate swelling to the left posterior calf with fullness) Labs Labs: Laboratory Tests Test 08/20/21 17:00 08/20/21 19:50 08/21/21 07:00 Prothrombin Time 15.1 SEC (11.7-14.0) Prothromb Time International Ratio 1.2 (0.8-1.1) Activated Partial Thromboplast Time 33 SEC (24-38) Sodium Level 139 mmol/L (136-145) 137 mmol/L (136-145) Potassium Level 4.8 mmol/L (3.5-5.1) 4.4 mmol/L (3.5-5.1) Chloride Level 104 mmol/L (98-107) 102 mmol/L (98-107) Carbon Dioxide Level 28 mmol/L (21-32) 28 mmol/L (21-32) Anion Gap 7 (6-14) 7 (6-14) Blood Urea Nitrogen 22 mg/dL (8-26) 27 mg/dL (8-26) Creatinine 2.1 mg/dL (0.7-1.3) 2.0 mg/dL (0.7-1.3) Estimated GFR (Cockcroft-Gault) 36.9 39.0 BUN/Creatinine Ratio 10 (6-20) Glucose Level 135 mg/dL (70-99) 242 mg/dL (70-99) Calcium Level 9.0 mg/dL (8.5-10.1) 9.0 mg/dL (8.5-10.1) Iron Level 17 ug/dL (65-175) Total Iron Binding Capacity 157 ug/dL (250-450) Iron Saturation 11 % (15-34) Total Bilirubin 0.6 mg/dL (0.2-1.0) Aspartate Amino Transf (AST/SGOT) 16 U/L (15-37) Alanine Aminotransferase (ALT/SGPT) 11 U/L (16-63) Alkaline Phosphatase 69 U/L (46-116) Troponin I Quantitative < 0.017 ng/mL (0.000-0.055) XP-Lmc-I-Type Natriuretic Peptide 2045 pg/mL (0-449) Total Protein 7.1 g/dL (6.4-8.2) Albumin 2.6 g/dL (3.4-5.0) Albumin/Globulin Ratio 0.6 (1.0-1.7) White Blood Count 6.7 x10^3/uL (4.0-11.0) 7.4 x10^3/uL (4.0-11.0) Red Blood Count 4.21 x10^6/uL (4.30-5.70) 3.82 x10^6/uL (4.30-5.70) Hemoglobin 9.5 g/dL (13.0-17.5) 8.6 g/dL (13.0-17.5) Hematocrit 30.6 % (39.0-53.0) 27.4 % (39.0-53.0) Mean Corpuscular Volume 73 fL (79-100) 72 fL (79-100) Mean Corpuscular Hemoglobin 23 pg (25-35) 23 pg (25-35) Mean Corpuscular Hemoglobin Concent 31 g/dL (31-37) 31 g/dL (31-37) Red Cell Distribution Width 18.8 % (11.5-14.5) 18.3 % (11.5-14.5) Platelet Count 303 x10^3/uL (140-400) 313 x10^3/uL (140-400) Neutrophils (%) (Auto) 89 % (31-73) 89 % (31-73) Lymphocytes (%) (Auto) 8 % (24-48) 7 % (24-48) Monocytes (%) (Auto) 2 % (0-9) 4 % (0-9) Eosinophils (%) (Auto) 0 % (0-3) 0 % (0-3) Basophils (%) (Auto) 0 % (0-3) 0 % (0-3) Neutrophils # (Auto) 6.0 x10^3/uL (1.8-7.7) 6.6 x10^3/uL (1.8-7.7) Lymphocytes # (Auto) 0.6 x10^3/uL (1.0-4.8) 0.5 x10^3/uL (1.0-4.8) Monocytes # (Auto) 0.1 x10^3/uL (0.0-1.1) 0.3 x10^3/uL (0.0-1.1) Eosinophils # (Auto) 0.0 x10^3/uL (0.0-0.7) 0.0 x10^3/uL (0.0-0.7) Basophils # (Auto) 0.0 x10^3/uL (0.0-0.2) 0.0 x10^3/uL (0.0-0.2) Platelet Estimate Adequate (ADEQUATE) Hypochromasia Mod Poikilocytosis Slight Anisocytosis Slight Microcytosis Slight Ovalocytes Present Schistocytes Occ Assessment and Plan Assessmemt and Plan Problems Medical Problems: (1) Bakers cyst Status: Acute (2) Swelling of extremity, left Status: Acute Comment Review of Relevant I have reviewed the following items lauren (where applicable) has been applied. Medications: Current Medications Medications (Trade) Dose Ordered Sig/Lindsay Route PRN Reason Start Time Stop Time Status Last Admin Dose Admin Budesonide (Pulmicort) 0.5 mg RTBID NEB 08/20/21 20:00 08/21/21 07:48 Albuterol/ Ipratropium (Duoneb) 3 ml RTQID NEB 08/20/21 20:00 08/21/21 12:03 Polyethylene Glycol (miraLAX PACKET) 17 gm DAILY PO 08/21/21 09:00 08/21/21 09:14 Heparin Sodium (Porcine) (Heparin Sodium) 5,000 unit Q8HRS SQ 08/20/21 22:00 08/21/21 06:06 Zolpidem Tartrate (Ambien) 5 mg PRN QHS PRN PO INSOMNIA, MAY REPEAT X1 08/20/21 22:45 08/21/21 00:04 Justifications for Admission Other Justification SHRUTHI HARDWICK MD Aug 21, 2021 13:26
[2021-08-21] MEDS ORDERED: DEXTROSE 50% 25 GM / 50ML DISP.SYRIN. IV PRN (13:30)
[2021-08-21] MEDS: HYDROcodone/APAP 5/325MG 1 TAB TABLET PO PRN ×2 (13:48→20:38)
[2021-08-21 15:00] VITALS: BP 122/55
--- NOTE | 2021-08-21 15:33 | CONS ---
DATE OF CONSULTATION: 08/21/2021 REASON FOR CONSULTATION: Left calf pain. BRIEF HISTORY OF PRESENT ILLNESS: The patient is an 80-year-old male who is here today with complaints of left calf pain. He tells me that he did not have any significant injury, fall or recurrence, but has had calf pain for the last couple of weeks, increasing in severity over the last few days. He was seen in the Emergency Department where I did speak initially with the emergency room physician and ultrasound as well as a lower extremity Doppler was performed. There were no signs or symptoms of a DVT found and no significant abnormalities other than a popliteal cyst with extension into the calf region. Otherwise, unremarkable. No other complaints today. He is nonpainful and a nonweightbearing mode. He tells me there is increasing amounts of pain with any type of weightbearing. PHYSICAL EXAMINATION: Today reveals calf tenderness with palpation along the area of the gastroc soleus complex. There is also some mild tenderness with palpation of the lateral compartment, but dorsiflexion and plantarflexion are somewhat painful mostly to the calf region at this point. Negative Homans and Andres test, however. The Achilles tendon is completely intact. The hindfoot, midfoot and forefoot exam are within normal limits at this point. The distal neurovascular status appears to be intact at this point as noted. There was a palpable Smith cyst, however, this is nonpainful and only mild to moderate in nature. IMPRESSION: 1. Left calf strain. 2. Popliteal cyst, left. PLAN: Since there is only a very mild palpable cyst posteriorly, I think that most of the pain and problems are coming down within the gastroc soleus complex at this point. Further evaluation could be done on an outpatient basis with the use of an MRI examination. At this point, there is no acute processes such as any signs of compartment syndrome, etc. The patient can undertake physical and occupational therapy with modalities type of treatments, in general stretching. Weightbearing as tolerated at this point. I will be glad to follow him outpatient at this point. MARIFER MARRERO: Thomas TID: [id number]
[2021-08-21] MEDS: INSULIN LISPRO 300 UNITS/3 ML VIAL. SQ SCH (17:00)
[2021-08-21 18:58] VITALS: BP 127/61
[2021-08-21] MEDS: PSYLLIUM HUSK (SUGAR FREE) 1 PKT PACKET PO SCH (20:36)
[2021-08-21] MEDS ORDERED: INSULIN GLARGINE SYRINGE. SQ SCH (21:00)
[2021-08-21 22:39] VITALS: BP 136/67
[2021-08-22] MEDS: HYDROcodone/APAP 5/325MG 1 TAB TABLET PO PRN (01:53)
[2021-08-22 02:43] VITALS: BP 141/70
[2021-08-22] MEDS: HEPARIN for SUB-Q USE 5,000 UNIT/ML VIAL. SQ SCH ×2 (05:45→13:35)
[2021-08-22 07:00] VITALS: BP 172/70
[2021-08-22] MEDS: BUDESONIDE 0.5 MG/2 ML NEBU. NEB SCH (07:22)
[2021-08-22] MEDS: IPRATRPIUM/ALBUTEROL 0.5/2.5MG 3 ML NEBU. NEB SCH ×3 (07:22→16:56)
[2021-08-22] MEDS: POLYETHYLENE GLYCOL 3350 17 GM PACKET. PO SCH (09:03)
[2021-08-22] MEDS: INSULIN LISPRO 300 UNITS/3 ML VIAL. SQ SCH ×3 (09:07→17:26)
[2021-08-22 10:50] VITALS: BP 152/74
--- NOTE | 2021-08-22 12:05 | NUR ---
SW following. Discussed with RN, pt from [facility] alone, 3L, cardiac diet. PT/OT ordered. SW will continue to follow.
[2021-08-22] MEDS ORDERED: HYDR-2761 PO (14:05)
[2021-08-22 15:00] VITALS: BP 117/63
--- NOTE | 2021-08-22 16:40 | PDOC ---
[employer] PROGRESS NOTE Date of Service DOS: DATE: 08/22/21 TIME: 16:40 Chief Complaint Chief Complaint Left calf pain - new ruptured naranjo cyst. Peripheral pulses intact. Elevate extremity. N[facility] wrap COPD on 3-4L NCO2 - will cont home nebulizer treatments Elevated BNP - not in acute CHF KASEY on CKD - prior Cr down to 1.5 after hospital discharge. Likely vasomotor nephropathy. Will hold nephrotoxic meds, trend DM2 - A1c previously < 6.5, will monitor glucose, cont home Long acting insulin HTN - cont home meds Anemia - microcytic, will check iron stores, may simply be anemia of chronic disease or renal insufficiency Osteoarthritis of right hip - s/p intrarticular corticosteroid injection with good improvement in his pain 08/20/2021 History of lung cancer - s/p radiation therapy. Has f/u in December 2021 History of Present Illness History of Present Illness [facility] wrap PT and OT he was unaware that he had pain meds available, pain 3/10 whennot moving, but he reports too much pain when he tries to move, lives in a 3 level house with 7 stairs minimum, not safe to DC home, cannot stand or transfer due to pain, he says Vitals/I&O Vitals/I&O: Vital Signs Date Time Temp Pulse Resp B/P (MAP) Pulse Ox O2 Delivery O2 Flow Rate FiO2 08/22/21 15:00 98.1 73 18 117/63 (81) 91 98.1 08/22/21 11:38 Room Air 08/22/21 07:55 2.0 I & O 08/21/21 08/21/21 08/22/21 15:00 23:00 07:00 Intake Total 340 ml 120 ml 0 ml Output Total 200 ml 400 ml 300 ml Balance 140 ml -280 ml -300 ml Physical Exam General: Alert, Oriented X3 Heart: Regular rate, Other (regular rhythm to palpation. ) Lungs: Clear, Other Abdomen: Normal bowel sounds, Soft, No tenderness, No hepatosplenomegaly, No masses Extremities: No cyanosis, Other (Bilaterl femoral, popliteal and pedal pulses 2+ palpable. No appreciable popliteal aneurysm.) Skin: No rashes, Other (There is moderate swelling to the left posterior calf with fullness) Labs Labs: Laboratory Tests Test 08/21/21 17:02 08/21/21 20:34 08/22/21 07:37 08/22/21 11:33 Glucose (Fingerstick) 154 mg/dL (70-99) 187 mg/dL (70-99) 162 mg/dL (70-99) 129 mg/dL (70-99) Assessment and Plan Assessmemt and Plan Problems Medical Problems: (1) Bakers cyst Status: Acute (2) Swelling of extremity, left Status: Acute Comment Review of Relevant I have reviewed the following items lauren (where applicable) has been applied. Medications: Current Medications Medications (Trade) Dose Ordered Sig/Lindsay Route PRN Reason Start Time Stop Time Status Last Admin Dose Admin Insulin Glargine (Lantus Syringe) 16 unit QHS SQ 08/21/21 21:00 08/21/21 20:43 Insulin Human Lispro (HumaLOG) 0-7 UNITS TIDWMEALS SQ 08/21/21 17:00 08/22/21 09:07 Justifications for Admission Other Justification SHRUTHI HARDWICK MD Aug 22, 2021 16:40
--- NOTE | 2021-08-22 17:22 | PDOC3 ---
Discharge Summary Visit Information Date of Admission: Aug 20, 2021 Date of Discharge: Aug 22, 2021 Final Diagnosis Left calf pain - new ruptured smith cyst. Peripheral pulses intact. Elevate extremity. N[facility] wrap COPD on 3-4L NCO2 - will cont home nebulizer treatments Elevated BNP - not in acute CHF KASEY on CKD - prior Cr down to 1.5 after hospital discharge. Likely vasomotor nephropathy. Will hold nephrotoxic meds, trend DM2 - A1c previously < 6.5, will monitor glucose, cont home Long acting insulin HTN - cont home meds Anemia - microcytic, will check iron stores, may simply be anemia of chronic disease or renal insufficiency Osteoarthritis of right hip - s/p intrarticular corticosteroid injection with good improvement in his pain 08/20/2021 History of lung cancer - s/p radiation therapy. Has f/u in December 2021 Problems Medical Problems: (1) Bakers cyst Status: Acute (2) Swelling of extremity, left Status: Acute Brief Hospital Course Allergies Allergies Coded Allergies Type Severity Reaction Last Updated Verified No Known Drug Allergies 08/28/19 No Vital Signs Vital Signs Date Time Temp Pulse Resp B/P (MAP) Pulse Ox O2 Delivery O2 Flow Rate FiO2 08/22/21 15:00 98.1 73 18 117/63 (81) 91 98.1 08/22/21 11:38 Room Air 08/22/21 07:55 2.0 Lab Results Laboratory Tests Test 08/20/21 19:50 08/20/21 20:24 08/21/21 07:00 08/21/21 07:59 White Blood Count 6.7 x10^3/uL (4.0-11.0) 7.4 x10^3/uL (4.0-11.0) Red Blood Count 4.21 x10^6/uL (4.30-5.70) 3.82 x10^6/uL (4.30-5.70) Hemoglobin 9.5 g/dL (13.0-17.5) 8.6 g/dL (13.0-17.5) Hematocrit 30.6 % (39.0-53.0) 27.4 % (39.0-53.0) Mean Corpuscular Volume 73 fL (79-100) 72 fL (79-100) Mean Corpuscular Hemoglobin 23 pg (25-35) 23 pg (25-35) Mean Corpuscular Hemoglobin Concent 31 g/dL (31-37) 31 g/dL (31-37) Red Cell Distribution Width 18.8 % (11.5-14.5) 18.3 % (11.5-14.5) Platelet Count 303 x10^3/uL (140-400) 313 x10^3/uL (140-400) Neutrophils (%) (Auto) 89 % (31-73) 89 % (31-73) Lymphocytes (%) (Auto) 8 % (24-48) 7 % (24-48) Monocytes (%) (Auto) 2 % (0-9) 4 % (0-9) Eosinophils (%) (Auto) 0 % (0-3) 0 % (0-3) Basophils (%) (Auto) 0 % (0-3) 0 % (0-3) Neutrophils # (Auto) 6.0 x10^3/uL (1.8-7.7) 6.6 x10^3/uL (1.8-7.7) Lymphocytes # (Auto) 0.6 x10^3/uL (1.0-4.8) 0.5 x10^3/uL (1.0-4.8) Monocytes # (Auto) 0.1 x10^3/uL (0.0-1.1) 0.3 x10^3/uL (0.0-1.1) Eosinophils # (Auto) 0.0 x10^3/uL (0.0-0.7) 0.0 x10^3/uL (0.0-0.7) Basophils # (Auto) 0.0 x10^3/uL (0.0-0.2) 0.0 x10^3/uL (0.0-0.2) Platelet Estimate Adequate (ADEQUATE) Hypochromasia Mod Poikilocytosis Slight Anisocytosis Slight Microcytosis Slight Ovalocytes Present Schistocytes Occ Glucose (Fingerstick) 228 mg/dL (70-99) 232 mg/dL (70-99) Sodium Level 137 mmol/L (136-145) Potassium Level 4.4 mmol/L (3.5-5.1) Chloride Level 102 mmol/L (98-107) Carbon Dioxide Level 28 mmol/L (21-32) Anion Gap 7 (6-14) Blood Urea Nitrogen 27 mg/dL (8-26) Creatinine 2.0 mg/dL (0.7-1.3) Estimated GFR (Cockcroft-Gault) 39.0 Glucose Level 242 mg/dL (70-99) Calcium Level 9.0 mg/dL (8.5-10.1) Test 08/21/21 11:51 08/21/21 17:02 08/21/21 20:34 08/22/21 07:37 Glucose (Fingerstick) 280 mg/dL (70-99) 154 mg/dL (70-99) 187 mg/dL (70-99) 162 mg/dL (70-99) Test 08/22/21 11:33 Glucose (Fingerstick) 129 mg/dL (70-99) Laboratory Tests Test 08/21/21 20:34 08/22/21 07:37 08/22/21 11:33 Glucose (Fingerstick) 187 mg/dL (70-99) 162 mg/dL (70-99) 129 mg/dL (70-99) Brief Hospital Course Mr. Lema is a 80 old male, COPD, chroinc hypoxia, frail, admit with left lower leg pain, acute and could not ambulate, Smith cyst rupture with bruing, VAscular and ortho eval, [facility] wrap PT and OT pain 01/16 when not moving, sent with pain meds Discharge Information Condition at Discharge: Improved Follow Up: Weeks Disposition/Orders: D/C to Home w/ HH Scheduled Albuterol Sulfate (Proair Hfa Inhaler) 8.5 Gm Hfa.aer.ad, 2 PUFF IH PRN Q4-6HRS, #1 Ref 3 Prescribed by: TUCKER GUNDERSON on 04/20/15 1149 Last Action: Reviewed on 08/20/212219 by NICOLE HOLT Albuterol Sulfate (Albuterol Sulfate Neb Soln) 2.5 Mg/3 Ml Vial.neb, 1 VIAL NEB PRN Q4HRS for copd, #50 Prescribed by: EKTA SUTTON on 09/03/19 1117 Last Action: Reviewed on 08/20/212219 by NICOLE HOLT Amlodipine Besylate (Norvasc) 5 Mg Tablet, 5 MG PO DAILY for HTN, (Reported) Entered as Reported by: Hailey Gomes on 01/05/18 1325 Last Action: Reviewed on 08/20/212219 by NICOLE HOLT Budesonide (Budesonide) 0.5 Mg/2 Ml Ampul.neb, 0.5 MG NEB RTBID for . for 7 Days, #14 Prescribed by: BLANCA LUCAS on 05/22/21 1236 Last Action: Reviewed on 08/20/212222 by NICOLE HOLT Carvedilol (Coreg ) 12.5 Mg Tablet, 12.5 MG PO BIDWMEALS for cardiac, (Reported) Entered as Reported by: Hailey Gomes on 01/05/181324 Last Action: Reviewed on 08/20/212219 by NICOLE HOLT Ferrous Sulfate (Ferrous Sulfate) 325 Mg Tablet, 1 TAB PO DAILY for na, #30 Ref 3 (Reported) Entered as Reported by: NICOLE HOLT on 08/20/212223 Last Action: New Order on 08/20/212223 by NICOLE HOLT Fluticasone/Umeclidin/Vilanter (Trelegy Ellipta 100-62.5-25) 1 Each Blst.w.dev, 1 EACH IH BID for emphysema, (Reported) Entered as Reported by: TRANG GRUBER on 05/09/19 1107 Last Action: Reviewed on 08/20/212219 by NICOLE HOLT Furosemide (Lasix) 40 Mg Tablet, 40 MG PO DAILY for diuretic, (Reported) Entered as Reported by: Hailey Gomes on 01/05/18 1328 Last Action: Reviewed on 08/20/212219 by NICOLE HOLT Hydralazine Hcl (Hydralazine Hcl) 50 Mg Tablet, 50 MG PO BID for HTN, (Reported) Entered as Reported by: BOZENA LOPEZ on 03/16/16 1530 Last Action: Reviewed on 08/20/212219 by NICOLE HOLT Insulin Aspart (Novolog Flexpen) 100 Unit/1 Ml Insuln.pen, 1 UNIT SQ TIDAC sliding scale for diabetes, (Reported) Entered as Reported by: TRANG GRUBER on 06/08/18 1445 Insulin Detemir (Levemir) 100 Unit/1 Ml Vial, 18 UNIT SQ HS for diabetes, (Reported) Entered as Reported by: DEUCE GARCIA on 08/23/17 1630 Last Action: Converted on 08/21/211319 by SHRUTHI HARDWICK Isosorbide Mononitrate (Isosorbide Mononitrate Er) 30 Mg Tab.er.24h, 30 MG PO DAILY for cardiac, (Reported) Entered as Reported by: Hailey Gomes on 01/05/18 1327 Last Action: Reviewed on 08/20/212219 by NICOLE HOLT Pantoprazole Sodium (Pantoprazole Sodium ) 40 Mg Tablet.dr, 40 MG PO DAILYAC for GI bleed for 30 Days, #30 Prescribed by: EKTA SUTTON on 09/03/19 1117 Last Action: Reviewed on 08/20/212219 by NICOLE HOLT Potassium Chloride (Klor-Con M20) 20 Meq Tab.er.prt, 20 MEQ PO DAILY for supplement, (Reported) Entered as Reported by: Hailey Gomes on 01/05/18 1328 Last Action: Reviewed on 08/20/212219 by NICOLE HOLT Simvastatin (Simvastatin) 20 Mg Tablet, 1 TAB PO QHS for lipids for 30 Days, #30 Ref 5 Prescribed by: TERRANCE ESPINAL on 08/28/19 1036 Last Action: Reviewed on 08/20/212219 by NICOLE HOLT Tamsulosin Hcl (Flomax) 0.4 Mg Cap.er.24h, 0.4 MG PO DAILY for BPH, (Reported) Entered as Reported by: TRANG GRUBER on 01/26/19 1744 Last Action: Reviewed on 08/20/212219 by NICOLE HOLT Scheduled PRN Benzonatate (Benzonatate) 100 Mg Capsule, 100 MG PO PRN Q6HRS PRN for COUGH for 30 Days, #60 Prescribed by: BLANCA LUCAS on 05/22/21 1236 Last Action: Reviewed on 08/20/212219 by NICOLE HOLT Diclofenac Sodium (Voltaren Arthritis Pain) 20 Gm Gel..gram., 1 GM TP Q4-6HRS PRN for PAIN, #20 Prescribed by: Sophia Greenfield APRN on 08/05/21 1713 Last Action: Reviewed on 08/20/212219 by NICOLE HOLT Fluticasone/Umeclidin/Vilanter (Trelegy Ellipta 100-62.5-25) 1 Each Blst.w.dev, 1 EACH IH PRN PRN for SEE COMMENTS, (Reported) Entered as Reported by: NICOLE HOLT on 08/20/212223 Last Action: New Order on 08/20/212223 by NICOLE HOLT Guaifenesin/Codeine Phosphate (Codeine-Guaifen 10-100 mg/5 ml) 120 Ml Liquid, 5 ML PO PRN Q4HRS PRN for COUGH for 14 Days, #100 Prescribed by: BLANCA LUCAS on 05/22/21 1237 Hydrocodone Bit/Acetaminophen (Hydrocodone-Apap 5-325 ) 1 Tab Tablet, 1 TAB PO PRN BID PRN for PAIN, #22 Prescribed by: SHRUTHI HARDWICK on 08/22/21 1405 Zolpidem Tartrate (Zolpidem Tartrate) 10 Mg Tablet, 10 MG PO PRN QHS PRN for INSOMNIA for 30 Days, Ref 0 Prescribed by: TERRANCE ESPINAL on 08/28/19 1036 Last Action: Converted on 08/20/212233 by NICOLE HOLT Discontinued Medications Hydrocodone Bit/Acetaminophen (Hydrocodone-Apap 5-325 ) 1 Tab Tablet, 0.5 TAB PO PRN Q6HRS PRN for PAIN, #10 Ref 0 Prescribed by: Sophia Greenfield APRN on 08/05/21 1714 Methylprednisolone (Medrol) 4 Mg Tab.ds.pk, 1 PKG PO UD, #1 Prescribed by: Sophia Greenfield APRN on 01/19/21 1435 Prednisone (Prednisone) 20 Mg Tablet, 20 MG PO DAILY for copd for 30 Days, #30 Prescribed by: BLANCA LUCAS on 05/22/21 1236 Patient Instructions Patient Instructions > 30 min face to face eval today Justicifation of Admission Dx: Justifications for Admission: Justification of Admission Dx: No (leg pain) SHRUTHI HARDWICK MD Aug 22, 2021 17:22
--- NOTE | 2021-08-22 17:28 | NUR ---
Discharge Note: CLARISSE MORENO [facility] [facility] Discharge instructions and discharge home medications reviewed with Patient and a copy given. All questions have been answered and understanding verbalized. The following instructions and handouts were given: med rec, f/u instructions Discontinued lines and drains: dressing clean dry and intact. Patient discharged to home with self care via family
== END 2021-08-22 17:28 | disposition home or self-care (01) | DRG 557 ==
LOC: ER 13:49 → 4 NORTH 17:34 → OBSVTOIN 08-21 14:34
PROVIDERS: ADMIT Internal Medicine; ATTEND Internal Medicine
PROC: 3E0U33Z Introduction of Anti-inflammatory into Joints, Percutaneous Approach (ICD-10-PCS; principal; 2021-08-21)
PROC: 3E0U3BZ Introduction of Anesthetic Agent into Joints, Percutaneous Approach (ICD-10-PCS; 2021-08-21)
DX: M66.0 Rupture of popliteal cyst (principal); N17.0 Acute kidney failure with tubular necrosis; S86.112A Strain of other muscle(s) and tendon(s) of posterior muscle group at lower leg level, left leg, initial encounter; E11.22 Type 2 diabetes mellitus with diabetic chronic kidney disease; E78.00 Pure hypercholesterolemia, unspecified; E78.5 Hyperlipidemia, unspecified; G62.9 Polyneuropathy, unspecified; I12.9 Hypertensive chronic kidney disease with stage 1 through stage 4 chronic kidney disease, or unspecified chronic kidney disease; I25.10 Atherosclerotic heart disease of native coronary artery without angina pectoris; J44.9 Chronic obstructive pulmonary disease, unspecified; M06.9 Rheumatoid arthritis, unspecified; M16.11 Unilateral primary osteoarthritis, right hip; N18.9 Chronic kidney disease, unspecified; Z82.5 Family history of asthma and other chronic lower respiratory diseases; Z85.038 Personal history of other malignant neoplasm of large intestine; Z85.118 Personal history of other malignant neoplasm of bronchus and lung; Z87.891 Personal history of nicotine dependence; Z92.3 Personal history of irradiation; D63.1 Anemia in chronic kidney disease
CPT/HCPCS: 20610; 36415; 77002; 80048; 80053; 82962; 83540; 83550; 83880; 84484; 85025; 85610; 85730; 93926; 93971; 94640; 94760; G0378; G0379; J1644; J1815; J3301; J3490; Q9967; 97116-GP; 97535-GO; 99285-25; J7626

== ENCOUNTER → 2021-08-20 | Outpatient (CLI) | payer MEDICARE, BC ==
[2021-08-05 17:30] VITALS: BP 142/66
[~2021-08-20] MED LIST changes: +BUPIVACAINE MPF 0.5% 10 ML VIAL. INT ART ONE; +CYCL10TA19 PO; -CYCL10TA2 PO; +DICL20GE TP; +IOHEXOL 300 MG/ML 50 ML VIAL. INT ART ONE; +LIDOCAINE 1% Multi-Dose 20 ML VIAL. ID ONE; +TRIAMCINOLONE ACETONIDE 40 MG/ML VIAL. INT ART ONE
--- NOTE | 2021-08-20 16:08 | KCIC ---
EXAM: FLUOROSCOPY GUIDED HIP ARTHROGRAM History: Right hip pain TECHNIQUE: Consent: An informed consent was obtained from the patient prior to the procedure. Appropriate time out procedures were performed. The skin was prepped and draped in the usual fashion under aseptic precautions. 1% lidocaine was util ized for local anesthesia. Under fluoroscopic guidance a 22 gauge long spinal needle was used to access the hip joint. 2 mls of iodinated contrast injected under fluoroscopic guidance to confirm intra-articular needle pl acement. 40 mg of Kenalog and 2 mL bupivacaine were subsequently injected. No immediate complications. IMPRESSION: Technically successful fluoroscopic-guided right hip steroid joint injection. Total fluoroscopic time 23 seconds. Total fluoroscopic image 1 Electronically signed by: Bonilla Chairez MD (08/20/2021 4:06 PM) [id number]
== END | disposition home or self-care (01) ==
LOC: KCIC 12:56
PROVIDERS: ATTEND Orthopaedic Surgery
DX: M16.11 Unilateral primary osteoarthritis, right hip (principal); M25.551 Pain in right hip; I25.10 Atherosclerotic heart disease of native coronary artery without angina pectoris; I10 Essential (primary) hypertension; E78.00 Pure hypercholesterolemia, unspecified; E11.9 Type 2 diabetes mellitus without complications; J44.9 Chronic obstructive pulmonary disease, unspecified; G47.30 Sleep apnea, unspecified; Z87.891 Personal history of nicotine dependence; Z79.899 Other long term (current) drug therapy; Z98.890 Other specified postprocedural states
CPT/HCPCS: 20610; 77002; J3301; J3490; Q9967

== ENCOUNTER → 2022-04-02 | Outpatient (CLI) | payer MEDICARE, BC ==
[~2022-04-02] MED LIST changes: +BUPIVACAINE MPF 0.25% 10 ML VIAL. ONE; +CYCL10TA19 PO; -CYCL10TA2 PO; +DEXAMETHASONE PRES.FREE 10 MG/ML VIAL. ONE; +IOHEXOL 180 MG/ML 10 ML VIAL. ONE
--- NOTE | 2022-04-02 11:42 | PDOC1 ---
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 Patient reports is much worse with walking standing changing positions putting his weight on his right leg such as with a step or stair with rated pain rating to the right groin as well with walking and standing. Patient reports is much worse with getting up out of a seated position also awakens him from sleep about once every 2-3 hours patient reports it does not affect his bowel bladder control but does affect ability walk using a cane in his left hand ambulate. Patient reports she has had some physical therapy in the distant past has been doing some stretching and strength exercises currently also takes ov [id number] analgesics such as Motrin and Tylenol but without significant reduction in pain. PAST MEDICAL HISTORY: PMH: Diverticulitis, arthritis, COPD, hypertension, diabetes type 2, hearing loss, cataracts, enlarged prostate PREVIOUS SURGERIES: Past Surgical Hx: Bilateral hernia repair, colon surgery with resection CURRENT MEDICATIONS: Current Meds: Active Scripts Medications Dose Route/Sig Max Daily Dose Days Date Category Albuterol Sulfate Neb Soln (Albuterol Sulfate) 2.5 Mg/3 Ml Vial.neb 1 Vial NEB PRN Q4HRS 09/03/19 Rx Pantoprazole Sodium (Pantoprazole Sodium) 40 Mg Tablet.dr 40 Mg PO DAILYAC 30 09/03/19 Rx Simvastatin 20 Mg Tablet 1 Tab PO QHS 30 08/28/19 Rx Zolpidem Tartrate 10 Mg Tablet 10 Mg PO PRN QHS PRN 30 08/28/19 Rx Trelegy Ellipta 100-62.5-25 (Fluticasone/Umeclidin/Vilanter) 1 Each Blst.w.dev 1 Each IH BID 05/09/19 Reported Flomax (Tamsulosin Hcl) 0.4 Mg Cap.er.24h 0.4 Mg PO DAILY 01/26/19 Reported Novolog Flexpen (Insulin Aspart) 100 Unit/1 Ml Insuln.pen 1 Unit SQ TIDAC SLIDING SCALE 06/08/18 Reported Klor-Con M20 (Potassium Chloride) 20 Meq Tab.er.prt 20 Meq PO DAILY 01/05/18 Reported Lasix (Furosemide) 40 Mg Tablet 40 Mg PO DAILY 01/05/18 Reported Isosorbide Mononitrate Er (Isosorbide Mononitrate) 30 Mg Tab.er.24h 30 Mg PO DAILY 01/05/18 Reported Coreg (Carvedilol) 12.5 Mg Tablet 12.5 Mg PO BIDWMEALS 01/05/18 Reported Norvasc (Amlodipine Besylate) 5 Mg Tablet 5 Mg PO DAILY 01/05/18 Reported Levemir (Insulin Detemir) 100 Unit/1 Ml Vial 18 Unit SQ HS 08/23/17 Reported Hydralazine Hcl 50 Mg Tablet 50 Mg PO BID 03/16/16 Reported Proair Hfa Inhaler (Albuterol Sulfate) 8.5 Gm Hfa.aer.ad 2 Puff IH PRN Q4-6HRS 04/20/15 Rx ALLERGIES; Allergies: Coded Allergies: No Known Drug Allergies (Unverified , 08/28/19) FAMILY HISTORY: Family Hx: Cancer, diabetes, COPD, arthritis SOCIAL HISTORY: Social Hx: Patient does not drink alcohol does not smoke does not use any illegal illicit recreational drugs is a , and lives locally in [facility] REVIEW OF SYSTEMS: ROS: Positive for those items mentioned in history of present illness, all systems are reviewed, otherwise negative ,and are complete full and well-documented on patient's chart. PHYSICAL EXAM: VS: Blood pressure is 123/63 pulse 81 respirations 18 temperature is 98.2 F height is 5 feet 6 inches and weighs 166 pounds. PE: PHYSICAL EXAMINATION: GENERAL: The patient is awake, alert, oriented, appropriate, very pleasant in demeanor HEENT: Shows normocephalic, atraumatic. Extraocular movements are intact and symmetrical. Oral cavity: Mucous membranes moist and pink. NECK: Shows anterior throat supple without palpable lymphadenopathy noted. Swallow reflex symmetrical. CHEST: Shows normal on inspection. Breath sounds are clear bilaterally, very distant with some minor expiratory wheezes but no rales or rhonchi auscultated. HEART: Shows S1, S2 clear. No murmurs auscultated. ABDOMEN: Soft, nontender, nondistended. No palpable organomegaly is noted. BACK: Shows spine grossly in the midline. Normal-appearing cervical lordotic curvature. There is slightly increased thoracic kyphosis, some minor flattening of the lumbar lordotic curvature. Lumbar paraspinous muscles show symmetrical on inspection, on palpation shows some moderate tenderness diffusely throughout the upper, middle and lower distribution of the paraspinous muscles bilaterally and also into the lower thoracic paraspinous musculature, firm and tender, but without specific trigger points, without radiation of pain. The patient has good rotational motion of the lumbar spine, both laterally as well as extension and flexion without significant difficulty. No tenderness over the spinous processes, sacrum or sacroiliac regions. EXTREMITIES: Lower extremities show deep tendon reflexes 1+ in the patellar and tendo calcaneus tendons. Motor exam is 4 on a scale of 5 with right dorsiflex ion, extension, quadriceps and hamstring flexion and 5/5 on the left. Peripheral pulses are 1 posterior tibial. No peripheral edema is noted bilaterally. Lower extremities are warm and dry. Right hip shows significant tenderness with external rotation and posterior displacement with a positive Merlin's test left side is negative. SKIN: Shows warm and dry, good turgor. No edema. No sores, rashes or bruising throughout. IMPRESSION: Impression: 81-year-old male with approximate 2-year history of pain right hip with weightbearing standing walking etc. Plain films hips as noted COPD Arthritis Diabetes Plan: Options were discussed with patient including serve medical management physical therapies interventional techniques. Patient would like proceed visual techniques. We discussed a right intra-articular hip joint injections description as well as anatomical models to describe the procedure. Risk discussed including not limited to bleeding infection possibility of injection sequelae spread local anesthetic numbness side effects steroid medication exposure fluoroscopy and portals regarding pain control. Patient understands wished to proceed. Patient return to the clinic in approximately 2 months for follow-up, was counseled as to return appointment, activity level, and side effects to be aware of. Under sterile prep and drape patient in supine position patient's right hip was visualized using C-arm fluoroscopic guidance. Using 1% lidocaine area lateral to the hip joint was anesthetized and using direct fluoroscopic vision 22-gauge 5 inch Quincke needle with stylette was then advanced under direct fluoroscopic guidance into the right intra-articular hip joint. 3 cc of contrast was used to show good spread within the hip joint itself and without washout or uptake. At this time, 3 cc 0.25% bupivacaine and 20 mg dexamethasone was then injected into the hip joint. Needle was withdrawn and sterile bandage was applied. Patient tolerated procedure well and had no complications. DEUCE IZAGUIRRE MD April 02, 2022 11:42
--- NOTE | 2022-04-02 11:43 | PDOC4 ---
Procedure Note: ICD 10 Code: ICD 10 Code: M2 5.551 M16.11 Procedure Note: Patient was consented for right intra-articular hip joint injection with fluoroscopic guidance. Risk were discussed including not limited to bleeding infection possibility of intravascular injection sequelae spread local anesthetic numbness side effects steroid medication and exposure to fluoroscopy regarding pain control. Patient understands wished to proceed. Under sterile prep and drape patient in supine position patient's right hip was visualized using C-arm fluoroscopic guidance. Using 1% lidocaine area lateral to the hip joint was anesthetized and using direct fluoroscopic vision 22-gauge 5 inch Quincke needle with stylette was then advanced under direct fluoroscopic guidance into the right intra-articular hip joint. 3 cc of contrast was used to show good spread within the hip joint itself and without washout or uptake. At this time, 3 cc 0.25% bupivacaine and 20 mg dexamethasone was then injected into the hip joint. Needle was withdrawn and sterile bandage was applied. Patient tolerated procedure well and had no complications. DEUCE IZAGUIRRE MD April 02, 2022 11:43
== END | disposition home or self-care (01) ==
LOC: PNCL 09:04
PROVIDERS: ATTEND Anesthesiology
DX: M16.11 Unilateral primary osteoarthritis, right hip (principal); J44.9 Chronic obstructive pulmonary disease, unspecified; I10 Essential (primary) hypertension; E11.9 Type 2 diabetes mellitus without complications; N40.0 Benign prostatic hyperplasia without lower urinary tract symptoms; E78.00 Pure hypercholesterolemia, unspecified; I25.10 Atherosclerotic heart disease of native coronary artery without angina pectoris; G47.30 Sleep apnea, unspecified; Z87.891 Personal history of nicotine dependence; Z79.899 Other long term (current) drug therapy; Z98.890 Other specified postprocedural states
CPT/HCPCS: 20610; 77002; G0463; J1100; J3490; Q9965